=== PATIENT | female | born 1985 | race Caucasian/White ===

== ENCOUNTER 2017-05-16 21:33 | Emergency (ER) | payer MEDICAID ==
[2017-05-16 22:12] VITALS: BP 148/96
[2017-05-16] MEDS ORDERED: Ondansetron 4 MG/2 ML SDV IVPUSH ONE (23:02)
[2017-05-16] MEDS ORDERED: HYDROmorphone 1 MG/ML Syringe IVPUSH ONE (23:03)
--- NOTE | 2017-05-16 23:12 | EDM.PDOC ---
<Elena Frey - Last Filed: 05/16/17 23:23> ED HPI GENERAL MEDICAL PROBLEM - General Chief Complaint: Abdominal Pain Stated Complaint: HERNIA Time Seen by Provider: 05/16/17 22:40 Source of Information: Reports: Patient History Limitations: Reports: No Limitations - History of Present Illness INITIAL COMMENTS - FREE TEXT/NARRATIVE: Keisha presents today with worsening of abdominal pain and states abdominal hernia has become larger and more painful (sharp) with radiation of pain to flank areas. Patient reports she is visiting from [place], being evaluated at [facility] and is scheduled for hernia repair on 05/29/2017. She reports she was told hernia was fatty tissue only, not intestinal. Onset Date: 05/15/17 Duration: Day(s): Location: Reports: Abdomen Improves with: Reports: Rest Worsens with: Reports: Movement Associated Symptoms: Reports: Fever/Chills, Nausea/Vomiting. 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 ) abdomen Pain Score (Numeric/FACES): 8 - Related Data Allergies Allergy/AdvReac Type Severity Reaction Status Date / Time amoxicillin Allergy Anaphylactic Verified 05/16/17 22:16 Shock atomoxetine HCl Allergy Anxiety Verified 05/16/17 22:16 [From Strattera] cephalexin monohydrate Allergy Dizziness Verified 05/16/17 22:16 [From Keflex] ketorolac tromethamine Allergy Rash Verified 05/16/17 22:16 [From Toradol] latex Allergy Rash Verified 05/16/17 22:16 Latex, Natural Rubber Allergy Rash Verified 05/16/17 22:16 promethazine HCl Allergy Anaphylactic Verified 05/16/17 22:16 [From Phenergan] Shock quetiapine fumarate Allergy Irritabilit Verified 05/16/17 22:16 [From Seroquel] y risperidone [From Risperdal] Allergy Anaphylactic Verified 05/16/17 22:16 Shock tramadol HCl [From Ultram] Allergy Hives Verified 05/16/17 22:16 trazodone Allergy Dizziness Verified 05/16/17 22:16 varenicline tartrate Allergy Anxiety Verified 05/16/17 22:16 [From Chantix] zolpidem tartrate Allergy Anxiety Verified 05/16/17 22:16 [From Edsonien] Home Meds: Home Meds Albuterol Sulfate [Albuterol Sulfate] 3 ml PO TID 03/01/16 [History] Albuterol [Ventolin HFA] 2 puff PO QID PRN 03/01/16 [History] Ibuprofen 600 mg PO TID PRN 03/01/16 [History] Ipratropium [place] [Ipratropium [place]] 2.5 ml PO Q6HR PRN 03/01/16 [History] Lisdexamfetamine [Vyvanse] 30 mg PO DAILY 03/01/16 [History] Prazosin HCl [Prazosin] 3 mg PO BEDTIME 03/01/16 [History] Prazosin HCl [Prazosin] 2 mg PO DAILY 05/16/17 [History] Past Medical History HEENT History: Reports: Impaired Vision, Otitis Media Other HEENT History: Bilateral tympanic membrane rupture. tonsillectomy Cardiovascular History: Reports: Other (See Below) Other Cardiovascular History: Heat palpatations Respiratory History: Reports: Asthma, Bronchitis, Recurrent, Pneumonia, Recurrent, Sleep Apnea, SOB Gastrointestinal History: Reports: Gastritis, GERD Genitourinary History: Reports: Renal Calculus, UTI, Recurrent UROGYNAECOLOGIST History: Reports: Other OB/BYN History: Hysterectomy with right oophrectomy Musculoskeletal History: Reports: Fibromyalgia, RA Other Musculoskeletal History: fibromyalgia. rheumatoid arthritis Neurological History: Reports: Migraines Psychiatric History: Reports: ADHD, Anxiety, Depression, PTSD, Other (See Below) Other Psychiatric History: Schizo effective disorder Endocrine/Metabolic History: Reports: Hyperthyroidism Hematologic History: Reports: None Immunologic History: Reports: None Oncologic (Cancer) History: Reports: Cervix Dermatologic History: Reports: Eczema - Infectious Disease History Infectious Disease History: Reports: Chicken Pox - Past Surgical History HEENT Surgical History: Reports: Myringotomy w Tube(s), Oral Surgery, Tonsillectomy Cardiovascular Surgical History: Reports: None Respiratory Surgical History: Reports: None GI Surgical History: Reports: Appendectomy, Cholecystectomy Female Surgical History: Reports: Hysterectomy Endocrine Surgical History: Reports: None Neurological Surgical History: Reports: None Musculoskeletal Surgical History: Reports: Other (See Below) Other Musculoskeletal Surgeries/Procedures:: Left ankle ORIF with hardware Social & Family History - Family History Cardiac: Reports: Heart Murmur Respiratory: Reports: COPD Psychiatric: Reports: Depression, Schizophrenia - Tobacco Use Smoking Status *Q: Current Every Day Smoker Years of Tobacco use: 21 Packs/Tins Daily: 0.5 - Caffeine Use Caffeine Use: Reports: Coffee, Tea - Recreational Drug Use Recreational Drug Use: No ED ROS GENERAL - Review of Systems Review Of Systems: See Below Constitutional: Reports: Fever. Denies: Chills, Malaise, Diaphoresis HEENT: Reports: No Symptoms Respiratory: Denies: Shortness of Breath, Wheezing, Cough, Sputum Cardiovascular: Reports: Edema. Denies: Chest Pain, Dyspnea on Exertion, Palpitations, PND, Syncope Endocrine: Reports: No Symptoms GI/Abdominal: Reports: Abdominal Pain, Distension, Nausea, Other (Complains of abdominal hernia becoming larger. She reports she helped her her father set the table by going down and up stairs carrying dishes and now has worsening of pain. Last BM today, soft, formed without difficulty. ). Denies: Black Stool, Bloody Stool, Constipation, Diarrhea, Vomiting : Reports: Flank Pain. Denies: Discharge, Dysuria, Frequency, Urgency, Urinary Retention Musculoskeletal: Reports: No Symptoms Skin: Denies: Pruritis, Rash, Erythema, Wound, Lesions Neurological: Reports: No Symptoms Psychiatric: Reports: No Symptoms Hematologic/Lymphatic: Reports: No Symptoms Immunologic: Reports: No Symptoms ED EXAM, GI/ABD - Physical Exam Exam: See Below Text/Narrative:: Patient is 32 year old female with acute on chronic abdominal pain at site of known hernia and scheduled repair on 05/29/17. Exam Limited By: No Limitations General Appearance: Alert, WD/WN, Moderate Distress Eyes: Bilateral: Normal Appearance Ears: Normal External Exam, Normal Canal, Hearing Grossly Normal, Normal TMs Nose: Normal Inspection, Normal Mucosa, No Blood Throat/Mouth: Normal Inspection, Normal Lips, Normal Teeth, Normal Gums, Normal Oropharynx, Normal Voice, No Airway Compromise Head: Atraumatic, Normocephalic Neck: Normal Inspection, Supple, Non-Tender, Full Range of Motion. No: Lymphadenopathy (R), Lymphadenopathy (L) Respiratory/Chest: No Respiratory Distress, Lungs Clear, Normal Breath Sounds, No Accessory Muscle Use, Chest Non-Tender Cardiovascular: Normal Peripheral Pulses, Regular Rate, Rhythm, No Gallop, No Murmur, No Rub, Other (trace to 1+ edema bilateral feet/ankles. ) GI/Abdominal: Normal Bowel Sounds, Soft, Tenderness, Distention, Hernia, Other ( distortion/distention to mid-abdomen/ventral area with standing size of softball. No pulsations noted. ). No: McBurney's Sign, Denton's Sign Back Exam: Full Range of Motion, CVA Tenderness (R), CVA Tenderness (L) Extremities: Normal Inspection, Normal Range of Motion, Non-Tender, Normal Capillary Refill, Other (trace/1+ edema bilateral ankles/feet. ) Neurological: Alert, Oriented, CN II-XII Intact, Normal Cognition, Normal Gait, No Motor/Sensory Deficits Psychiatric: Normal Affect, Normal Mood Skin Exam: Warm, Dry, Intact, Normal Color, No Rash Lymphatic: No Adenopathy Course - Vital Signs Last Recorded V/S: Last Vital Signs Temp 35.7 C 05/16/17 22:11 Pulse 90 05/16/17 22:11 Resp 18 05/16/17 22:11 BP 148/96 H 05/16/17 22:11 Pulse Ox 94 L 05/16/17 22:11 - Orders/Labs/Meds Orders: Active Orders 24 hr Category Date Time Status Abdomen Pelvis w Cont [CT] Stat Exams 05/16/17 23:03 Taken Iopamidol [Isovue-300 (61%)] Med 05/16/17 23:30 Active 150 ml IV . DIRECTED Sodium Chloride 0.9% [Normal Saline] 1,000 ml Med 05/16/17 23:15 Active IV ASDIRECTED Sodium Chloride 0.9% [Normal Saline] 80 ml Med 05/16/17 23:30 Active IV ASDIRECTED Sodium Chloride 0.9% [Saline Flush] Med 05/16/17 23:02 Active 10 ml FLUSH ASDIRECTED PRN Saline Lock Insert [OM.PC] Routine Oth 05/16/17 23:02 Ordered Medication Orders Sodium Chloride (Normal Saline) 1,000 mls @ 250 mls/hr IV ASDIRECTED APOLINAR Last Admin: 05/17/17 00:22 Dose: 250 mls/hr Sodium Chloride (Normal Saline) 80 mls @ 3 mls/sec IV ASDIRECTED APOLINAR Last Admin: 05/17/17 00:01 Dose: 3.5 mls/sec Iopamidol (Isovue-300 (61%)) 150 ml IV . DIRECTED APOLINAR Last Admin: 05/17/17 00:01 Dose: 150 ml Sodium Chloride (Saline Flush) 10 ml FLUSH ASDIRECTED PRN PRN Reason: Keep Vein Open Last Admin: 05/17/17 00:42 Dose: 10 ml Admin: 05/17/17 00:00 Dose: 10 ml Admin: 05/16/17 23:40 Dose: 10 ml Labs: Laboratory Tests 05/16/17 05/16/17 05/16/17 Range/Units 23:01 23:01 23:01 WBC 10.7 (4.5-11.0) K/uL RBC 5.27 (3.30-5.50) M/uL Hgb 13.7 (12.0-15.0) g/dL Hct 40.8 (36.0-48.0) % MCV 77 L (80-98) fL MCH 26 L (27-31) pg MCHC 34 (32-36) % Plt Count 196 (150-400) K/uL Neut % (Auto) 68 H (36-66) % Lymph % (Auto) 22 L (24-44) % [place] % (Auto) 8 H (2-6) % Eos % (Auto) 2 (2-4) % Baso % (Auto) 0 (0-1) % Sodium 139 L (140-148) mmol/L Potassium 4.0 (3.6-5.2) mmol/L Chloride 103 (100-108) mmol/L Carbon Dioxide 26 (21-32) mmol/L Anion Gap 14.0 (5.0-14.0) mmol/L BUN 11 (7-18) mg/dL Creatinine 0.7 (0.6-1.0) mg/dL Est Cr Clr Drug Dosing 97.79 mL/min Estimated GFR (MDRD) > 60 (>60) Glucose 112 H (74-106) mg/dL Calcium 8.9 (8.5-10.1) mg/dL Total Bilirubin 0.3 (0.2-1.0) mg/dL AST 11 L (15-37) U/L ALT 25 (12-78) U/L Alkaline Phosphatase 72 (46-116) U/L Total Protein 7.1 (6.4-8.2) g/dL Albumin 3.4 (3.4-5.0) g/dL Globulin 3.7 H (2.3-3.5) g/dL Albumin/Globulin Ratio 0.9 L (1.2-2.2) Urine Color Yellow Urine Appearance Clear Urine pH 5.0 (4.5-8.0) Ur Specific [place] 1.020 (1.008-1.030) Urine Protein Negative (NEGATIVE) mg/dL Urine Glucose (UA) Normal (NEGATIVE) mg/dL Urine Ketones Negative (NEGATIVE) mg/dL Urine Occult Blood Negative (NEGATIVE) Urine Nitrite Negative (NEGATIVE) Urine Bilirubin Negative (NEGATIVE) Urine Urobilinogen 1 (NORMAL) mg/dL Ur Leukocyte Esterase Negative (NEGATIVE) Urine RBC 0-5 (0-5) Urine WBC 0-5 (0-5) Ur Epithelial Cells Few Amorphous Sediment Not seen Urine Bacteria Moderate Urine Mucus Not seen Meds: Medications Generic Name Dose Route Start Last Admin Trade Name Freq PRN Reason Stop Dose Admin Sodium Chloride 1,000 mls @ 250 mls/hr 05/16/17 23:15 05/17/17 00:22 Normal Saline IV 250 mls/hr ASDIRECTED APOLINAR Administration Sodium Chloride 80 mls @ 3 mls/sec 05/16/17 23:30 05/17/17 00:01 Normal Saline IV 3.5 mls/sec ASDIRECTED APOLINAR Administration Iopamidol 150 ml 05/16/17 23:30 05/17/17 00:01 Isovue-300 (61%) IV 150 ml . DIRECTED APOLINAR Administration Sodium Chloride 10 ml 05/16/17 23:02 05/17/17 00:42 Saline Flush FLUSH 10 ml ASDIRECTED PRN Administration Keep Vein Open Discontinued Medications Generic Name Dose Route Start Last Admin Trade Name Freq PRN Reason Stop Dose Admin Hydromorphone HCl 1 mg 05/16/17 23:03 05/16/17 23:36 Dilaudid IVPUSH 05/16/17 23:04 1 mg ONETIME ONE Administration Hydromorphone HCl 0.5 mg 05/17/17 00:27 05/17/17 00:42 Dilaudid IVPUSH 05/17/17 00:28 0.5 mg ONETIME ONE Administration Ondansetron HCl 4 mg 05/16/17 23:02 05/16/17 23:36 Zofran IVPUSH 06/30/17 23:03 4 mg ONETIME ONE Administration - Re-Assessments/Exams Free Text/Narrative Re-Assessment/Exam: 05/16/17 23:[address] Lanier on patient assessment and status. She assumes care. Departure - Departure Disposition: Home, Self-Care 01 Clinical Impression: Ventral hernia - Discharge Information Referrals: PCP,None [Primary Care Provider] - Forms: ED Department Discharge Care Plan Goals: pt has a ventral hernia with fat in the hernia with inflamation, --percocet 5/ 325 q6h prn for pain. If pt is still quite uncomfortable tomorrow she needs to go to [place] where she wants to have her surgery to be evaluated as to whether they may want to do her surgery earlier/ At that time the 2 cat scans can be compared. Rtc in the nite if her pain should get alot worse. Use prunes and stool softner to prevent constipation <Nancy Lanier - Last Filed: 05/17/17 01:08> Course - Re-Assessments/Exams Free Text/Narrative Re-Assessment/Exam: 05/17/17 00:54 cat scan showed fat caught up in the hernia with some induration. She plans to have surgery in [place] with Dr Anthony. on the 29 of May. because of the increased pain and the fact that the fat looks inflamed I feel she should be accessed by the surgeon in [place] tomorrow. a copy of her lab work and a copy of the cat scan will be put on disc to go with the pt. 05/17/17 00:58 Departure - Departure Time of Disposition: 01:03 Condition: Fair
[2017-05-16] MEDS ORDERED: Sodium Chloride 0.9% 1,000 ML IV SCH (23:15)
[2017-05-16] MEDS ORDERED: Iopamidol 612 MG/ML 150 ML Bottle IV SCH (23:30)
[2017-05-16] MEDS ORDERED: Sodium Chloride 0.9% 80 ML IV SCH (23:30)
[2017-05-16] MEDS: Sodium Chloride 0.9% 10 ML Syringe FLUSH PRN (23:40)
[2017-05-17] MEDS ORDERED: HYDROmorphone 0.5 MG/0.5 ML Syringe IVPUSH ONE (00:27)
[2017-05-17] MEDS: Sodium Chloride 0.9% 10 ML Syringe FLUSH PRN ×2 (00:42)
[2017-05-17] MEDS ORDERED: Acetaminophen/oxyCODONE 325-5 MG Tab PO ONE (01:11)
== END 2017-05-17 01:35 | disposition home or self-care (01) ==
LOC: JP.ED 21:33
DX: K43.9 Ventral hernia without obstruction or gangrene (principal); J45.909 Unspecified asthma, uncomplicated; K21.9 Gastro-esophageal reflux disease without esophagitis; F41.9 Anxiety disorder, unspecified; F32.9 Major depressive disorder, single episode, unspecified; F25.9 Schizoaffective disorder, unspecified; F17.210 Nicotine dependence, cigarettes, uncomplicated; Z88.1 Allergy status to other antibiotic agents; Z88.5 Allergy status to narcotic agent; Z88.8 Allergy status to other drugs, medicaments and biological substances; Z91.040 Latex allergy status; Z79.899 Other long term (current) drug therapy; Z87.440 Personal history of urinary (tract) infections; Z87.442 Personal history of urinary calculi; Z90.710 Acquired absence of both cervix and uterus; Z90.721 Acquired absence of ovaries, unilateral; Z85.41 Personal history of malignant neoplasm of cervix uteri; Z96.22 Myringotomy tube(s) status; Z90.49 Acquired absence of other specified parts of digestive tract; Z98.890 Other specified postprocedural states
CPT/HCPCS: 36415; 74177; 80053; 81001; 85025; 96361; 96374; 96375; 96376; 99284; A9270; J1170; J2405; J7030; J7040; J7050

== ENCOUNTER 2019-01-01 12:57 | Observation (INO) | payer MEDICAID ==
[2019-01-01] MEDS ORDERED: HYDROmorphone 0.5 MG/0.5 ML Syringe IVPUSH ONE (13:44)
[2019-01-01] MEDS ORDERED: Ondansetron 4 MG/2 ML SDV IVPUSH ONE ×2 (13:44→14:01)
[2019-01-01] MEDS ORDERED: Sodium Chloride 0.9% 1,000 ML IV SCH ×2 (13:45→16:15)
--- NOTE | 2019-01-01 13:48 | EDM.PDOC ---
ED HPI GENERAL MEDICAL PROBLEM - General Chief Complaint: Abdominal Pain Stated Complaint: stomach and back pain Time Seen by Provider: 01/01/19 13:46 Source of Information: Reports: Patient, Other ( records from the clinic. ) - History of Present Illness Duration: Hour(s): Location: Reports: Abdomen, Other ( Pt is having upper abdomanal pain in mid upper abdoman. ) Associated Symptoms: Reports: Loss of Appetite, Nausea/Vomiting Abdominal Pain Score (Numeric/FACES): 9 - Related Data Allergies Allergy/AdvReac Type Severity Reaction Status Date / Time amoxicillin Allergy Anaphylactic Verified 01/01/19 13:43 Shock ketorolac tromethamine Allergy Rash Verified 01/01/19 13:43 [From Toradol] latex Allergy Rash Verified 01/01/19 13:43 Latex, Natural Rubber Allergy Rash Verified 01/01/19 13:43 promethazine HCl Allergy Anaphylactic Verified 01/01/19 13:43 [From Phenergan] Shock risperidone [From Risperdal] Allergy Anaphylactic Verified 01/01/19 13:43 Shock tramadol HCl [From Ultram] Allergy Hives Verified 01/01/19 13:43 trazodone Allergy Dizziness Verified 01/01/19 13:43 atomoxetine HCl AdvReac Anxiety Verified 01/01/19 13:43 [From Strattera] cephalexin monohydrate AdvReac Dizziness Verified 01/01/19 13:43 [From Keflex] quetiapine fumarate AdvReac Irritabilit Verified 01/01/19 13:43 [From Seroquel] y zolpidem tartrate AdvReac Anxiety Verified 01/01/19 13:43 [From Ambien] Home Meds: Home Meds Albuterol Sulfate 3 ml PO TID 03/01/16 [History] Albuterol [Ventolin HFA] 2 puff PO QID PRN 03/01/16 [History] Ipratropium [place] 2.5 ml PO Q6HR PRN 03/01/16 [History] Lisdexamfetamine [Vyvanse] 60 mg PO DAILY 03/01/16 [History] Prazosin HCl [Prazosin] 2 mg PO DAILY 05/16/17 [History] Cetirizine HCl [Zyrtec] 10 mg PO DAILY 09/19/18 [History] Cholecalciferol (Vitamin D3) [Vitamin D3] 2,000 units PO DAILY 09/19/18 [History ] DULoxetine [Cymbalta] 120 mg PO DAILY 09/19/18 [History] Ferrous Sulfate [Feosol] 325 mg PO DAILY 09/19/18 [History] Fluticasone Propionate [Flovent HFA 110 MCG] 1 puff INH BID 09/19/18 [History] Melatonin/Pyridoxine HCl (B6) [Melatonin 3 mg Tablet] 9 mg PO BEDTIME 09/19/18 [ History] Methimazole [Tapazole] 10 mg PO DAILY 09/19/18 [History] Metoprolol Tartrate [Lopressor] 25 mg PO BID 09/19/18 [History] Omeprazole 40 mg PO DAILY 09/19/18 [History] Ondansetron [Zofran ODT] 4 mg PO Q8H PRN 09/19/18 [History] Polyethylene Glycol 3350 [MiraLAX] 17 gm PO DAILY PRN 09/19/18 [History] Prazosin [Minpress] 10 mg PO BEDTIME 09/19/18 [History] Vit #76/Iron,Carb/Fa [Prenatabs Rx] 1 tab PO DAILY 09/19/18 [History] Sennosides [Senna] 8.6 mg PO DAILY 09/19/18 [History] Sodium Chloride [Saline Nasal Mist] 2 sprays TOM QID 09/19/18 [History] Varenicline [Chantix] 1 mg PO BID 09/19/18 [History] clonazePAM [Clonazepam] 0.5 tab PO BID PRN 09/19/18 [History] lamoTRIgine [Lamictal] 1.5 tab PO DAILY 09/19/18 [History] metroNIDAZOLE [metroNIDAZOLE 0.75% Gel] 1 applic TOP BID 09/19/18 [History] rOPINIRole [Requip] 1 mg PO DAILY 09/19/18 [History] tiZANidine HCl [Tizanidine HCl] 4 mg PO Q6H PRN 09/19/18 [History] Past Medical History HEENT History: Reports: Impaired Vision, Otitis Media Other HEENT History: Bilateral tympanic membrane rupture. tonsillectomy. 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 rheumatoid arthritis Neurological History: Reports: Migraines Psychiatric History: Reports: ADHD, Anxiety, Depression, PTSD, Other (See Below) Other Psychiatric History: Schizo effective disorder Endocrine/Metabolic History: Reports: Hyperthyroidism Hematologic History: Reports: None Immunologic History: Reports: None Oncologic (Cancer) History: Reports: Cervix Dermatologic History: Reports: Eczema - Infectious Disease History Infectious Disease History: Reports: Chicken Pox - Past Surgical History HEENT Surgical History: Reports: Myringotomy w Tube(s), Oral Surgery, Tonsillectomy Cardiovascular Surgical History: Reports: None Respiratory Surgical History: Reports: None GI Surgical History: Reports: Appendectomy, Cholecystectomy, Hernia Repair/Other Female Surgical History: Reports: Hysterectomy Endocrine Surgical History: Reports: None Neurological Surgical History: Reports: None Musculoskeletal Surgical History: Reports: Other (See Below) Other Musculoskeletal Surgeries/Procedures:: Left ankle ORIF with hardware Social & Family History - Family History Cardiac: Reports: Heart Murmur Respiratory: Reports: COPD Psychiatric: Reports: Depression, Schizophrenia - Tobacco Use Smoking Status *Q: Former Smoker Used Tobacco, but Quit: Yes Month/Year Tobacco Last Used: 06/2018 - Caffeine Use Caffeine Use: Reports: Coffee - Recreational Drug Use Recreational Drug Use: No ED ROS GENERAL - Review of Systems Review Of Systems: See Below Constitutional: Reports: Weakness, Decreased Appetite HEENT: Reports: No Symptoms Respiratory: Reports: No Symptoms Cardiovascular: Reports: No Symptoms Endocrine: Reports: No Symptoms GI/Abdominal: Reports: Abdominal Pain, Other (pt has upper abdomanal pain radiaring to her back. ) : Reports: No Symptoms Musculoskeletal: Reports: No Symptoms Skin: Reports: No Symptoms ED EXAM, GI/ABD - Physical Exam Exam: See Below Text/Narrative:: pt arrived with mid abdomanal pain. She is nauseated but has not been vomiting. She did not have a bm today. Exam Limited By: No Limitations General Appearance: Alert, Anxious, Mild Distress Eyes: Bilateral: Normal Appearance, EOMI Ears: Normal TMs Nose: Normal Inspection Throat/Mouth: Normal Inspection Head: Atraumatic Neck: Normal Inspection Respiratory/Chest: No Respiratory Distress Cardiovascular: Regular Rate, Rhythm GI/Abdominal Exam: Other ( tender above the umbilius, slightly guarded. ) (Female) Exam: Deferred Rectal (Female) Exam: Deferred Back Exam: Normal Inspection Extremities: Normal Inspection Neurological: Alert, Oriented Psychiatric: Anxious Course - Vital Signs Last Recorded V/S: Last Vital Signs Temp 36.3 C 01/01/19 14:45 Pulse 80 01/01/19 14:45 Resp 13 01/01/19 14:45 BP 137/74 01/01/19 14:45 Pulse Ox 95 01/01/19 14:45 - Orders/Labs/Meds Orders: Active Orders 24 hr Category Date Time Status Iopamidol [Isovue-300 (61%)] Med 01/01/19 15:00 Ordered 150 ml IV . DIRECTED Sodium Chloride 0.9% [Normal Saline] 1,000 ml Med 01/01/19 13:45 Active IV ASDIRECTED Sodium Chloride 0.9% [Normal Saline] 1,000 ml Med 01/01/19 16:15 Ordered IV ASDIRECTED Medication Orders Sodium Chloride (Normal Saline) 1,000 mls @ 999 mls/hr IV ASDIRECTED APOLINAR Last Admin: 01/01/19 14:34 Dose: 999 mls/hr Sodium Chloride (Normal Saline) 1,000 mls @ 999 mls/hr IV ASDIRECTED APOLINAR Iopamidol (Isovue-300 (61%)) 150 ml IV . DIRECTED APOLINAR Last Admin: 01/01/19 15:06 Dose: 150 ml Labs: Laboratory Tests 01/01/19 01/01/19 01/01/19 Range/Units 13:42 13:42 15:07 WBC 11.3 H (4.5-11.0) K/uL RBC 4.94 (3.30-5.50) M/uL Hgb 12.6 (12.0-15.0) g/dL Hct 40.6 (36.0-48.0) % MCV 82 (80-98) fL MCH 26 L (27-31) pg MCHC 31 L (32-36) % Plt Count 233 (150-400) K/uL Neut % (Auto) 71 H (36-66) % Lymph % (Auto) 21 L (24-44) % [place] % (Auto) 6 (2-6) % Eos % (Auto) 2 (2-4) % Baso % (Auto) 0 (0-1) % C-Reactive Protein 4.47 H (0.0-0.3) mg/dL Amylase 27 (25-115) U/L Urine Color Yellow Urine Appearance Clear Urine pH 5.0 (4.5-8.0) Ur Specific [place] 1.020 (1.008-1.030) Urine Protein Negative (NEGATIVE) mg/dL Urine Glucose (UA) Normal (NEGATIVE) mg/dL Urine Ketones Negative (NEGATIVE) mg/dL Urine Occult Blood Negative (NEGATIVE) Urine Nitrite Negative (NEGATIVE) Urine Bilirubin Negative (NEGATIVE) Urine Urobilinogen Normal (NORMAL) mg/dL Ur Leukocyte Esterase Negative (NEGATIVE) Urine RBC Not seen (0-5) Urine WBC 0-5 (0-5) Ur Epithelial Cells Many Amorphous Sediment Not seen Urine Bacteria Not seen Urine Mucus Moderate Meds: Medications Generic Name Dose Route Start Last Admin Trade Name Freq PRN Reason Stop Dose Admin Sodium Chloride 1,000 mls @ 999 mls/hr 01/01/19 13:45 01/01/19 14:34 Normal Saline IV 999 mls/hr ASDIRECTED APOLINAR Administration Sodium Chloride 1,000 mls @ 999 mls/hr 01/01/19 16:15 Normal Saline IV ASDIRECTED APOLINAR Iopamidol 150 ml 01/01/19 15:00 01/01/19 15:06 Isovue-300 (61%) IV 150 ml . DIRECTED APOLINAR Administration Discontinued Medications Generic Name Dose Route Start Last Admin Trade Name Freq PRN Reason Stop Dose Admin Hydromorphone HCl 0.5 mg 01/01/19 13:44 01/01/19 14:31 Dilaudid IVPUSH 01/01/19 13:45 0.5 mg ONETIME ONE Administration Hydromorphone HCl 1 mg 01/01/19 15:17 01/01/19 15:22 Dilaudid IVPUSH 01/01/19 15:18 1 mg ONETIME ONE Administration Hydromorphone HCl 1 mg 01/01/19 16:09 Dilaudid IVPUSH 01/01/19 16:10 ONETIME ONE Prochlorperazine Edisylate 10 52 mls @ 150 mls/hr 01/01/19 14:00 01/01/19 15: 10 mg/ Sodium Chloride IV 01/01/19 14:20 Not Given ONETIME ONE Sodium Chloride 80 mls @ 3 mls/sec 01/01/19 14:59 01/01/19 15:05 Normal Saline IV 01/01/19 15:00 3 mls/sec ONETIME ONE Administration Lorazepam 0.5 mg 01/01/19 14:02 01/01/19 14:28 Ativan IVPUSH 01/01/19 14:03 0.5 mg ONETIME ONE Administration Lorazepam 0.5 mg 01/01/19 16:09 Ativan IVPUSH 01/01/19 16:10 ONETIME ONE Ondansetron HCl 4 mg 01/01/19 13:44 01/01/19 14:25 Zofran IVPUSH 01/01/19 13:45 4 mg ONETIME ONE Administration Ondansetron HCl 4 mg 01/01/19 14:01 Zofran IVPUSH 01/01/19 14:02 ONETIME ONE Sodium Chloride 10 ml 01/01/19 14:59 Normal Saline FLUSH 01/01/19 15:00 ONETIME ONE Departure - Departure Time of Disposition: 16:15 Disposition: Admitted As Inpatient 64 Condition: Fair Clinical Impression: Abdominal pain - Discharge Information Referrals: PCP,None [Primary Care Provider] - Forms: ED Department Discharge Care Plan Goals: admit to Dr Damian - My Orders Last 24 Hours: My Active Orders 01/01/19 13:45 Sodium Chloride 0.9% [Normal Saline] 1,000 ml IV ASDIRECTED 01/01/19 15:00 Iopamidol [Isovue-300 (61%)] 150 ml IV . DIRECTED 01/01/19 16:15 Sodium Chloride 0.9% [Normal Saline] 1,000 ml IV ASDIRECTED - Assessment/Plan Last 24 Hours: My Active Orders 01/01/19 13:45 Sodium Chloride 0.9% [Normal Saline] 1,000 ml IV ASDIRECTED 01/01/19 15:00 Iopamidol [Isovue-300 (61%)] 150 ml IV . DIRECTED 01/01/19 16:15 Sodium Chloride 0.9% [Normal Saline] 1,000 ml IV ASDIRECTED
[2019-01-01] MEDS ORDERED: Prochlorperazine 10 MG in Sodium Chloride 0.9% 50 ML IV ONE (14:00)
[2019-01-01] MEDS ORDERED: LORazepam 2 MG/ML SDV IVPUSH ONE ×2 (14:02→16:09)
[2019-01-01] MEDS ORDERED: Sodium Chloride 0.9% 80 ML IV ONE (14:59)
[2019-01-01] MEDS ORDERED: Sodium Chloride 0.9% 10 ML SDV FLUSH ONE (14:59)
[2019-01-01] MEDS ORDERED: Iopamidol 612 MG/ML 150 ML Bottle IV SCH (15:00)
[2019-01-01] MEDS ORDERED: HYDROmorphone 1 MG/ML Syringe IVPUSH ONE ×2 (15:17→16:09)
--- NOTE | 2019-01-01 15:54 | CRLCT ---
INDICATION: Mid abdominal pain. Patient gives history of pancreatitis on previous CT from approximately a week ago at another facility. The study is not available at this time. COMPARISON: 05/17/2017 TECHNIQUE: CT examination of the abdomen and pelvis was performed with the uneventful intravenous administration of 150 cc of Isovue-300 while 3 mm thick axial sections were obtained from the lung bases through the pubic symphysis. Oral contrast was not administered. Please note that all CT scans at this facility use dose modulation, iterative reconstruction, and/or weight-based dosing when appropriate to reduce radiation dose to as low as reasonably achievable. FINDINGS: In the abdomen, the liver remains low in density, representing fatty infiltration. There is no sign of mass. The spleen and right adrenal are normal in appearance. There is no change in a small low-density nodule in the posterior limb of the left adrenal gland measuring 9 millimeters in diameter consistent with an adrenal adenoma. The pancreas remains normal in appearance, with no sign of a pancreatitis, either acute or chronic. The kidneys are normal in appearance. Clips are again seen in the gall bladder fossa from cholecystectomy. The abdominal aorta is normal in caliber with no sign of dilatation. There is no sign of retroperitoneal mass or adenopathy. The stomach, loops of small bowel, and colon in the abdomen are normal in appearance. The previously seen tiny right paramedian supraumbilical hernia is no longer present. There is mild soft tissue density in this region consistent with scarring from surgery. In the pelvis, the appendix is nonvisualized, but there is no sign of an inflammatory process in the area of the appendix. Again seen is a surgical clip in the area of the base of the appendix consistent with appendectomy. There is no change in minimal sigmoid diverticulosis without evidence of diverticulitis. The loops of small bowel and colon in the pelvis are otherwise normal in appearance. The uterus is absent and the adnexal regions are normal in appearance. The urinary bladder is normal in appearance. There is no sign of pelvic or inguinal mass or adenopathy. The lung bases are clear. There is no change in prominent L5-S1 disc degenerative disease with minimal posterior subluxation of L5 on S1. There is no change in moderate L4-5 disc degenerative disease. IMPRESSION: CT of the abdomen shows nothing to explain the patient`s abdominal pain. No findings to suggest acute pancreatitis. Normal appearance of the pancreas. Again seen are changes of cholecystectomy. CT of the pelvis shows resolution of the previously seen small fat containing right superior paraumbilical hernia with appropriate postoperative scarring. No change in minimal sigmoid diverticulosis. Again seen are changes of hysterectomy. Please note that all CT scans at this facility use dose modulation, iterative reconstruction, and/or weight-based dosing when appropriate to reduce radiation dose to as low as reasonably achievable. Dictated by Garland Lowry MD @ Jan 01 2019 3:44PM Signed by Dr. Garland Lowry @ Jan 01 2019 3:53PM
[2019-01-01] MEDS ORDERED: Pantoprazole 40 MG Vial IVPUSH ONE (16:16)
--- NOTE | 2019-01-01 16:55 | PCM.HP ---
H&P History of Present Illness - General Date of Service: 01/01/19 Admit Problem/Dx: Admission Diagnosis/Problem Admission Diagnosis/Problem Abdominal pain Source of Information: Patient, Family, Provider, RN Notes Reviewed History Limitations: Reports: No Limitations - History of Present Illness Initial Comments - Free Text/Narative: Ms. Puga is a 33-year-old woman who is admitted to observation status through the emergency department for further evaluation and management of right upper quadrant abdominal pain. She has a past history of pancreatitis and feels that her current pain is consistent with previous episodes of pancreatitis. Amylase level is within normal range and CT scan of the abdomen shows no evidence of inflammation in the pancreas, she is status post cholecystectomy. Pain is been present for the past 2 weeks and become significantly worse when she eats. She has not had significant temperature elevation, but does experience nausea and vomiting associated with the pain. CT scan was also unremarkable for any other potential cause of pain. Abdominal Pain Score (Numeric/FACES): 9 - Related Data Allergies/Adverse Reactions: Allergies Allergy/AdvReac Type Severity Reaction Status Date / Time amoxicillin Allergy Anaphylactic Verified 01/01/19 13:43 Shock ketorolac tromethamine Allergy Rash Verified 01/01/19 13:43 [From Toradol] latex Allergy Rash Verified 01/01/19 13:43 Latex, Natural Rubber Allergy Rash Verified 01/01/19 13:43 promethazine HCl Allergy Anaphylactic Verified 01/01/19 13:43 [From Phenergan] Shock risperidone [From Risperdal] Allergy Anaphylactic Verified 01/01/19 13:43 Shock tramadol HCl [From Ultram] Allergy Hives Verified 01/01/19 13:43 trazodone Allergy Dizziness Verified 01/01/19 13:43 atomoxetine HCl AdvReac Anxiety Verified 01/01/19 13:43 [From Strattera] cephalexin monohydrate AdvReac Dizziness Verified 01/01/19 13:43 [From Keflex] quetiapine fumarate AdvReac Irritabilit Verified 01/01/19 13:43 [From Seroquel] y zolpidem tartrate AdvReac Anxiety Verified 01/01/19 13:43 [From Ambien] Home Medications: Home Meds Albuterol Sulfate 3 ml PO TID 03/01/16 [History] Albuterol [Ventolin HFA] 2 puff PO QID PRN 03/01/16 [History] Ipratropium [place] 2.5 ml PO Q6HR PRN 03/01/16 [History] Lisdexamfetamine [Vyvanse] 60 mg PO DAILY 03/01/16 [History] Prazosin HCl [Prazosin] 2 mg PO DAILY 05/16/17 [History] Cetirizine HCl [Zyrtec] 10 mg PO DAILY 09/19/18 [History] Cholecalciferol (Vitamin D3) [Vitamin D3] 2,000 units PO DAILY 09/19/18 [History ] DULoxetine [Cymbalta] 120 mg PO DAILY 09/19/18 [History] Ferrous Sulfate [Feosol] 325 mg PO DAILY 09/19/18 [History] Fluticasone Propionate [Flovent HFA 110 MCG] 1 puff INH BID 09/19/18 [History] Melatonin/Pyridoxine HCl (B6) [Melatonin 3 mg Tablet] 9 mg PO BEDTIME 09/19/18 [ History] Methimazole [Tapazole] 10 mg PO DAILY 09/19/18 [History] Metoprolol Tartrate [Lopressor] 25 mg PO BID 09/19/18 [History] Omeprazole 40 mg PO DAILY 09/19/18 [History] Ondansetron [Zofran ODT] 4 mg PO Q8H PRN 09/19/18 [History] Polyethylene Glycol 3350 [MiraLAX] 17 gm PO DAILY PRN 09/19/18 [History] Prazosin [Minpress] 10 mg PO BEDTIME 09/19/18 [History] Vit #76/Iron,Carb/Fa [Prenatabs Rx] 1 tab PO DAILY 09/19/18 [History] Sennosides [Senna] 8.6 mg PO DAILY 09/19/18 [History] Sodium Chloride [Saline Nasal Mist] 2 sprays TOM QID 09/19/18 [History] Varenicline [Chantix] 1 mg PO BID 09/19/18 [History] clonazePAM [Clonazepam] 0.5 tab PO BID PRN 09/19/18 [History] lamoTRIgine [Lamictal] 1.5 tab PO DAILY 09/19/18 [History] metroNIDAZOLE [metroNIDAZOLE 0.75% Gel] 1 applic TOP BID 09/19/18 [History] rOPINIRole [Requip] 1 mg PO DAILY 09/19/18 [History] tiZANidine HCl [Tizanidine HCl] 4 mg PO Q6H PRN 09/19/18 [History] Past Medical History HEENT History: Reports: Impaired Vision, Otitis Media Other HEENT History: Bilateral tympanic membrane rupture. tonsillectomy. recent surgery septum 08/20 Cardiovascular History: Reports: Other (See Below) Other Cardiovascular History: Heat palpatations Respiratory History: Reports: Asthma, Bronchitis, Recurrent, Pneumonia, Recurrent, Sleep Apnea, SOB Gastrointestinal History: Reports: Gastritis, GERD Genitourinary History: Reports: Renal Calculus, UTI, Recurrent [employer] OFFICER History: Reports: Other OB/BYN History: Hysterectomy with right oophrectomy Musculoskeletal History: Reports: Fibromyalgia, RA Other Musculoskeletal History: fibromyalgia. rheumatoid arthritis Neurological History: Reports: Migraines Psychiatric History: Reports: ADHD, Anxiety, Depression, PTSD, Other (See Below) Other Psychiatric History: Schizo effective disorder Endocrine/Metabolic History: Reports: Hyperthyroidism Hematologic History: Reports: None Immunologic History: Reports: None Oncologic (Cancer) History: Reports: Cervix Dermatologic History: Reports: Eczema - Infectious Disease History Infectious Disease History: Reports: Chicken Pox - Past Surgical History HEENT Surgical History: Reports: Myringotomy w Tube(s), Oral Surgery, Tonsillectomy Cardiovascular Surgical History: Reports: None Respiratory Surgical History: Reports: None GI Surgical History: Reports: Appendectomy, Cholecystectomy, Hernia Repair/Other Female Surgical History: Reports: Hysterectomy Endocrine Surgical History: Reports: None Neurological Surgical History: Reports: None Musculoskeletal Surgical History: Reports: Other (See Below) Other Musculoskeletal Surgeries/Procedures:: Left ankle ORIF with hardware Social & Family History - Family History Cardiac: Reports: Heart Murmur Respiratory: Reports: COPD Psychiatric: Reports: Depression, Schizophrenia - Tobacco Use Smoking Status *Q: Former Smoker Used Tobacco, but Quit: Yes Month/Year Tobacco Last Used: 06/2018 - Caffeine Use Caffeine Use: Reports: Coffee - Recreational Drug Use Recreational Drug Use: No H&P Review of Systems - Review of Systems: Review Of Systems: See Below General: Reports: Decreased Appetite. Denies: Fever, Chills, Weakness HEENT: Reports: No Symptoms Pulmonary: Reports: No Symptoms Cardiovascular: Reports: No Symptoms Gastrointestinal: Reports: Abdominal Pain, Constipation, Nausea, Vomiting. Denies: Black Stool, Bloody Stool, Diarrhea, Distension Genitourinary: Reports: No Symptoms Musculoskeletal: Reports: No Symptoms Skin: Reports: No Symptoms Psychiatric: Reports: No Symptoms Neurological: Reports: No Symptoms Hematologic/Lymphatic: Reports: No Symptoms Immunologic: Reports: No Symptoms Exam - Exam Exam: See Below - Vital Signs Vital Signs: Last Vital Signs Temp 97.6 F 01/01/19 16:37 Pulse 86 01/01/19 16:37 Resp 14 01/01/19 16:37 BP 139/67 01/01/19 16:37 Pulse Ox 97 01/01/19 16:37 Weight: 412 lb 0.703 oz - Exam General: Alert, Oriented, Cooperative, Mild Distress HEENT: Conjunctiva Clear, Hearing Intact, Mucosa Moist & [place], Normal Nasal Septum, Posterior Pharynx Clear, Pupils Equal Neck: Supple, Trachea Midline, +2 Carotid Pulse wo Bruit Lungs: Clear to Auscultation, Normal Respiratory Effort Cardiovascular: Regular Rate, Regular Rhythm, Normal S1, Normal S2. No: Systolic Murmur, Diastolic Murmur GI/Abdominal Exam: Soft, No Organomegaly, Tender. No: Distended, Guarding, Rigid, Rebound Back Exam: Normal Inspection, Full Range of Motion Extremities: Non-Tender, No Pedal Edema Skin: Warm, Dry, Intact Neurological: Cranial Nerves Intact, Strength Equal Bilateral, Normal Speech, Normal Tone, Sensation Intact. No: Focal Deficit Neuro Extensive - Mental Status: Alert, Oriented x3, Normal Mood/Affect, Normal Cognition, Memory Intact - Patient Data Lab Results Last 24 hrs: Laboratory Results - last 24 hr 01/01/19 01/01/19 01/01/19 Range/Units 13:42 13:42 15:07 WBC 11.3 H (4.5-11.0) K/uL RBC 4.94 (3.30-5.50) M/uL Hgb 12.6 (12.0-15.0) g/dL Hct 40.6 (36.0-48.0) % MCV 82 (80-98) fL MCH 26 L (27-31) pg MCHC 31 L (32-36) % Plt Count 233 (150-400) K/uL Neut % (Auto) 71 H (36-66) % Lymph % (Auto) 21 L (24-44) % [place] % (Auto) 6 (2-6) % Eos % (Auto) 2 (2-4) % Baso % (Auto) 0 (0-1) % C-Reactive Protein 4.47 H (0.0-0.3) mg/dL Amylase 27 (25-115) U/L Urine Color Yellow Urine Appearance Clear Urine pH 5.0 (4.5-8.0) Ur Specific [place] 1.020 (1.008-1.030) Urine Protein Negative (NEGATIVE) mg/dL Urine Glucose (UA) Normal (NEGATIVE) mg/dL Urine Ketones Negative (NEGATIVE) mg/dL Urine Occult Blood Negative (NEGATIVE) Urine Nitrite Negative (NEGATIVE) Urine Bilirubin Negative (NEGATIVE) Urine Urobilinogen Normal (NORMAL) mg/dL Ur Leukocyte Esterase Negative (NEGATIVE) Urine RBC Not seen (0-5) Urine WBC 0-5 (0-5) Ur Epithelial Cells Many Amorphous Sediment Not seen Urine Bacteria Not seen Urine Mucus Moderate Result Diagrams: 01/01/19 13:42 *Q Meaningful Use (ADM) - VTE Risk Assess *Q Each Risk Factor Represents 1 Point: None Total Score 1 Point Risk Factors: 0 Each Risk Factor Represents 2 Points: None Total Score 2 Point Risk Factors: 0 Each Risk Factor Represents 3 Points: None Total Score 3 Point Risk Factors: 0 Each Risk Factor Represents 5 Points: None Total Score 5 Point Risk Factors: 0 Venous Thromboembolism Risk Factor Score *Q: 0 Problem List Initiated/Reviewed/Updated: Yes Orders Last 24hrs: Active Orders 24 hr Category Date Time Status Patient Status Manage Transfer [TRANSFER] Routine ADT 01/01/19 16:34 Active COMPREHENSIVE METABOLIC PN,CMP [CHEM] Stat Lab 01/01/19 16:47 Ordered LIPASE [CHEM] Stat Lab 01/01/19 16:47 Ordered Iopamidol [Isovue-300 (61%)] Med 01/01/19 15:00 Active 150 ml IV . DIRECTED Sodium Chloride 0.9% [Normal Saline] 1,000 ml Med 01/01/19 13:45 Active IV ASDIRECTED Sodium Chloride 0.9% [Normal Saline] 1,000 ml Med 01/01/19 16:15 Active IV ASDIRECTED Resuscitation Status Routine Resus Stat 01/01/19 16:39 Ordered Medication Orders Sodium Chloride (Normal Saline) 1,000 mls @ 999 mls/hr IV ASDIRECTED [facility] Last Admin: 01/01/19 14:34 Dose: 999 mls/hr Sodium Chloride (Normal Saline) 1,000 mls @ 999 mls/hr IV ASDIRECTED [facility] Last Admin: 01/01/19 16:17 Dose: 999 mls/hr Iopamidol (Isovue-300 (61%)) 150 ml IV . DIRECTED [facility] Last Admin: 01/01/19 15:06 Dose: 150 ml Assessment/Plan Comment:: ASSESSMENT AND PLAN RIGHT UPPER QUADRANT ABDOMINAL PAIN-current symptoms similar to previous episodes of pancreatitis, amylase level is normal and CT scan shows no evidence of pancreatic inflammation. Possible peptic ulcer disease, versus abdominal wall pain. -Clear liquid diet, nothing by mouth after midnight -IV fluids for hydration -Medication for pain and nausea -Protonix 40 mg IV twice daily -Consult Dr. Mccullough for EGD in a.m. MAINTENANCE ISSUES -DVT prophylaxis; not indicated -GI prophylaxis; Protonix as above -Nicole catheter; not indicated -Nutrition; clear liquid diet, nothing by mouth after midnight -Nicotine dependence; not required CODE STATUS-full code ADMISSION STATUS-this patient will be admitted to observation status, expect no more than a one night hospital stay for evaluation and management of problems as outlined above. DISPOSITION-anticipate discharge to home after the hospital stay. PRIMARY CARE PROVIDER-
[2019-01-01] MEDS ORDERED: Polyethylene Glycol 3350 Powder 17 GM Packet PO PRN (17:16)
[2019-01-01] MEDS ORDERED: Ipratropium 0.02% 0.5 MG/2.5 ML Neb Soln INH PRN (17:16)
[2019-01-01] MEDS ORDERED: Ondansetron 4 MG Tab.DIS PO PRN (17:16)
[2019-01-01] MEDS ORDERED: Albuterol 8 GM Inhaler INH PRN (17:16)
[2019-01-01] MEDS ORDERED: ClonazePAM 0.5 MG Tab PO PRN (17:16)
[2019-01-01] MEDS ORDERED: Acetaminophen 325 MG Tab PO PRN (17:16)
[2019-01-01] MEDS ORDERED: Albuterol 0.083% 2.5 MG/3 ML Neb Soln NEB PRN (17:16)
[2019-01-01] MEDS ORDERED: Sodium Chloride 0.9% 10 ML Syringe FLUSH PRN (17:16)
[2019-01-01] MEDS: HYDROmorphone 0.5 MG/0.5 ML Syringe IVPUSH PRN (17:46)
[2019-01-01] MEDS: Sodium Chloride 0.9% 1,000 ML IV SCH (18:03)
[2019-01-01] MEDS: Pantoprazole 40 MG Vial IV SCH (18:04)
[2019-01-01] MEDS: oxyCODONE 5 MG Tab PO PRN ×2 (18:08→21:31)
[2019-01-01] MEDS ORDERED: Sennosides 8.6 MG Tab PO PRN (19:40)
[2019-01-01] MEDS ORDERED: Prazosin 1 MG Cap PO SCH ×3 (21:00)
[2019-01-01] MEDS ORDERED: Melatonin 3 MG Tab PO SCH (21:00)
[2019-01-01] MEDS ORDERED: rOPINIRole 1 MG Tab PO SCH (21:00)
[2019-01-01] MEDS: Metoprolol Tartrate 25 MG Tab PO SCH (21:15)
[2019-01-01] MEDS: Mometasone Furoate HFA 100mcg/Puff 13 GM Inhaler INH SCH (21:32)
[2019-01-02] MEDS: Sodium Chloride 0.9% 1,000 ML IV SCH (00:58)
[2019-01-02] MEDS: Pantoprazole 40 MG Vial IV SCH (05:38)
[2019-01-02] MEDS: HYDROmorphone 0.5 MG/0.5 ML Syringe IVPUSH PRN (07:20)
[2019-01-02] MEDS: Mometasone Furoate HFA 100mcg/Puff 13 GM Inhaler INH SCH (08:00)
[2019-01-02] MEDS ORDERED: Midazolam 1 MG/ML 2 ML SDV ONE (08:02)
[2019-01-02] MEDS ORDERED: fentaNYL 100 MCG/2 ML SDV ONE (08:02)
[2019-01-02] MEDS ORDERED: Propofol 200 MG/20 ML SDV ONE (08:03)
[2019-01-02] MEDS ORDERED: lamoTRIgine 100 MG, lamoTRIgine 50 MG PO SCH ×2 (09:00)
[2019-01-02] MEDS ORDERED: Sennosides 8.6 MG Tab PO SCH (09:00)
[2019-01-02] MEDS ORDERED: Methimazole 5 MG Tab PO SCH (09:00)
[2019-01-02] MEDS ORDERED: rOPINIRole 0.5 MG Tab PO SCH (09:00)
[2019-01-02] MEDS ORDERED: lamoTRIgine 100 MG Tab PO SCH ×2 (09:00)
[2019-01-02] MEDS ORDERED: rOPINIRole 1 MG Tab PO SCH ×2 (09:00→21:00)
[2019-01-02] MEDS ORDERED: DULoxetine 30 MG Cap PO SCH (09:00)
[2019-01-02] MEDS ORDERED: Cetirizine 10 MG Tab PO SCH (09:00)
[2019-01-02] MEDS ORDERED: Prazosin 1 MG Cap PO SCH (09:00)
[2019-01-02] MEDS ORDERED: LISDEXAMFETAMINE 60 MG PO SCH (09:00)
[2019-01-02] MEDS: oxyCODONE 5 MG Tab PO PRN (09:20)
--- NOTE | 2019-01-02 10:40 | PCM.DCSUM1 ---
Discharge Summary - Hospital Course Brief History: Ms. Puga is a 33-year-old woman who was admitted through the emergency department to observation status for further evaluation and management of right upper quadrant abdominal pain. - Discharge Data Discharge Date: 01/02/19 Discharge Disposition: Home, Self-Care 01 Condition: Fair - Discharge Diagnosis/Problem(s) (1) Gastritis SNOMED Code(s): 8788689 ICD Code: K29.70 - GASTRITIS, UNSPECIFIED, WITHOUT BLEEDING Status: Acute Current Visit: Yes - Patient Summary/Data Consults: Consultations 01/01/19 17:16 Consult to Physician [CONS] Routine Consulting Provider: Rodolfo Mccullough Courtesy Call Completed to Consulting Physician: Yes Reason for Consult: RUQ abdominal pain, EGD in a.m. Hospital Course: Ms. Puga is a 33-year-old woman who was admitted to observation status through the emergency department for further evaluation and management of right upper quadrant abdominal pain. She has a past history of pancreatitis and feels that her current pain is consistent with previous episodes of pancreatitis. Amylase level is within normal range and CT scan of the abdomen shows no evidence of inflammation in the pancreas, she is status post cholecystectomy. Pain is been present for the past 2 weeks and become significantly worse when she eats. She has not had significant temperature elevation, but does experience nausea and vomiting associated with the pain. CT scan was also unremarkable for any other potential cause of pain. On admission she was given IV fluids for hydration as well as medication as needed for pain and nausea. IV Protonix was started he milligrams twice daily. On the morning after admission she was seen and evaluated by Dr. Mccullough, EGD was performed which did show evidence of gastritis. Was felt likely that the gastritis was the cause of her underlying pain. She was instructed on the importance of dietary modifications including low acid diet, avoiding acid containing foods and these foods were reviewed with her. She was also instructed to avoid use of nicotinic, alcohol, caffeine, coffee, and nonsteroidal medications. She will be discharged home on Protonix 40 mg twice daily for 2 weeks and then daily thereafter. Activity will be as tolerated and she will continue her diet with the previously noted instructions. Follow-up appointment will be scheduled with her primary care provider within one week. - Patient Instructions Diet: Usual Diet as Tolerated Diet, Other: Avoid high acidic foods, alcohol, caffeine, coffee, and nonsteroidal meds Activity: As Tolerated Other/Special Instructions: Please schedule follow-up appointment with primary care provider within one week. - Discharge Plan *PRESCRIPTION DRUG MONITORING PROGRAM REVIEWED*: Not Applicable *COPY OF PRESCRIPTION DRUG MONITORING REPORT IN PATIENT JAYDEN: Not Applicable Prescriptions/Med Rec: oxyCODONE 5 mg PO Q4H PRN #10 tablet PRN Reason: Pain (Moderate 4-6) Pantoprazole Sodium [Protonix] 40 mg PO BID #30 tablet. Home Medications: Home Meds Albuterol [Ventolin HFA] 2 puff PO QID PRN 03/01/16 [History] Lisdexamfetamine [Vyvanse] 60 mg PO DAILY 03/01/16 [History] Prazosin HCl [Prazosin] 2 mg PO BEDTIME 05/16/17 [History] Cetirizine HCl [Zyrtec] 10 mg PO DAILY 09/19/18 [History] Cholecalciferol (Vitamin D3) [Vitamin D3] 2,000 units PO DAILY 09/19/18 [History ] DULoxetine [Cymbalta] 120 mg PO DAILY 09/19/18 [History] Ferrous Sulfate [Feosol] 325 mg PO DAILY 09/19/18 [History] Fluticasone Propionate [Flovent HFA 110 MCG] 1 puff INH BID 09/19/18 [History] Melatonin/Pyridoxine HCl (B6) [Melatonin 3 mg Tablet] 15 mg PO BEDTIME 09/19/18 [History] Methimazole [Tapazole] 20 mg PO DAILY 09/19/18 [History] Metoprolol Tartrate [Lopressor] 25 mg PO BID 09/19/18 [History] Omeprazole 40 mg PO DAILY 09/19/18 [History] Ondansetron [Zofran ODT] 4 mg PO Q8H PRN 09/19/18 [History] Prazosin [Minpress] 5 mg PO BEDTIME 09/19/18 [History] Vit #76/Iron,Carb/Fa [Prenatabs Rx] 1 tab PO DAILY 09/19/18 [History] Sennosides [Senna] 8.6 mg PO DAILY PRN 09/19/18 [History] Sodium Chloride [Saline Nasal Mist] 2 sprays TOM QID 09/19/18 [History] Varenicline [Chantix] 1 mg PO BID 09/19/18 [History] clonazePAM [Clonazepam] 0.5 tab PO BID PRN 09/19/18 [History] lamoTRIgine [Lamictal] 2 tab PO DAILY 09/19/18 [History] metroNIDAZOLE [metroNIDAZOLE 0.75% Gel] 1 applic TOP BID 09/19/18 [History] rOPINIRole [Requip] 1.5 mg PO BEDTIME 09/19/18 [History] tiZANidine HCl [Tizanidine HCl] 4 mg PO Q6H PRN 09/19/18 [History] rOPINIRole HCl [Requip] 0.5 mg PO DAILY 01/01/19 [History] Acetaminophen [Tylenol] 650 mg PO Q4H PRN tablet 01/02/19 [Rx] Pantoprazole Sodium [Protonix] 40 mg PO BID #30 tablet. 01/02/19 [Rx] oxyCODONE 5 mg PO Q4H PRN #10 tablet 01/02/19 [Rx] - Discharge Summary/Plan Comment DC Time >30 min.: No - Patient Data Vitals - Most Recent: Last Vital Signs Temp 97.5 F 01/02/19 08:35 Pulse 77 01/02/19 09:09 Resp 18 01/02/19 09:09 BP 103/48 L 01/02/19 09:09 Pulse Ox 96 01/02/19 09:09 Weight - Most Recent: 412 lb 6.4 oz I&O - Last 24 hours: Intake & Output 01/01/19 01/02/19 01/02/19 22:59 06:59 14:59 Intake Total 600 1450 Balance 600 1450 Lab Results - Last 24 hrs: Laboratory Results - last 24 hr 01/01/19 01/01/19 01/01/19 Range/Units 13:42 13:42 15:07 WBC 11.3 H (4.5-11.0) K/uL RBC 4.94 (3.30-5.50) M/uL Hgb 12.6 (12.0-15.0) g/dL Hct 40.6 (36.0-48.0) % MCV 82 (80-98) fL MCH 26 L (27-31) pg MCHC 31 L (32-36) % Plt Count 233 (150-400) K/uL Neut % (Auto) 71 H (36-66) % Lymph % (Auto) 21 L (24-44) % Wells % (Auto) 6 (2-6) % Eos % (Auto) 2 (2-4) % Baso % (Auto) 0 (0-1) % Sodium (140-148) mmol/L Potassium (3.6-5.2) mmol/L Chloride (100-108) mmol/L Carbon Dioxide (21-32) mmol/L Anion Gap (5.0-14.0) mmol/L BUN (7-18) mg/dL Creatinine (0.6-1.0) mg/dL Est Cr Clr Drug Dosing mL/min Estimated GFR (MDRD) (>60) Glucose (74-106) mg/dL Calcium (8.5-10.1) mg/dL Total Bilirubin (0.2-1.0) mg/dL AST (15-37) U/L ALT (12-78) U/L Alkaline Phosphatase (46-116) U/L C-Reactive Protein 4.47 H (0.0-0.3) mg/dL Total Protein (6.4-8.2) g/dL Albumin (3.4-5.0) g/dL Globulin (2.3-3.5) g/dL Albumin/Globulin Ratio (1.2-2.2) Amylase 27 (25-115) U/L Lipase (73-393) U/L Urine Color Yellow Urine Appearance Clear Urine pH 5.0 (4.5-8.0) Ur Specific [place] 1.020 (1.008-1.030) Urine Protein Negative (NEGATIVE) mg/dL Urine Glucose (UA) Normal (NEGATIVE) mg/dL Urine Ketones Negative (NEGATIVE) mg/dL Urine Occult Blood Negative (NEGATIVE) Urine Nitrite Negative (NEGATIVE) Urine Bilirubin Negative (NEGATIVE) Urine Urobilinogen Normal (NORMAL) mg/dL Ur Leukocyte Esterase Negative (NEGATIVE) Urine RBC Not seen (0-5) Urine WBC 0-5 (0-5) Ur Epithelial Cells Many Amorphous Sediment Not seen Urine Bacteria Not seen Urine Mucus Moderate 01/01/19 Range/Units 16:47 WBC (4.5-11.0) K/uL RBC (3.30-5.50) M/uL Hgb (12.0-15.0) g/dL Hct (36.0-48.0) % MCV (80-98) fL MCH (27-31) pg MCHC (32-36) % Plt Count (150-400) K/uL Neut % (Auto) (36-66) % Lymph % (Auto) (24-44) % Wells % (Auto) (2-6) % Eos % (Auto) (2-4) % Baso % (Auto) (0-1) % Sodium 140 (140-148) mmol/L Potassium 4.1 (3.6-5.2) mmol/L Chloride 102 (100-108) mmol/L Carbon Dioxide 29 (21-32) mmol/L Anion Gap 9.4 (5.0-14.0) mmol/L BUN 10 (7-18) mg/dL Creatinine 1.0 (0.6-1.0) mg/dL Est Cr Clr Drug Dosing 67.80 mL/min Estimated GFR (MDRD) > 60 (>60) Glucose 106 (74-106) mg/dL Calcium 8.9 (8.5-10.1) mg/dL Total Bilirubin 0.2 (0.2-1.0) mg/dL AST 11 L (15-37) U/L ALT 25 (12-78) U/L Alkaline Phosphatase 66 (46-116) U/L C-Reactive Protein (0.0-0.3) mg/dL Total Protein 7.2 (6.4-8.2) g/dL Albumin 3.4 (3.4-5.0) g/dL Globulin 3.8 H (2.3-3.5) g/dL Albumin/Globulin Ratio 0.9 L (1.2-2.2) Amylase (25-115) U/L Lipase 127 (73-393) U/L Urine Color Urine Appearance Urine pH (4.5-8.0) Ur Specific [place] (1.008-1.030) Urine Protein (NEGATIVE) mg/dL Urine Glucose (UA) (NEGATIVE) mg/dL Urine Ketones (NEGATIVE) mg/dL Urine Occult Blood (NEGATIVE) Urine Nitrite (NEGATIVE) Urine Bilirubin (NEGATIVE) Urine Urobilinogen (NORMAL) mg/dL Ur Leukocyte Esterase (NEGATIVE) Urine RBC (0-5) Urine WBC (0-5) Ur Epithelial Cells Amorphous Sediment Urine Bacteria Urine Mucus Med Orders - Current: Current Medications Acetaminophen (Tylenol) 650 mg PO Q4H PRN PRN Reason: Pain (Mild 1-3)/fever Albuterol (Ventolin Hfa) 0 gm INH QID PRN PRN Reason: Shortness of Breath Albuterol (Proventil Neb Soln) 2.5 mg NEB Q4H PRN PRN Reason: Shortness Of Breath/wheezing Cetirizine HCl (Zyrtec) 10 mg PO DAILY [facility] Clonazepam (Klonopin) 0.5 mg PO BID PRN PRN Reason: Anxiety Duloxetine HCl (Cymbalta) 120 mg PO DAILY [facility] Hydromorphone HCl (Dilaudid) 0.5 mg IVPUSH Q2H PRN PRN Reason: Pain (severe 7-10) Last Admin: 01/02/19 07:20 Dose: 0.5 mg Sodium Chloride (Normal Saline) 1,000 mls @ 125 mls/hr IV ASDIRECTED [facility] Last Admin: 01/02/19 00:58 Dose: 125 mls/hr Ipratropium [place] (Atrovent) 0.5 mg INH Q6H PRN PRN Reason: Shortness of Breath Lamotrigine (Lamotrigine) 200 mg PO DAILY [facility] Melatonin (Melatonin) 9 mg PO BEDTIME [facility] Last Admin: 01/01/19 21:19 Dose: 9 mg Methimazole (Methimazole) 10 mg PO DAILY [facility] Metoprolol Tartrate (Lopressor) 25 mg PO BID [facility] Last Admin: 01/01/19 21:15 Dose: 25 mg Mometasone Furoate (Asmanex Hfa 100mcg) 0 gm INH BIDRT [facility] Last Admin: 01/02/19 08:00 Dose: Not Given Lisdexamfetamine ( Vyvanse) 60 MgPom* * 60 mg PO DAILY [facility] Ondansetron HCl (Zofran Odt) 4 mg PO Q6H PRN PRN Reason: Nausea able to take PO Oxycodone HCl (Oxycodone) 5 mg PO Q4H PRN PRN Reason: Pain (moderate 4-6) Last Admin: 01/02/19 09:20 Dose: 5 mg Pantoprazole Sodium (Protonix Iv) 40 mg IV Q12H [facility] Last Admin: 01/02/19 05:38 Dose: 40 mg Polyethylene Glycol (Miralax) 17 gm PO DAILY PRN PRN Reason: Constipation Prazosin HCl (Minpress) 7 mg PO BEDTIME [facility] Last Admin: 01/01/19 22:25 Dose: 7 mg Ropinirole HCl (Requip) 1.5 mg PO BEDTIME [facility] Ropinirole HCl (Requip) 0.5 mg PO DAILY [facility] Senna (Senna) 8.6 mg PO DAILY PRN PRN Reason: Constipation Sodium Chloride (Saline Flush) 10 ml FLUSH ASDIRECTED PRN PRN Reason: Keep Vein Open Discontinued Medications Fentanyl (Sublimaze) Confirm Administered Dose 100 mcg .ROUTE .STK-MED ONE Stop: 01/02/19 08:03 Hydromorphone HCl (Dilaudid) 0.5 mg IVPUSH ONETIME ONE Stop: 01/01/19 13:45 Last Admin: 01/01/19 14:31 Dose: 0.5 mg Hydromorphone HCl (Dilaudid) 1 mg IVPUSH ONETIME ONE Stop: 01/01/19 15:18 Last Admin: 01/01/19 15:22 Dose: 1 mg Hydromorphone HCl (Dilaudid) 1 mg IVPUSH ONETIME ONE Stop: 01/01/19 16:10 Last Admin: 01/01/19 16:23 Dose: 1 mg Sodium Chloride (Normal Saline) 1,000 mls @ 999 mls/hr IV ASDIRECTED [facility] Last Admin: 01/01/19 14:34 Dose: 999 mls/hr Prochlorperazine Edisylate 10 (mg/ Sodium Chloride) 52 mls @ 150 mls/hr IV ONETIME ONE Stop: 01/01/19 14:20 Last Admin: 01/01/19 15:10 Dose: Not Given Sodium Chloride (Normal Saline) 80 mls @ 3 mls/sec IV ONETIME ONE Stop: 01/01/19 15:00 Last Admin: 01/01/19 15:05 Dose: 3 mls/sec Sodium Chloride (Normal Saline) 1,000 mls @ 999 mls/hr IV ASDIRECTED [facility] Last Admin: 01/01/19 16:17 Dose: 999 mls/hr Influenza Virus Vaccine (Pharmacy To Dose - Influenza Vaccine) 1 each IM ONETIME ONE Stop: 01/01/19 18:02 Influenza Virus Vaccine (Fluzone Quad [id number] Syringe) 60 mcg IM .ONCE ONE Stop: 01/01/19 18:16 Iopamidol (Isovue-300 (61%)) 150 ml IV . DIRECTED [facility] Last Admin: 01/01/19 15:06 Dose: 150 ml Lamotrigine 100 mg/ (Lamotrigine 50 mg) 150 mg PO DAILY [facility] Lorazepam (Ativan) 0.5 mg IVPUSH ONETIME ONE Stop: 01/01/19 14:03 Last Admin: 01/01/19 14:28 Dose: 0.5 mg Lorazepam (Ativan) 0.5 mg IVPUSH ONETIME ONE Stop: 01/01/19 16:10 Last Admin: 01/01/19 16:18 Dose: 0.5 mg Midazolam HCl (Versed 1 Mg/Ml) Confirm Administered Dose 2 mg .ROUTE .STK-MED ONE Stop: 01/02/19 08:03 Ondansetron HCl (Zofran) 4 mg IVPUSH ONETIME ONE Stop: 01/01/19 13:45 Last Admin: 01/01/19 14:25 Dose: 4 mg Ondansetron HCl (Zofran) 4 mg IVPUSH ONETIME ONE Stop: 01/01/19 14:02 Last Admin: 01/01/19 22:21 Dose: Not Given Pantoprazole Sodium (Protonix Iv) 40 mg IVPUSH ONETIME ONE Stop: 01/01/19 16:17 Last Admin: 01/01/19 16:28 Dose: 40 mg Prazosin HCl (Minpress) 2 mg PO DAILY [facility] Prazosin HCl (Minpress) 10 mg PO BEDTIME [facility] Prazosin HCl (Minpress) 7 mg PO BEDTIME [facility] Stop: 01/01/19 21:01 Last Admin: 01/01/19 22:20 Dose: Not Given Propofol (Diprivan 20 Ml) Confirm Administered Dose 200 mg .ROUTE .STK-MED ONE Stop: 01/02/19 08:04 Ropinirole HCl (Requip) 1 mg PO DAILY [facility] Ropinirole HCl (Requip) 1.5 mg PO BEDTIME [facility] Stop: 01/01/19 21:01 Last Admin: 01/01/19 21:18 Dose: 1.5 mg Senna (Senna) 8.6 mg PO DAILY APOLINAR Sodium Chloride (Normal Saline) 10 ml FLUSH ONETIME ONE Stop: 01/01/19 15:00 Last Admin: 01/01/19 16:35 Dose: Not Given - Exam General: Reports: Alert, Oriented, Cooperative, Mild Distress Lungs: Reports: Clear to Auscultation, Normal Respiratory Effort Cardiovascular: Reports: Regular Rate, Regular Rhythm, No Murmurs GI/Abdominal Exam: Soft, No Organomegaly, Tender. No: Distended, Guarding, Rigid, Rebound Extremities: Non-Tender, No Pedal Edema
[2019-01-02] MEDS: Metoprolol Tartrate 25 MG Tab PO SCH (11:13)
[2019-01-02 11:58] VITALS: BP 128/64
--- NOTE | 2019-01-04 07:56 | OR ---
DATE OF PROCEDURE: 01/02/2019 PREOPERATIVE DIAGNOSIS: Abdominal pain. POSTOPERATIVE DIAGNOSES: Gastritis, bile in stomach. PROCEDURE PERFORMED: Esophagogastroduodenoscopy with antral biopsies for CLOtest and tissue sent for pathology to look for Helicobacter pylori. SURGEON: Rodolfo Mccullough MD ANESTHESIA: IV anesthesia with monitored anesthesia care. INDICATION: This 33-year-old female was admitted yesterday with abdominal pain. CAT scan was obtained, which was unremarkable. A request was made for upper endoscopy. She says she has had upper endoscopies in the past in [place], [place]. I counseled her for the procedure, including risks and alternatives, and she gave her informed consent to proceed. DESCRIPTION OF PROCEDURE: The patient was placed in the left lateral decubitus position. IV anesthesia was administered by the Anesthesia Service. Time-out was held. The flexible video Olympus upper endoscope was passed through her mouth, down her esophagus, and into her stomach. We did encounter some bile in her stomach, which we aspirated free. The scope was passed through the pylorus, into the duodenum, reaching its third portion. The scope was then slowly withdrawn, examining the mucosa throughout. The duodenal mucosa appeared unremarkable. The scope was brought back through the pylorus. There was evidence of gastritis, which was [id number]. We obtained antral biopsies for CLOtest and sent tissue for pathology to look for Helicobacter pylori. The scope was retroflexed. The proximal stomach showed remnants of some bile in the stomach. The scope was straightened, it was brought up through the GE junction. This was unremarkable. The scope was then brought up through the unremarkable-appearing esophagus and was removed. She tolerated the procedure well. Rodolfo Mccullough MD /[id number] MTDD
== END 2019-01-02 11:52 | disposition home or self-care (01) ==
LOC: JP.ED 12:57 → JP.MS 16:34
PROVIDERS: ADMIT Hospitalist; ATTEND Hospitalist
DX: K29.50 Unspecified chronic gastritis without bleeding (principal); K31.89 Other diseases of stomach and duodenum; K21.9 Gastro-esophageal reflux disease without esophagitis; E05.90 Thyrotoxicosis, unspecified without thyrotoxic crisis or storm; F41.9 Anxiety disorder, unspecified; F32.9 Major depressive disorder, single episode, unspecified; Z88.0 Allergy status to penicillin; Z88.6 Allergy status to analgesic agent; Z88.5 Allergy status to narcotic agent; Z88.8 Allergy status to other drugs, medicaments and biological substances; Z91.040 Latex allergy status; Z23 Encounter for immunization; Z87.891 Personal history of nicotine dependence; Z79.899 Other long term (current) drug therapy
CPT/HCPCS: 36415; 43239; 74177; 80053; 81001; 82150; 83690; 85025; 86140; 87081; 88305; 90686; 96361; 96374; 96375; 96376; 99217; 99218; 99284; 99285; A9270; C9113; G0008; G0378; J1170; J2060; J2250; J2405; J2704; J3010; J7030; C9399

== ENCOUNTER 2019-01-20 17:09 | Emergency (ER) | payer MEDICAID ==
[2019-01-20 17:42] VITALS: BP 175/71
--- NOTE | 2019-01-20 18:19 | EDM.PDOC ---
ED HPI GENERAL MEDICAL PROBLEM - General Chief Complaint: Abdominal Pain Stated Complaint: ABD PAIN/RADIATING TO BACK Time Seen by Provider: 01/20/19 18:00 Source of Information: Reports: Patient History Limitations: Reports: No Limitations - History of Present Illness INITIAL COMMENTS - FREE TEXT/NARRATIVE: 33-year-old female whose been struggling with intermittent abdominal pain for "months". She feels she is running intermittent fevers, intermittent nausea but no diarrhea. Her chief complaint is pain, it is not isolated to any area of the abdomen. It is worse with movement and painful with bowel movements. Radiates to her back. She has a history of a hernia repair and cholecystectomy. She was seen in the emergency room about 3 weeks ago with the symptoms, a workup was inconclusive so she was hospitalized for one day and had an EGD. That showed mild to moderate gastritis, she was placed on Protonix. CT at that time was negative. Labs were nonspecific but her CRP was elevated at 4.47. ABDIEL test was negative. She thought that the symptoms would improve with the medication but they have not, she has a follow-up tomorrow but was very uncomfortable today so went into the clinic hoping she could be seen early and they sent her to the emergency room. Onset: Unknown/Unsure Duration: Chronic Location: Reports: Abdomen Quality: Reports: Pressure (Diffuse), Other (Cramping) Severity: Moderate Improves with: Reports: Movement, Other (Bowel movements) Associated Symptoms: Reports: Fever/Chills, Weakness (Claims she is very weak, tired.), Other (Nausea but no vomiting). Denies: Chest Pain, Cough Upper Abdominal Pain Score (Numeric/FACES): 9 - Related Data Allergies Allergy/AdvReac Type Severity Reaction Status Date / Time amoxicillin Allergy Severe Anaphylactic Verified 01/20/19 17:43 Shock promethazine HCl Allergy Severe Anaphylactic Verified 01/20/19 17:43 [From Phenergan] Shock risperidone [From Risperdal] Allergy Severe Anaphylactic Verified 01/20/19 17:43 Shock ketorolac tromethamine Allergy Rash Verified 01/20/19 17:43 [From Toradol] latex Allergy Rash Verified 01/20/19 17:43 Latex, Natural Rubber Allergy Rash Verified 01/20/19 17:43 tramadol HCl [From Ultram] Allergy Hives Verified 01/20/19 17:43 atomoxetine HCl AdvReac Anxiety Verified 01/20/19 17:43 [From Strattera] cephalexin monohydrate AdvReac Dizziness Verified 01/20/19 17:43 [From Keflex] quetiapine fumarate AdvReac Irritabilit Verified 01/20/19 17:43 [From Seroquel] y trazodone AdvReac Dizziness Verified 01/20/19 17:43 zolpidem tartrate AdvReac Anxiety Verified 01/20/19 17:43 [From Ambien] Home Meds: Home Meds Albuterol [Ventolin HFA] 2 puff PO QID PRN 03/01/16 [History] Lisdexamfetamine [Vyvanse] 60 mg PO DAILY 03/01/16 [History] Prazosin HCl [Prazosin] 2 mg PO BEDTIME 05/16/17 [History] Cetirizine HCl [Zyrtec] 10 mg PO DAILY 09/19/18 [History] Cholecalciferol (Vitamin D3) [Vitamin D3] 2,000 units PO DAILY 09/19/18 [History ] DULoxetine [Cymbalta] 120 mg PO DAILY 09/19/18 [History] Ferrous Sulfate [Feosol] 325 mg PO DAILY 09/19/18 [History] Fluticasone Propionate [Flovent HFA 110 MCG] 1 puff INH BID 09/19/18 [History] Melatonin/Pyridoxine HCl (B6) [Melatonin 3 mg Tablet] 15 mg PO BEDTIME 09/19/18 [History] Methimazole [Tapazole] 20 mg PO DAILY 09/19/18 [History] Metoprolol Tartrate [Lopressor] 25 mg PO BID 09/19/18 [History] Omeprazole 40 mg PO DAILY 09/19/18 [History] Prazosin [Minpress] 5 mg PO BEDTIME 09/19/18 [History] Vit #76/Iron,Carb/Fa [Prenatabs Rx] 1 tab PO DAILY 09/19/18 [History] Sennosides [Senna] 8.6 mg PO DAILY PRN 09/19/18 [History] Varenicline [Chantix] 1 mg PO BID 09/19/18 [History] clonazePAM [Clonazepam] 0.5 tab PO BID PRN 09/19/18 [History] lamoTRIgine [Lamictal] 2 tab PO DAILY 09/19/18 [History] metroNIDAZOLE [metroNIDAZOLE 0.75% Gel] 1 applic TOP BID 09/19/18 [History] rOPINIRole [Requip] 1.5 mg PO BEDTIME 09/19/18 [History] tiZANidine HCl [Tizanidine HCl] 4 mg PO Q6H PRN 09/19/18 [History] rOPINIRole HCl [Requip] 0.5 mg PO DAILY 01/01/19 [History] Pantoprazole Sodium [Protonix] 40 mg PO BID #30 tablet. 01/02/19 [Rx] Past Medical History HEENT History: Reports: Impaired Vision, Otitis Media Other HEENT History: Bilateral tympanic membrane rupture. tonsillectomy. 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 rheumatoid arthritis Neurological History: Reports: Migraines Psychiatric History: Reports: ADHD, Anxiety, Depression, PTSD, Other (See Below) Other Psychiatric History: Schizo effective disorder Endocrine/Metabolic History: Reports: Hyperthyroidism, Obesity/BMI 30+ Hematologic History: Reports: None Immunologic History: Reports: None Oncologic (Cancer) History: Reports: Cervix Dermatologic History: Reports: Eczema - Infectious Disease History Infectious Disease History: Reports: Chicken Pox - Past Surgical History HEENT Surgical History: Reports: Myringotomy w Tube(s), Oral Surgery, Tonsillectomy Cardiovascular Surgical History: Reports: None Respiratory Surgical History: Reports: None GI Surgical History: Reports: Appendectomy, Cholecystectomy, EGD, Hernia Repair/ Other Female Surgical History: Reports: Hysterectomy Endocrine Surgical History: Reports: None Neurological Surgical History: Reports: None Musculoskeletal Surgical History: Reports: Other (See Below) Other Musculoskeletal Surgeries/Procedures:: Left ankle ORIF with hardware Social & Family History - Family History Cardiac: Reports: Heart Murmur Respiratory: Reports: COPD Psychiatric: Reports: Depression, Schizophrenia - Tobacco Use Smoking Status *Q: Former Smoker Years of Tobacco use: 24 Packs/Tins Daily: 1 Used Tobacco, but Quit: Yes Month/Year Tobacco Last Used: Jun 2018 Second Hand Smoke Exposure: No - Caffeine Use Caffeine Use: Reports: Coffee, Soda - Recreational Drug Use Recreational Drug Use: No ED ROS GENERAL - Review of Systems Review Of Systems: See Below Constitutional: Reports: Fever, Chills, Malaise, Weakness HEENT: Reports: No Symptoms Respiratory: Denies: Shortness of Breath Cardiovascular: Denies: Chest Pain GI/Abdominal: Reports: Abdominal Pain, Constipation, Nausea. Denies: Diarrhea, Hematemesis, Hematochezia, Vomiting : Reports: No Symptoms Musculoskeletal: Reports: Back Pain Skin: Reports: No Symptoms Neurological: Reports: Weakness, Other (Fatigue) ED EXAM, GI/ABD - Physical Exam Exam: See Below Exam Limited By: No Limitations General Appearance: Alert, No Apparent Distress Eyes: Bilateral: Normal Appearance (No jaundice) Head: Atraumatic Respiratory/Chest: No Respiratory Distress, Lungs Clear Cardiovascular: Regular Rate, Rhythm GI/Abdominal Exam: Normal Bowel Sounds, Soft, Other (Palpation in the abdomen is tender with mild guarding in all quadrants and periumbilical area, there does not seem to be anywhere more tender than another.) Back Exam: CVA Tenderness (R) (She responded with some equivocal right CVA tenderness) Extremities: Pedal Edema (Minimal trace of lower extremity edema which is symmetric) Neurological: Alert, Oriented, No Motor/Sensory Deficits, Other (I did witness the patient walking into the hospital to be seen, she did not appear to have any difficulties with ambulation) Psychiatric: Normal Affect, Normal Mood Skin Exam: Warm, Dry Course - Vital Signs Last Recorded V/S: Last Vital Signs Temp 98 F 01/20/19 17:41 Pulse 90 01/20/19 17:41 Resp 20 01/20/19 17:41 BP 175/71 H 01/20/19 17:41 Pulse Ox 98 01/20/19 17:41 - Orders/Labs/Meds Orders: Active Orders 24 hr Category Date Time Status UA W/MICROSCOPIC [URIN] Urgent Lab 01/20/19 18:16 Ordered Labs: Laboratory Tests 01/20/19 01/20/19 01/20/19 Range/Units 18:27 18:27 18:27 WBC 11.6 H (4.5-11.0) K/uL RBC 5.19 (3.30-5.50) M/uL Hgb 13.6 (12.0-15.0) g/dL Hct 42.9 (36.0-48.0) % MCV 83 (80-98) fL MCH 26 L (27-31) pg MCHC 32 (32-36) % Plt Count 271 (150-400) K/uL Neut % (Auto) 69 H (36-66) % Lymph % (Auto) 22 L (24-44) % Burt % (Auto) 7 H (2-6) % Eos % (Auto) 2 (2-4) % Baso % (Auto) 0 (0-1) % ESR 23 (0-25) mm/hr Sodium 139 L (140-148) mmol/L Potassium 4.3 (3.6-5.2) mmol/L Chloride 101 (100-108) mmol/L Carbon Dioxide 30 (21-32) mmol/L Anion Gap 12.3 (5.0-14.0) mmol/L BUN 13 (7-18) mg/dL Creatinine 0.9 (0.6-1.0) mg/dL Est Cr Clr Drug Dosing 75.34 mL/min Estimated GFR (MDRD) > 60 (>60) Glucose 97 (74-106) mg/dL Calcium 9.3 (8.5-10.1) mg/dL Total Bilirubin 0.4 D (0.2-1.0) mg/dL AST 8 L (15-37) U/L ALT 20 (12-78) U/L Alkaline Phosphatase 70 (46-116) U/L C-Reactive Protein (0.0-0.3) mg/dL Total Protein 7.2 (6.4-8.2) g/dL Albumin 3.5 (3.4-5.0) g/dL Globulin 3.7 H (2.3-3.5) g/dL Albumin/Globulin Ratio 1.0 L (1.2-2.2) Lipase 136 (73-393) U/L TSH, Ultra Sensitive (0.358-3.740) uIU/mL 01/20/19 01/20/19 Range/Units 18:27 18:27 WBC (4.5-11.0) K/uL RBC (3.30-5.50) M/uL Hgb (12.0-15.0) g/dL Hct (36.0-48.0) % MCV (80-98) fL MCH (27-31) pg MCHC (32-36) % Plt Count (150-400) K/uL Neut % (Auto) (36-66) % Lymph % (Auto) (24-44) % Burt % (Auto) (2-6) % Eos % (Auto) (2-4) % Baso % (Auto) (0-1) % ESR (0-25) mm/hr Sodium (140-148) mmol/L Potassium (3.6-5.2) mmol/L Chloride (100-108) mmol/L Carbon Dioxide (21-32) mmol/L Anion Gap (5.0-14.0) mmol/L BUN (7-18) mg/dL Creatinine (0.6-1.0) mg/dL Est Cr Clr Drug Dosing mL/min Estimated GFR (MDRD) (>60) Glucose (74-106) mg/dL Calcium (8.5-10.1) mg/dL Total Bilirubin (0.2-1.0) mg/dL AST (15-37) U/L ALT (12-78) U/L Alkaline Phosphatase (46-116) U/L C-Reactive Protein 2.07 H (0.0-0.3) mg/dL Total Protein (6.4-8.2) g/dL Albumin (3.4-5.0) g/dL Globulin (2.3-3.5) g/dL Albumin/Globulin Ratio (1.2-2.2) Lipase (73-393) U/L TSH, Ultra Sensitive 3.012 (0.358-3.740) uIU/mL - Re-Assessments/Exams Free Text/Narrative Re-Assessment/Exam: 01/20/19 18:29 Previous records were reviewed. CBC, CMP, sedimentation rate, CRP, TSH and UA were obtained as well as a lipase. 01/20/19 19:25 All labs were reassuring, CRP is now near 2. Sedimentation rate was 23, TSH was normal, CBC and CMP were also reassuring. Discussed with the patient that she likely needs a colonoscopy, followed by a gastroenterology consult if she has not had one. I don't think another CT scan would be beneficial at this time. She has a posthospital follow-up appointment tomorrow, she can get any future follow-up scheduled at that time. Continue current medications. Departure - Departure Time of Disposition: 19:40 Disposition: Home, Self-Care 01 Condition: Good Clinical Impression: Chronic abdominal pain - Discharge Information Instructions: Abdominal Pain, Adult, [id number] Referrals: Jessica Delaney MD [Primary Care Provider] - Forms: ED Department Discharge Care Plan Goals: Continue current medications, recheck tomorrow as planned. Take laboratory results with you to your recheck. - My Orders Last 24 Hours: My Active Orders 01/20/19 18:16 UA W/MICROSCOPIC [URIN] Urgent - Assessment/Plan Last 24 Hours: My Active Orders 01/20/19 18:16 UA W/MICROSCOPIC [URIN] Urgent
== END 2019-01-20 19:45 | disposition home or self-care (01) ==
LOC: JP.ED 17:09
DX: R10.9 Unspecified abdominal pain (principal); G89.29 Other chronic pain; K21.9 Gastro-esophageal reflux disease without esophagitis; F41.9 Anxiety disorder, unspecified; F32.9 Major depressive disorder, single episode, unspecified; Z79.899 Other long term (current) drug therapy; Z87.891 Personal history of nicotine dependence; Z88.1 Allergy status to other antibiotic agents; Z88.8 Allergy status to other drugs, medicaments and biological substances; Z91.040 Latex allergy status; Z88.6 Allergy status to analgesic agent
CPT/HCPCS: 36415; 80053; 83690; 84443; 85025; 85651; 86140; 99284

== ENCOUNTER 2019-02-27 20:12 | Emergency (ER) | payer MEDICAID ==
[2019-02-27 20:29] VITALS: BP 158/83
[2019-02-27] MEDS ORDERED: Acetaminophen 325 MG Tab, 50 Tab Bulk Bottle PO ONE (21:08)
[2019-02-27] MEDS ORDERED: Acetaminophen 325 MG Tab ONE (21:20)
[2019-02-27] MEDS ORDERED: Acetaminophen 325 MG Tab PO ONE (21:22)
--- NOTE | 2019-02-27 21:36 | EDM.PDOC ---
ED HPI GENERAL MEDICAL PROBLEM - General Chief Complaint: General Stated Complaint: ILLNESS Time Seen by Provider: 02/27/19 21:00 Source of Information: Reports: Patient History Limitations: Reports: No Limitations - History of Present Illness INITIAL COMMENTS - FREE TEXT/NARRATIVE: 33-year-old with history of extensive psychiatric disease, polysubstance abuse, morbid obesity, chronic abdominal pain presents today with her partner concerned of fever multiple nonspecific symptoms. She reports an ongoing workup with her primary doctor for a cough that has been ongoing for several weeks. She is currently completing a course of Levaquin and prednisone. She feels her cough has failed to improve. She's had intermittent fevers at home to 102. This happened again tonight and given her ongoing fatigue, myalgias, feeling flushed in the face, she decided to come to the emergency room. She reports that her cough is slowly developed associated diffuse pleuritic pain. She continues to have a lot of nausea. She denies any other chest pains or exertional symptoms. She is having no diarrhea. She reports that her epigastric abdominal pain seems to improve somewhat with treatment for gastritis. She noticed some flushing of her face this evening and redness, no other rashes. She does have a history of seasonal allergies and feels that these may be acting up as well. No hx of DVT. - Related Data Allergies Allergy/AdvReac Type Severity Reaction Status Date / Time amoxicillin Allergy Severe Anaphylactic Verified 02/27/19 20:34 Shock promethazine HCl Allergy Severe Anaphylactic Verified 02/27/19 20:34 [From Phenergan] Shock risperidone [From Risperdal] Allergy Severe Anaphylactic Verified 02/27/19 20:34 Shock atomoxetine Allergy Anxiety Verified 02/27/19 20:34 banana Allergy Itching Verified 02/27/19 20:34 clindamycin Allergy Rash Verified 02/27/19 20:34 ketorolac tromethamine Allergy Rash Verified 02/27/19 20:34 [From Toradol] latex Allergy Rash Verified 02/27/19 20:34 Latex, Natural Rubber Allergy Rash Verified 02/27/19 20:34 quetiapine Allergy Anxiety Verified 02/27/19 20:34 tramadol HCl [From Ultram] Allergy Hives Verified 02/27/19 20:34 varenicline Allergy Anxiety Verified 02/27/19 20:34 zolpidem [From Ambien] Allergy Anxiety Verified 02/27/19 20:34 atomoxetine HCl AdvReac Anxiety Verified 02/27/19 20:34 [From Strattera] cephalexin monohydrate AdvReac Dizziness Verified 02/27/19 20:34 [From Keflex] quetiapine fumarate AdvReac Irritabilit Verified 02/27/19 20:34 [From Seroquel] y trazodone AdvReac Dizziness Verified 02/27/19 20:34 zolpidem tartrate AdvReac Anxiety Verified 02/27/19 20:34 [From Ambien] Home Meds: Home Meds Albuterol [Ventolin HFA] 2 puff PO QID PRN 03/01/16 [History] Lisdexamfetamine [Vyvanse] 60 mg PO DAILY 03/01/16 [History] Prazosin HCl [Prazosin] 2 mg PO BEDTIME 05/16/17 [History] Cetirizine HCl [Zyrtec] 10 mg PO DAILY 09/19/18 [History] Cholecalciferol (Vitamin D3) [Vitamin D3] 2,000 units PO DAILY 09/19/18 [History ] DULoxetine [Cymbalta] 120 mg PO DAILY 09/19/18 [History] Ferrous Sulfate [Feosol] 325 mg PO DAILY 09/19/18 [History] Fluticasone Propionate [Flovent HFA 110 MCG] 1 puff INH BID 09/19/18 [History] Melatonin/Pyridoxine HCl (B6) [Melatonin 3 mg Tablet] 9 mg PO BEDTIME 09/19/18 [ History] Methimazole [Tapazole] 20 mg PO DAILY 09/19/18 [History] Metoprolol Tartrate [Lopressor] 25 mg PO BID 09/19/18 [History] Omeprazole 40 mg PO DAILY 09/19/18 [History] Prazosin [Minpress] 5 mg PO BEDTIME 09/19/18 [History] Vit #76/Iron,Carb/Fa [Prenatabs Rx] 1 tab PO DAILY 09/19/18 [History] Sennosides [Senna] 8.6 mg PO DAILY PRN 09/19/18 [History] Varenicline [Chantix] 1 mg PO BID 09/19/18 [History] clonazePAM [Clonazepam] 0.5 tab PO BID PRN 09/19/18 [History] lamoTRIgine [Lamictal] 2 tab PO DAILY 09/19/18 [History] metroNIDAZOLE [metroNIDAZOLE 0.75% Gel] 1 applic TOP BID 09/19/18 [History] rOPINIRole [Requip] 1.5 mg PO BEDTIME 09/19/18 [History] tiZANidine HCl [Tizanidine HCl] 4 mg PO Q6H PRN 09/19/18 [History] rOPINIRole HCl [Requip] 0.5 mg PO DAILY 01/01/19 [History] Pantoprazole Sodium [Protonix] 40 mg PO BID #30 tablet. 01/02/19 [Rx] Albuterol [Proventil Neb Soln] 3 ml NEB TID PRN 02/18/19 [History] Albuterol/Ipratropium [DuoNeb 3.0-0.5 MG/3 ML] 3 ml INH Q6H PRN 02/18/19 [ History] Fluticasone/Salmeterol [Advair 250-50] 1 puff INH BID 02/18/19 [History] Naproxen [Naprosyn] 500 mg PO Q12HR 02/18/19 [History] Polyethylene Glycol 3350 [Miralax] 17 gm PO DAILY PRN 02/18/19 [History] Pramoxine HCl [Prax] 1 applic TP QID 02/18/19 [History] Psyllium [Metamucil] 1 gm PO DAILY PRN 02/18/19 [History] Ranitidine HCl [Zantac] 150 mg PO BID 02/18/19 [History] Sodium Chloride [Causey] 2 spray NS QID 02/18/19 [History] Triamcinolone Acetonide [Kenalog 0.1% Crm] 1 applic TOP TID PRN 02/18/19 [ History] diphenhydrAMINE [Benadryl] 100 mg PO BEDTIME PRN 02/18/19 [History] Acetaminophen [Tylenol Extra Strength] 500 mg PO Q4H PRN #1 bottle 02/27/19 [Rx] Hydrocodone/Acetaminophen [Hydrocodon-Acetaminophen 5-325] 02/27/19 [History] Levofloxacin 02/27/19 [History] Montelukast [Singulair] 02/27/19 [History] Ondansetron HCl [Zofran] 4 mg PO Q4HR PRN #10 tablet 02/27/19 [Rx] predniSONE 02/27/19 [History] Past Medical History HEENT History: Reports: Impaired Vision, Otitis Media Other HEENT History: Bilateral tympanic membrane rupture. tonsillectomy. 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 rheumatoid arthritis Neurological History: Reports: Migraines Psychiatric History: Reports: ADHD, Anxiety, Depression, PTSD, Other (See Below) Other Psychiatric History: Schizo effective disorder Endocrine/Metabolic History: Reports: Hyperthyroidism, Obesity/BMI 30+ Hematologic History: Reports: None Immunologic History: Reports: None Oncologic (Cancer) History: Reports: Cervix Dermatologic History: Reports: Eczema - Infectious Disease History Infectious Disease History: Reports: Chicken Pox - Past Surgical History HEENT Surgical History: Reports: Myringotomy w Tube(s), Oral Surgery, Tonsillectomy Cardiovascular Surgical History: Reports: None Respiratory Surgical History: Reports: None GI Surgical History: Reports: Appendectomy, Cholecystectomy, EGD, Hernia Repair/ Other Female Surgical History: Reports: Hysterectomy Endocrine Surgical History: Reports: None Neurological Surgical History: Reports: None Musculoskeletal Surgical History: Reports: Other (See Below) Other Musculoskeletal Surgeries/Procedures:: Left ankle ORIF with hardware Social & Family History - Family History Cardiac: Reports: Heart Murmur Respiratory: Reports: COPD Psychiatric: Reports: Depression, Schizophrenia - Tobacco Use Smoking Status *Q: Never Smoker - Caffeine Use Caffeine Use: Reports: Coffee, Soda ED ROS GENERAL - Review of Systems Review Of Systems: See Below Constitutional: Reports: Fever, Fatigue HEENT: Reports: Rhinitis Respiratory: Reports: Cough Cardiovascular: Reports: Chest Pain Endocrine: Reports: Fatigue GI/Abdominal: Reports: Abdominal Pain : Reports: No Symptoms Musculoskeletal: Reports: Muscle Pain Skin: Reports: Erythema Neurological: Reports: No Symptoms Psychiatric: Reports: No Symptoms Hematologic/Lymphatic: Reports: No Symptoms Immunologic: Reports: No Symptoms ED EXAM, GENERAL - Physical Exam Exam: See Below Exam Limited By: No Limitations General Appearance: Alert, No Apparent Distress Eye Exam: Bilateral Eye: PERRL Nose: Normal Inspection Throat/Mouth: Normal Inspection Head: Atraumatic, Normocephalic Neck: Supple Respiratory/Chest: No Respiratory Distress, Crackles (diffuse) Cardiovascular: Regular Rate, Rhythm GI/Abdominal: Soft, Non-Tender Extremities: Normal Inspection Neurological: Alert, Oriented Psychiatric: Normal Affect, Normal Mood Skin Exam: Warm, Dry, Erythema (non-rasied erythema limited to the face noted) Course - Vital Signs Last Recorded V/S: Last Vital Signs Temp 37.0 C 02/27/19 21:23 Pulse 102 H 02/27/19 20:43 Resp 16 02/27/19 20:43 BP 158/83 H 02/27/19 20:43 Pulse Ox 95 02/27/19 20:43 - Orders/Labs/Meds Meds: Medications Discontinued Medications Generic Name Dose Route Start Last Admin Trade Name Lisbet PRN Reason Stop Dose Admin Acetaminophen 650 mg 02/27/19 21:08 02/27/19 21:23 Tylenol Bulk Bottle PO 02/27/19 21:09 Not Given NOW ONE Acetaminophen 650 mg 02/27/19 21:22 02/27/19 21:23 Tylenol PO 02/27/19 21:23 650 mg NOW ONE Administration Acetaminophen Confirm 02/27/19 21:20 02/27/19 22:01 Tylenol Administered 02/27/19 21:21 Not Given Dose 650 mg .ROUTE .STK-MED ONE - Re-Assessments/Exams Free Text/Narrative Re-Assessment/Exam: 33-year-old with extensive history as outlined in history of present illness presents with concerns of fever and nonspecific symptoms. Of note she does have a history of polysubstance abuse, depressive disorder, borderline personality disorder, as well as carrying several other psychiatric diagnoses. Reviewed her medical record from clinic. She's had 3 visits this month for the same. She is currently in the middle of a treatment plan with her PCP of Levaquin and steroids for a respiratory infection. On exam here she is noted to be mildly tachycardic. Her vitals are otherwise unremarkable and she is satting well on room air. She does have diffuse crackles on her pulmonary exam consistent with a possible respiratory infection. If this is the case she is being adequately treated with steroids for her history of asthma as well as Levaquin. She does describe a pleuritic chest pain. By history this has clearly been building with her ongoing cough and I feel that the likelihood of PE is low and does not warrant further workup. The patient reports she is very sensitive to influenza so we will retest her for this given symptoms consistent with influenza-like illness. She is requesting some scripts for supportive measures such as Zofran and Tylenol, these will be provided. Overall I believe she is appropriate for discharge and further workup through her PCP. A referral has been placed. She is in the midst of a treatment plan with the PCP so I do not feel that it is appropriate to change this at this time given no major change in symptoms. 02/27/19 21:36 Departure - Departure Time of Disposition: 22:39 Disposition: Home, Self-Care 01 Clinical Impression: Cough, Influenza-like symptoms - Discharge Information Prescriptions: Ondansetron HCl [Zofran] 4 mg PO Q4HR PRN #10 tablet PRN Reason: Nausea Acetaminophen [Tylenol Extra Strength] 500 mg PO Q4H PRN #1 bottle PRN Reason: Fever Instructions: Cough, Adult, [id number] Referrals: Jessica Delaney MD [Primary Care Provider] - Forms: ED Department Discharge Additional Instructions: Your symptoms are consistent with a viral illness or allergies. We suggest your continue the medications prescribed by your primary doctor to cover possible bacterial infection and prevent flare of your asthma. Please make a follow up appointment with your primary doctor this week. Take the prescribed medications as needed to help control symptoms You make consider an allergy medication such as benadryl or claritin which can be purchased over the counter
== END 2019-02-27 22:53 | disposition home or self-care (01) ==
LOC: JP.ED 20:12
DX: J11.1 Influenza due to unidentified influenza virus with other respiratory manifestations (principal)
CPT/HCPCS: 87804; 99283; A9270

== ENCOUNTER 2019-04-29 10:25 | Emergency (ER) | payer MEDICAID ==
[2019-04-29 10:44] VITALS: BP 146/81
--- NOTE | 2019-04-29 10:57 | EDM.PDOC ---
ED HPI GENERAL MEDICAL PROBLEM - General Chief Complaint: Genitourinary Problem Stated Complaint: RIGHT SIDE LOWER BACK PAIN Time Seen by Provider: 04/29/19 10:46 Source of Information: Reports: Patient, Provider History Limitations: Reports: No Limitations - History of Present Illness INITIAL COMMENTS - FREE TEXT/NARRATIVE: Patient presents from the local urgent care after going there today because of right sided abdominal pain and concern for possible kidney stone. She has developed symptoms beginning yesterday evening and she does have prior history of kidney stones but based on evaluation in urgent care by Dr. Rojas, it was recommended she come here for further evaluation for possible stones. 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 ADVISOR: Reports: NSAIDS (Naproxen at 0100 today) Right Lower Back Pain Score (Numeric/FACES): 8 - Related Data Allergies Allergy/AdvReac Type Severity Reaction Status Date / Time amoxicillin Allergy Severe Anaphylactic Verified 04/29/19 10:46 Shock promethazine HCl Allergy Severe Anaphylactic Verified 04/29/19 10:46 [From Phenergan] Shock risperidone [From Risperdal] Allergy Severe Anaphylactic Verified 04/29/19 10:46 Shock atomoxetine Allergy Anxiety Verified 04/29/19 10:46 banana Allergy Itching Verified 04/29/19 10:46 clindamycin Allergy Rash Verified 04/29/19 10:46 ketorolac tromethamine Allergy Rash Verified 04/29/19 10:46 [From Toradol] latex Allergy Rash Verified 04/29/19 10:46 Latex, Natural Rubber Allergy Rash Verified 04/29/19 10:46 quetiapine Allergy Anxiety Verified 04/29/19 10:46 tramadol HCl [From Ultram] Allergy Hives Verified 04/29/19 10:46 varenicline Allergy Anxiety Verified 04/29/19 10:46 zolpidem [From Ambien] Allergy Anxiety Verified 04/29/19 10:46 atomoxetine HCl AdvReac Anxiety Verified 04/29/19 10:46 [From Strattera] cephalexin monohydrate AdvReac Dizziness Verified 04/29/19 10:46 [From Keflex] quetiapine fumarate AdvReac Irritabilit Verified 04/29/19 10:46 [From Seroquel] y trazodone AdvReac Dizziness Verified 04/29/19 10:46 zolpidem tartrate AdvReac Anxiety Verified 04/29/19 10:46 [From Ambien] Home Meds: Home Meds Albuterol [Ventolin HFA] 2 puff PO QID PRN 03/01/16 [History] Lisdexamfetamine [Vyvanse] 70 mg PO DAILY 03/01/16 [History] Cetirizine HCl [Zyrtec] 10 mg PO DAILY 09/19/18 [History] Cholecalciferol (Vitamin D3) [Vitamin D3] 2,000 units PO DAILY 09/19/18 [History ] DULoxetine [Cymbalta] 120 mg PO DAILY 09/19/18 [History] Ferrous Sulfate [Feosol] 325 mg PO DAILY 09/19/18 [History] Fluticasone Propionate [Flovent HFA 110 MCG] 1 puff INH BID 09/19/18 [History] Melatonin/Pyridoxine HCl (B6) [Melatonin 3 mg Tablet] 9 mg PO BEDTIME 09/19/18 [ History] Methimazole [Tapazole] 20 mg PO DAILY 09/19/18 [History] Metoprolol Tartrate [Lopressor] 25 mg PO BID 09/19/18 [History] Omeprazole 40 mg PO DAILY 09/19/18 [History] Sennosides [Senna] 8.6 mg PO DAILY PRN 09/19/18 [History] Varenicline [Chantix] 1 mg PO BID 09/19/18 [History] clonazePAM [Clonazepam] 0.5 tab PO BID PRN 09/19/18 [History] lamoTRIgine [Lamictal] 2 tab PO DAILY 09/19/18 [History] metroNIDAZOLE [metroNIDAZOLE 0.75% Gel] 1 applic TOP BID 09/19/18 [History] rOPINIRole [Requip] 1.5 mg PO BEDTIME 09/19/18 [History] rOPINIRole HCl [Requip] 0.5 mg PO DAILY 01/01/19 [History] Pantoprazole Sodium [Protonix] 40 mg PO BID #30 tablet. 01/02/19 [Rx] Albuterol [Proventil Neb Soln] 3 ml NEB TID PRN 02/18/19 [History] Albuterol/Ipratropium [DuoNeb 3.0-0.5 MG/3 ML] 3 ml INH Q6H PRN 02/18/19 [ History] Naproxen [Naprosyn] 500 mg PO Q12HR 02/18/19 [History] Pramoxine HCl [Prax] 1 applic TP QID 02/18/19 [History] Ranitidine HCl [Zantac] 150 mg PO BID 02/18/19 [History] Sodium Chloride [[place]] 2 spray NS QID 02/18/19 [History] Triamcinolone Acetonide [Kenalog 0.1% Crm] 1 applic TOP TID PRN 02/18/19 [ History] Acetaminophen [Tylenol Extra Strength] 500 mg PO Q4H PRN #1 bottle 02/27/19 [Rx] Montelukast [Singulair] 1 tab PO DAILY 02/27/19 [History] Ondansetron HCl [Zofran] 4 mg PO Q4HR PRN #10 tablet 02/27/19 [Rx] Acetaminophen with Codeine [Tylenol with Codeine #3 Tablet] 1 tab PO Q4HR PRN [History] Calcium Carbonate/Vitamin D3 [Calcium 600-Vit D3 800 Caplet] 1 tab PO DAILY [History] Multivitamin W/Iron, Minerals [Flintstones Complete] 1 tab PO BID 04/29/19 [ History] Vitamin B Complex [B Complex] 1 tab PO DAILY 04/29/19 [History] Past Medical History HEENT History: Reports: Impaired Vision, Otitis Media Other HEENT History: Bilateral tympanic membrane rupture. tonsillectomy. recent surgery septum 08/20 Cardiovascular History: Reports: Other (See Below) Other Cardiovascular History: Heat palpatations Respiratory History: Reports: Asthma, Bronchitis, Recurrent, Pneumonia, Recurrent, Sleep Apnea, SOB Gastrointestinal History: Reports: Gastritis, GERD Genitourinary History: Reports: Renal Calculus, UTI, Recurrent DENIAL MANAGEMENT REPRESENTATIVE History: Reports: Other DENIAL MANAGEMENT REPRESENTATIVE History: Hysterectomy with right oophrectomy Musculoskeletal History: Reports: Fibromyalgia, RA Other Musculoskeletal History: fibromyalgia. rheumatoid arthritis Neurological History: Reports: Migraines Psychiatric History: Reports: ADHD, Anxiety, Depression, PTSD, Other (See Below) Other Psychiatric History: Schizo effective disorder Endocrine/Metabolic History: Reports: Hyperthyroidism, Obesity/BMI 30+ Hematologic History: Reports: None Immunologic History: Reports: None Oncologic (Cancer) History: Reports: Cervix Dermatologic History: Reports: Eczema - Infectious Disease History Infectious Disease History: Reports: Chicken Pox - Past Surgical History HEENT Surgical History: Reports: Myringotomy w Tube(s), Oral Surgery, Tonsillectomy Cardiovascular Surgical History: Reports: None Respiratory Surgical History: Reports: None GI Surgical History: Reports: Appendectomy, Cholecystectomy, EGD, Hernia Repair/ Other Female Surgical History: Reports: Hysterectomy Endocrine Surgical History: Reports: None Neurological Surgical History: Reports: None Musculoskeletal Surgical History: Reports: Other (See Below) Other Musculoskeletal Surgeries/Procedures:: Left ankle ORIF with hardware Social & Family History - Family History Cardiac: Reports: Heart Murmur Respiratory: Reports: COPD Psychiatric: Reports: Depression, Schizophrenia - Caffeine Use Caffeine Use: Reports: Coffee, Soda ED ROS GENERAL - Review of Systems Review Of Systems: See Below Constitutional: Reports: No Symptoms Respiratory: Reports: No Symptoms Cardiovascular: Reports: No Symptoms GI/Abdominal: Reports: Abdominal Pain : Reports: Dysuria, Frequency Musculoskeletal: Reports: Back Pain ED EXAM, GI/ABD - Physical Exam Exam: See Below Text/Narrative:: Patient is lying on her right side when I enter the room and looks very uncomfortable. Exam Limited By: No Limitations General Appearance: Alert, Moderate Distress Respiratory/Chest: No Respiratory Distress Cardiovascular: Regular Rate, Rhythm GI/Abdominal Exam: Normal Bowel Sounds, Soft, Tender (Right flank/CVA region) Back Exam: CVA Tenderness (R) Skin Exam: Warm, Normal Color, Diaphoretic Course - Vital Signs Last Recorded V/S: Last Vital Signs Temp 36.7 C 04/29/19 10:45 Pulse 87 04/29/19 10:45 Resp 20 04/29/19 10:45 BP 146/81 H 04/29/19 10:45 Pulse Ox 95 04/29/19 10:45 - Orders/Labs/Meds Orders: Active Orders 24 hr Category Date Time Status Saline Lock Insert [OM.PC] Routine Oth 04/29/19 11:07 Ordered Labs: Laboratory Tests 04/29/19 04/29/19 04/29/19 Range/Units 11:17 11:17 11:17 WBC 11.7 H (4.5-11.0) K/uL RBC 5.07 (3.30-5.50) M/uL Hgb 13.2 (12.0-15.0) g/dL Hct 41.4 (36.0-48.0) % MCV 82 (80-98) fL MCH 26 L (27-31) pg MCHC 32 (32-36) % Plt Count 275 (150-400) K/uL Neut % (Auto) 75 H (36-66) % Lymph % (Auto) 17 L (24-44) % Blount % (Auto) 7 H (2-6) % Eos % (Auto) 1 L (2-4) % Baso % (Auto) 0 (0-1) % Sodium 137 L (140-148) mmol/L Potassium 4.1 (3.6-5.2) mmol/L Chloride 101 (100-108) mmol/L Carbon Dioxide 27 (21-32) mmol/L Anion Gap 13.1 (5.0-14.0) mmol/L BUN 10 (7-18) mg/dL Creatinine 0.8 (0.6-1.0) mg/dL Est Cr Clr Drug Dosing 83.95 mL/min Estimated GFR (MDRD) > 60 (>60) Glucose 112 H (74-106) mg/dL Calcium 9.5 (8.5-10.1) mg/dL HCG, Qual Negative Meds: Medications Discontinued Medications Generic Name Dose Route Start Last Admin Trade Name Cliffq PRN Reason Stop Dose Admin Hydromorphone HCl 1 mg 04/29/19 11:07 04/29/19 11:23 Dilaudid IVPUSH 04/29/19 11:08 1 mg ONETIME ONE Administration Hydromorphone HCl 1 mg 04/29/19 12:48 04/29/19 13:23 Dilaudid IVPUSH 04/29/19 12:49 1 mg ONETIME ONE Administration Ondansetron HCl 4 mg 04/29/19 11:15 04/29/19 11:21 Zofran IVPUSH 04/29/19 11:16 4 mg ONETIME ONE Administration Sodium Chloride 10 ml 04/29/19 11:07 04/29/19 11:23 Saline Flush FLUSH 10 ml ASDIRECTED PRN Administration Keep Vein Open - Re-Assessments/Exams Free Text/Narrative Re-Assessment/Exam: 04/29/19 11:14 Patient will be given hydromorphone 1 mg and ondansetron 4 mg, both IV doses. CT scan of abdomen/pelvis-stone protocol is pending. 04/29/19 11:42 Urinalysis performed at the urgent care clinic prior to presentation is negative for leukocyte esterases and nitrates. There is a clear yellow appearance. 04/29/19 21:37 A second dose of hydromorphone 1 mg was given later prior to receipt of CT imaging results. The noncontrast abdomen and pelvis CT was negative for renal or ureteral stones and really had no abnormalities other than a small ventral hernia defect in the left abdominal wall. I reviewed urine findings and CT findings with the patient. She may have twisted her back in an unusual way that is irritating the nerve or muscle on the right side but I do not see any acute severe pain in producing intra-abdominal problem today. She was discharged in good condition to follow-up with primary care as needed. Departure - Departure Time of Disposition: 14:00 Disposition: Home, Self-Care 01 Condition: Good Clinical Impression: Back pain - Discharge Information *PRESCRIPTION DRUG MONITORING PROGRAM REVIEWED*: Not Applicable *COPY OF PRESCRIPTION DRUG MONITORING REPORT IN PATIENT JAYDEN: Not Applicable Instructions: Acute Pain, Adult Referrals: Jessica Delaney MD [Primary Care Provider] - Forms: ED Department Discharge Additional Instructions: Continue naproxen, Robaxin, Tylenol. Cold packs to painful area 20 minutes off and on. Recheck with primary care if not improved in 5 days or so. - My Orders Last 24 Hours: My Active Orders 04/29/19 11:07 Saline Lock Insert [OM.PC] Routine - Assessment/Plan Last 24 Hours: My Active Orders 04/29/19 11:07 Saline Lock Insert [OM.PC] Routine
[2019-04-29] MEDS ORDERED: Sodium Chloride 0.9% 10 ML Syringe FLUSH PRN (11:07)
[2019-04-29] MEDS ORDERED: HYDROmorphone 1 MG/ML Syringe IVPUSH ONE ×2 (11:07→12:48)
[2019-04-29] MEDS ORDERED: Ondansetron 4 MG/2 ML SDV IVPUSH ONE (11:15)
--- NOTE | 2019-04-29 12:39 | CRLCT ---
INDICATION: Right flank pain. TECHNIQUE: CT abdomen and pelvis without contrast. COMPARISON: January 01, 2019. FINDINGS: Lower chest: Unremarkable. Liver: Normal in size and attenuation. No masses. Gallbladder and bile ducts: Status post cholecystectomy. Pancreas: Unremarkable. No mass or inflammation. Spleen: Normal in size. No masses. Adrenal glands: Normal in size. No nodules. Kidneys: Unremarkable. No kidney or ureteral stone and no hydronephrosis or perinephric edema. Calcifications in the right pelvis are believed to represent phleboliths adjacent to the distal right ureter. GI tract: Unremarkable. Normal in caliber. No sign of mass or inflammation. Appendix has been removed. Vasculature: Unremarkable. Lymph nodes: No lymphadenopathy. Abdominal wall/Omentum/Peritoneum: Very small supraumbilical midline ventral hernia containing fat only appears inflamed as visualized on the axial series 2, image 111 and the sagittal series 4, image 140. No free air or fluid collection. Pelvis: Unremarkable. No pelvic masses. Bones: Unremarkable for age. IMPRESSION: 1. No kidney or ureteral stone and no hydronephrosis. 2. Very small inflamed supraumbilical midline fat containing ventral hernia. 3. No other acute or specific finding to explain right-sided pain. Dictated by Tod Keller MD @ 04/29/2019 12:38:26 PM Please note that all CT scans at this facility use dose modulation, iterative reconstruction, and/or weight-based dosing when appropriate to reduce radiation dose to as low as reasonably achievable. Dictated by: Tod Keller MD @ 04/29/2019 12:38:33 (Electronically Signed)
== END 2019-04-29 14:33 | disposition home or self-care (01) ==
LOC: JP.ED 10:25
DX: M54.5 Low back pain (principal); K21.9 Gastro-esophageal reflux disease without esophagitis; F90.9 Attention-deficit hyperactivity disorder, unspecified type; E05.90 Thyrotoxicosis, unspecified without thyrotoxic crisis or storm; J45.909 Unspecified asthma, uncomplicated; Z88.1 Allergy status to other antibiotic agents; Z88.8 Allergy status to other drugs, medicaments and biological substances; Z91.040 Latex allergy status; Z79.899 Other long term (current) drug therapy
CPT/HCPCS: 36415; 74176; 80048; 84703; 85025; 96374; 96375; 96376; 99284; J1170; J2405

== ENCOUNTER 2019-06-06 12:48 | Emergency (ER) | payer MEDICAID ==
[2019-06-06 13:45] VITALS: BP 137/82; PULSE 81
[2019-06-06] MEDS ORDERED: Sodium Chloride 0.9% 10 ML Syringe FLUSH PRN (14:08)
[2019-06-06] MEDS ORDERED: Albuterol/Ipratropium 3.0-0.5 MG/3 ML Neb Soln NEB ONE (14:08)
[2019-06-06] MEDS ORDERED: HYDROmorphone 0.5 MG/0.5 ML Syringe IVPUSH ONE ×2 (14:09→16:31)
--- NOTE | 2019-06-06 14:14 | EDM.PDOC ---
ED HPI GENERAL MEDICAL PROBLEM - General Chief Complaint: Abdominal Pain Stated Complaint: TROUBLE BREATHING, STOMACH,SPINE AND CHEST PAIN Time Seen by Provider: 06/06/19 13:02 Source of Information: Reports: Patient History Limitations: Reports: No Limitations - History of Present Illness INITIAL COMMENTS - FREE TEXT/NARRATIVE: states she had her teeth pulled a week and a half ago; getting ready for gastric bypass surgery. She started to fill sick shortly thereafter. She went to see her PCP who prescribed her antx; however her insurance wouldn't cover another antx so, she didn't take anything nor notify her pcp; symptoms have progressively gotten worse Cough, sob, headache, body aches, abdominal pain Duration: Day(s): (7) Severity: Moderate Improves with: Reports: None Worsens with: Reports: None Abdomen Pain Score (Numeric/FACES): 8 - Related Data Allergies Allergy/AdvReac Type Severity Reaction Status Date / Time amoxicillin Allergy Severe Anaphylactic Verified 06/06/19 14:09 Shock promethazine HCl Allergy Severe Anaphylactic Verified 06/06/19 14:09 [From Phenergan] Shock risperidone [From Risperdal] Allergy Severe Anaphylactic Verified 06/06/19 14:09 Shock atomoxetine Allergy Anxiety Verified 06/06/19 14:09 banana Allergy Itching Verified 06/06/19 14:09 clindamycin Allergy Rash Verified 06/06/19 14:09 ketorolac tromethamine Allergy Rash Verified 06/06/19 14:09 [From Toradol] latex Allergy Rash Verified 06/06/19 14:09 Latex, Natural Rubber Allergy Rash Verified 06/06/19 14:09 quetiapine Allergy Anxiety Verified 06/06/19 14:09 tramadol HCl [From Ultram] Allergy Hives Verified 06/06/19 14:09 varenicline Allergy Anxiety Verified 06/06/19 14:09 zolpidem [From Ambien] Allergy Anxiety Verified 06/06/19 14:09 atomoxetine HCl AdvReac Anxiety Verified 06/06/19 14:09 [From Strattera] cephalexin monohydrate AdvReac Dizziness Verified 06/06/19 14:09 [From Keflex] quetiapine fumarate AdvReac Irritabilit Verified 06/06/19 14:09 [From Seroquel] y trazodone AdvReac Dizziness Verified 06/06/19 14:09 zolpidem tartrate AdvReac Anxiety Verified 06/06/19 14:09 [From Edsonien] Home Meds: Home Meds Albuterol [Ventolin HFA] 2 puff PO QID PRN 03/01/16 [History] Lisdexamfetamine [Vyvanse] 70 mg PO DAILY 03/01/16 [History] Cetirizine HCl [Zyrtec] 10 mg PO DAILY 09/19/18 [History] Cholecalciferol (Vitamin D3) [Vitamin D3] 2,000 units PO DAILY 09/19/18 [History ] DULoxetine [Cymbalta] 120 mg PO DAILY 09/19/18 [History] Ferrous Sulfate [Feosol] 325 mg PO DAILY 09/19/18 [History] Fluticasone Propionate [Flovent HFA 110 MCG] 1 puff INH BID 09/19/18 [History] Melatonin/Pyridoxine HCl (B6) [Melatonin 3 mg Tablet] 9 mg PO BEDTIME 09/19/18 [ History] Methimazole [Tapazole] 20 mg PO DAILY 09/19/18 [History] Metoprolol Tartrate [Lopressor] 25 mg PO BID 09/19/18 [History] Omeprazole 40 mg PO DAILY 09/19/18 [History] Sennosides [Senna] 8.6 mg PO DAILY PRN 09/19/18 [History] Varenicline [Chantix] 1 mg PO BID 09/19/18 [History] clonazePAM [Clonazepam] 0.5 tab PO BID PRN 09/19/18 [History] lamoTRIgine [Lamictal] 2 tab PO DAILY 09/19/18 [History] metroNIDAZOLE [metroNIDAZOLE 0.75% Gel] 1 applic TOP BID 09/19/18 [History] rOPINIRole [Requip] 1.5 mg PO BEDTIME 09/19/18 [History] rOPINIRole HCl [Requip] 0.5 mg PO DAILY 01/01/19 [History] Pantoprazole Sodium [Protonix] 40 mg PO BID #30 tablet. 01/02/19 [Rx] Albuterol [Proventil Neb Soln] 3 ml NEB TID PRN 02/18/19 [History] Albuterol/Ipratropium [DuoNeb 3.0-0.5 MG/3 ML] 3 ml INH Q6H PRN 02/18/19 [ History] Naproxen [Naprosyn] 500 mg PO Q12HR 02/18/19 [History] Pramoxine HCl [Prax] 1 applic TP QID 02/18/19 [History] Sodium Chloride [[place]] 2 spray NS QID 02/18/19 [History] Triamcinolone Acetonide [Kenalog 0.1% Crm] 1 applic TOP TID PRN 02/18/19 [ History] raNITIdine HCl [Zantac] 150 mg PO BID 02/18/19 [History] Acetaminophen [Tylenol Extra Strength] 500 mg PO Q4H PRN #1 bottle 02/27/19 [Rx] Montelukast [Singulair] 1 tab PO DAILY 02/27/19 [History] Ondansetron HCl [Zofran] 4 mg PO Q4HR PRN #10 tablet 02/27/19 [Rx] Acetaminophen with Codeine [Tylenol with Codeine #3 Tablet] 1 tab PO Q4HR PRN [History] Calcium Carbonate/Vitamin D3 [Calcium 600-Vit D3 800 Caplet] 1 tab PO DAILY [History] Multivitamin W/Iron, Minerals [Flintstones Complete] 1 tab PO BID 04/29/19 [ History] Vitamin B Complex [B Complex] 1 tab PO DAILY 04/29/19 [History] Ondansetron [Zofran ODT] 4 mg PO Q6H PRN #15 tab.dis 06/06/19 [Rx] levoFLOXacin [Levaquin] 500 mg PO DAILY #6 tab 06/06/19 [Rx] predniSONE [Prednisone] 20 mg PO DAILY #4 tablet 06/06/19 [Rx] Past Medical History HEENT History: Reports: Impaired Vision, Otitis Media Other HEENT History: Bilateral tympanic membrane rupture. tonsillectomy. recent surgery septum 08/20 Cardiovascular History: Reports: Other (See Below) Other Cardiovascular History: Heat palpatations Respiratory History: Reports: Asthma, Bronchitis, Recurrent, Pneumonia, Recurrent, Sleep Apnea, SOB Gastrointestinal History: Reports: Gastritis, GERD Genitourinary History: Reports: Renal Calculus, UTI, Recurrent UNEMPLOYMENT CLAIMS ADJUDICATOR History: Reports: Other UNEMPLOYMENT CLAIMS ADJUDICATOR History: Hysterectomy with right oophrectomy Musculoskeletal History: Reports: Fibromyalgia, RA Other Musculoskeletal History: fibromyalgia. rheumatoid arthritis Neurological History: Reports: Migraines Psychiatric History: Reports: ADHD, Anxiety, Depression, PTSD, Other (See Below) Other Psychiatric History: Schizo effective disorder Endocrine/Metabolic History: Reports: Hyperthyroidism, Obesity/BMI 30+ Hematologic History: Reports: None Immunologic History: Reports: None Oncologic (Cancer) History: Reports: Cervix Dermatologic History: Reports: Eczema - Infectious Disease History Infectious Disease History: Reports: Chicken Pox - Past Surgical History HEENT Surgical History: Reports: Myringotomy w Tube(s), Oral Surgery, Tonsillectomy Cardiovascular Surgical History: Reports: None Respiratory Surgical History: Reports: None GI Surgical History: Reports: Appendectomy, Cholecystectomy, EGD, Hernia Repair/ Other Female Surgical History: Reports: Hysterectomy Endocrine Surgical History: Reports: None Neurological Surgical History: Reports: None Musculoskeletal Surgical History: Reports: Other (See Below) Other Musculoskeletal Surgeries/Procedures:: Left ankle ORIF with hardware Social & Family History - Family History Cardiac: Reports: Heart Murmur Respiratory: Reports: COPD Psychiatric: Reports: Depression, Schizophrenia - Caffeine Use Caffeine Use: Reports: Coffee, Soda ED ROS GENERAL - Review of Systems Review Of Systems: See Below Constitutional: Reports: Weakness HEENT: Reports: Throat Pain Respiratory: Reports: Shortness of Breath, Cough GI/Abdominal: Reports: Abdominal Pain, Nausea : Reports: No Symptoms Skin: Reports: No Symptoms Neurological: Reports: No Symptoms ED EXAM, GENERAL - Physical Exam Exam: See Below Exam Limited By: No Limitations General Appearance: Alert, WD/WN, Mild Distress Eye Exam: Bilateral Eye: EOMI, PERRL Throat/Mouth: Normal Inspection, Normal Lips, Normal Teeth, Normal Gums, Normal Oropharynx, Normal Voice, No Airway Compromise Head: Atraumatic, Normocephalic Neck: Normal Inspection, Supple, Non-Tender, Full Range of Motion Respiratory/Chest: Wheezing, Other (chest wall pain) Cardiovascular: Regular Rate, Rhythm GI/Abdominal: Normal Bowel Sounds, Soft, Tender, Other (obese) Back Exam: Full Range of Motion Extremities: Normal Inspection, Normal Range of Motion Neurological: Alert, Oriented, CN II-XII Intact, Normal Cognition, Normal Gait Psychiatric: Normal Affect, Normal Mood Skin Exam: Warm, Dry, Intact Course - Vital Signs Last Recorded V/S: Last Vital Signs Temp 96.8 F 06/06/19 14:13 Pulse 81 06/06/19 14:13 Resp 24 H 06/06/19 14:13 BP 137/82 06/06/19 14:13 Pulse Ox 95 06/06/19 14:13 - Orders/Labs/Meds Orders: Active Orders 24 hr Category Date Time Status Peripheral IV Care [RC] . DIRECTED Care 06/06/19 14:08 Active RT Aerosol Therapy [RC] ASDIRECTED Care 06/06/19 14:08 Active RT Aerosol Therapy [RC] ASDIRECTED Care 06/06/19 15:32 Active Peripheral IV Insertion Adult [OM.PC] Stat Oth 06/06/19 14:07 Ordered Labs: Laboratory Tests 06/06/19 06/06/19 06/06/19 Range/Units 13:03 14:27 14:27 WBC 13.0 H (4.5-11.0) K/uL RBC 5.43 (3.30-5.50) M/uL Hgb 13.9 (12.0-15.0) g/dL Hct 44.2 (36.0-48.0) % MCV 81 (80-98) fL MCH 26 L (27-31) pg MCHC 31 L (32-36) % Plt Count 326 (150-400) K/uL Neut % (Auto) 70 H (36-66) % Lymph % (Auto) 21 L (24-44) % Pierce % (Auto) 7 H (2-6) % Eos % (Auto) 2 (2-4) % Baso % (Auto) 0 (0-1) % Sodium 141 (140-148) mmol/L Potassium 4.5 (3.6-5.2) mmol/L Chloride 101 (100-108) mmol/L Carbon Dioxide 31 (21-32) mmol/L Anion Gap 9.0 (5.0-14.0) mmol/L BUN 9 (7-18) mg/dL Creatinine 1.0 (0.6-1.0) mg/dL Est Cr Clr Drug Dosing 67.16 mL/min Estimated GFR (MDRD) > 60 (>60) Glucose 108 H (74-106) mg/dL Calcium 9.7 (8.5-10.1) mg/dL Total Bilirubin 0.4 (0.2-1.0) mg/dL AST 12 L (15-37) U/L ALT 23 (12-78) U/L Alkaline Phosphatase 78 (46-116) U/L Total Protein 7.7 (6.4-8.2) g/dL Albumin 3.4 (3.4-5.0) g/dL Globulin 4.3 H (2.3-3.5) g/dL Albumin/Globulin Ratio 0.8 L (1.2-2.2) Urine Color Yellow Urine Appearance Slightly cloudy Urine pH 5.0 (4.5-8.0) Ur Specific [place] 1.020 (1.008-1.030) Urine Protein Negative (NEGATIVE) mg/dL Urine Glucose (UA) Normal (NEGATIVE) mg/dL Urine Ketones Negative (NEGATIVE) mg/dL Urine Occult Blood Negative (NEGATIVE) Urine Nitrite Negative (NEGATIVE) Urine Bilirubin Negative (NEGATIVE) Urine Urobilinogen Normal (NORMAL) mg/dL Ur Leukocyte Esterase Negative (NEGATIVE) Urine RBC Not seen (0-5) Urine WBC Not seen (0-5) Ur Epithelial Cells Many Amorphous Sediment Not seen Urine Bacteria Moderate Urine Mucus Not seen Meds: Medications Discontinued Medications Generic Name Dose Route Start Last Admin Trade Name Freq PRN Reason Stop Dose Admin Albuterol 2.5 mg 06/06/19 15:32 06/06/19 15:53 Proventil Neb Soln [facility] 06/06/19 15:33 2.5 mg ONETIME ONE Administration Albuterol/Ipratropium 3 ml 06/06/19 14:08 06/06/19 14:25 Duoneb 3.0-0.5 Mg/[address] [facility] 06/06/19 14:09 3 ml ONETIME ONE Administration Hydromorphone HCl 0.5 mg 06/06/19 14:09 06/06/19 14:25 Dilaudid IVPUSH 06/06/19 14:10 0.5 mg ONETIME ONE Administration Hydromorphone HCl 0.5 mg 06/06/19 16:31 06/06/19 16:39 Dilaudid IVPUSH 06/06/19 16:32 0.5 mg ONETIME ONE Administration Levofloxacin 500 mg 06/06/19 16:30 06/06/19 16:38 Levaquin PO 06/06/19 16:31 500 mg ONETIME ONE Administration Ondansetron HCl 4 mg 06/06/19 15:33 06/06/19 15:53 Zofran IVPUSH 06/06/19 15:34 4 mg ONETIME ONE Administration Prednisone 20 mg 06/06/19 16:29 06/06/19 16:38 Prednisone PO 06/06/19 16:30 20 mg ONETIME ONE Administration Sodium Chloride 10 ml 06/06/19 14:08 06/06/19 14:25 Saline Flush FLUSH 10 ml ASDIRECTED PRN Administration Keep Vein Open - Re-Assessments/Exams Free Text/Narrative Re-Assessment/Exam: 06/06/19 16:40 reviewed her labs/chest xray with her She is restricted to [facility]. She is requesting something for pain (stomach and chest) She will be discharged home. Departure - Departure Time of Disposition: 16:41 Disposition: Home, Self-Care 01 Condition: Fair Clinical Impression: Bronchitis - Discharge Information *PRESCRIPTION DRUG MONITORING PROGRAM REVIEWED*: Not Applicable *COPY OF PRESCRIPTION DRUG MONITORING REPORT IN PATIENT JAYDEN: Not Applicable Prescriptions: levoFLOXacin [Levaquin] 500 mg PO DAILY #6 tab Ondansetron [Zofran ODT] 4 mg PO Q6H PRN #15 tab.dis PRN Reason: Nausea predniSONE [Prednisone] 20 mg PO DAILY #4 tablet Instructions: Upper Respiratory Infection, Adult, [id number] Referrals: Jessica Delaney MD [Primary Care Provider] - Forms: ED Department Discharge Additional Instructions: Take medications as directed Please follow up with your doctor tomorrow or Friday Use your rescue inhaler as needed Call with questions - Problem List & Annotations (1) Bronchitis SNOMED Code(s): 77690454 Code(s): J40 - BRONCHITIS, NOT SPECIFIED ACUTE OR CHRONIC Status: Acute Priority: Low - My Orders Last 24 Hours: My Active Orders 06/06/19 14:07 Peripheral IV Insertion Adult [OM.PC] Stat 06/06/19 14:08 Peripheral IV Care [RC] . DIRECTED RT Aerosol Therapy [RC] ASDIRECTED 06/06/19 15:32 RT Aerosol Therapy [RC] ASDIRECTED - Assessment/Plan Last 24 Hours: My Active Orders 06/06/19 14:07 Peripheral IV Insertion Adult [OM.PC] Stat 06/06/19 14:08 Peripheral IV Care [RC] . DIRECTED RT Aerosol Therapy [RC] ASDIRECTED 06/06/19 15:32 RT Aerosol Therapy [RC] ASDIRECTED
--- NOTE | 2019-06-06 15:11 | CRLCR ---
INDICATION: Cough with shortness of breath. TECHNIQUE: Two view chest. FINDINGS: The lungs are clear. The heart, mediastinum and pulmonary vessels are of normal size. There is no evidence of pleural disease. IMPRESSION: Negative chest. Dictated by Arnel Lopez MD @ Jun 06 2019 3:09PM Signed by Dr. Arnel Lopez @ Jun 06 2019 3:10PM
[2019-06-06] MEDS ORDERED: Albuterol 0.083% 2.5 MG/3 ML Neb Soln NEB ONE (15:32)
[2019-06-06] MEDS ORDERED: Ondansetron 4 MG/2 ML SDV IVPUSH ONE (15:33)
[2019-06-06] MEDS ORDERED: predniSONE 10 MG Tab PO ONE (16:29)
[2019-06-06] MEDS ORDERED: Levofloxacin 500 MG Tab PO ONE (16:30)
== END 2019-06-06 16:47 | disposition home or self-care (01) ==
LOC: JP.ED 12:48
DX: J40 Bronchitis, not specified as acute or chronic (principal); M06.9 Rheumatoid arthritis, unspecified; E66.9 Obesity, unspecified; K21.9 Gastro-esophageal reflux disease without esophagitis; F41.9 Anxiety disorder, unspecified; F32.9 Major depressive disorder, single episode, unspecified; Z79.899 Other long term (current) drug therapy; Z87.01 Personal history of pneumonia (recurrent); Z96.22 Myringotomy tube(s) status; Z90.49 Acquired absence of other specified parts of digestive tract; Z98.890 Other specified postprocedural states; Z90.710 Acquired absence of both cervix and uterus; Z88.1 Allergy status to other antibiotic agents; Z91.018 Allergy to other foods; Z91.040 Latex allergy status; Z88.8 Allergy status to other drugs, medicaments and biological substances; Z88.6 Allergy status to analgesic agent
CPT/HCPCS: 36415; 71046; 80053; 81001; 85025; 94640; 96374; 96375; 96376; 99284; A9270; J1170; J2405; J7620-GY

== ENCOUNTER 2019-07-27 05:14 | Inpatient (IN) | payer MEDICAID ==
[2019-07-27] MEDS ORDERED: Scopolamine 1.5 MG Transdermal Patch TOP ONE (05:45)
[2019-07-27] MEDS ORDERED: Acetaminophen 500 MG Tab PO ONE (05:45)
[2019-07-27] MEDS ORDERED: Gabapentin 300 MG Cap PO ONE (05:45)
[2019-07-27] MEDS ORDERED: Celecoxib 200 MG Cap PO ONE (05:45)
[2019-07-27] MEDS ORDERED: Metoprolol Tartrate 25 MG Tab PO ONE (05:53)
[2019-07-27] MEDS ORDERED: Dextrose 5%-Lactated Ringers 1,000 ML IV SCH (06:00)
[2019-07-27] MEDS ORDERED: cefOXitin 2 GM Vial ONE (06:39)
[2019-07-27] MEDS: Albuterol/Ipratropium 3.0-0.5 MG/3 ML Neb Soln NEB ONE ×2 (06:58→13:44)
[2019-07-27] MEDS ORDERED: fentaNYL 250 MCG/5 ML SDV ONE ×4 (07:05→09:37)
[2019-07-27] MEDS ORDERED: Neostigmine Methylsulfate 1 MG/ML 5 ML Syringe ONE (07:06)
[2019-07-27] MEDS ORDERED: Glycopyrrolate 0.2 MG/ML 5 ML MDV ONE (07:06)
[2019-07-27] MEDS ORDERED: Ondansetron 4 MG/2 ML SDV ONE (07:06)
[2019-07-27] MEDS ORDERED: Rocuronium 50 MG/5 ML Vial ONE ×2 (07:06→09:21)
[2019-07-27] MEDS ORDERED: Dexamethasone 4 MG/ML SDV ONE (07:06)
[2019-07-27] MEDS ORDERED: Succinylcholine 200 MG/10 ML MDV ONE (07:06)
[2019-07-27] MEDS ORDERED: Propofol 200 MG/20 ML SDV ONE (07:06)
[2019-07-27] MEDS ORDERED: Lactated Ringers 1,000 ML ONE (07:09)
[2019-07-27] MEDS ORDERED: Levofloxacin 500 MG/20 ML SDV ONE (07:18)
[2019-07-27] MEDS ORDERED: Ketamine 500 MG/5 ML MDV IV SCH (07:30)
[2019-07-27] MEDS ORDERED: Lidocaine 2% 100 MG/5 ML Syringe IVPUSH SCH (07:30)
[2019-07-27] MEDS ORDERED: Lidocaine 0.4%/D5W 2 GM/500 ML BAG IV SCH (07:30)
[2019-07-27] MEDS ORDERED: Levofloxacin/Dextrose 5%-Water 500 MG in Premix Bag 1 BAG IV ONE (07:30)
[2019-07-27] MEDS ORDERED: Ketamine 50 MG in Sodium Chloride 0.9% 49.5 ML IV SCH (07:30)
[2019-07-27] MEDS ORDERED: Labetalol 20 MG/4 ML Syringe ONE (09:03)
[2019-07-27] MEDS ORDERED: Naloxone 0.4 MG/ML SDV ONE (10:37)
[2019-07-27] MEDS ORDERED: hydrOXYzine HCl 100 MG/2 ML SDV IM ONE (10:47)
[2019-07-27] MEDS ORDERED: fentaNYL 100 MCG/2 ML SDV IVPUSH ONE (10:51)
[2019-07-27] MEDS ORDERED: Doxycycline 100 MG in Sodium Chloride 0.9% 100 ML IV ONE (11:00)
[2019-07-27] MEDS ORDERED: Pantoprazole 40 MG Vial IVPUSH SCH (12:00)
[2019-07-27] MEDS ORDERED: diphenhydrAMINE 50 MG/ML SDV IVPUSH PRN (12:13)
[2019-07-27] MEDS ORDERED: HYDROmorphone 0.5 MG/0.5 ML Syringe IVPUSH PRN (12:13)
[2019-07-27] MEDS ORDERED: Metoclopramide 10 MG/2 ML SDV IVPUSH PRN (12:13)
[2019-07-27] MEDS ORDERED: Labetalol 20 MG/4 ML Syringe IVPUSH PRN (12:13)
[2019-07-27] MEDS ORDERED: Ondansetron 4 MG/2 ML SDV IVPUSH PRN (12:13)
[2019-07-27] MEDS ORDERED: Albuterol/Ipratropium 3.0-0.5 MG/3 ML Neb Soln INH PRN (12:13)
[2019-07-27] MEDS ORDERED: LORazepam 2 MG/ML SDV IVPUSH PRN (12:28)
[2019-07-27] MEDS: Acetaminophen Soln 650 MG/20.3 ML UD Cup PO SCH ×3 (13:30→23:30)
[2019-07-27] MEDS: Gabapentin 250 MG/5 ML Solution ML 470 ML Bottle PO SCH ×2 (13:31→23:32)
[2019-07-27] MEDS: HYDROmorphone 1 MG/ML Syringe IV PRN ×4 (13:48→22:31)
[2019-07-27] MEDS: VERIFY SCOP PATCH TOP SCH (14:04)
[2019-07-27] MEDS: Albuterol/Ipratropium 3.0-0.5 MG/3 ML Neb Soln INH SCH ×2 (14:54→23:30)
[2019-07-27] MEDS: MVI, Adult with Vitamin K 10 ML, Thiamine 200 MG, Chromium/Copper/Mang/Selen/Zn 1 ML in... IV SCH ×4 (15:49)
[2019-07-27] MEDS: Heparin Sodium 5,000 Units/ML Vial SUBCUT SCH (15:50)
[2019-07-27] MEDS ORDERED: Metoprolol Tartrate 25 MG Tab PO SCH (21:00)
[2019-07-27] MEDS ORDERED: Temazepam 15 MG Cap PO SCH (21:00)
[2019-07-27] MEDS ORDERED: Montelukast 10 MG Tab PO SCH (21:00)
[2019-07-27] MEDS: rOPINIRole 1 MG Tab PO SCH (21:45)
[2019-07-27] MEDS: Dextrose 5%-Lactated Ringers 1,000 ML IV SCH (23:30)
[2019-07-27] MEDS: Doxycycline 100 MG in Sodium Chloride 0.9% 100 ML IV SCH (23:31)
[2019-07-28] MEDS: Heparin Sodium 5,000 Units/ML Vial SUBCUT SCH ×4 (00:15→23:59)
[2019-07-28] MEDS ORDERED: Iopamidol 612 MG/ML 50 ML SDV PO STA (02:29)
[2019-07-28] MEDS: HYDROmorphone 1 MG/ML Syringe IV PRN (02:32)
--- NOTE | 2019-07-28 03:48 | CRLCR ---
INDICATION: S/P RNY LEAK CHECK PRELIMINARY IMPRESSIONS: 1. No evidence of contrast extravasation is noted on 2 static submitted images. 2. Surgical drain is present in the left upper quadrant. Indication: Exclude postoperative leak following Florence-en-Y gastric bypass surgery. Technique: Two erect views of the abdomen were performed following barium ingestion. Comparison: None Findings: The images demonstrate normal opacification of the distal esophagus. There is free passage of contrast from the gastric pouch into the Florence limb with no evidence of contrast extravasation or obstruction. There is no evidence of free intraperitoneal air or soft tissue mass effect. There are no pathologic calcifications. Impression: No evidence of postoperative leak. Dictated by Braulio Mcnally MD @ 07/30/2019 9:21:25 AM Prelim Report By Dr. Braulio Mcnally @ 07/30/2019 9:21:25 AM ADDENDUM Dictated by: Braulio Mcnally MD @ 07/30/2019 09:24:01 (Electronically Signed)
[2019-07-28] MEDS ORDERED: Insulin Lispro 100 Units/ML 3 ML Vial SUBCUT PRN (04:00)
[2019-07-28] MEDS: Acetaminophen Soln 650 MG/20.3 ML UD Cup PO SCH ×4 (05:00→23:59)
[2019-07-28] MEDS: Dextrose 5%-Lactated Ringers 1,000 ML IV SCH ×2 (05:22→05:26)
[2019-07-28] MEDS: Albuterol/Ipratropium 3.0-0.5 MG/3 ML Neb Soln INH SCH ×4 (07:00→21:38)
[2019-07-28] MEDS ORDERED: 50% Dextrose in Water 50 ML Syringe IVPUSH PRN (07:19)
[2019-07-28] MEDS ORDERED: Glucagon,Human Recombinant 1 MG Vial IM PRN (07:19)
[2019-07-28] MEDS ORDERED: Ondansetron 4 MG Tab.DIS PO PRN (07:26)
[2019-07-28] MEDS ORDERED: Dextrose 5%-Lactated Ringers 1,000 ML IV SCH (07:30)
[2019-07-28] MEDS: Levofloxacin/Dextrose 5%-Water 500 MG in Premix Bag 1 BAG IV SCH (07:51)
[2019-07-28] MEDS: Celecoxib 200 MG Cap PO SCH (07:55)
[2019-07-28 08:18] LABS: HEMOGLOBIN A1C 5.6 % (4.5-6.2)
[2019-07-28] MEDS ORDERED: DULoxetine 30 MG Cap PO SCH (09:00)
[2019-07-28] MEDS: DULoxetine 30 MG Cap PO SCH ×2 (09:12→21:40)
[2019-07-28] MEDS: Metoprolol Tartrate 25 MG Tab PO SCH ×2 (09:12→21:40)
[2019-07-28] MEDS: SCOPOLAMINE PATCH CHECK TOP SCH (09:13)
[2019-07-28] MEDS: VERIFY SCOP PATCH TOP SCH (09:13)
[2019-07-28] MEDS: LORazepam 0.5 MG Tab PO SCH ×3 (09:18→20:47)
[2019-07-28] MEDS: Gabapentin 250 MG/5 ML Solution ML 470 ML Bottle PO SCH ×3 (09:18→21:39)
[2019-07-28] MEDS: rOPINIRole 0.5 MG Tab PO SCH (09:18)
[2019-07-28] MEDS: lamoTRIgine 100 MG Tab PO SCH (09:18)
[2019-07-28] MEDS: Doxycycline 100 MG in Sodium Chloride 0.9% 100 ML IV SCH ×2 (09:22→23:59)
[2019-07-28] MEDS: Cetirizine 10 MG Tab PO SCH (09:23)
[2019-07-28] MEDS: Methimazole 5 MG Tab PO SCH (09:24)
--- NOTE | 2019-07-28 09:37 | PN ---
DATE OF SERVICE: 07/28/2019 SUBJECTIVE: Keisha is postop day 1. Her pain is controlled. Vital signs stable, been up ambulating. Upper GI was normal and blood sugars have been normal. Oral intake 810 on a step 1 gastric bypass diet and urine output 3000. HUA drain put out 105 mL of a light red drainage. REVIEW OF SYSTEMS: Remainder of review of systems negative for any pertinent positives and negatives. OBJECTIVE: GENERAL: Keisha Puga is a 34-year-old female. She has been sleeping with her CPAP on. VITAL SIGNS: TPR is 96.6, 80, 18. Blood pressure 127/65. HEENT: Negative. NECK: Supple. HEART: Regular rate and rhythm. LUNGS: Clear. Dressing is dry and intact. Abdominal binder is on. EXTREMITIES: Without peripheral edema. ASSESSMENT: Laparoscopic gastric bypass surgery, liver biopsy, small bowel resection, repair of diaphragmatic hernia, and excision of mediastinal lipoma. POSTOPERATIVE DIAGNOSES: 1. Morbid obesity. 2. Hepatomegaly. 3. Foreshortened small bowel mesenteric requiring small bowel resection to allow adequate mobility of the jejunojejunostomy. 4. Diaphragmatic hernia. 5. Mediastinal lipoma. Surgeon Jay Sofia MD. Date of surgery 07/27/2019. PLAN: 1. Continue heparin. 2. Discontinue Accu-Cheks. 3. Decrease IV to 100 mL/hour. 4. May remove dressing. 5. Shower. 6. Start step 2 gastric bypass diet without cereal. Resume home medications; Cymbalta 60 mg p.o. b.i.d., lamotrigine 200 mg p.o. daily, Vyvanse 70 mg p.o. daily, Ativan 0.5 mg p.o. b.i.d., melatonin 10 mg p.o. at bedtime, methimazole 20 mg p.o. daily, metoprolol tartrate 25 mg p.o. b.i.d., Singulair 10 mg p.o. daily, Restoril 30 mg p.o. at bedtime, Zofran ODT 4 mg every 4 hours p.r.n. nausea. 7. Good pulmonary toilet. 8. We will evaluate p.r.n. or in a.m. Sandra Armas PA-C /[id number]
[2019-07-28] MEDS: LISDEXAMFETAMINE 70 MG PO SCH (12:31)
[2019-07-28] MEDS: Pantoprazole 40 MG Delayed-Release Granules 1 Packet PO SCH (12:31)
[2019-07-28] MEDS: hydrOXYzine HCl 100 MG/2 ML SDV IM PRN ×2 (15:15→19:20)
[2019-07-28] MEDS: MVI, Adult with Vitamin K 10 ML, Thiamine 200 MG, Chromium/Copper/Mang/Selen/Zn 1 ML in... IV SCH ×4 (15:50)
[2019-07-28] MEDS ORDERED: HYDROmorphone 1 MG/ML Syringe IVPUSH STA (19:32)
[2019-07-28] MEDS: rOPINIRole 1 MG Tab PO SCH ×2 (19:55→20:47)
[2019-07-28] MEDS: Melatonin 3 MG Tab PO SCH (21:38)
[2019-07-28] MEDS: Montelukast 10 MG Tab PO SCH (21:41)
[2019-07-28] MEDS: HYDROmorphone 2 MG Tab PO PRN (21:44)
[2019-07-28] MEDS: Temazepam 15 MG Cap PO SCH (21:45)
[2019-07-29] MEDS: Acetaminophen Soln 650 MG/20.3 ML UD Cup PO SCH ×4 (05:30→23:36)
[2019-07-29] MEDS: HYDROmorphone 2 MG Tab PO PRN (05:33)
[2019-07-29] MEDS: Albuterol/Ipratropium 3.0-0.5 MG/3 ML Neb Soln INH SCH ×4 (06:59→21:38)
[2019-07-29] MEDS ORDERED: hydrOXYzine HCl 25 MG Tab PO PRN (07:36)
[2019-07-29] MEDS: Celecoxib 200 MG Cap PO SCH (08:27)
[2019-07-29] MEDS: Heparin Sodium 5,000 Units/ML Vial SUBCUT SCH ×3 (08:27→23:33)
[2019-07-29] MEDS: lamoTRIgine 100 MG Tab PO SCH (08:28)
[2019-07-29] MEDS: DULoxetine 30 MG Cap PO SCH ×2 (08:28→21:37)
[2019-07-29] MEDS: LORazepam 0.5 MG Tab PO SCH ×2 (08:28→21:35)
[2019-07-29] MEDS: Metoprolol Tartrate 25 MG Tab PO SCH ×2 (08:29→21:36)
[2019-07-29] MEDS: Gabapentin 250 MG/5 ML Solution ML 470 ML Bottle PO SCH ×3 (08:30→21:39)
[2019-07-29] MEDS: SCOPOLAMINE PATCH CHECK TOP SCH (08:30)
[2019-07-29] MEDS: Methimazole 5 MG Tab PO SCH (08:30)
[2019-07-29] MEDS: rOPINIRole 0.5 MG Tab PO SCH (08:31)
[2019-07-29] MEDS: Pantoprazole 40 MG Delayed-Release Granules 1 Packet PO SCH (08:31)
[2019-07-29] MEDS: Cetirizine 10 MG Tab PO SCH (08:31)
[2019-07-29] MEDS: VERIFY SCOP PATCH TOP SCH (08:31)
[2019-07-29] MEDS: Levofloxacin/Dextrose 5%-Water 500 MG in Premix Bag 1 BAG IV SCH (08:31)
[2019-07-29] MEDS ORDERED: Cyanocobalamin (Vitamin B12) 1,000 MCG/ML SDV IM ONE (09:00)
[2019-07-29] MEDS ORDERED: Magnesium Hydroxide 400 MG/5 ML Susp 30 ML Cup PO ONE (09:00)
[2019-07-29] MEDS: LISDEXAMFETAMINE 70 MG PO SCH (09:02)
--- NOTE | 2019-07-29 12:59 | PN ---
DATE OF SERVICE: 07/29/2019 SUBJECTIVE: Keisha is postoperative day 1. She had an increased pain in her left middle quadrant which is chronic for her and it was accentuated last night. Vital signs have been stable. She has been up ambulating, has not had a bowel movement yet. Oral intake was recorded as 810. Nursing staff stated she has had more in than the 810. There is actual concern of her drinking too much fluid. Urine output was 2000. She consumed 100% of lunch, dinner, and bedtime snack. There is no breakfast recorded. REVIEW OF SYSTEMS: Remainder of review of systems negative for any pertinent positives and negatives. OBJECTIVE: GENERAL: Keisha workman is a 34-year-old female. She is alert and orientated. VITAL SIGNS: TPR 96.4, 71, 16. Blood pressure 130/70. HEENT: Negative. NECK: Supple. HEART: Regular rate and rhythm. LUNGS: Clear. ABDOMEN: Dressing is dry and intact. HUA drain intact. EXTREMITIES: Without peripheral edema. ASSESSMENT: Laparoscopic gastric bypass surgery, liver biopsy, small bowel resection, repair of diaphragmatic hernia, and excision of mediastinal lipoma for morbid obesity, hepatomegaly, foreshortened small bowel mesentery requiring small bowel resection to allow adequate mobility of the jejunojejunostomy, diaphragmatic hernia, mediastinal lipoma. Date of surgery 07/27/2019. Surgeon, Jay Sofia MD. PLAN: 1. Discontinue HUA drain. 2. Milk of Magnesia 30 mL. 3. Saline lock IV. 4. Three med cups per hour. 5. Discontinue Dilaudid. 6. Atarax 50 mg q.4 hours p.r.n. pain. 7. Good pulmonary toilet. 8. We will evaluate p.r.n. or in a.m. Sandra Armas PA-C /[id number]
[2019-07-29] MEDS: rOPINIRole 1 MG Tab PO SCH (20:01)
[2019-07-29] MEDS: Melatonin 3 MG Tab PO SCH (21:35)
[2019-07-29] MEDS: Montelukast 10 MG Tab PO SCH (21:37)
[2019-07-29] MEDS: Temazepam 15 MG Cap PO SCH (21:37)
[2019-07-30] MEDS: Acetaminophen Soln 650 MG/20.3 ML UD Cup PO SCH ×2 (04:47→05:25)
[2019-07-30 07:21] VITALS: BP 122/61
[2019-07-30] MEDS: Albuterol/Ipratropium 3.0-0.5 MG/3 ML Neb Soln INH SCH (07:30)
[2019-07-30 07:43] VITALS: PULSE 73
[2019-07-30] MEDS: Celecoxib 200 MG Cap PO SCH (07:49)
[2019-07-30] MEDS: Heparin Sodium 5,000 Units/ML Vial SUBCUT SCH (07:49)
[2019-07-30] MEDS: DULoxetine 30 MG Cap PO SCH (08:40)
[2019-07-30] MEDS: Methimazole 5 MG Tab PO SCH (08:40)
[2019-07-30] MEDS: Metoprolol Tartrate 25 MG Tab PO SCH (08:41)
[2019-07-30] MEDS: rOPINIRole 0.5 MG Tab PO SCH (08:41)
[2019-07-30] MEDS: lamoTRIgine 100 MG Tab PO SCH (08:41)
[2019-07-30] MEDS: Pantoprazole 40 MG Delayed-Release Granules 1 Packet PO SCH (08:43)
[2019-07-30] MEDS: VERIFY SCOP PATCH TOP SCH (08:43)
[2019-07-30] MEDS: Cetirizine 10 MG Tab PO SCH (08:43)
[2019-07-30] MEDS: Gabapentin 250 MG/5 ML Solution ML 470 ML Bottle PO SCH (08:45)
[2019-07-30] MEDS: LORazepam 0.5 MG Tab PO SCH (08:46)
[2019-07-30] MEDS: LISDEXAMFETAMINE 70 MG PO SCH (08:58)
--- NOTE | 2019-07-31 02:36 | DISCH ---
ADMISSION DIAGNOSES: 1. Morbid obesity, BMI 69.9. 2. Sleep apnea, uses CPAP. 3. Anxiety. 4. PTSD. 5. Uncomplicated asthma. 6. Fibromyalgia. 7. Borderline personality disorder. 8. Attention deficit hyperactivity disorder. 9. Schizoaffective disorder, depression type. 10.Chronic pain syndrome. 11.Polysubstance dependence, non-opioid, in remission. 12.Hyperthyroidism. 13.Prediabetes. 14.Generalized anxiety disorder. 15.Migraine aura without headache. 16.Amphetamine dependence, in remission. 17.Alcohol dependence, in sustained full remission. 18.Cocaine use disorder, moderate, in full remission. 19.Vitamin D deficiency. 20.Panic disorder with agoraphobia. 21.Chronic bilateral back pain. DISCHARGE DIAGNOSES: 1. Laparoscopic gastric bypass surgery. 2. Liver biopsies. 3. Small bowel resection. 4. Repair of diaphragmatic hernia and excision of mediastinal lipoma for morbid obesity. 5. Hepatomegaly. 6. Foreshortened small bowel mesentery requiring small bowel resection to allow adequate mobility of the jejunojejunostomy, diaphragmatic hernia, mediastinal lipoma. DATE OF SURGERY: 07/27/2019. SURGEON: Jay Sofia MD. HISTORY: Keisha Puga is a 34-year-old female with longstanding history of morbid obesity and increasing comorbidities. After preoperative evaluation and discussion of possible risks and possible complications, she wished to proceed with surgical procedure. HOSPITAL COURSE: Keisha had her surgery on 07/27/2019. She had no operative complications. On postoperative day #1, she was started on a step 2 gastric bypass diet, without cereal. Her home medications were resumed. Dressing removed and she was able to shower. On postoperative day #2, she received dietary instruction, vitamin B12 IM injection. Her fluid intake was decreased. She was encouraged to work on getting her fluids in. On postoperative day #3, she was able to be discharged to home without any complications. PHYSICAL EXAMINATION: GENERAL: Keisha Puga is a 34-year-old female, height is 5 feet 4 inches, weight is 407 pounds. VITAL SIGNS: TPR is 97.7, 77, 18, blood pressure 122/61. HEENT: Negative. NECK: Supple. HEART: Regular rate and rhythm. LUNGS: Clear. ABDOMEN: Sutures intact. Incisions look good. 4 x 4 over HUA drain site. EXTREMITIES: Without peripheral edema. DISPOSITION: Discharged to home. CONDITION: Stable and improving. FOLLOWUP: Followup appointment with Sandra Armsa PA-C, 08/04/2019 at 10 a.m. DISCHARGE MEDICATION: Home medications: 1. Tylenol 650 mg oral q.6 hours p.r.n. pain. 2. Celebrex 200 mg p.o. daily, #14. 3. Zofran ODT 4 mg q.4 hours p.r.n. nausea. She is to resume home medications of: 1. Proventil inhaler 3 mL 3 times a day p.r.n. shortness of breath. 2. Zyrtec 10 mg oral daily. 3. Cymbalta 120 mg oral daily. 4. Ativan 0.5 mg oral twice daily. 5. Lidocaine 10 mL topical every 6 hours. 6. Vyvanse 70 mg oral daily. 7. Melatonin 10 mg oral at bedtime. 8. Tapazole 20 mg oral daily. 9. Lopressor 25 mg oral twice daily. 10.Singulair 10 mg oral daily. 11.Protonix 40 mg oral daily. 12.Pramoxine 1 applicator topical 4 times a day. 13.Senna 8.6 mg oral daily p.r.n. constipation. 14.Sodium chloride 2 sprays nasal 4 times a day. 15.Temazepam (Restoril) 30 mg oral at bedtime. 16.Kenalog 0.1% cream 1 applicator 3 times a day p.r.n. itching. 17.Lamictal 200 mg oral daily. 18.Metronidazole 1 applicator topical twice daily. 19.Requip 0.5 mg oral daily. 20.Requip 2 mg oral at bedtime. Stop taking vitamins and supplements until first postoperative appointment. Discontinue Meloxicam. DISCHARGE INSTRUCTIONS: Diet after discharge, step 2 gastric bypass diet with no cereal until Friday08/10/2019. Activity: No lifting greater than 10 pounds for 2 weeks. Walk at least 6 times inside your house. Driving: Do not drive for 1 week. Shower/bathing: May shower. Notify provider if any fever, increased pain, swelling, redness, nausea, or vomiting. Wound incision care: Keep site clean and dry. Wear abdominal binder for 2 weeks and then as tolerated. Special instruction: Use incentive spirometer 10 times every hour while awake. Keep a food and liquid journal and bring to clinic appointment.
--- NOTE | 2019-07-31 15:04 | OR ---
DATE OF PROCEDURE: 07/27/2019 SURGEON: Jay Sofia MD PREOPERATIVE DIAGNOSIS: Morbid obesity. POSTOPERATIVE DIAGNOSES: 1. Morbid obesity. 2. Marked hepatomegaly. 3. Foreshortening of the small bowel mesentery requiring small bowel resection to allow adequate mobility of jejunojejunostomy. 4. Paraesophageal diaphragmatic hernia. 5. Mediastinal lipoma. OPERATIVE PROCEDURES: Diagnostic laparoscopy with: 1. Laparoscopic Florence-en-Y gastric bypass with long limb gastroenterostomy (20815). 2. Felipe-Cut needle liver biopsy (97492). 3. Small bowel resection (57462). 4. Repair of paraesophageal diaphragmatic hernia (51634). 5. Excision of mediastinal lipoma (46840). ANESTHESIA: General. TRAP PULLER: Sandra Armas PA-C INDICATIONS FOR PROCEDURE: This is a 34-year-old female presenting with longstanding morbid obesity and increasingly significant comorbidities. After preoperative evaluation, she wished to proceed with a gastric bypass procedure. Potential risks including bleeding, infection, leaks from various GI tract closures, problems with bowel obstruction over time as well as the possibility of cardiopulmonary, septic, or hemorrhagic complications leading to were discussed, and the patient wishes to proceed. DETAILS OF PROCEDURE: The patient was taken to the operating room. After general endotracheal anesthesia was induced, she was converted to a lithotomy position and the abdomen prepped and draped. At 15 cm inferior and 5 cm left of the xiphoid process, a transverse incision was made. The peritoneal cavity entered under direct vision with an Optiview trocar inflated to 15 mmHg with CO2. Laparoscope was reinserted. No underlying trocar insertion site injuries were seen. Following this, 5 additional trocars were placed across her mid abdomen. Bilateral subcostal transverse abdominis plane blocks were placed. General exploration was undertaken which showed initially a marked hepatomegaly with the liver being grossly fatty infiltrated. Felipe-Cut needle biopsies were obtained from the left lobe of the liver. Minimal bleeding from the biopsy sites was controlled with electrocautery. The omentum was then divided in the midline up to the level of the transverse colon. This allowed identification of small bowel at the ligament of Treitz. The small bowel was then traced out 200 cm distal to that point, where it was divided transversely with the ASTRID stapler. The small bowel at this point was noted to be quite immobile due to extreme thickening and a fat laden small bowel mesentery. To facilitate adequate mobility of the jejunojejunostomy, a roughly 10 cm segment of small bowel was then resected on the biliopancreatic limb side. The underlying mesentery was divided with Harmonic scalpel and the small bowel then divided with a ASTRID stapler and the small bowel specimen delivered from the field. The small bowel was then traced out 200 additional cm from the original point of division where a [id number] enteroenterostomy was accomplished with internal firing of the Endo-ASTRID 60 mm stapler, common opening was then closed transversely with the same stapler, and the angles anastomosed and mesenteric defect approximated with some 0 Ethibond sutures and also then reinforced with fibrin sealant. The Florence limb was then brought through an antecolic position up to the level of the gastroesophageal junction without significant tension. The liver was retracted anteriorly. The patient was noted to have a significant paraesophageal diaphragmatic hernia. This was reduced and the peritoneum overlying was incised and reflected downward. During the course of the dissection, a mediastinal lipoma was encountered and this was then excised as well to facilitate adequate repair of the diaphragmatic hernia. The diaphragmatic hernia was then repaired with 0 Ethibond sutures reinforced with PTFE pledgets. The anvil of a 25-mm EEA stapler was then attached to a [place] sump type tube. The latter was brought down through the mouth, taken out through a small opening in the gastric pouch allowing the anvil likewise to be pulled down to within the gastric pouch. The divided end of the Florence limb was then opened and the main body of the EEA stapler passed several centimeters into the lumen of the small bowel, brought up the anvil, and united with it, thus creating the gastrojejunostomy. Upon removal of the stapler, double donuts of mucosa were noted within it. The small bowel was closed off with a vascular staple line. The gastrojejunostomy was reinforced with some 3-0 Vicryl seromuscular stitch along with fibrin sealant. Leak test was accomplished with injection of 120 mL of air in the gastric pouch while submerged with cefoxitin-containing saline solution. No leaks were identified. Two Miguel-Pal drains were then placed adjacent to the gastrojejunostomy, taken out through subcostal trocar sites. The peritoneal cavity was then deflated with removal of the remaining trocars and the skin closed with some 4-0 Vicryl stitch which was also used to fix the drains, and the patient taken to the recovery room in satisfactory condition. Physician licensed investment sales assistant, Sandra Armas, played an essential role in assisting in this case, helping to position the patient, retract structures as needed, as well as suturing and cutting sutures when indicated. Her presence improved patient safety and decreased the operative time. Jay Sofia MD /[id number]
== END 2019-07-30 10:00 | disposition home or self-care (01) | DRG 620 ==
LOC: JP.SDSSCHI 05:14 → JP.SDS 05:14 → EDSTATUS 10:00 → JP.MS 10:30
PROVIDERS: ADMIT Surgery; ATTEND Surgery
PROC: 0D164ZA Bypass Stomach to Jejunum, Percutaneous Endoscopic Approach (ICD-10-PCS; principal; 2019-07-27)
PROC: 0BQT4ZZ Repair Diaphragm, Percutaneous Endoscopic Approach (ICD-10-PCS; 2019-07-27)
PROC: 0DB84ZZ Excision of Small Intestine, Percutaneous Endoscopic Approach (ICD-10-PCS; 2019-07-27)
PROC: 0FB24ZX Excision of Left Lobe Liver, Percutaneous Endoscopic Approach, Diagnostic (ICD-10-PCS; 2019-07-27)
PROC: 0JB63ZZ Excision of Chest Subcutaneous Tissue and Fascia, Percutaneous Approach (ICD-10-PCS; 2019-07-27)
DX: E66.01 Morbid (severe) obesity due to excess calories (principal); F33.3 Major depressive disorder, recurrent, severe with psychotic symptoms; Z68.44 Body mass index [BMI] 60.0-69.9, adult; G47.33 Obstructive sleep apnea (adult) (pediatric); Z99.81 Dependence on supplemental oxygen; F43.10 Post-traumatic stress disorder, unspecified; M79.7 Fibromyalgia; F60.3 Borderline personality disorder; F90.9 Attention-deficit hyperactivity disorder, unspecified type; G89.4 Chronic pain syndrome; F19.21 Other psychoactive substance dependence, in remission; E05.90 Thyrotoxicosis, unspecified without thyrotoxic crisis or storm; R73.03 Prediabetes; F41.1 Generalized anxiety disorder; G43.109 Migraine with aura, not intractable, without status migrainosus; F15.21 Other stimulant dependence, in remission; F10.21 Alcohol dependence, in remission; F14.21 Cocaine dependence, in remission; E55.9 Vitamin D deficiency, unspecified; F40.01 Agoraphobia with panic disorder; M54.9 Dorsalgia, unspecified; K44.9 Diaphragmatic hernia without obstruction or gangrene; D17.79 Benign lipomatous neoplasm of other sites; R16.0 Hepatomegaly, not elsewhere classified; K21.9 Gastro-esophageal reflux disease without esophagitis; G47.00 Insomnia, unspecified; J45.40 Moderate persistent asthma, uncomplicated; Z87.891 Personal history of nicotine dependence; Z90.710 Acquired absence of both cervix and uterus; Z87.01 Personal history of pneumonia (recurrent); Z79.899 Other long term (current) drug therapy; Z88.1 Allergy status to other antibiotic agents; Z91.018 Allergy to other foods; Z91.040 Latex allergy status; Z88.5 Allergy status to narcotic agent; Z88.8 Allergy status to other drugs, medicaments and biological substances; Z86.79 Personal history of other diseases of the circulatory system
CPT/HCPCS: 36415; 74240; 80053; 82962; 83036; 83735; 83880; 84100; 85025; 86850; 86900; 86901; 88304; 88307; 88313; 94640; 94762; A9270-GY; C9113; J0171; J0330; J0694; J1100; J1170; J1644; J1815-GY; J1956; J2001; J2060; J2310; J2405; J2704; J2710; J2795; J3010; J3410; J3411; J3420; J3490; J7030; J7042; J7050; J7120; J7620-GY; Q9967

== ENCOUNTER 2019-08-01 12:04 | Emergency (ER) | payer MEDICAID ==
[2019-08-01 12:36] VITALS: BP 162/82; PULSE 95
[2019-08-01] MEDS ORDERED: Sodium Chloride 0.9% 1,000 ML IV SCH (13:30)
--- NOTE | 2019-08-01 13:36 | EDM.PDOC ---
ED HPI GENERAL MEDICAL PROBLEM - General Chief Complaint: Respiratory Problem Stated Complaint: COMPLICATIONS FROM SURGERY, CHEST PAIN, SOB Time Seen by Provider: 08/01/19 12:40 Source of Information: Reports: Patient History Limitations: Reports: No Limitations - History of Present Illness INITIAL COMMENTS - FREE TEXT/NARRATIVE: 34 yo recent gastric surgery presents with left sided chest pain and SOB. pain started last evening radiating into left shoulder. was unable to sleep last night. chills and sweating. Left Lower Abdomen Pain Score (Numeric/FACES): 9 - Related Data Allergies Allergy/AdvReac Type Severity Reaction Status Date / Time amoxicillin Allergy Severe Anaphylactic Verified 08/01/19 12:39 Shock promethazine HCl Allergy Severe Anaphylactic Verified 08/01/19 12:39 [From Phenergan] Shock risperidone [From Risperdal] Allergy Severe Anaphylactic Verified 08/01/19 12:39 Shock atomoxetine Allergy Anxiety Verified 08/01/19 12:39 banana Allergy Itching Verified 08/01/19 12:39 clindamycin Allergy Rash Verified 08/01/19 12:39 ketorolac tromethamine Allergy Rash Verified 08/01/19 12:39 [From Toradol] latex Allergy Rash Verified 08/01/19 12:39 Latex, Natural Rubber Allergy Rash Verified 08/01/19 12:39 quetiapine Allergy Anxiety Verified 08/01/19 12:39 tramadol HCl [From Ultram] Allergy Hives Verified 08/01/19 12:39 varenicline Allergy Anxiety Verified 08/01/19 12:39 zolpidem [From Ambien] Allergy Anxiety Verified 08/01/19 12:39 atomoxetine HCl AdvReac Anxiety Verified 08/01/19 12:39 [From Strattera] cephalexin monohydrate AdvReac Dizziness Verified 08/01/19 12:39 [From Keflex] quetiapine fumarate AdvReac Irritabilit Verified 08/01/19 12:39 [From Seroquel] y trazodone AdvReac Dizziness Verified 08/01/19 12:39 zolpidem tartrate AdvReac Anxiety Verified 08/01/19 12:39 [From Ambien] Home Meds: Home Meds Lisdexamfetamine [Vyvanse] 70 mg PO DAILY 03/01/16 [History] Cetirizine HCl [Zyrtec] 10 mg PO DAILY 09/19/18 [History] DULoxetine [Cymbalta] 120 mg PO DAILY 09/19/18 [History] Melatonin/Pyridoxine HCl (B6) [Melatonin 3 mg Tablet] 10 mg PO BEDTIME 09/19/18 [History] Methimazole [Tapazole] 20 mg PO DAILY 09/19/18 [History] Metoprolol Tartrate [Lopressor] 25 mg PO BID 09/19/18 [History] Sennosides [Senna] 8.6 mg PO DAILY PRN 09/19/18 [History] lamoTRIgine [Lamictal] 200 tab PO DAILY 09/19/18 [History] metroNIDAZOLE [metroNIDAZOLE 0.75% Gel] 1 applic TOP BID 09/19/18 [History] rOPINIRole [Requip] 2 mg PO BEDTIME 09/19/18 [History] rOPINIRole HCl [Requip] 0.5 mg PO DAILY 01/01/19 [History] Albuterol [Proventil Neb Soln] 3 ml NEB TID PRN 02/18/19 [History] Pramoxine HCl [Prax] 1 applic TP QID 02/18/19 [History] Sodium Chloride [[place]] 2 spray NS QID 02/18/19 [History] Triamcinolone Acetonide [Kenalog 0.1% Crm] 1 applic TOP TID PRN 02/18/19 [ History] Montelukast [Singulair] 10 mg PO DAILY 02/27/19 [History] Celecoxib [CeleBREX] 200 mg PO DAILY 07/23/19 [History] LORazepam [Ativan] 0.5 mg PO BID 07/23/19 [History] Lidocaine 2% [Xylocaine 2%] 10 ml TOP Q6H PRN 07/23/19 [History] Pantoprazole Sodium [Protonix] 40 mg PO DAILY 07/23/19 [History] Temazepam [Restoril] 30 mg PO BEDTIME 07/23/19 [History] Acetaminophen [Tylenol] 650 mg PO Q6H cup 07/30/19 [Rx] Celecoxib [CeleBREX] 200 mg PO DAILY@0800 cap 07/30/19 [Rx] Ondansetron [Zofran ODT] 4 mg PO Q4H PRN #30 tab.dis 07/30/19 [Rx] Past Medical History HEENT History: Reports: Impaired Vision, Otitis Media Other HEENT History: Bilateral tympanic membrane rupture. tonsillectomy. recent surgery septum 08/20 Cardiovascular History: Reports: Other (See Below) Other Cardiovascular History: Heart palpatations Respiratory History: Reports: Asthma, Bronchitis, Recurrent, Pneumonia, Recurrent, Sleep Apnea, SOB Gastrointestinal History: Reports: Gastritis, GERD Genitourinary History: Reports: Renal Calculus, UTI, Recurrent ENTRY ANALYST History: Reports: Other ENTRY ANALYST History: Hysterectomy with right oophrectomy Musculoskeletal History: Reports: Fibromyalgia, RA Other Musculoskeletal History: fibromyalgia. rheumatoid arthritis Neurological History: Reports: Migraines Psychiatric History: Reports: ADHD, Anxiety, Depression, PTSD, Other (See Below) Other Psychiatric History: Schizo effective disorder Endocrine/Metabolic History: Reports: Hyperthyroidism, Obesity/BMI 30+ Hematologic History: Reports: None Immunologic History: Reports: None Oncologic (Cancer) History: Reports: Cervix Dermatologic History: Reports: Eczema - Infectious Disease History Infectious Disease History: Reports: Chicken Pox - Past Surgical History HEENT Surgical History: Reports: Myringotomy w Tube(s), Oral Surgery, Tonsillectomy Cardiovascular Surgical History: Reports: None Respiratory Surgical History: Reports: None GI Surgical History: Reports: Appendectomy, Bariatric Procedure, Cholecystectomy , EGD, Hernia Repair/Other Female Surgical History: Reports: Hysterectomy Endocrine Surgical History: Reports: None Neurological Surgical History: Reports: None Musculoskeletal Surgical History: Reports: Other (See Below) Other Musculoskeletal Surgeries/Procedures:: Left ankle ORIF with hardware Social & Family History - Family History Cardiac: Reports: Heart Murmur Respiratory: Reports: COPD Psychiatric: Reports: Depression, Schizophrenia - Tobacco Use Smoking Status *Q: Former Smoker Years of Tobacco use: 13 Packs/Tins Daily: 0.5 Used Tobacco, but Quit: Yes Month/Year Tobacco Last Used: 2017 Second Hand Smoke Exposure: No - Caffeine Use Caffeine Use: Reports: None - Recreational Drug Use Recreational Drug Use: No ED ROS GENERAL - Review of Systems Review Of Systems: See Below Constitutional: Reports: Chills, Fatigue Respiratory: Reports: Shortness of Breath. Denies: Wheezing, Cough Cardiovascular: Reports: Chest Pain, Blood Pressure Problem. Denies: Syncope GI/Abdominal: Reports: Abdominal Pain Skin: Denies: Rash ED EXAM, GENERAL - Physical Exam Exam: See Below Exam Limited By: No Limitations General Appearance: Alert, WD/WN, No Apparent Distress Head: Atraumatic, Normocephalic Neck: Normal Inspection, Supple, Non-Tender, Full Range of Motion. No: Lymphadenopathy (R), Lymphadenopathy (L) Respiratory/Chest: No Respiratory Distress, Lungs Clear, Normal Breath Sounds, No Accessory Muscle Use, Chest Non-Tender, Other (pain with deep inhalation) Cardiovascular: Regular Rate, Rhythm, No Murmur GI/Abdominal: Soft, No Distention, Tender (upper quads) Course - Vital Signs Last Recorded V/S: Last Vital Signs Temp 36.2 C 08/01/19 12:45 Pulse 95 08/01/19 12:45 Resp 16 08/01/19 12:45 BP 162/82 H 08/01/19 12:45 Pulse Ox 94 L 08/01/19 12:45 - Orders/Labs/Meds Orders: Active Orders 24 hr Category Date Time Status Cardiac Monitoring [RC] .As Directed Care 08/01/19 13:22 Active EKG Documentation Completion [RC] ASDIRECTED Care 08/01/19 13:24 Active Iopamidol [Isovue-370 (76%)] Med 08/01/19 14:30 Active 100 ml IV . DIRECTED Sodium Chloride 0.9% [Normal Saline] 1,000 ml Med 08/01/19 13:30 Active IV ASDIRECTED EKG 12 Lead [EK] Stat Ther 08/01/19 13:24 Ordered Medication Orders Sodium Chloride (Normal Saline) 1,000 mls @ 125 mls/hr IV ASDIRECTED APOLINAR Last Admin: 08/01/19 14:09 Dose: 125 mls/hr Iopamidol (Isovue-370 (76%)) 100 ml IV . DIRECTED APOLINAR Last Admin: 08/01/19 14:55 Dose: 100 ml Labs: Laboratory Tests 08/01/19 08/01/19 08/01/19 Range/Units 13:35 13:35 13:37 WBC 12.9 H (4.5-11.0) K/uL RBC 4.99 (3.30-5.50) M/uL Hgb 12.7 (12.0-15.0) g/dL Hct 39.5 (36.0-48.0) % MCV 79 L (80-98) fL MCH 26 L (27-31) pg MCHC 32 (32-36) % Plt Count 280 (150-400) K/uL Neut % (Auto) 77 H (36-66) % Lymph % (Auto) 14 L (24-44) % Terry % (Auto) 6 (2-6) % Eos % (Auto) 3 (2-4) % Baso % (Auto) 0 (0-1) % D-Dimer, Quantitative 2160 H (0.0-400.0) ng/mL Sodium 139 L (140-148) mmol/L Potassium 3.6 (3.6-5.2) mmol/L Chloride 100 (100-108) mmol/L Carbon Dioxide 26 (21-32) mmol/L Anion Gap 16.6 H (5.0-14.0) mmol/L BUN 8 (7-18) mg/dL Creatinine 0.8 (0.6-1.0) mg/dL Est Cr Clr Drug Dosing 83.95 mL/min Estimated GFR (MDRD) > 60 (>60) Glucose 93 (74-106) mg/dL Calcium 9.2 (8.5-10.1) mg/dL Total Bilirubin 0.5 D (0.2-1.0) mg/dL AST 10 L (15-37) U/L ALT 21 (12-78) U/L Alkaline Phosphatase 68 (46-116) U/L Troponin I < 0.017 (0.000-0.056) ng/mL Total Protein 7.4 (6.4-8.2) g/dL Albumin 3.3 L (3.4-5.0) g/dL Globulin 4.1 H (2.3-3.5) g/dL Albumin/Globulin Ratio 0.8 L (1.2-2.2) Urine Color (YELLOW) Urine Appearance (CLEAR) Urine pH (5.0-8.0) Ur Specific [place] (1.008-1.030) Urine Protein (NEGATIVE) mg/dL Urine Glucose (UA) (NEGATIVE) mg/dL Urine Ketones (NEGATIVE) mg/dL Urine Occult Blood (NEGATIVE) Urine Nitrite (NEGATIVE) Urine Bilirubin (NEGATIVE) Urine Urobilinogen (0.2-1.0) EU/dL Ur Leukocyte Esterase (NEGATIVE) Urine RBC (0-5) Urine WBC (0-5) Ur Epithelial Cells Amorphous Sediment Urine Bacteria Urine Mucus 08/01/19 Range/Units 14:58 WBC (4.5-11.0) K/uL RBC (3.30-5.50) M/uL Hgb (12.0-15.0) g/dL Hct (36.0-48.0) % MCV (80-98) fL MCH (27-31) pg MCHC (32-36) % Plt Count (150-400) K/uL Neut % (Auto) (36-66) % Lymph % (Auto) (24-44) % Terry % (Auto) (2-6) % Eos % (Auto) (2-4) % Baso % (Auto) (0-1) % D-Dimer, Quantitative (0.0-400.0) ng/mL Sodium (140-148) mmol/L Potassium (3.6-5.2) mmol/L Chloride (100-108) mmol/L Carbon Dioxide (21-32) mmol/L Anion Gap (5.0-14.0) mmol/L BUN (7-18) mg/dL Creatinine (0.6-1.0) mg/dL Est Cr Clr Drug Dosing mL/min Estimated GFR (MDRD) (>60) Glucose (74-106) mg/dL Calcium (8.5-10.1) mg/dL Total Bilirubin (0.2-1.0) mg/dL AST (15-37) U/L ALT (12-78) U/L Alkaline Phosphatase (46-116) U/L Troponin I (0.000-0.056) ng/mL Total Protein (6.4-8.2) g/dL Albumin (3.4-5.0) g/dL Globulin (2.3-3.5) g/dL Albumin/Globulin Ratio (1.2-2.2) Urine Color Yellow (YELLOW) Urine Appearance Clear (CLEAR) Urine pH 7.0 (5.0-8.0) Ur Specific [place] 1.020 (1.008-1.030) Urine Protein Negative (NEGATIVE) mg/dL Urine Glucose (UA) Negative (NEGATIVE) mg/dL Urine Ketones 80 H (NEGATIVE) mg/dL Urine Occult Blood Negative (NEGATIVE) Urine Nitrite Negative (NEGATIVE) Urine Bilirubin Small H (NEGATIVE) Urine Urobilinogen 1.0 (0.2-1.0) EU/dL Ur Leukocyte Esterase Negative (NEGATIVE) Urine RBC Not seen (0-5) Urine WBC 0-5 (0-5) Ur Epithelial Cells Few Amorphous Sediment Not seen Urine Bacteria Few Urine Mucus Few Meds: Medications Generic Name Dose Route Start Last Admin Trade Name Freq PRN Reason Stop Dose Admin Sodium Chloride 1,000 mls @ 125 mls/hr 08/01/19 13:30 08/01/19 14:09 Normal Saline IV 125 mls/hr ASDIRECTED APOLINAR Administration Iopamidol 100 ml 08/01/19 14:30 08/01/19 14:55 Isovue-370 (76%) IV 100 ml . DIRECTED APOLINAR Administration Discontinued Medications Generic Name Dose Route Start Last Admin Trade Name Freq PRN Reason Stop Dose Admin Fentanyl 50 mcg 08/01/19 14:26 08/01/19 14:30 Sublimaze IVPUSH 08/01/19 14:27 50 mcg ONETIME ONE Administration Fentanyl 50 mcg 08/01/19 15:19 08/01/19 15:43 Sublimaze IVPUSH 08/01/19 15:20 50 mcg ONETIME ONE Administration Hydromorphone HCl 0.5 mg 08/01/19 17:23 08/01/19 17:30 Dilaudid IVPUSH 08/01/19 17:24 0.5 mg ONETIME ONE Administration Sodium Chloride 100 mls @ 3.5 mls/sec 08/01/19 14:20 08/01/19 14:55 Normal Saline IV 08/01/19 14:21 4 mls/sec ONETIME ONE Administration Lorazepam 1 mg 08/01/19 15:19 08/01/19 15:42 Ativan IVPUSH 08/01/19 15:20 1 mg ONETIME ONE Administration Sodium Chloride 10 ml 08/01/19 14:20 08/01/19 14:56 Saline Flush FLUSH 08/01/19 14:21 10 ml ONETIME ONE Administration - Re-Assessments/Exams Free Text/Narrative Re-Assessment/Exam: 08/01/19 17:01 ct no PE, trp negative, EKG NSR. CBC unremarkable. mildly hyponatremic. Ketone in urine. pt continues to complain of pain the pain was mildly relieved with IV pain management. pt does express hunger and is able to tolerate jello. 08/01/19 17:38 Dr. Sofia consulted he has no further work-up recommendations. will follow-up with pt in the morning. Departure - Departure Time of Disposition: 17:39 Disposition: Home, Self-Care 01 Condition: Good Clinical Impression: Postoperative abdominal pain Chest pain Qualifiers: Chest pain type: other chest pain Qualified Code(s): R07.89 - Other chest pain ; R07.8 - Other chest pain - Discharge Information *PRESCRIPTION DRUG MONITORING PROGRAM REVIEWED*: Not Applicable *COPY OF PRESCRIPTION DRUG MONITORING REPORT IN PATIENT JAYDEN: Not Applicable Instructions: Pain Medicine Instructions, [id number] Referrals: Jessica Delaney MD [Primary Care Provider] - Forms: ED Department Discharge Additional Instructions: continue to be active your may find better pain relieving results from use of liquid tylenol or thomas Chewables may use simethicone as package directs follow-up with Dr. Sofia's office in the AM - My Orders Last 24 Hours: My Active Orders 08/01/19 13:22 Cardiac Monitoring [RC] .As Directed 08/01/19 13:24 EKG Documentation Completion [RC] ASDIRECTED EKG 12 Lead [EK] Stat 08/01/19 13:30 Sodium Chloride 0.9% [Normal Saline] 1,000 ml IV ASDIRECTED 08/01/19 14:30 Iopamidol [Isovue-370 (76%)] 100 ml IV . DIRECTED - Assessment/Plan Last 24 Hours: My Active Orders 08/01/19 13:22 Cardiac Monitoring [RC] .As Directed 08/01/19 13:24 EKG Documentation Completion [RC] ASDIRECTED EKG 12 Lead [EK] Stat 08/01/19 13:30 Sodium Chloride 0.9% [Normal Saline] 1,000 ml IV ASDIRECTED 08/01/19 14:30 Iopamidol [Isovue-370 (76%)] 100 ml IV . DIRECTED
--- NOTE | 2019-08-01 13:54 | CRLCR ---
Indication: Chest pain. Technique: PA and lateral views the chest were obtained. Comparison: June 06, 2019. Findings: Heart is normal in size. The lungs are clear. No infiltrate, pleural effusion, or pneumothorax is identified. Impression: No acute cardiopulmonary process. Dictated by Roseanna Gupta MD @ Aug 01 2019 1:53PM Signed by Dr. Roseanna Gupta @ Aug 01 2019 1:53PM
[2019-08-01] MEDS ORDERED: Sodium Chloride 0.9% 10 ML Syringe FLUSH ONE (14:20)
[2019-08-01] MEDS ORDERED: Sodium Chloride 0.9% 100 ML IV ONE (14:20)
[2019-08-01] MEDS ORDERED: fentaNYL 100 MCG/2 ML SDV IVPUSH ONE ×2 (14:26→15:19)
[2019-08-01] MEDS ORDERED: Iopamidol 755 Mg/ML 100 ML Bottle IV SCH (14:30)
--- NOTE | 2019-08-01 15:10 | CRLCT ---
Final Report: Indication: Sudden shortness of breath. Elevated D-dimer. Technique: Multiple contiguous axial images were obtained from the thoracic inlet through the upper abdomen onto the intravenous administration of 100 milliliters Isovue- 300. Please note that all CT scans at this facility use dose modulation, iterative reconstruction, and/or weight-based dosing when appropriate to reduce radiation dose to as low as reasonably achievable. Comparison: None Findings: Aorta is normal in caliber. There is no evidence of pulmonary embolism. No pulmonary embolism is identified. Please note, this is not an optimal study. The heart is normal size. No pericardial effusion is identified. The visualized portions of the liver and spleen are grossly normal. No lytic or blastic lesions of the spine are identified. The lungs are clear. No infiltrate, pleural effusion, pneumothorax is identified. No pulmonary nodules are identified. Impression: A pulmonary embolism. Suboptimal study for evaluation of the pulmonary arteries. However no large gross central pulmonary artery embolism is identified. Please note that all CT scans at this facility use dose modulation, iterative reconstruction, and/or weight-based dosing when appropriate to reduce radiation dose to as low as reasonably achievable. Dictated by Roseanna Gupta MD @ Aug 01 2019 3:05PM ----- ADDENDUM ----- Impression: The Impression should read: NO pulmonary embolism Dictated by Roseanna Gupta MD @ Aug 01 2019 3:51PM (Electronic Signature) MTDD
[2019-08-01] MEDS ORDERED: LORazepam 2 MG/ML SDV IVPUSH ONE (15:19)
[2019-08-01] MEDS ORDERED: HYDROmorphone 0.5 MG/0.5 ML Syringe IVPUSH ONE (17:23)
== END 2019-08-01 18:05 | disposition home or self-care (01) ==
LOC: JP.ED 12:04
DX: R07.89 Other chest pain (principal); G89.18 Other acute postprocedural pain; R10.10 Upper abdominal pain, unspecified; J45.909 Unspecified asthma, uncomplicated; K21.9 Gastro-esophageal reflux disease without esophagitis; M06.9 Rheumatoid arthritis, unspecified; F41.9 Anxiety disorder, unspecified; F32.9 Major depressive disorder, single episode, unspecified; E66.9 Obesity, unspecified; Z68.44 Body mass index [BMI] 60.0-69.9, adult; Z87.891 Personal history of nicotine dependence; Z88.1 Allergy status to other antibiotic agents; Z91.040 Latex allergy status; Z91.018 Allergy to other foods; Z88.8 Allergy status to other drugs, medicaments and biological substances; Z79.899 Other long term (current) drug therapy
CPT/HCPCS: 36415; 71046; 71275; 80053; 81001; 84484; 85025; 85379; 93005; 96361; 96374; 96375; 96376; 99285; J1170; J2060; J3010; J7030; Q9967

== ENCOUNTER 2019-08-18 21:22 | Emergency (ER) | payer MEDICAID ==
[2019-08-18] MEDS ORDERED: Sodium Chloride 0.9% 1,000 ML IV SCH ×2 (22:45→23:30)
[2019-08-18] MEDS ORDERED: HYDROmorphone 0.5 MG/0.5 ML Syringe IVPUSH ONE (22:45)
[2019-08-18] MEDS ORDERED: Ondansetron 4 MG/2 ML SDV IVPUSH ONE (22:45)
[2019-08-18] MEDS ORDERED: Magnesium Sulfate/Water 2 GM in Premix Bag 1 BAG IV ONE (23:35)
[2019-08-18] MEDS ORDERED: Lactated Ringers 1,000 ML IV SCH ×2 (23:45)
--- NOTE | 2019-08-19 00:17 | EDM.PDOC ---
ED HPI GENERAL MEDICAL PROBLEM - General Chief Complaint: Neck Problem Stated Complaint: LEFT SIDE NECK PAIN Time Seen by Provider: 08/19/19 00:13 Source of Information: Reports: Patient History Limitations: Reports: No Limitations - History of Present Illness INITIAL COMMENTS - FREE TEXT/NARRATIVE: pt is having severe neck pain She is having like a spasmin the neck. She has the sensation of some tingling on her face. She is not keeping her meds down and she is not holding fluids down. She Had a Rny about 3 weeks ago. Onset: Other ( This has progressively having more muscle pain. She has doubts about her RNY--whether she should have had it. ) Duration: Hour(s): Location: Reports: Face, Neck, Other ( some spasm in her calves. ) Associated Symptoms: Reports: No Other Symptoms Left Neck Pain Score (Numeric/FACES): 9 - Related Data Allergies Allergy/AdvReac Type Severity Reaction Status Date / Time amoxicillin Allergy Severe Anaphylactic Verified 08/18/19 22:12 Shock promethazine HCl Allergy Severe Anaphylactic Verified 08/18/19 22:12 [From Phenergan] Shock risperidone [From Risperdal] Allergy Severe Anaphylactic Verified 08/18/19 22:12 Shock atomoxetine Allergy Anxiety Verified 08/18/19 22:12 banana Allergy Itching Verified 08/18/19 22:12 clindamycin Allergy Rash Verified 08/18/19 22:12 ketorolac tromethamine Allergy Rash Verified 08/18/19 22:12 [From Toradol] latex Allergy Rash Verified 08/18/19 22:12 Latex, Natural Rubber Allergy Rash Verified 08/18/19 22:12 quetiapine Allergy Anxiety Verified 08/18/19 22:12 tramadol HCl [From Ultram] Allergy Hives Verified 08/18/19 22:12 varenicline Allergy Anxiety Verified 08/18/19 22:12 zolpidem [From Ambien] Allergy Anxiety Verified 08/18/19 22:12 atomoxetine HCl AdvReac Anxiety Verified 08/18/19 22:12 [From Strattera] cephalexin monohydrate AdvReac Dizziness Verified 08/18/19 22:12 [From Keflex] quetiapine fumarate AdvReac Irritabilit Verified 08/18/19 22:12 [From Seroquel] y trazodone AdvReac Dizziness Verified 08/18/19 22:12 zolpidem tartrate AdvReac Anxiety Verified 08/18/19 22:12 [From Edsonien] Home Meds: Home Meds Lisdexamfetamine [Vyvanse] 70 mg PO DAILY 03/01/16 [History] Cetirizine HCl [Zyrtec] 10 mg PO DAILY 09/19/18 [History] DULoxetine [Cymbalta] 120 mg PO DAILY 09/19/18 [History] Melatonin/Pyridoxine HCl (B6) [Melatonin 3 mg Tablet] 10 mg PO BEDTIME 09/19/18 [History] Methimazole [Tapazole] 20 mg PO DAILY 09/19/18 [History] Metoprolol Tartrate [Lopressor] 25 mg PO BID 09/19/18 [History] Sennosides [Senna] 8.6 mg PO DAILY PRN 09/19/18 [History] lamoTRIgine [Lamictal] 200 tab PO DAILY 09/19/18 [History] metroNIDAZOLE [metroNIDAZOLE 0.75% Gel] 1 applic TOP BID 09/19/18 [History] rOPINIRole [Requip] 2 mg PO BEDTIME 09/19/18 [History] rOPINIRole HCl [Requip] 0.5 mg PO DAILY 01/01/19 [History] Albuterol [Proventil Neb Soln] 3 ml NEB TID PRN 02/18/19 [History] Pramoxine HCl [Prax] 1 applic TP QID 02/18/19 [History] Sodium Chloride [[place]] 2 spray NS QID 02/18/19 [History] Triamcinolone Acetonide [Kenalog 0.1% Crm] 1 applic TOP TID PRN 02/18/19 [ History] Montelukast [Singulair] 10 mg PO DAILY 02/27/19 [History] LORazepam [Ativan] 0.5 mg PO BID 07/23/19 [History] Lidocaine 2% [Xylocaine 2%] 10 ml TOP Q6H PRN 07/23/19 [History] Pantoprazole Sodium [Protonix] 40 mg PO DAILY 07/23/19 [History] Temazepam [Restoril] 30 mg PO BEDTIME 07/23/19 [History] Acetaminophen [Tylenol] 650 mg PO Q6H cup 07/30/19 [Rx] Celecoxib [CeleBREX] 200 mg PO DAILY@0800 cap 07/30/19 [Rx] Ondansetron [Zofran ODT] 4 mg PO Q4H PRN #30 tab.dis 07/30/19 [Rx] Past Medical History HEENT History: Reports: Impaired Vision, Otitis Media Other HEENT History: Bilateral tympanic membrane rupture. tonsillectomy. 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 rheumatoid arthritis Neurological History: Reports: Migraines Psychiatric History: Reports: ADHD, Anxiety, Depression, PTSD, Other (See Below) Other Psychiatric History: Schizo effective disorder Endocrine/Metabolic History: Reports: Hyperthyroidism, Obesity/BMI 30+ Hematologic History: Reports: None Immunologic History: Reports: None Oncologic (Cancer) History: Reports: Cervix Dermatologic History: Reports: Eczema - Infectious Disease History Infectious Disease History: Reports: Chicken Pox - Past Surgical History HEENT Surgical History: Reports: Myringotomy w Tube(s), Oral Surgery, Tonsillectomy Cardiovascular Surgical History: Reports: None Respiratory Surgical History: Reports: None GI Surgical History: Reports: Appendectomy, Bariatric Procedure, Cholecystectomy , EGD, Hernia Repair/Other Female Surgical History: Reports: Hysterectomy Endocrine Surgical History: Reports: None Neurological Surgical History: Reports: None Musculoskeletal Surgical History: Reports: Other (See Below) Other Musculoskeletal Surgeries/Procedures:: Left ankle ORIF with hardware Social & Family History - Family History Cardiac: Reports: Heart Murmur Respiratory: Reports: COPD Psychiatric: Reports: Depression, Schizophrenia - Tobacco Use Smoking Status *Q: Never Smoker - Caffeine Use Caffeine Use: Reports: None - Recreational Drug Use Recreational Drug Use: Yes Recreational Drug Type: Reports: Marijuana/Hashish Recreational Drug Use Frequency: Rarely ED ROS GENERAL - Review of Systems Review Of Systems: See Below Constitutional: Reports: No Symptoms HEENT: Reports: No Symptoms Respiratory: Reports: No Symptoms Cardiovascular: Reports: No Symptoms Endocrine: Reports: No Symptoms GI/Abdominal: Reports: No Symptoms : Reports: No Symptoms Musculoskeletal: Reports: Neck Pain, Muscle Pain Skin: Reports: No Symptoms Neurological: Reports: No Symptoms Psychiatric: Reports: Anxiety ED EXAM, UPPER BACK/NECK PAIN - Physical Exam Exam: See Below Text/Narrative:: pt arrived with severe pain in the left post cervical area. She has a feeling of numbness in the left facial area. She has not been keeping her meds and fluids down. Exam Limited By: No Limitations General Appearance: Alert, Anxious, Moderate Distress Ears Exam: Normal TMs Nose Exam: Normal Inspection Throat/Mouth Exam: Normal Inspection Head Exam: Atraumatic Neck Exam: Other (pt is very tender in the post cervical and just under the ear. ) Cardiovascular/Respiratory: Regular Rate, Rhythm GI/Abdominal: Soft, Non-Tender (Female) Exam: Deferred Rectal (Female) Exam: Deferred Back Exam: Normal Inspection Extremities: Normal Inspection, Other (pt is having some cramps in her calves. ) Neurologic: Alert, Oriented x 3 Psychiatric: Anxious Course - Vital Signs Last Recorded V/S: Last Vital Signs Temp 37.4 C 08/18/19 22:17 Pulse 86 08/19/19 01:38 Resp 22 H 08/18/19 22:17 BP 126/61 08/19/19 01:38 Pulse Ox 95 08/18/19 22:17 - Orders/Labs/Meds Labs: Laboratory Tests 08/18/19 08/18/19 08/18/19 Range/Units 22:33 22:33 22:48 WBC 13.2 H (4.5-11.0) K/uL RBC 5.22 (3.30-5.50) M/uL Hgb 13.1 (12.0-15.0) g/dL Hct 41.5 (36.0-48.0) % MCV 80 (80-98) fL MCH 25 L (27-31) pg MCHC 32 (32-36) % Plt Count 317 (150-400) K/uL Neut % (Auto) 75 H (36-66) % Lymph % (Auto) 15 L (24-44) % [place] % (Auto) 9 H (2-6) % Eos % (Auto) 2 (2-4) % Baso % (Auto) 0 (0-1) % Sodium 139 L (140-148) mmol/L Potassium 4.0 (3.6-5.2) mmol/L Chloride 101 (100-108) mmol/L Carbon Dioxide 28 (21-32) mmol/L Anion Gap 14.0 (5.0-14.0) mmol/L BUN 7 (7-18) mg/dL Creatinine 0.8 (0.6-1.0) mg/dL Est Cr Clr Drug Dosing 83.95 mL/min Estimated GFR (MDRD) > 60 (>60) Glucose 103 (74-106) mg/dL Calcium 9.2 (8.5-10.1) mg/dL Magnesium (1.8-2.4) mg/dL Total Bilirubin 0.4 (0.2-1.0) mg/dL AST 21 D (15-37) U/L ALT 19 (12-78) U/L Alkaline Phosphatase 60 (46-116) U/L Total Protein 7.4 (6.4-8.2) g/dL Albumin 3.4 (3.4-5.0) g/dL Globulin 4.0 H (2.3-3.5) g/dL Albumin/Globulin Ratio 0.9 L (1.2-2.2) Urine Color [place] A (YELLOW) Urine Appearance Slightly cloudy A (CLEAR) Urine pH 6.0 (5.0-8.0) Ur Specific [place] >= 1.030 (1.008-1.030) Urine Protein Negative (NEGATIVE) mg/dL Urine Glucose (UA) Negative (NEGATIVE) mg/dL Urine Ketones 15 H (NEGATIVE) mg/dL Urine Occult Blood Negative (NEGATIVE) Urine Nitrite Negative (NEGATIVE) Urine Bilirubin Moderate H (NEGATIVE) Urine Urobilinogen 1.0 (0.2-1.0) EU/dL Ur Leukocyte Esterase Negative (NEGATIVE) Urine RBC 0-5 (0-5) Urine WBC 0-5 (0-5) Ur Epithelial Cells Few Amorphous Sediment Many Urine Bacteria Not seen Urine Mucus Not seen 08/18/19 Range/Units 23:21 WBC (4.5-11.0) K/uL RBC (3.30-5.50) M/uL Hgb (12.0-15.0) g/dL Hct (36.0-48.0) % MCV (80-98) fL MCH (27-31) pg MCHC (32-36) % Plt Count (150-400) K/uL Neut % (Auto) (36-66) % Lymph % (Auto) (24-44) % [place] % (Auto) (2-6) % Eos % (Auto) (2-4) % Baso % (Auto) (0-1) % Sodium (140-148) mmol/L Potassium (3.6-5.2) mmol/L Chloride (100-108) mmol/L Carbon Dioxide (21-32) mmol/L Anion Gap (5.0-14.0) mmol/L BUN (7-18) mg/dL Creatinine (0.6-1.0) mg/dL Est Cr Clr Drug Dosing mL/min Estimated GFR (MDRD) (>60) Glucose (74-106) mg/dL Calcium (8.5-10.1) mg/dL Magnesium 1.7 L (1.8-2.4) mg/dL Total Bilirubin (0.2-1.0) mg/dL AST (15-37) U/L ALT (12-78) U/L Alkaline Phosphatase (46-116) U/L Total Protein (6.4-8.2) g/dL Albumin (3.4-5.0) g/dL Globulin (2.3-3.5) g/dL Albumin/Globulin Ratio (1.2-2.2) Urine Color (YELLOW) Urine Appearance (CLEAR) Urine pH (5.0-8.0) Ur Specific [place] (1.008-1.030) Urine Protein (NEGATIVE) mg/dL Urine Glucose (UA) (NEGATIVE) mg/dL Urine Ketones (NEGATIVE) mg/dL Urine Occult Blood (NEGATIVE) Urine Nitrite (NEGATIVE) Urine Bilirubin (NEGATIVE) Urine Urobilinogen (0.2-1.0) EU/dL Ur Leukocyte Esterase (NEGATIVE) Urine RBC (0-5) Urine WBC (0-5) Ur Epithelial Cells Amorphous Sediment Urine Bacteria Urine Mucus Meds: Medications Discontinued Medications Generic Name Dose Route Start Last Admin Trade Name Freq PRN Reason Stop Dose Admin Acetaminophen 160 mg 08/19/19 00:58 08/19/19 01:38 Tylenol Solution PO 08/19/19 00:59 Not Given ONETIME ONE Diazepam 2 mg 08/19/19 00:48 08/19/19 01:08 Valium IVPUSH 08/19/19 00:49 2 mg ONETIME ONE Administration Hydromorphone HCl 0.5 mg 08/18/19 22:45 08/18/19 23:37 Dilaudid IVPUSH 08/18/19 22:46 0.5 mg ONETIME ONE Administration Sodium Chloride 1,000 mls @ 999 mls/hr 08/18/19 22:45 Normal Saline IV ASDIRECTED APOLINAR Sodium Chloride 1,000 mls @ 999 mls/hr 08/18/19 23:30 Normal Saline IV ASDIRECTED APOLINAR Magnesium Sulfate 2 gm/ Premix 50 mls @ 12.5 mls/hr 08/18/19 23:35 08/18/19 23:46 IV 08/19/19 03:34 12.5 mls/hr ONETIME ONE Administration Lactated Ringer's 1,000 mls @ 999 mls/hr 08/18/19 23:45 08/18/19 23:42 Ringers, Lactated IV 999 mls/hr BOLUS APOLINAR Administration Lactated Ringer's 1,000 mls @ 999 mls/hr 08/18/19 23:45 08/19/19 00:48 Ringers, Lactated IV 999 mls/hr BOLUS APOLINAR Administration Ondansetron HCl 4 mg 08/18/19 22:45 08/18/19 23:37 Zofran IVPUSH 08/18/19 22:46 4 mg ONETIME ONE Administration - Re-Assessments/Exams Free Text/Narrative Re-Assessment/Exam: 08/19/19 00:23 pt had a mag of 1.7. She was given 2 gm of mag sulfate. She was given [address] Sofia was contacted and he wanted her to have the 2 liters and he plans to see her at the clinic tomorrow. Departure - Departure Time of Disposition: 01:55 Disposition: Home, Self-Care 01 Condition: Fair Clinical Impression: Cervical paraspinal muscle spasm, Facet arthritis, degenerative, cervical spine , Dehydration, Hypomagnesemia, Gastric bypass status for obesity - Discharge Information Instructions: Muscle Cramps and Spasms, Heat Therapy Referrals: PCP,None [Primary Care Provider] - Forms: ED Department Discharge Care Plan Goals: see Dr Sofia tomorrow, cool pack to neck Use liquid tylenol for discomfort, massage to loosen up the muscle.
[2019-08-19] MEDS ORDERED: Acetaminophen Soln 160 MG/5 ML UD Cup PO ONE (00:58)
--- NOTE | 2019-08-19 01:13 | CRLCT ---
INDICATION: Back pain and left facial numbness TECHNIQUE: CT head without contrast. COMPARISON: None FINDINGS: CSF spaces: Within normal limits for age. Brain parenchyma: The guzman-white differentiation is normal. No sign of mass, hemorrhage, or midline shift. Skull base and calvarium: The visualized paranasal sinuses and mastoid air cells demonstrate no acute or significant findings. The visualized orbits are grossly unremarkable. No skull fractures. IMPRESSION: Unremarkable noncontrast head CT. Please note that all CT scans at this facility use dose modulation, iterative reconstruction, and/or weight-based dosing when appropriate to reduce radiation dose to as low as reasonably achievable. Dictated by Jessica Hill MD @ Aug 19 2019 1:11AM Signed by Dr. Jessica Hill @ Aug 19 2019 1:11AM
--- NOTE | 2019-08-19 01:18 | CRLCT ---
INDICATION: Neck pain and left facial numbness TECHNIQUE: CT cervical spine without contrast. COMPARISON: None FINDINGS: Vertebral alignment: Alignment is normal. Vertebrae: There are no fractures or suspicious bony lesions. Discs and facet joints: There are mild multilevel degenerative disc changes and severe multilevel degenerative facet changes. Extraspinal findings: Paraspinous soft tissues are unremarkable. IMPRESSION: 1. No sign of acute injury. 2. Mild multilevel degenerative disc disease. Severe multilevel degenerative facet disease. Please note that all CT scans at this facility use dose modulation, iterative reconstruction, and/or weight-based dosing when appropriate to reduce radiation dose to as low as reasonably achievable. Dictated by Jessica Hill MD @ Aug 19 2019 1:16AM Signed by Dr. Jessica Hill @ Aug 19 2019 1:16AM
[2019-08-19 01:39] VITALS: BP 126/61; PULSE 86
== END 2019-08-19 01:57 | disposition home or self-care (01) ==
LOC: JP.ED 21:22
DX: M62.838 Other muscle spasm (principal); M47.892 Other spondylosis, cervical region; E86.0 Dehydration; E83.42 Hypomagnesemia; Z98.84 Bariatric surgery status; K21.9 Gastro-esophageal reflux disease without esophagitis; J45.909 Unspecified asthma, uncomplicated; F41.9 Anxiety disorder, unspecified; F32.9 Major depressive disorder, single episode, unspecified; Z88.6 Allergy status to analgesic agent; E66.9 Obesity, unspecified; Z68.44 Body mass index [BMI] 60.0-69.9, adult; Z88.1 Allergy status to other antibiotic agents; Z91.040 Latex allergy status; Z91.018 Allergy to other foods; Z88.8 Allergy status to other drugs, medicaments and biological substances; Z79.899 Other long term (current) drug therapy
CPT/HCPCS: 36415; 70450; 72125; 80053; 81001; 83735; 85025; 96365; 96366; 96375; 99283-25; 99284; J1170; J2405; J3360; J3475; J7120

== ENCOUNTER 2019-09-02 21:47 | Emergency (ER) | payer MEDICAID ==
[2019-09-02 22:12] VITALS: BP 141/95; PULSE 84
[2019-09-02] MEDS ORDERED: Metoclopramide 10 MG/2 ML SDV IM ONE (22:42)
--- NOTE | 2019-09-02 22:48 | EDM.PDOC ---
ED HPI GENERAL MEDICAL PROBLEM - General Chief Complaint: Gastrointestinal Problem Stated Complaint: VOMITING, STOMACH PAIN Time Seen by Provider: 09/02/19 22:25 Source of Information: Reports: Patient History Limitations: Reports: No Limitations - History of Present Illness INITIAL COMMENTS - FREE TEXT/NARRATIVE: 34-year-old female is worried she is "dehydrated". She's had persistent emesis for the last 4 days, has been seen in the clinic for IV fluids and given scopolamine patches. She supposed to recheck tomorrow if not improving. She is also having a lot of abdominal cramping. Loose stools 5 today. No fevers or chills. Onset: Gradual Duration: Day(s): (4 days) Associated Symptoms: Reports: Cough (Has developed a cough and cold symptoms over the past 24 hours). Denies: Chest Pain abd Pain Score (Numeric/FACES): 7 - Related Data Allergies Allergy/AdvReac Type Severity Reaction Status Date / Time amoxicillin Allergy Severe Anaphylactic Verified 09/02/19 22:19 Shock promethazine HCl Allergy Severe Anaphylactic Verified 09/02/19 22:19 [From Phenergan] Shock risperidone [From Risperdal] Allergy Severe Anaphylactic Verified 09/02/19 22:19 Shock atomoxetine Allergy Anxiety Verified 09/02/19 22:19 banana Allergy Itching Verified 09/02/19 22:19 clindamycin Allergy Rash Verified 09/02/19 22:19 ketorolac tromethamine Allergy Rash Verified 09/02/19 22:19 [From Toradol] latex Allergy Rash Verified 09/02/19 22:19 Latex, Natural Rubber Allergy Rash Verified 09/02/19 22:19 quetiapine Allergy Anxiety Verified 09/02/19 22:19 tramadol HCl [From Ultram] Allergy Hives Verified 09/02/19 22:19 varenicline Allergy Anxiety Verified 09/02/19 22:19 zolpidem [From Ambien] Allergy Anxiety Verified 09/02/19 22:19 atomoxetine HCl AdvReac Anxiety Verified 09/02/19 22:19 [From Strattera] cephalexin monohydrate AdvReac Dizziness Verified 09/02/19 22:19 [From Keflex] quetiapine fumarate AdvReac Irritabilit Verified 09/02/19 22:19 [From Seroquel] y trazodone AdvReac Dizziness Verified 09/02/19 22:19 zolpidem tartrate AdvReac Anxiety Verified 09/02/19 22:19 [From Jeremiah] Home Meds: Home Meds Lisdexamfetamine [Vyvanse] 70 mg PO DAILY 03/01/16 [History] Cetirizine HCl [Zyrtec] 10 mg PO DAILY 09/19/18 [History] DULoxetine [Cymbalta] 120 mg PO DAILY 09/19/18 [History] Melatonin/Pyridoxine HCl (B6) [Melatonin 3 mg Tablet] 10 mg PO BEDTIME 09/19/18 [History] Methimazole [Tapazole] 20 mg PO DAILY 09/19/18 [History] Metoprolol Tartrate [Lopressor] 25 mg PO BID 09/19/18 [History] Sennosides [Senna] 8.6 mg PO DAILY PRN 09/19/18 [History] lamoTRIgine [Lamictal] 200 tab PO DAILY 09/19/18 [History] metroNIDAZOLE [metroNIDAZOLE 0.75% Gel] 1 applic TOP BID 09/19/18 [History] rOPINIRole [Requip] 2 mg PO BEDTIME 09/19/18 [History] rOPINIRole HCl [Requip] 0.5 mg PO DAILY 01/01/19 [History] Albuterol [Proventil Neb Soln] 3 ml NEB TID PRN 02/18/19 [History] Pramoxine HCl [Prax] 1 applic TP QID 02/18/19 [History] Sodium Chloride [[place]] 2 spray NS QID 02/18/19 [History] Triamcinolone Acetonide [Kenalog 0.1% Crm] 1 applic TOP TID PRN 02/18/19 [ History] Montelukast [Singulair] 10 mg PO DAILY 02/27/19 [History] LORazepam [Ativan] 0.5 mg PO BID 07/23/19 [History] Lidocaine 2% [Xylocaine 2%] 10 ml TOP Q6H PRN 07/23/19 [History] Pantoprazole Sodium [Protonix] 40 mg PO DAILY 07/23/19 [History] Temazepam [Restoril] 30 mg PO BEDTIME 07/23/19 [History] Acetaminophen [Tylenol] 650 mg PO Q6H cup 07/30/19 [Rx] Celecoxib [CeleBREX] 200 mg PO DAILY@0800 cap 07/30/19 [Rx] Ondansetron [Zofran ODT] 4 mg PO Q4H PRN #30 tab.dis 07/30/19 [Rx] Prochlorperazine [Compazine] 10 mg PO Q8H PRN 09/02/19 [History] Past Medical History HEENT History: Reports: Impaired Vision, Otitis Media Other HEENT History: Bilateral tympanic membrane rupture. tonsillectomy. 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 rheumatoid arthritis Neurological History: Reports: Migraines Psychiatric History: Reports: ADHD, Anxiety, Depression, PTSD, Other (See Below) Other Psychiatric History: Schizo effective disorder Endocrine/Metabolic History: Reports: Hyperthyroidism, Obesity/BMI 30+ Hematologic History: Reports: None Immunologic History: Reports: None Oncologic (Cancer) History: Reports: Cervix Dermatologic History: Reports: Eczema - Infectious Disease History Infectious Disease History: Reports: Chicken Pox - Past Surgical History HEENT Surgical History: Reports: Myringotomy w Tube(s), Oral Surgery, Tonsillectomy Cardiovascular Surgical History: Reports: None Respiratory Surgical History: Reports: None GI Surgical History: Reports: Appendectomy, Bariatric Procedure, Cholecystectomy , EGD, Hernia Repair/Other Female Surgical History: Reports: Hysterectomy Endocrine Surgical History: Reports: None Neurological Surgical History: Reports: None Musculoskeletal Surgical History: Reports: Other (See Below) Other Musculoskeletal Surgeries/Procedures:: Left ankle ORIF with hardware Social & Family History - Family History Cardiac: Reports: Heart Murmur Respiratory: Reports: COPD Psychiatric: Reports: Depression, Schizophrenia - Tobacco Use Smoking Status *Q: Current Every Day Smoker Years of Tobacco use: 20 Packs/Tins Daily: 0.4 - Caffeine Use Caffeine Use: Reports: None - Recreational Drug Use Recreational Drug Use: Yes Drug Use in Last 12 Months: Yes Recreational Drug Type: Reports: Marijuana/Hashish Recreational Drug Use Frequency: Rarely ED ROS GENERAL - Review of Systems Review Of Systems: See Below Constitutional: Reports: Chills, Malaise, Weakness Respiratory: Denies: Shortness of Breath Cardiovascular: Denies: Chest Pain GI/Abdominal: Reports: Abdominal Pain, Diarrhea, Nausea, Vomiting : Reports: No Symptoms Neurological: Denies: Headache ED EXAM, GENERAL - Physical Exam Exam: See Below Exam Limited By: No Limitations General Appearance: Alert, No Apparent Distress Eye Exam: Bilateral Eye: Normal Inspection Respiratory/Chest: No Respiratory Distress, Lungs Clear Cardiovascular: Regular Rate, Rhythm GI/Abdominal: Normal Bowel Sounds, Soft Neurological: Alert, Oriented Skin Exam: Warm, Dry Course - Vital Signs Last Recorded V/S: Last Vital Signs Temp 98.3 F 09/02/19 22:25 Pulse 84 09/02/19 22:25 Resp 16 09/02/19 22:25 BP 141/95 H 09/02/19 22:25 Pulse Ox 97 09/02/19 22:25 - Orders/Labs/Meds Meds: Medications Discontinued Medications Generic Name Dose Route Start Last Admin Trade Name Lisbet PRN Reason Stop Dose Admin Metoclopramide HCl 10 mg 09/02/19 22:42 09/02/19 22:53 Reglan IM 09/02/19 22:43 10 mg ONETIME ONE Administration - Re-Assessments/Exams Free Text/Narrative Re-Assessment/Exam: 09/02/19 22:45 Reassured the patient that she is not significantly dehydrated, her blood pressure is actually slightly elevated and pulses normal. She has normal hydration to the eyes and mouth. She can follow-up tomorrow to discuss placement of IV therapy, and I gave her 10 mg of IM Reglan. 09/02/19 22:52 Reviewed her records from earlier this year, several emergency room visits with various symptom syndromes such as nausea and vomiting, cough, fever, weakness have all been negative. She seems to have some anxiety overlay to her symptoms. With her vitals normal and physical exam normal I don't see a need for further workup tonight. Departure - Departure Time of Disposition: 23:02 Disposition: Home, Self-Care 01 Clinical Impression: Nausea and vomiting Qualifiers: Vomiting type: unspecified Vomiting Intractability: non-intractable Qualified Code(s): R11.2 - Nausea with vomiting, unspecified - Discharge Information Instructions: Nausea and Vomiting, Adult Referrals: Jessica Delaney MD [Primary Care Provider] - Forms: ED Department Discharge Care Plan Goals: Discuss your symptoms with your primary provider tomorrow, as well as the possible need for IV fluid therapy in the future.
== END 2019-09-02 23:02 | disposition home or self-care (01) ==
LOC: JP.ED 21:47
DX: R11.2 Nausea with vomiting, unspecified (principal); E66.9 Obesity, unspecified; F41.9 Anxiety disorder, unspecified; E11.9 Type 2 diabetes mellitus without complications; J45.909 Unspecified asthma, uncomplicated; F32.9 Major depressive disorder, single episode, unspecified; K21.9 Gastro-esophageal reflux disease without esophagitis; F17.210 Nicotine dependence, cigarettes, uncomplicated; Z88.6 Allergy status to analgesic agent; Z88.1 Allergy status to other antibiotic agents; Z91.040 Latex allergy status; Z88.5 Allergy status to narcotic agent; Z88.0 Allergy status to penicillin; Z88.8 Allergy status to other drugs, medicaments and biological substances; Z91.018 Allergy to other foods; Z79.899 Other long term (current) drug therapy
CPT/HCPCS: 96372; 99283; J2765

== ENCOUNTER 2019-09-07 05:47 | Day surgery (SDC) | payer MEDICAID ==
[2019-09-07] MEDS ORDERED: Propofol 200 MG/20 ML SDV ONE (06:58)
[2019-09-07] MEDS ORDERED: fentaNYL 100 MCG/2 ML SDV ONE (06:58)
[2019-09-07] MEDS ORDERED: Midazolam 1 MG/ML 2 ML SDV ONE (06:58)
[2019-09-07] MEDS ORDERED: Lactated Ringers 1,000 ML IV SCH (07:00)
[2019-09-07] MEDS ORDERED: Cyanocobalamin (Vitamin B12) 1,000 MCG/ML SDV IM ONE (07:00)
[2019-09-07] MEDS ORDERED: Glycopyrrolate 0.2 MG/ML 2 ML SDV IVPUSH ONE (07:15)
[2019-09-07] MEDS ORDERED: Lactated Ringers 1,000 ML ONE (07:30)
[2019-09-07] MEDS ORDERED: MVI, Adult with Vitamin K 10 ML, Thiamine 200 MG, Chromium/Copper/Mang/Selen/Zn 1 ML in... IV ONE ×4 (08:30)
[2019-09-07] MEDS ORDERED: MVI, Adult with Vitamin K 10 ML, Thiamine 200 MG, Chromium/Copper/Mang/Selen/Zn 1 ML in... IV SCH ×4 (08:30)
[2019-09-07 09:00] VITALS: BP 133/89; PULSE 98
[2019-09-07] MEDS ORDERED: Acetaminophen Soln 650 MG/20.3 ML UD Cup PO ONE (10:00)
[2019-09-07] MEDS ORDERED: rOPINIRole 1 MG Tab PO ONE (11:00)
--- NOTE | 2019-09-13 12:03 | OR ---
DATE OF PROCEDURE: 09/07/2019 SURGEON: Jay Sofia MD PREOPERATIVE DIAGNOSIS: Possible stricture at gastrojejunostomy. POSTOPERATIVE DIAGNOSIS: Moderate stricture at gastrojejunostomy. OPERATIVE PROCEDURE: Upper GI endoscopy with dilation of gastrojejunostomy ([id number]). ANESTHESIA: IV sedation. 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 The plan is to proceed with upper GI endoscopy with dilation as indicated. Potential risks including bleeding and perforation were discussed, and the patient wishes to proceed. DETAILS OF PROCEDURE: The patient was taken to the operating room and placed in a left lateral decubitus position. IV sedation was administered, after which the upper GI endoscope was passed orally through the length of the esophagus and into the gastric pouch. The patient was noted to have no retained food or fluid. She did have moderate stricture of the gastrojejunostomy with the 1 cm scope not being able to be passed through the anastomosis. A Bard gastrointestinal balloon catheter was centered across the anastomosis and inflated to 36-Japanese size. This was held in position for 1 minute, after which the balloon catheter was deflated and withdrawn. Scope could easily pass through the anastomosis. No complications were evident. The patient was taken to the recovery room in satisfactory condition after removal of the scope. Jay Sofia MD /[id number]
== END 2019-09-07 11:06 | disposition home or self-care (01) ==
LOC: JP.SDS 05:47
PROVIDERS: ATTEND Surgery
DX: K95.89 Other complications of other bariatric procedure (principal); K21.9 Gastro-esophageal reflux disease without esophagitis; E66.01 Morbid (severe) obesity due to excess calories; G47.33 Obstructive sleep apnea (adult) (pediatric); Z68.44 Body mass index [BMI] 60.0-69.9, adult
CPT/HCPCS: 43245; A9270; J2250; J2704; J3010; J3411; J3420; J3490; J7120

== ENCOUNTER 2019-09-18 10:20 | Emergency (ER) | payer MEDICAID ==
[2019-09-18] MEDS ORDERED: Albuterol/Ipratropium 3.0-0.5 MG/3 ML Neb Soln NEB ONE (10:46)
[2019-09-18] MEDS ORDERED: Sodium Chloride 0.9% 10 ML Syringe FLUSH PRN (10:46)
[2019-09-18] MEDS ORDERED: Lactated Ringers 1,000 ML IV ONE (10:46)
[2019-09-18] MEDS ORDERED: methylPREDNISolone Sodium Succinate 40 MG/1 ML SDV IVPUSH ONE (10:46)
--- NOTE | 2019-09-18 10:50 | EDM.PDOC ---
ED HPI GENERAL MEDICAL PROBLEM - General Chief Complaint: Respiratory Problem Stated Complaint: SOB Time Seen by Provider: 09/18/19 10:41 Source of Information: Reports: Patient, Family, RN Notes Reviewed History Limitations: Reports: No Limitations - History of Present Illness INITIAL COMMENTS - FREE TEXT/NARRATIVE: 34-year-old female presents emergency department today complaint of short of breath, she has known history of asthma as well as status post gastric bypass 8 weeks ago. She states she was evaluated in the clinic 2 days prior treatment of Mucinex she's been ill total about 5 days. She feels more short of breath worse with exertion, does have a cough yellow-green sputum production feverish at home - Related Data Allergies Allergy/AdvReac Type Severity Reaction Status Date / Time amoxicillin Allergy Severe Anaphylactic Verified 09/07/19 06:47 Shock promethazine HCl Allergy Severe Anaphylactic Verified 09/07/19 06:47 [From Phenergan] Shock risperidone [From Risperdal] Allergy Severe Anaphylactic Verified 09/07/19 06:47 Shock atomoxetine Allergy Anxiety Verified 09/07/19 06:47 banana Allergy Itching Verified 09/07/19 06:47 clindamycin Allergy Rash Verified 09/07/19 06:47 ketorolac tromethamine Allergy Rash Verified 09/07/19 06:47 [From Toradol] latex Allergy Rash Verified 09/07/19 06:47 Latex, Natural Rubber Allergy Rash Verified 09/07/19 06:47 quetiapine Allergy Anxiety Verified 09/07/19 06:47 tramadol HCl [From Ultram] Allergy Hives Verified 09/07/19 06:47 varenicline Allergy Anxiety Verified 09/07/19 06:47 zolpidem [From Ambien] Allergy Anxiety Verified 09/07/19 06:47 atomoxetine HCl AdvReac Anxiety Verified 09/07/19 06:47 [From Strattera] cephalexin monohydrate AdvReac Dizziness Verified 09/07/19 06:47 [From Keflex] quetiapine fumarate AdvReac Irritabilit Verified 09/07/19 06:47 [From Seroquel] y trazodone AdvReac Dizziness Verified 09/07/19 06:47 zolpidem tartrate AdvReac Anxiety Verified 09/07/19 06:47 [From Ambien] Home Meds: Home Meds Lisdexamfetamine [Vyvanse] 70 mg PO DAILY 03/01/16 [History] Cetirizine HCl [Zyrtec] 10 mg PO DAILY 09/19/18 [History] DULoxetine [Cymbalta] 120 mg PO DAILY 09/19/18 [History] Melatonin/Pyridoxine HCl (B6) [Melatonin 3 mg Tablet] 10 mg PO BEDTIME 09/19/18 [History] Methimazole [Tapazole] 20 mg PO DAILY 09/19/18 [History] Metoprolol Tartrate [Lopressor] 25 mg PO BID 09/19/18 [History] Sennosides [Senna] 8.6 mg PO DAILY PRN 09/19/18 [History] lamoTRIgine [Lamictal] 200 tab PO DAILY 09/19/18 [History] metroNIDAZOLE [metroNIDAZOLE 0.75% Gel] 1 applic TOP BID 09/19/18 [History] rOPINIRole [Requip] 2 mg PO BEDTIME 09/19/18 [History] rOPINIRole HCl [Requip] 0.5 mg PO DAILY 01/01/19 [History] Albuterol [Proventil Neb Soln] 3 ml NEB TID PRN 02/18/19 [History] Pramoxine HCl [Prax] 1 applic TP QID 02/18/19 [History] Sodium Chloride [Declo] 2 spray NS QID 02/18/19 [History] Triamcinolone Acetonide [Kenalog 0.1% Crm] 1 applic TOP TID PRN 02/18/19 [ History] Montelukast [Singulair] 10 mg PO DAILY 02/27/19 [History] LORazepam [Ativan] 0.5 mg PO BID 07/23/19 [History] Lidocaine 2% [Xylocaine 2%] 10 ml TOP Q6H PRN 07/23/19 [History] Pantoprazole Sodium [Protonix] 40 mg PO DAILY 07/23/19 [History] Temazepam [Restoril] 30 mg PO BEDTIME 07/23/19 [History] Acetaminophen [Tylenol] 650 mg PO Q6H cup 07/30/19 [Rx] Celecoxib [CeleBREX] 200 mg PO DAILY@0800 cap 07/30/19 [Rx] Ondansetron [Zofran ODT] 4 mg PO Q4H PRN #30 tab.dis 07/30/19 [Rx] Prochlorperazine [Compazine] 10 mg PO Q8H PRN 09/02/19 [History] Azithromycin 250 mg PO DAILY #6 tablet 09/18/19 [Rx] Codeine/guaiFENesin [guaiFENesin-Codeine Syrup] 10 ml PO TID PRN #120 cup [Rx] predniSONE [Prednisone] 20 mg PO DAILY #5 tablet 09/18/19 [Rx] Past Medical History HEENT History: Reports: Impaired Vision, Otitis Media Other HEENT History: Bilateral tympanic membrane rupture. tonsillectomy. recent surgery septum 08/20 Cardiovascular History: Reports: Other (See Below) Other Cardiovascular History: Heart palpatations Respiratory History: Reports: Asthma, Bronchitis, Recurrent, Pneumonia, Recurrent, Sleep Apnea, SOB Gastrointestinal History: Reports: Gastritis, GERD Genitourinary History: Reports: Renal Calculus, UTI, Recurrent PROP SAWYER History: Reports: Other PROP SAWYER History: Hysterectomy with right oophrectomy Musculoskeletal History: Reports: Fibromyalgia, RA Other Musculoskeletal History: fibromyalgia. rheumatoid arthritis Neurological History: Reports: Migraines Psychiatric History: Reports: ADHD, Anxiety, Depression, PTSD, Other (See Below) Other Psychiatric History: Schizo effective disorder Endocrine/Metabolic History: Reports: Hyperthyroidism, Obesity/BMI 30+ Hematologic History: Reports: None Immunologic History: Reports: None Oncologic (Cancer) History: Reports: Cervix Dermatologic History: Reports: Eczema - Infectious Disease History Infectious Disease History: Reports: Chicken Pox - Past Surgical History Head Surgeries/Procedures: Reports: None HEENT Surgical History: Reports: Myringotomy w Tube(s), Oral Surgery, Tonsillectomy Cardiovascular Surgical History: Reports: None Respiratory Surgical History: Reports: None GI Surgical History: Reports: Appendectomy, Bariatric Procedure, Cholecystectomy , EGD, Hernia Repair/Other Female Surgical History: Reports: Hysterectomy Endocrine Surgical History: Reports: None Neurological Surgical History: Reports: None Musculoskeletal Surgical History: Reports: Other (See Below) Other Musculoskeletal Surgeries/Procedures:: Left ankle ORIF with hardware Dermatological Surgical History: Reports: None Social & Family History - Family History Family Medical History: Noncontributory Cardiac: Reports: Heart Murmur Respiratory: Reports: COPD Psychiatric: Reports: Depression, Schizophrenia - Tobacco Use Smoking Status *Q: Never Smoker Years of Tobacco use: 18 - Caffeine Use Caffeine Use: Reports: None - Recreational Drug Use Recreational Drug Use: No ED ROS GENERAL - Review of Systems Review Of Systems: See Below Constitutional: Reports: Fever, Chills HEENT: Reports: Sinus Problem Respiratory: Reports: Shortness of Breath, Wheezing, Cough, Sputum Cardiovascular: Reports: Dyspnea on Exertion GI/Abdominal: Reports: No Symptoms : Reports: No Symptoms Musculoskeletal: Reports: No Symptoms ED EXAM, GENERAL - Physical Exam Exam: See Below Exam Limited By: No Limitations General Appearance: Alert, WD/WN, No Apparent Distress Ears: Normal External Exam, Normal Canal, Hearing Grossly Normal, Normal TMs Nose: Normal Inspection, Normal Mucosa, No Blood Throat/Mouth: Normal Inspection, Normal Lips, Normal Teeth, Normal Gums, Normal Oropharynx, Normal Voice, No Airway Compromise Head: Atraumatic, Normocephalic Neck: Normal Inspection, Supple, Non-Tender, Full Range of Motion Respiratory/Chest: No Respiratory Distress, Chest Non-Tender, Decreased Breath Sounds, Wheezing Cardiovascular: No Murmur, Tachycardia GI/Abdominal: Soft, Non-Tender Course - Vital Signs Last Recorded V/S: Last Vital Signs Temp 99.3 F 09/18/19 10:37 Pulse 105 H 09/18/19 10:37 Resp 17 09/18/19 10:32 BP 139/86 09/18/19 11:43 Pulse Ox 94 L 09/18/19 10:37 - Orders/Labs/Meds Orders: Active Orders 24 hr Category Date Time Status Peripheral IV Care [RC] . DIRECTED Care 09/18/19 10:46 Active RT Aerosol Therapy [RC] ASDIRECTED Care 09/18/19 10:46 Active Vital Signs [RC] Q1H Care 09/18/19 10:45 Active Sodium Chloride 0.9% [Saline Flush] Med 09/18/19 10:46 Active 10 ml FLUSH ASDIRECTED PRN Peripheral IV Insertion Adult [OM.PC] Urgent Oth 09/18/19 10:46 Ordered Medication Orders Sodium Chloride (Saline Flush) 10 ml FLUSH ASDIRECTED PRN PRN Reason: Keep Vein Open Last Admin: 09/18/19 11:05 Dose: 10 ml Labs: Laboratory Tests 09/18/19 09/18/19 09/18/19 Range/Units 10:50 10:50 10:50 WBC 8.9 (4.5-11.0) K/uL RBC 5.53 H (3.30-5.50) M/uL Hgb 14.1 (12.0-15.0) g/dL Hct 44.2 (36.0-48.0) % MCV 80 (80-98) fL MCH 26 L (27-31) pg MCHC 32 (32-36) % Plt Count 214 (150-400) K/uL Neut % (Auto) 72 H (36-66) % Lymph % (Auto) 18 L (24-44) % [place] % (Auto) 8 H (2-6) % Eos % (Auto) 2 (2-4) % Baso % (Auto) 0 (0-1) % Sodium 140 (140-148) mmol/L Potassium 3.4 L (3.6-5.2) mmol/L Chloride 104 (100-108) mmol/L Carbon Dioxide 26 (21-32) mmol/L Anion Gap 13.4 (5.0-14.0) mmol/L BUN 3 L D (7-18) mg/dL Creatinine 0.7 (0.6-1.0) mg/dL Est Cr Clr Drug Dosing 95.94 mL/min Estimated GFR (MDRD) > 60 (>60) Glucose 111 H (74-106) mg/dL Lactic Acid 1.5 (0.4-2.0) mmol/L Calcium 9.2 (8.5-10.1) mg/dL Total Bilirubin 0.5 (0.2-1.0) mg/dL AST 10 L (15-37) U/L ALT 24 (12-78) U/L Alkaline Phosphatase 77 (46-116) U/L C-Reactive Protein 4.57 H (0.0-0.3) mg/dL Total Protein 7.3 (6.4-8.2) g/dL Albumin 3.6 (3.4-5.0) g/dL Globulin 3.7 H (2.3-3.5) g/dL Albumin/Globulin Ratio 1.0 L (1.2-2.2) Procalcitonin < 0.05 ng/mL Meds: Medications Generic Name Dose Route Start Last Admin Trade Name Freq PRN Reason Stop Dose Admin Sodium Chloride 10 ml 09/18/19 10:46 09/18/19 11:05 Saline Flush FLUSH 10 ml ASDIRECTED PRN Administration Keep Vein Open Discontinued Medications Generic Name Dose Route Start Last Admin Trade Name Lisbet PRN Reason Stop Dose Admin Albuterol/Ipratropium 3 ml 09/18/19 10:46 09/18/19 11:03 Duoneb 3.0-0.5 Mg/3 Ml NEB 09/18/19 10:47 3 ml ONETIME ONE Administration Guaifenesin/Codeine Phosphate 10 ml 09/18/19 12:45 09/18/19 12:48 Robitussin Ac PO 09/18/19 12:46 10 ml ONETIME ONE Administration Lactated Ringer's 1,000 mls @ 999 mls/hr 09/18/19 10:46 09/18/19 11:05 Ringers, Lactated IV 09/18/19 11:46 999 mls/hr BOLUS ONE Administration Methylprednisolone Sodium Succinate 40 mg 09/18/19 10:46 09/18/19 11:03 Solu-Medrol IVPUSH 09/18/19 10:47 40 mg ONETIME ONE Administration Departure - Departure Time of Disposition: 12:52 Disposition: Home, Self-Care 01 Condition: Fair Clinical Impression: Bronchitis - Discharge Information Prescriptions: Azithromycin 250 mg PO DAILY #6 tablet Codeine/guaiFENesin [guaiFENesin-Codeine Syrup] 10 ml PO TID PRN #120 cup PRN Reason: Cough predniSONE [Prednisone] 20 mg PO DAILY #5 tablet Instructions: Asthma, Adult Referrals: Jessica Delaney MD [Primary Care Provider] - Forms: ED Department Discharge Additional Instructions: Take full course of antibiotics start today, take prednisone for the next 5 days start tomorrow, use the Robitussin with codeine as needed help suppress the cough, Please followup with your primary care provider in 3-5 days if not better, please call return to the emergency department with worsening of symptoms. Your medications have been fax[facility] - My Orders Last 24 Hours: My Active Orders 09/18/19 10:45 Vital Signs [RC] Q1H 09/18/19 10:46 Peripheral IV Care [RC] . DIRECTED RT Aerosol Therapy [RC] ASDIRECTED Sodium Chloride 0.9% [Saline Flush] 10 ml FLUSH ASDIRECTED PRN Peripheral IV Insertion Adult [OM.PC] Urgent - Assessment/Plan Last 24 Hours: My Active Orders 09/18/19 10:45 Vital Signs [RC] Q1H 09/18/19 10:46 Peripheral IV Care [RC] . DIRECTED RT Aerosol Therapy [RC] ASDIRECTED Sodium Chloride 0.9% [Saline Flush] 10 ml FLUSH ASDIRECTED PRN Peripheral IV Insertion Adult [OM.PC] Urgent Plan: Assessment Acuity = acute Site and laterality = bronchitis, kidney patient with known history of moderate persistent asthma Etiology = unknown Manifestations = cough, sputum, fever Location of injury = Home Lab values = CBC, CMP, lactic acid, Pro calcitonin within normal limits chest x- ray shows no acute process Plan Did review lab work chest x-ray results with her prescription written for Z-Efra also prednisone 20 mg once day for 5 days also Robitussin with codeine 120 mL follow-up primary care 3-5 days if not better This note was dictated using [employer] voice recognition software please call with any questions on syntax or grammar.
--- NOTE | 2019-09-18 11:13 | CRLCR ---
Indication: Coughed and wheeze. Technique: PA and lateral views suggest retained. Comparison: None Findings: The heart is normal in size. The lungs are clear. No infiltrate, pleural effusion, or pneumothorax is identified. Impression: No acute cardiopulmonary process. Dictated by Roseanna Gupta MD @ Sep 18 2019 11:11AM Signed by Dr. Roseanna Gupta @ Sep 18 2019 11:12AM
[2019-09-18 11:23] VITALS: PULSE 105
[2019-09-18 11:44] VITALS: BP 139/86
[2019-09-18] MEDS ORDERED: Codeine/guaiFENesin 100mg-10 MG/5 ML Syrup 10 ML Cup PO ONE (12:45)
== END 2019-09-18 13:00 | disposition home or self-care (01) ==
LOC: JP.ED 10:20
DX: J45.909 Unspecified asthma, uncomplicated (principal); K21.9 Gastro-esophageal reflux disease without esophagitis; F41.9 Anxiety disorder, unspecified; F32.9 Major depressive disorder, single episode, unspecified; E66.9 Obesity, unspecified; Z68.43 Body mass index [BMI] 50.0-59.9, adult; Z88.0 Allergy status to penicillin; Z88.8 Allergy status to other drugs, medicaments and biological substances; Z88.1 Allergy status to other antibiotic agents; Z88.5 Allergy status to narcotic agent; Z91.018 Allergy to other foods; Z91.040 Latex allergy status; Z79.899 Other long term (current) drug therapy
CPT/HCPCS: 36415; 71046; 80053; 83605; 84145; 85025; 86140; 94640; 96361; 96374; 99284; A9270; J2920; J7120; J7620-GY

== ENCOUNTER 2019-10-25 21:41 | Observation (INO) | payer MEDICAID ==
--- NOTE | 2019-10-25 22:25 | EDM.PDOC ---
ED HPI GENERAL MEDICAL PROBLEM - General Chief Complaint: Abdominal Pain Stated Complaint: ABD PAIN Time Seen by Provider: 10/25/19 22:21 Source of Information: Reports: Patient History Limitations: Reports: No Limitations - History of Present Illness INITIAL COMMENTS - FREE TEXT/NARRATIVE: pt arrived with pain in the upper abdoman with alot of burning. She did get something caught in her pouch and she was able to get that out. She then started throwing up bile. She has a burning sensation present. in the upper abdoman. Onset: Today, Sudden, Other ( started this afternoon) Duration: Hour(s): Location: Reports: Abdomen, Other (pt has had a persistent cough but that is much better. ) Associated Symptoms: Reports: Nausea/Vomiting, Weakness Upper Abdomen Pain Score (Numeric/FACES): 7 - Related Data Allergies Allergy/AdvReac Type Severity Reaction Status Date / Time amoxicillin Allergy Severe Anaphylactic Verified 10/26/19 04:02 Shock promethazine HCl Allergy Severe Anaphylactic Verified 10/26/19 04:02 [From Phenergan] Shock risperidone [From Risperdal] Allergy Severe Anaphylactic Verified 10/26/19 04:02 Shock atomoxetine Allergy Anxiety Verified 10/26/19 04:02 banana Allergy Itching Verified 10/26/19 04:02 clindamycin Allergy Rash Verified 10/26/19 04:02 ketorolac tromethamine Allergy Rash Verified 10/26/19 04:02 [From Toradol] latex Allergy Rash Verified 10/26/19 04:02 Latex, Natural Rubber Allergy Wheezing Verified 10/26/19 04:04 quetiapine Allergy Anxiety Verified 10/26/19 04:02 tramadol HCl [From Ultram] Allergy Hives Verified 10/26/19 04:02 varenicline Allergy Anxiety Verified 10/26/19 04:02 zolpidem [From Ambien] Allergy Anxiety Verified 10/26/19 04:02 atomoxetine HCl AdvReac Anxiety Verified 10/26/19 04:02 [From Strattera] cephalexin monohydrate AdvReac Dizziness Verified 10/26/19 04:02 [From Keflex] quetiapine fumarate AdvReac Irritabilit Verified 10/26/19 04:02 [From Seroquel] y trazodone AdvReac Dizziness Verified 10/26/19 04:02 zolpidem tartrate AdvReac Anxiety Verified 10/26/19 04:02 [From Edsonien] Home Meds: Home Meds Lisdexamfetamine [Vyvanse] 70 mg PO DAILY 03/01/16 [History] Cetirizine HCl [Zyrtec] 10 mg PO DAILY 09/19/18 [History] DULoxetine [Cymbalta] 120 mg PO DAILY 09/19/18 [History] Melatonin/Pyridoxine HCl (B6) [Melatonin 3 mg Tablet] 10 mg PO BEDTIME 09/19/18 [History] Methimazole [Tapazole] 20 mg PO DAILY 09/19/18 [History] Metoprolol Tartrate [Lopressor] 25 mg PO BID 09/19/18 [History] Sennosides [Senna] 8.6 mg PO DAILY PRN 09/19/18 [History] lamoTRIgine [Lamictal] 200 tab PO DAILY 09/19/18 [History] metroNIDAZOLE [metroNIDAZOLE 0.75% Gel] 1 applic TOP BID 09/19/18 [History] rOPINIRole [Requip] 2 mg PO BEDTIME 09/19/18 [History] rOPINIRole HCl [Requip] 0.5 mg PO DAILY 01/01/19 [History] Albuterol [Proventil Neb Soln] 3 ml NEB TID PRN 02/18/19 [History] Pramoxine HCl [Prax] 1 applic TP QID 02/18/19 [History] Sodium Chloride [[place]] 2 spray NS QID 02/18/19 [History] Triamcinolone Acetonide [Kenalog 0.1% Crm] 1 applic TOP TID PRN 02/18/19 [ History] Montelukast [Singulair] 10 mg PO DAILY 02/27/19 [History] LORazepam [Ativan] 0.5 mg PO BID 07/23/19 [History] Lidocaine 2% [Xylocaine 2%] 10 ml TOP Q6H PRN 07/23/19 [History] Pantoprazole Sodium [Protonix] 40 mg PO DAILY 07/23/19 [History] Temazepam [Restoril] 30 mg PO BEDTIME 07/23/19 [History] Acetaminophen [Tylenol] 650 mg PO Q6H cup 07/30/19 [Rx] Celecoxib [CeleBREX] 200 mg PO DAILY@0800 cap 07/30/19 [Rx] Ondansetron [Zofran ODT] 4 mg PO Q4H PRN #30 tab.dis 07/30/19 [Rx] Prochlorperazine [Compazine] 10 mg PO Q8H PRN 09/02/19 [History] Codeine/guaiFENesin [guaiFENesin-Codeine Syrup] 10 ml PO TID PRN #120 cup [Rx] predniSONE [Prednisone] 20 mg PO DAILY #5 tablet 09/18/19 [Rx] Hydrocodone/Acetaminophen [Lorcet 5-325 mg Tablet] 1 each PO Q4H 10/25/19 [ History] Past Medical History HEENT History: Reports: Impaired Vision, Otitis Media Other HEENT History: Bilateral tympanic membrane rupture. tonsillectomy. 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 rheumatoid arthritis Neurological History: Reports: Migraines Psychiatric History: Reports: ADHD, Anxiety, Depression, PTSD, Other (See Below) Other Psychiatric History: Schizo effective disorder Endocrine/Metabolic History: Reports: Hyperthyroidism, Obesity/BMI 30+ Hematologic History: Reports: None Immunologic History: Reports: None Oncologic (Cancer) History: Reports: Cervix Dermatologic History: Reports: Eczema - Infectious Disease History Infectious Disease History: Reports: Chicken Pox - Past Surgical History Head Surgeries/Procedures: Reports: None HEENT Surgical History: Reports: Myringotomy w Tube(s), Oral Surgery, Tonsillectomy Cardiovascular Surgical History: Reports: None Respiratory Surgical History: Reports: None GI Surgical History: Reports: Appendectomy, Bariatric Procedure, Cholecystectomy , EGD, Hernia Repair/Other Female Surgical History: Reports: Hysterectomy Endocrine Surgical History: Reports: None Neurological Surgical History: Reports: None Musculoskeletal Surgical History: Reports: Other (See Below) Other Musculoskeletal Surgeries/Procedures:: Left ankle ORIF with hardware Dermatological Surgical History: Reports: None Social & Family History - Family History Family Medical History: Noncontributory Cardiac: Reports: Heart Murmur Respiratory: Reports: COPD Psychiatric: Reports: Depression, Schizophrenia - Tobacco Use Smoking Status *Q: Current Every Day Smoker Years of Tobacco use: 18 Packs/Tins Daily: 0.5 Used Tobacco, but Quit: No Second Hand Smoke Exposure: Yes - Caffeine Use Caffeine Use: Reports: None - Recreational Drug Use Recreational Drug Use: No ED ROS GENERAL - Review of Systems Review Of Systems: See Below Constitutional: Reports: Diaphoresis, Decreased Appetite HEENT: Reports: No Symptoms Respiratory: Reports: No Symptoms Cardiovascular: Reports: No Symptoms Endocrine: Reports: No Symptoms GI/Abdominal: Reports: Abdominal Pain, Other (several small stools today-- this is normal for her. ) : Reports: No Symptoms Musculoskeletal: Reports: No Symptoms Skin: Reports: No Symptoms Neurological: Reports: No Symptoms ED EXAM, GI/ABD - Physical Exam Exam: See Below Text/Narrative:: pt arrived with upper abdomanal pain. She is having a burning sensation in the upper abdoman. She has a past history of constipation. Exam Limited By: No Limitations General Appearance: Alert, Severe Distress Ears: Normal TMs Nose: Normal Inspection Throat/Mouth: Normal Inspection Head: Atraumatic Neck: Normal Inspection Respiratory/Chest: No Respiratory Distress Cardiovascular: Regular Rate, Rhythm GI/Abdominal Exam: Other (pt is tender in the upper abdoman and this pain has been persistent. ) Rectal (Female) Exam: Deferred Back Exam: Normal Inspection Extremities: Normal Inspection Neurological: Alert, Oriented, Normal Cognition Psychiatric: Anxious Course - Vital Signs Last Recorded V/S: Last Vital Signs Temp 35.5 C 10/26/19 13:50 Pulse 67 10/26/19 15:09 Resp 18 10/26/19 15:09 BP 125/52 L 10/26/19 15:09 Pulse Ox 100 10/26/19 15:09 - Orders/Labs/Meds Labs: Laboratory Tests 10/25/19 10/25/19 10/25/19 Range/Units 22:37 22:45 22:45 WBC 11.9 H (4.5-11.0) K/uL RBC 5.78 H (3.30-5.50) M/uL Hgb 14.7 (12.0-15.0) g/dL Hct 46.1 (36.0-48.0) % MCV 80 (80-98) fL MCH 25 L (27-31) pg MCHC 32 (32-36) % Plt Count 268 (150-400) K/uL Neut % (Auto) 69 H (36-66) % Lymph % (Auto) 22 L (24-44) % Wilkes % (Auto) 6 (2-6) % Eos % (Auto) 2 (2-4) % Baso % (Auto) 0 (0-1) % Sodium 140 (140-148) mmol/L Potassium 3.9 (3.6-5.2) mmol/L Chloride 103 (100-108) mmol/L Carbon Dioxide 25 (21-32) mmol/L Anion Gap 11.7 (5.0-14.0) mmol/L BUN 6 L D (7-18) mg/dL Creatinine 0.8 (0.6-1.0) mg/dL Est Cr Clr Drug Dosing 83.95 mL/min Estimated GFR (MDRD) > 60 (>60) Glucose 102 (74-106) mg/dL Calcium 8.9 (8.5-10.1) mg/dL Total Bilirubin 0.5 (0.2-1.0) mg/dL AST 14 L (15-37) U/L ALT 25 (12-78) U/L Alkaline Phosphatase 80 (46-116) U/L C-Reactive Protein (0.0-0.3) mg/dL Total Protein 7.3 (6.4-8.2) g/dL Albumin 3.7 (3.4-5.0) g/dL Globulin 3.6 H (2.3-3.5) g/dL Albumin/Globulin Ratio 1.0 L (1.2-2.2) Lipase (73-393) U/L Urine Color Yellow (YELLOW) Urine Appearance Slightly cloudy A (CLEAR) Urine pH 5.5 (5.0-8.0) Ur Specific [place] <= 1.030 (1.008-1.030) Urine Protein Negative (NEGATIVE) mg/dL Urine Glucose (UA) Normal (NEGATIVE) mg/dL Urine Ketones Trace H (NEGATIVE) mg/dL Urine Occult Blood Negative (NEGATIVE) Urine Nitrite Negative (NEGATIVE) Urine Bilirubin Small (NEGATIVE) Urine Urobilinogen 1.0 (0.2-1.0) EU/dL Ur Leukocyte Esterase Negative (NEGATIVE) Urine RBC 0-5 (0-5) Urine WBC 0-5 (0-5) Ur Epithelial Cells Moderate Amorphous Sediment Not seen Urine Bacteria Moderate Urine Mucus Few 10/25/19 10/25/19 Range/Units 22:45 22:45 WBC (4.5-11.0) K/uL RBC (3.30-5.50) M/uL Hgb (12.0-15.0) g/dL Hct (36.0-48.0) % MCV (80-98) fL MCH (27-31) pg MCHC (32-36) % Plt Count (150-400) K/uL Neut % (Auto) (36-66) % Lymph % (Auto) (24-44) % Wilkes % (Auto) (2-6) % Eos % (Auto) (2-4) % Baso % (Auto) (0-1) % Sodium (140-148) mmol/L Potassium (3.6-5.2) mmol/L Chloride (100-108) mmol/L Carbon Dioxide (21-32) mmol/L Anion Gap (5.0-14.0) mmol/L BUN (7-18) mg/dL Creatinine (0.6-1.0) mg/dL Est Cr Clr Drug Dosing mL/min Estimated GFR (MDRD) (>60) Glucose (74-106) mg/dL Calcium (8.5-10.1) mg/dL Total Bilirubin (0.2-1.0) mg/dL AST (15-37) U/L ALT (12-78) U/L Alkaline Phosphatase (46-116) U/L C-Reactive Protein 0.75 H (0.0-0.3) mg/dL Total Protein (6.4-8.2) g/dL Albumin (3.4-5.0) g/dL Globulin (2.3-3.5) g/dL Albumin/Globulin Ratio (1.2-2.2) Lipase 85 (73-393) U/L Urine Color (YELLOW) Urine Appearance (CLEAR) Urine pH (5.0-8.0) Ur Specific [place] (1.008-1.030) Urine Protein (NEGATIVE) mg/dL Urine Glucose (UA) (NEGATIVE) mg/dL Urine Ketones (NEGATIVE) mg/dL Urine Occult Blood (NEGATIVE) Urine Nitrite (NEGATIVE) Urine Bilirubin (NEGATIVE) Urine Urobilinogen (0.2-1.0) EU/dL Ur Leukocyte Esterase (NEGATIVE) Urine RBC (0-5) Urine WBC (0-5) Ur Epithelial Cells Amorphous Sediment Urine Bacteria Urine Mucus Meds: Medications Discontinued Medications Generic Name Dose Route Start Last Admin Trade Name Freq PRN Reason Stop Dose Admin Acetaminophen 650 mg 10/26/19 07:45 10/26/19 08:57 Tylenol PO 650 mg Q4H PRN Administration Pain Albuterol 2.5 mg 10/26/19 02:52 Proventil Neb Soln NEB Q4H PRN Shortness Of Breath/wheezing Baclofen 10 mg 10/26/19 01:07 10/26/19 01:14 Lioresal PO 10/26/19 01:08 10 mg ONETIME ONE Administration Al Hydroxide/Mg Hydroxide 15 0 ml 10/26/19 01:06 10/26/19 01:18 ml/ Lidocaine HCl 15 ml PO 10/26/19 01:07 30 ml ONETIME ONE Administration Al Hydroxide/Mg Hydroxide 360 0 ml 10/26/19 14:28 ml/ Lidocaine HCl 60 ml PO ASDIRECTED PRN Pain Fentanyl Confirm 10/26/19 12:17 Sublimaze Administered 10/26/19 12:18 Dose 100 mcg .ROUTE .STK-MED ONE Glycopyrrolate 0.4 mg 10/26/19 10:30 10/26/19 12:30 Glycopyrrolate IVPUSH 10/26/19 10:31 0.4 mg ONETIME ONE Administration Hydromorphone HCl 0.5 mg 10/25/19 22:38 10/25/19 23:05 Dilaudid IVPUSH 10/25/19 22:39 0.5 mg ONETIME ONE Administration Hydromorphone HCl 1 mg 10/26/19 01:42 10/26/19 02:04 Dilaudid IVPUSH 10/26/19 01:43 1 mg ONETIME ONE Administration Hydromorphone HCl 0.05 - 1 mg 10/26/19 02:52 10/26/19 04:42 Dilaudid IVPUSH 1 mg Q2H PRN Administration Abdominal Pain Hydroxyzine HCl 25 mg 10/26/19 07:46 Atarax PO Q4H PRN Pain Sodium Chloride 1,000 mls @ 999 mls/hr 10/25/19 22:45 10/25/19 23:05 Normal Saline IV 999 mls/hr ASDIRECTED APOLINAR Administration Sodium Chloride 85 mls @ 3.5 mls/sec 10/25/19 23:41 10/25/19 23:48 Normal Saline IV 10/25/19 23:42 3.5 mls/sec ASDIRECTED STA Administration Sodium Chloride 1,000 mls @ 999 mls/hr 10/26/19 00:30 10/26/19 01:17 Normal Saline IV 999 mls/hr ASDIRECTED APOLINAR Administration Lactated Ringer's 1,000 mls @ 125 mls/hr 10/26/19 02:52 10/26/19 15:09 Ringers, Lactated IV 125 mls/hr ASDIRECTED APOLINAR Administration Potassium Acetate 20 meq/ 112 mls @ 56 mls/hr 10/26/19 10:00 10/26/19 12:10 Lidocaine HCl 2 ml/ Sodium IV 10/26/19 13:59 56 mls/hr Chloride Q2H APOLINAR Administration Iopamidol 150 ml 10/25/19 23:40 10/25/19 23:48 Isovue-300 (61%) IV 10/25/19 23:41 150 ml . DIRECTED STA Administration Lamotrigine 200 mg 10/26/19 09:00 10/26/19 08:57 Lamotrigine PO 200 mg DAILY APOLINAR Administration Lorazepam 0.5 mg 10/26/19 09:00 10/26/19 08:57 Ativan PO 0.5 mg BID APOLINAR Administration Metoprolol Tartrate 25 mg 10/26/19 09:00 10/26/19 08:56 Lopressor PO 25 mg BID APOLINAR Administration Metronidazole 1 gm 10/26/19 09:00 10/26/19 08:57 Metronidazole 0.75% Gel TOP 1 applic BID APOLINAR Administration Midazolam HCl Confirm 10/26/19 12:17 Versed 1 Mg/Ml Administered 10/26/19 12:18 Dose 2 mg .ROUTE .STK-MED ONE Ondansetron HCl 4 mg 10/25/19 22:38 10/25/19 23:04 Zofran IVPUSH 10/25/19 22:39 4 mg ONETIME ONE Administration Ondansetron HCl 4 mg 10/26/19 00:04 10/26/19 00:13 Zofran IVPUSH 10/26/19 00:05 4 mg ONETIME ONE Administration Ondansetron HCl 4 mg 10/26/19 02:52 10/26/19 08:58 Zofran IV 4 mg Q4H PRN Administration Nausea/Vomiting Pantoprazole Sodium 40 mg 10/26/19 01:43 10/26/19 02:06 Protonix Iv IVPUSH 10/26/19 01:44 40 mg ONETIME ONE Administration Pantoprazole Sodium 40 mg 10/26/19 12:00 10/26/19 12:09 Protonix Iv IV 40 mg Q12H APOLINAR Administration Pneumococcal Polyvalent Vaccine 0.5 ml 10/26/19 10:00 10/26/19 10:16 Pneumovax 23 IM 10/26/19 10:01 0.5 ml .ONCE ONE Administration Propofol Confirm 10/26/19 12:17 Diprivan 20 Ml Administered 10/26/19 12:18 Dose 200 mg .ROUTE .STK-MED ONE Ropinirole HCl 2 mg 10/26/19 21:00 Requip PO BEDTIME APOLINAR Ropinirole HCl 0.5 mg 10/26/19 05:45 10/26/19 08:50 Requip PO Not Given DAILY APOLINAR - Re-Assessments/Exams Free Text/Narrative Re-Assessment/Exam: 10/26/19 01:46 lab work appeared normal. She had a high specfic gravity on the urine. She ewas hydrated with 2 liters of fluid, she was given dilaudid for pain. She had a cat scan of the abdoman which was neg. She was given a GI cocktail which seemed to make it worse. Departure - Departure Time of Disposition: 01:50 Disposition: Admitted As Inpatient 64 Condition: Fair Clinical Impression: Gastrointestinal irritation, History of gastric bypass, Dehydration - Discharge Information Sepsis Event Note - Focused Exam Date Exam was Performed: 10/28/19 Time Exam was Performed: 07:23
[2019-10-25] MEDS ORDERED: HYDROmorphone 0.5 MG/0.5 ML Syringe IVPUSH ONE (22:38)
[2019-10-25] MEDS ORDERED: Ondansetron 4 MG/2 ML SDV IVPUSH ONE (22:38)
[2019-10-25] MEDS ORDERED: Sodium Chloride 0.9% 1,000 ML IV SCH (22:45)
[2019-10-25] MEDS ORDERED: Iopamidol 612 MG/ML 150 ML Bottle IV STA (23:40)
[2019-10-26] MEDS ORDERED: Ondansetron 4 MG/2 ML SDV IVPUSH ONE (00:04)
[2019-10-26] MEDS ORDERED: Sodium Chloride 0.9% 1,000 ML IV SCH (00:30)
--- NOTE | 2019-10-26 00:30 | CRLCT ---
INDICATION: Upper abdominal pain. Previous history of cholecystectomy and Florence-en-Y. COMPARISON: 10/18/2019. TECHNIQUE: CT examination of the abdomen and pelvis was performed with the uneventful intravenous administration of 150 cc of Isovue-300 while 3 mm thick axial sections were obtained from the lung bases through the pubic symphysis. Oral contrast was not administered. Please note that all CT scans at this facility use dose modulation, iterative reconstruction, and/or weight-based dosing when appropriate to reduce radiation dose to as low as reasonably achievable. FINDINGS: In the abdomen, the liver remains low in density, representing fatty infiltration. There is no sign of mass. There is no change in moderate hepatomegaly, with the liver measuring 22.5 centimeters in length, previously 23.1 centimeters. The spleen has slightly decreased in size and is no longer enlarged, now top-normal in size, measuring 11.7 centimeters in length, previously 12.1 centimeters. The pancreas and right adrenal are normal in appearance. Again seen is the small low-density nodule in the left adrenal gland measuring 1.4 centimeters in length, with density of 10 Hounsfield units, associate sales representative of a lipid rich adrenal adenoma. The kidneys are normal in appearance. Clips are again seen in the gall bladder fossa from cholecystectomy. The abdominal aorta is normal in caliber with no sign of dilatation. There is no sign of retroperitoneal mass or adenopathy. Again seen are several lines of surgical yessi at the gastric fundus consistent with gastric bypass surgery. Again seen is a small bowel anastomosis in the left lower quadrant. The distal stomach, the rest of the loops of small bowel, and colon in the abdomen are normal in appearance. In the pelvis, the appendix is nonvisualized, but there is no sign of an inflammatory process in the area of the appendix. The loops of small bowel and colon in the pelvis are normal in appearance. The uterus is again seen to be absent and the adnexal regions are normal in appearance. The urinary bladder is normal in appearance. There is no sign of pelvic or inguinal mass. Again seen is mild right external iliac lymphadenopathy with a lymph node with a short axis diameter of 11 millimeters. There is a mildly prominent left external iliac lymph node, but this has a short axis diameter of 8 millimeters, not large enough to be described as lymphadenopathy. This appearance is stable. The lung bases are clear. There is no change in prominent L5-S1 disc degenerative disease with minimal posterior subluxation of L5 on S1. No additional osseous abnormalities are seen. IMPRESSION: CT of the abdomen shows no change in moderate hepatomegaly with fatty infiltration of the liver. No sign of any masses within the liver. Slight decrease in size of the spleen, now top-normal in size. Again seen are changes of cholecystectomy and gastric bypass surgery with a Florence-en-Y. Stable small left adrenal adenoma. CT of the pelvis shows no change in mild right external iliac lymphadenopathy of uncertain etiology. Again seen are changes of hysterectomy. Please note that all CT scans at this facility use dose modulation, iterative reconstruction, and/or weight-based dosing when appropriate to reduce radiation dose to as low as reasonably achievable. Dictated by Garland Lowry MD @ Oct 26 2019 12:16AM Signed by Dr. Garland Lowry @ Oct 26 2019 12:28AM
[2019-10-26] MEDS ORDERED: Alum Hydrox/Mag Hydrox/Simeth 15 ML, Lidocaine 2% 15 ML PO ONE ×2 (01:06)
[2019-10-26] MEDS ORDERED: Baclofen 10 MG Tab PO ONE (01:07)
[2019-10-26] MEDS ORDERED: HYDROmorphone 1 MG/ML Syringe IVPUSH ONE (01:42)
[2019-10-26] MEDS ORDERED: Pantoprazole 40 MG Vial IVPUSH ONE (01:43)
[2019-10-26] MEDS ORDERED: Albuterol 0.083% 2.5 MG/3 ML Neb Soln NEB PRN (02:52)
[2019-10-26] MEDS ORDERED: HYDROmorphone 1 MG/ML Syringe IVPUSH PRN (02:52)
--- NOTE | 2019-10-26 03:18 | PCM.HP.2 ---
H&P History of Present Illness - General Date of Service: 10/25/19 Admit Problem/Dx: Admission Diagnosis/Problem Admission Diagnosis/Problem Abdominal pain Abdominal pain: current symptoms are similar to previous admission on 2018. At that admission had an EGD by Dr. Blevins which showed severe gastritis. Started on Protonix. She had bariatric surgery in 07-27-2019, she reports 110 pound weight loss. Yesterday 10-25-2019, in the evening noted a sudden onset of vomiting, nausea and uncontrolled abdominal pain. Reports vomit looks like bile green-yellow liquid. ER work-up labs normal, CT scan of abdomen normal. Dr. Sofia consulted will do EGD in morning. Ms. Puga and her Partner are in agreement with plan of care. Source of Information: Patient, Family (Partner Nhi Lott), Provider, RN History Limitations: Reports: No Limitations - History of Present Illness Onset of Symptoms: Reports: Sudden Duration of Symptoms: Reports: Hour(s):, Constant, Getting Worse Location: Reports: Abdomen Quality: Reports: Ache, Burning, Same as Previous Episode, Sharp Severity: Severe Improves with: Reports: None Worsens with: Reports: None Associated Symptoms: Reports: Cough (bronchitis for the pat 3-4 weeks.), Fever/ Chills, Loss of Appetite, Nausea/Vomiting Upper Abdomen Pain Score (Numeric/FACES): 7 - Related Data Allergies/Adverse Reactions: Allergies Allergy/AdvReac Type Severity Reaction Status Date / Time amoxicillin Allergy Severe Anaphylactic Verified 10/25/19 21:53 Shock promethazine HCl Allergy Severe Anaphylactic Verified 10/25/19 21:53 [From Phenergan] Shock risperidone [From Risperdal] Allergy Severe Anaphylactic Verified 10/25/19 21:53 Shock atomoxetine Allergy Anxiety Verified 10/25/19 21:53 banana Allergy Itching Verified 10/25/19 21:53 clindamycin Allergy Rash Verified 10/25/19 21:53 ketorolac tromethamine Allergy Rash Verified 10/25/19 21:53 [From Toradol] latex Allergy Rash Verified 10/25/19 21:53 Latex, Natural Rubber Allergy Rash Verified 10/25/19 21:53 quetiapine Allergy Anxiety Verified 10/25/19 21:53 tramadol HCl [From Ultram] Allergy Hives Verified 10/25/19 21:53 varenicline Allergy Anxiety Verified 10/25/19 21:53 zolpidem [From Ambien] Allergy Anxiety Verified 10/25/19 21:53 atomoxetine HCl AdvReac Anxiety Verified 10/25/19 21:53 [From Strattera] cephalexin monohydrate AdvReac Dizziness Verified 10/25/19 21:53 [From Keflex] quetiapine fumarate AdvReac Irritabilit Verified 10/25/19 21:53 [From Seroquel] y trazodone AdvReac Dizziness Verified 10/25/19 21:53 zolpidem tartrate AdvReac Anxiety Verified 10/25/19 21:53 [From Ambien] Home Medications: Home Meds Lisdexamfetamine [Vyvanse] 70 mg PO DAILY 03/01/16 [History] Cetirizine HCl [Zyrtec] 10 mg PO DAILY 09/19/18 [History] DULoxetine [Cymbalta] 120 mg PO DAILY 09/19/18 [History] Melatonin/Pyridoxine HCl (B6) [Melatonin 3 mg Tablet] 10 mg PO BEDTIME 09/19/18 [History] Methimazole [Tapazole] 20 mg PO DAILY 09/19/18 [History] Metoprolol Tartrate [Lopressor] 25 mg PO BID 09/19/18 [History] Sennosides [Senna] 8.6 mg PO DAILY PRN 09/19/18 [History] lamoTRIgine [Lamictal] 200 tab PO DAILY 09/19/18 [History] metroNIDAZOLE [metroNIDAZOLE 0.75% Gel] 1 applic TOP BID 09/19/18 [History] rOPINIRole [Requip] 2 mg PO BEDTIME 09/19/18 [History] rOPINIRole HCl [Requip] 0.5 mg PO DAILY 01/01/19 [History] Albuterol [Proventil Neb Soln] 3 ml NEB TID PRN 02/18/19 [History] Pramoxine HCl [Prax] 1 applic TP QID 02/18/19 [History] Sodium Chloride [[place]] 2 spray NS QID 02/18/19 [History] Triamcinolone Acetonide [Kenalog 0.1% Crm] 1 applic TOP TID PRN 02/18/19 [ History] Montelukast [Singulair] 10 mg PO DAILY 02/27/19 [History] LORazepam [Ativan] 0.5 mg PO BID 07/23/19 [History] Lidocaine 2% [Xylocaine 2%] 10 ml TOP Q6H PRN 07/23/19 [History] Pantoprazole Sodium [Protonix] 40 mg PO DAILY 07/23/19 [History] Temazepam [Restoril] 30 mg PO BEDTIME 07/23/19 [History] Acetaminophen [Tylenol] 650 mg PO Q6H cup 07/30/19 [Rx] Celecoxib [CeleBREX] 200 mg PO DAILY@0800 cap 07/30/19 [Rx] Ondansetron [Zofran ODT] 4 mg PO Q4H PRN #30 tab.dis 07/30/19 [Rx] Prochlorperazine [Compazine] 10 mg PO Q8H PRN 09/02/19 [History] Codeine/guaiFENesin [guaiFENesin-Codeine Syrup] 10 ml PO TID PRN #120 cup [Rx] predniSONE [Prednisone] 20 mg PO DAILY #5 tablet 09/18/19 [Rx] Hydrocodone/Acetaminophen [Lorcet 5-325 mg Tablet] 1 each PO Q4H 10/25/19 [ History] Past Medical History HEENT History: Reports: Impaired Vision, Otitis Media Other HEENT History: Bilateral tympanic membrane rupture. tonsillectomy. recent surgery septum 08/20 Cardiovascular History: Reports: Other (See Below) Other Cardiovascular History: Heart palpatations Respiratory History: Reports: Asthma, Bronchitis, Recurrent, Pneumonia, Recurrent, Sleep Apnea, SOB Gastrointestinal History: Reports: Gastritis, GERD Genitourinary History: Reports: Renal Calculus, UTI, Recurrent RACK PUSHER History: Reports: Other OB/BYN History: Hysterectomy with right oophrectomy Musculoskeletal History: Reports: Fibromyalgia, RA Other Musculoskeletal History: fibromyalgia. rheumatoid arthritis Neurological History: Reports: Migraines Psychiatric History: Reports: ADHD, Anxiety, Depression, PTSD, Other (See Below) Other Psychiatric History: Schizo effective disorder Endocrine/Metabolic History: Reports: Hyperthyroidism, Obesity/BMI 30+ Hematologic History: Reports: None Immunologic History: Reports: None Oncologic (Cancer) History: Reports: Cervix Dermatologic History: Reports: Eczema - Infectious Disease History Infectious Disease History: Reports: Chicken Pox - Past Surgical History Head Surgeries/Procedures: Reports: None HEENT Surgical History: Reports: Myringotomy w Tube(s), Oral Surgery, Tonsillectomy Cardiovascular Surgical History: Reports: None Respiratory Surgical History: Reports: None GI Surgical History: Reports: Appendectomy, Bariatric Procedure, Cholecystectomy , EGD, Hernia Repair/Other Female Surgical History: Reports: Hysterectomy Endocrine Surgical History: Reports: None Neurological Surgical History: Reports: None Musculoskeletal Surgical History: Reports: Other (See Below) Other Musculoskeletal Surgeries/Procedures:: Left ankle ORIF with hardware Dermatological Surgical History: Reports: None Social & Family History - Family History Family Medical History: Noncontributory Cardiac: Reports: Heart Murmur Respiratory: Reports: COPD Psychiatric: Reports: Depression, Schizophrenia - Tobacco Use Smoking Status *Q: Current Every Day Smoker Years of Tobacco use: 18 Packs/Tins Daily: 0.5 Used Tobacco, but Quit: No Second Hand Smoke Exposure: Yes - Caffeine Use Caffeine Use: Reports: None - Recreational Drug Use Recreational Drug Use: No - Living Situation & Occupation Living situation: Reports: Single Occupation: Disabled (lives with Domestic Partner in [place], [place]. One grown child 18 years old.) H&P Review of Systems - Review of Systems: Review Of Systems: See Below General: Reports: Other (abdominal) HEENT: Reports: Rhinitis (sinus congestion and drainage for 2 weeks or more), Sinus Congestion (for 2 weeks or more) Pulmonary: Reports: Pleuritic Chest Pain (reports has Prednisone script not filled due to [place] issues.), Cough (yellow green to clear ), Sputum (clear to yellow-green) Cardiovascular: Reports: Edema (bilateral lower legs) Gastrointestinal: Reports: Abdominal Pain, Nausea, Vomiting Genitourinary: Reports: No Symptoms Musculoskeletal: Reports: Leg Pain (restless legs at night) Skin: Reports: No Symptoms Psychiatric: Reports: No Symptoms Neurological: Reports: No Symptoms Hematologic/Lymphatic: Reports: No Symptoms Immunologic: Reports: No Symptoms Exam - Exam Exam: See Below - Vital Signs Vital Signs: Last Vital Signs Temp 37.7 C 10/26/19 01:22 Pulse 85 10/26/19 01:22 Resp 18 10/26/19 01:22 BP 127/91 H 10/26/19 01:22 Pulse Ox 95 10/26/19 01:22 Weight: 150.3 kg - Exam General: Alert, Oriented, Cooperative, Mild Distress, Other (pleasant. ) HEENT: PERRLA, Hearing Intact, Mucosa Moist & [place], Nares Patent, Normal Nasal Septum, Posterior Pharynx Clear, Conjunctiva Clear, EOMI, EACs Clear, TMs Clear Neck: Supple, Trachea Midline, 2 Lungs: Clear to Auscultation, Normal Respiratory Effort Cardiovascular: Regular Rate, Regular Rhythm, Normal S1, Normal S2 GI/Abdominal Exam: Soft, Tender (across upper abdomin), Abnormal Bowel Sounds ( hypoactive) (Female) Exam: Deferred Rectal (Female) Exam: Deferred Back Exam: Normal Inspection, Full Range of Motion, NT Extremities: Normal Inspection, Normal Range of Motion, Non-Tender, Normal Capillary Refill, Pedal Edema (1 + pitting edema of lower legs.) Peripheral Pulses: 2+: Radial (L), Radial (R) Skin: Warm, Dry, Intact Neurological: Strength Equal Bilateral, Normal Speech Neuro Extensive - Mental Status: Alert, Oriented x3, Normal Mood/Affect, Normal Cognition Psychiatric: Alert, Normal Affect, Normal Mood - Patient Data Lab Results Last 24 hrs: Laboratory Results - last 24 hr 10/25/19 10/25/19 10/25/19 Range/Units 22:37 22:45 22:45 WBC 11.9 H (4.5-11.0) K/uL RBC 5.78 H (3.30-5.50) M/uL Hgb 14.7 (12.0-15.0) g/dL Hct 46.1 (36.0-48.0) % MCV 80 (80-98) fL MCH 25 L (27-31) pg MCHC 32 (32-36) % Plt Count 268 (150-400) K/uL Neut % (Auto) 69 H (36-66) % Lymph % (Auto) 22 L (24-44) % O'Brien % (Auto) 6 (2-6) % Eos % (Auto) 2 (2-4) % Baso % (Auto) 0 (0-1) % Sodium 140 (140-148) mmol/L Potassium 3.9 (3.6-5.2) mmol/L Chloride 103 (100-108) mmol/L Carbon Dioxide 25 (21-32) mmol/L Anion Gap 11.7 (5.0-14.0) mmol/L BUN 6 L D (7-18) mg/dL Creatinine 0.8 (0.6-1.0) mg/dL Est Cr Clr Drug Dosing 83.95 mL/min Estimated GFR (MDRD) > 60 (>60) Glucose 102 (74-106) mg/dL Calcium 8.9 (8.5-10.1) mg/dL Total Bilirubin 0.5 (0.2-1.0) mg/dL AST 14 L (15-37) U/L ALT 25 (12-78) U/L Alkaline Phosphatase 80 (46-116) U/L C-Reactive Protein (0.0-0.3) mg/dL Total Protein 7.3 (6.4-8.2) g/dL Albumin 3.7 (3.4-5.0) g/dL Globulin 3.6 H (2.3-3.5) g/dL Albumin/Globulin Ratio 1.0 L (1.2-2.2) Lipase (73-393) U/L Urine Color Yellow (YELLOW) Urine Appearance Slightly cloudy A (CLEAR) Urine pH 5.5 (5.0-8.0) Ur Specific [place] <= 1.030 (1.008-1.030) Urine Protein Negative (NEGATIVE) mg/dL Urine Glucose (UA) Normal (NEGATIVE) mg/dL Urine Ketones Trace H (NEGATIVE) mg/dL Urine Occult Blood Negative (NEGATIVE) Urine Nitrite Negative (NEGATIVE) Urine Bilirubin Small (NEGATIVE) Urine Urobilinogen 1.0 (0.2-1.0) EU/dL Ur Leukocyte Esterase Negative (NEGATIVE) Urine RBC 0-5 (0-5) Urine WBC 0-5 (0-5) Ur Epithelial Cells Moderate Amorphous Sediment Not seen Urine Bacteria Moderate Urine Mucus Few 10/25/19 10/25/19 Range/Units 22:45 22:45 WBC (4.5-11.0) K/uL RBC (3.30-5.50) M/uL Hgb (12.0-15.0) g/dL Hct (36.0-48.0) % MCV (80-98) fL MCH (27-31) pg MCHC (32-36) % Plt Count (150-400) K/uL Neut % (Auto) (36-66) % Lymph % (Auto) (24-44) % O'Brien % (Auto) (2-6) % Eos % (Auto) (2-4) % Baso % (Auto) (0-1) % Sodium (140-148) mmol/L Potassium (3.6-5.2) mmol/L Chloride (100-108) mmol/L Carbon Dioxide (21-32) mmol/L Anion Gap (5.0-14.0) mmol/L BUN (7-18) mg/dL Creatinine (0.6-1.0) mg/dL Est Cr Clr Drug Dosing mL/min Estimated GFR (MDRD) (>60) Glucose (74-106) mg/dL Calcium (8.5-10.1) mg/dL Total Bilirubin (0.2-1.0) mg/dL AST (15-37) U/L ALT (12-78) U/L Alkaline Phosphatase (46-116) U/L C-Reactive Protein 0.75 H (0.0-0.3) mg/dL Total Protein (6.4-8.2) g/dL Albumin (3.4-5.0) g/dL Globulin (2.3-3.5) g/dL Albumin/Globulin Ratio (1.2-2.2) Lipase 85 (73-393) U/L Urine Color (YELLOW) Urine Appearance (CLEAR) Urine pH (5.0-8.0) Ur Specific [place] (1.008-1.030) Urine Protein (NEGATIVE) mg/dL Urine Glucose (UA) (NEGATIVE) mg/dL Urine Ketones (NEGATIVE) mg/dL Urine Occult Blood (NEGATIVE) Urine Nitrite (NEGATIVE) Urine Bilirubin (NEGATIVE) Urine Urobilinogen (0.2-1.0) EU/dL Ur Leukocyte Esterase (NEGATIVE) Urine RBC (0-5) Urine WBC (0-5) Ur Epithelial Cells Amorphous Sediment Urine Bacteria Urine Mucus Result Diagrams: 10/25/19 22:45 10/25/19 22:45 - Problem List (1) Abdominal pain SNOMED Code(s): 38283100 ICD Code: R10.9 - UNSPECIFIED ABDOMINAL PAIN Status: Acute Priority: High Current Visit: Yes Qualifiers: Abdominal location: epigastric Qualified Code(s): R10.13 - Epigastric pain Problem List Initiated/Reviewed/Updated: Yes Orders Last 24hrs: Active Orders 24 hr Category Date Time Status Intake and Output [RC] QSHIFT Care 10/26/19 02:52 Active Notify Provider Consults [RC] ASDIRECTED Care 10/26/19 02:52 Active Notify Provider Vital Signs [RC] ASDIRECTED Care 10/26/19 02:52 Active Oxygen Therapy [RC] PRN Care 10/26/19 02:52 Active RT Aerosol Therapy [RC] ASDIRECTED Care 10/26/19 02:52 Active Up ad Cinthia [RC] ASDIRECTED Care 10/26/19 02:52 Active VTE/DVT Education [RC] Per Unit Routine Care 10/26/19 02:52 Active Vital Signs [RC] Q4H Care 10/26/19 02:52 Active Consult to Physician [CONS] Routine Cons 10/26/19 02:52 Ordered Nothing per Oral Now Diet [DIET] Diet 10/26/19 Breakfast Active BASIC METABOLIC PANEL,BMP [CHEM] AM Lab 10/26/19 05:11 Ordered CBC WITH AUTO DIFF [HEME] AM Lab 10/26/19 05:11 Ordered CULTURE URINE [RM] Stat Lab 10/25/19 22:45 Received Albuterol [Proventil Neb Soln] Med 10/26/19 02:52 Active 2.5 mg NEB Q4H PRN HYDROmorphone [Dilaudid] Med 10/26/19 02:52 Active 0.05 - 1 mg IVPUSH Q2H PRN LORazepam [Ativan] Med 10/26/19 09:00 Active 0.5 mg PO BID Lactated Ringers [Ringers, Lactated] 1,000 ml Med 10/26/19 02:52 Active IV ASDIRECTED Metoprolol Tartrate [Lopressor] Med 10/26/19 09:00 Active 25 mg PO BID Ondansetron [Zofran] Med 10/26/19 02:52 Ordered 4 mg IV Q4H PRN Pantoprazole [ProTONIX IV] Med 10/26/19 13:10 Ordered 40 mg IV Q12H Sodium Chloride 0.9% [Normal Saline] 1,000 ml Med 10/25/19 22:45 Active IV ASDIRECTED Sodium Chloride 0.9% [Normal Saline] 1,000 ml Med 10/26/19 00:30 Active IV ASDIRECTED lamoTRIgine Med 10/26/19 09:00 Ordered 20,000 mg PO DAILY metroNIDAZOLE [metroNIDAZOLE 0.75% Gel] Med 10/26/19 09:00 Ordered DOSE gm TOP BID rOPINIRole [Requip] Med 10/26/19 21:00 Ordered 2 mg PO BEDTIME Sequential Compression Device [OM.PC] Per Unit Routine Oth 10/26/19 02:52 Ordered Resuscitation Status Routine Resus Stat 10/26/19 02:10 Ordered Medication Orders Albuterol (Proventil Neb Soln) 2.5 mg NEB Q4H PRN PRN Reason: Shortness Of Breath/wheezing Hydromorphone HCl (Dilaudid) 0.05 - 1 mg IVPUSH Q2H PRN PRN Reason: Abdominal Pain Sodium Chloride (Normal Saline) 1,000 mls @ 999 mls/hr IV ASDIRECTED [facility] Last Admin: 10/25/19 23:05 Dose: 999 mls/hr Sodium Chloride (Normal Saline) 1,000 mls @ 999 mls/hr IV ASDIRECTED [facility] Last Admin: 10/26/19 01:17 Dose: 999 mls/hr Lactated Ringer's (Ringers, Lactated) 1,000 mls @ 125 mls/hr IV ASDIRECTED [facility] Lamotrigine (Lamotrigine) 20,000 mg PO DAILY APOLINAR Lorazepam (Ativan) 0.5 mg PO BID APOLINAR Metoprolol Tartrate (Lopressor) 25 mg PO BID [facility] Metronidazole (Metronidazole 0.75% Gel) gm TOP BID APOLINAR Ondansetron HCl (Zofran) 4 mg IV Q4H PRN PRN Reason: Nausea/Vomiting Pantoprazole Sodium (Protonix Iv) 40 mg IV Q12H APOLINAR Ropinirole HCl (Requip) 2 mg PO BEDTIME [facility] Assessment/Plan Comment:: ASSESSMENT AND PLAN Abdominal pain: current symptoms are similar to previous admission on 2018. At that admission had an EGD by Dr. Blevins which showed severe gastritis. Started on Protonix. She had bariatric surgery in 07-27-2019, she reports 110 pound weight loss. Yesterday 10-25-2019, in the evening noted a sudden onset of vomiting, nausea and uncontrolled abdominal pain. Reports vomit looks like bile green-yellow liquid. ER work-up labs normal, CT scan of abdomen normal. Dr. Sofia consulted will do EGD in morning. Ms. Puga and her Partner are in agreement with plan of care. ABDOMINAL PAIN -NPO pending EGD -IV fluids for hydration -Medication for pain and nausea -Protonix 40 mg IV every 12 hours -Consult Dr. Jay Sofia MAINTENANCE ISSUES -DVT Prophylaxis SCD -GI prophylaxis- Protonix as above -Nicole catheter not indicated -Nutrition NPO -Nicotine dependence decline patch or gum CODE STATUS FULL ADMISSION This patient will be admitted to observation status, expect no more than one night hospital stay for evaluation and management of problems outline above. DISPOSITION anticipate discharge to home after the hospital stay PRIMARY CARE PROVIDER Dr. Jessica Delaney SURGEON Dr. Jay Sofia HOSPITALIST Dr. Damian - Mortality Measure Prognosis:: Good
[2019-10-26] MEDS: Lactated Ringers 1,000 ML IV SCH ×3 (04:32→15:09)
[2019-10-26] MEDS: Ondansetron 4 MG/2 ML SDV IV PRN ×2 (04:38→08:58)
[2019-10-26] MEDS: rOPINIRole 0.5 MG Tab PO SCH ×2 (05:58→08:50)
[2019-10-26] MEDS ORDERED: Glycopyrrolate 0.2 MG/ML 2 ML SDV IVPUSH ONE ×2 (07:44→10:30)
[2019-10-26] MEDS ORDERED: Acetaminophen 325 MG Tab PO PRN (07:45)
[2019-10-26] MEDS ORDERED: hydrOXYzine HCl 25 MG Tab PO PRN (07:46)
[2019-10-26] MEDS ORDERED: LORazepam 0.5 MG Tab PO SCH (09:00)
[2019-10-26] MEDS ORDERED: Metoprolol Tartrate 25 MG Tab PO SCH (09:00)
[2019-10-26] MEDS ORDERED: lamoTRIgine 100 MG Tab PO SCH (09:00)
[2019-10-26] MEDS ORDERED: Pneumococcal Polyvalent-23 Vaccine 0.5 ML SDV IM ONE (10:00)
[2019-10-26] MEDS: Potassium Acetate 20 MEQ, Lidocaine 1% 2 ML in Sodium Chloride 0.9% 100 ML IV SCH ×2 (10:17→12:10)
[2019-10-26] MEDS ORDERED: Pantoprazole 40 MG Vial IV SCH (12:00)
[2019-10-26] MEDS ORDERED: fentaNYL 100 MCG/2 ML SDV ONE (12:17)
[2019-10-26] MEDS ORDERED: Midazolam 1 MG/ML 2 ML SDV ONE (12:17)
[2019-10-26] MEDS ORDERED: Propofol 200 MG/20 ML SDV ONE (12:17)
[2019-10-26] MEDS ORDERED: Alum Hydrox/Mag Hydrox/Simeth 360 ML, Lidocaine 2% 60 ML PO PRN ×2 (14:28)
[2019-10-26 15:10] VITALS: BP 125/52; PULSE 67
--- NOTE | 2019-10-26 16:10 | HP ---
HISTORY OF PRESENT ILLNESS: Keisha was admitted yesterday for a severe mid epigastric abdominal pain that radiates to the right and left upper quadrants and straight to her back. She has been on Lorcet 5/325 mg from her primary care provider for rib pain thought to be secondary to pleurisy. She has had bronchitis twice during the fall, she states, and has been on prednisone. She remains to be on prednisone 20 mg. States her medications are hit and miss. Some days, she will keep them down, the other days she will throw them up. Currently getting her dentures fitted. Has had some emesis. She said 2 of her emesis at home tasted like bile. Keisha did have a Florence-en-Y gastric bypass surgery on 07/27/2019. She reports that she has lost [address] scan in the ER was normal. ALLERGIES: SEE EMR. MEDICATIONS: See EMR. PAST MEDICAL HISTORY: Impaired vision, heart palpitations, asthma, bronchitis, recurrent pneumonia, sleep apnea, short of breath, gastritis, history of renal calculus, fibromyalgia, rheumatoid arthritis, migraine headaches, ADHD, anxiety, depression, PTSD, polysubstance abuse, schizophrenic disorder, hyperthyroidism, obesity, eczema, polypharmacy, low magnesium, dehydration, chronic pain syndrome, prediabetes, cervical paraspinal muscle spasm. PAST SURGICAL HISTORY: Includes tonsillectomy, recent surgery on her septum, Florence-en-Y gastric bypass as noted above, hysterectomy with right oophorectomy, cholecystectomy, hernia repair. SOCIAL HISTORY: Currently not employed. Smokes a half a pack of cigarettes a day. Does not drink alcohol. Lives in [place] with her partner and singled. Has one grown child, 18 years old. REVIEW OF SYSTEMS: CONSTITUTIONAL: Denies any fever, chills, night sweats, or fatigue HEENT: Sinus congestion and drainage for 2 weeks. LUNGS: Has had a chronic cough, been on prednisone, and has pleurisy, left rib. CARDIOVASCULAR: No chest pain, but does have swelling in lower legs. No fast or irregular heart beat. : Negative. SKIN: Negative. PSYCHIATRIC: States she is all over the place because she is not able to keep her psychiatric medications down. SKIN: Without rash. Remainder of review of systems negative for any pertinent positives and negatives. OBJECTIVE: GENERAL: Keisha Workman is a 34-year-old female. VITAL SIGNS: Height is 5 feet 4 inches, weight is 335 pounds. TPR is 95.6, 84, 18. Blood pressure 116/57. HEENT: Negative. NECK: Supple. HEART: Regular rate and rhythm. LUNGS: Clear. ABDOMEN: Tenderness is in the mid epigastric area, radiates to her mid back, between the scapula. EXTREMITIES: Reveal trace peripheral edema. ASSESSMENT: Mid epigastric abdominal pain, status post Florence-en-Y gastric bypass surgery; unspecified surgical malabsorption; B12 deficiency. PLAN: 1. EGD with possible dil. Case to follow today. IV sedation, Jay Sofia MD. 2. Robinul 0.4 mg IV on-call to OR. 3. Dilaudid discontinued. 4. Tylenol 650 mg q.4 hours p.r.n. pain and atarax 25 mg p.o. q.4 hours p.r.n. pain. 5. Check CBC, mag, phos, CBC in a.m. 6. Potassium acetate 40 mEq IV today. 7. We will evaluate p.r.n. or in a.m. Sandra Armas PA-C /[id number]
[2019-10-26] MEDS ORDERED: rOPINIRole 1 MG Tab PO SCH (21:00)
--- NOTE | 2019-10-27 09:53 | DISCH ---
ADMISSION DIAGNOSES: 1. Mid epigastric abdominal pain. 2. Status post Florence-en-Y gastric bypass surgery. 3. Unspecified surgical malabsorption. 4. B12 deficiency. DISCHARGE DIAGNOSIS: Esophagogastroduodenoscopy on 10/26/2019, Jay Sofia MD. HISTORY: Keisha Puga was admitted on 10/25/2019 with midepigastric abdominal pain, nausea, and vomiting. She had been on prednisone for bronchitis and most recently on Vicodin for pleurisy. After preoperative evaluation and discussion of possible risks and possible complications, she wished to proceed with an EGD. HOSPITAL COURSE: After EGD, was started on viscous lidocaine, she requested to be discharged to home and she was having no complications. PHYSICAL EXAMINATION: GENERAL: Keisha Puga is a 34-year-old female. VITAL SIGNS: Height is 5 feet 4 inches, weight is 335 pounds, BMI 57. TPR is 95.9, 67, 18, blood pressure 125/52. HEENT: Negative. NECK: Supple. HEART: Regular rate and rhythm. LUNGS: Clear. ABDOMEN: Soft, nontender. EXTREMITIES: Without peripheral edema. DISPOSITION: Discharged to home. CONDITION: Stable and improving. FOLLOWUP: Followup appointment with Sandra Armas PA-C on 11/03/2019 at 12 p.m. MEDICATIONS: She is to resume her home medications. New medication is viscous lidocaine, Maalox 360 mL with viscous lidocaine 2% 60 mL. She is to take 30 mL as needed for pain with swallowing every 4 hours. DIET: Step 2, cereal for 5 days, then gradually increase. ACTIVITY: As tolerated, may shower. DISCHARGE INSTRUCTIONS: Notify provider if any fever, increased pain, nausea, or vomiting. SPECIAL INSTRUCTIONS: Would be to discontinue smoking.
--- NOTE | 2019-11-03 15:50 | OR ---
DATE OF PROCEDURE: 10/26/2019 SURGEON: Jay Sofia MD PREOPERATIVE DIAGNOSIS: Upper abdominal pain. POSTOPERATIVE DIAGNOSIS: Upper abdominal pain associated with very minimal inflammation of gastric pouch and jejunum adjacent to gastrojejunostomy. OPERATIVE PROCEDURE: Upper gastrointestinal endoscopy. ANESTHESIA: IV sedation. INDICATION FOR PROCEDURE: A 34-year-old female presenting with some epigastric discomfort. This was significant enough that the patient was admitted overnight. Plan is to proceed with upper GI endoscopy for diagnostic purposes. Potential risks including bleeding and perforation were discussed, and the patient wishes to proceed. DETAILS OF PROCEDURE: The patient was taken to the operating room and placed in a left lateral decubitus position. IV sedation was administered after which the upper GI endoscope was passed orally through the length of the esophagus into the gastric pouch, from there through the gastrojejunostomy roughly 20 cm into the Florence limb. Overall, the only findings were that of a very minimal redness and edema in the gastric mucosa and in the jejunal mucosa in the area of the gastrojejunostomy. There were on ulcerations and no stricturing present. The scope was then withdrawn, procedure concluded, the patient was taken to the recovery room in satisfactory condition. Jay Sofia MD /[id number]
== END 2019-10-26 16:01 | disposition home or self-care (01) ==
LOC: JP.ED 21:41 → JP.MS 10-26 02:08
PROVIDERS: ADMIT Hospitalist; ATTEND Surgery
DX: K95.89 Other complications of other bariatric procedure (principal); K91.2 Postsurgical malabsorption, not elsewhere classified; E53.8 Deficiency of other specified B group vitamins; J45.909 Unspecified asthma, uncomplicated; F17.200 Nicotine dependence, unspecified, uncomplicated; G47.30 Sleep apnea, unspecified; Z88.0 Allergy status to penicillin; Z88.1 Allergy status to other antibiotic agents; Z88.5 Allergy status to narcotic agent; Z88.8 Allergy status to other drugs, medicaments and biological substances; Z91.018 Allergy to other foods; Z91.040 Latex allergy status; Z23 Encounter for immunization; Z79.899 Other long term (current) drug therapy
CPT/HCPCS: 36415; 43235; 74177; 80048; 80053; 81001; 83690; 85025; 86140; 87086; 90471; 90732; 96361; 96365; 96366; 96375; 96376; 99285; A9270; C9113; G0378; J1170; J2001; J2250; J2405; J2704; J3010; J3490; J7030; J7050; J7120; Q9967; 96374; 99283; G0009

== ENCOUNTER 2019-11-13 18:46 | Emergency (ER) | payer MEDICAID ==
[2019-11-13] MEDS ORDERED: Sodium Chloride 0.9% 10 ML Syringe FLUSH PRN (20:01)
[2019-11-13] MEDS ORDERED: Ondansetron 4 MG/2 ML SDV IVPUSH ONE (20:02)
--- NOTE | 2019-11-13 20:05 | EDM.PDOC ---
ED HPI GENERAL MEDICAL PROBLEM - General Chief Complaint: General Stated Complaint: VOMITING/DIAGNOSED WITH INFLUENZA Time Seen by Provider: 11/13/19 19:56 Source of Information: Reports: Patient, RN Notes Reviewed History Limitations: Reports: No Limitations - History of Present Illness INITIAL COMMENTS - FREE TEXT/NARRATIVE: 34-year-old female presents to the emergency department today complaint of nausea and vomiting, she is gastric bypass approximately 3 months out was recently diagnosed with influenza 4 days prior has been started on Tamiflu. States she is unable to keep any fluids down because the nausea and vomiting Chest Pain Score (Numeric/FACES): 7 - Related Data Allergies Allergy/AdvReac Type Severity Reaction Status Date / Time amoxicillin Allergy Severe Anaphylactic Verified 10/26/19 04:02 Shock promethazine HCl Allergy Severe Anaphylactic Verified 10/26/19 04:02 [From Phenergan] Shock risperidone [From Risperdal] Allergy Severe Anaphylactic Verified 10/26/19 04:02 Shock atomoxetine Allergy Anxiety Verified 10/26/19 04:02 banana Allergy Itching Verified 10/26/19 04:02 clindamycin Allergy Rash Verified 10/26/19 04:02 ketorolac tromethamine Allergy Rash Verified 10/26/19 04:02 [From Toradol] latex Allergy Rash Verified 10/26/19 04:02 Latex, Natural Rubber Allergy Wheezing Verified 10/26/19 04:04 quetiapine Allergy Anxiety Verified 10/26/19 04:02 tramadol HCl [From Ultram] Allergy Hives Verified 10/26/19 04:02 varenicline Allergy Anxiety Verified 10/26/19 04:02 zolpidem [From Ambien] Allergy Anxiety Verified 10/26/19 04:02 atomoxetine HCl AdvReac Anxiety Verified 10/26/19 04:02 [From Strattera] cephalexin monohydrate AdvReac Dizziness Verified 10/26/19 04:02 [From Keflex] quetiapine fumarate AdvReac Irritabilit Verified 10/26/19 04:02 [From Seroquel] y trazodone AdvReac Dizziness Verified 10/26/19 04:02 zolpidem tartrate AdvReac Anxiety Verified 10/26/19 04:02 [From Ambien] Home Meds: Home Meds Lisdexamfetamine [Vyvanse] 70 mg PO DAILY 03/01/16 [History] Cetirizine HCl [Zyrtec] 10 mg PO DAILY 09/19/18 [History] DULoxetine [Cymbalta] 120 mg PO DAILY 09/19/18 [History] Melatonin/Pyridoxine HCl (B6) [Melatonin 3 mg Tablet] 10 mg PO BEDTIME 09/19/18 [History] Methimazole [Tapazole] 20 mg PO DAILY 09/19/18 [History] Metoprolol Tartrate [Lopressor] 25 mg PO BID 09/19/18 [History] Sennosides [Senna] 8.6 mg PO DAILY PRN 09/19/18 [History] lamoTRIgine [Lamictal] 200 tab PO DAILY 09/19/18 [History] metroNIDAZOLE [metroNIDAZOLE 0.75% Gel] 1 applic TOP BID 09/19/18 [History] rOPINIRole [Requip] 2 mg PO BEDTIME 09/19/18 [History] rOPINIRole HCl [Requip] 0.5 mg PO DAILY 01/01/19 [History] Albuterol [Proventil Neb Soln] 3 ml NEB TID PRN 02/18/19 [History] Pramoxine HCl [Prax] 1 applic TP QID 02/18/19 [History] Sodium Chloride [Potter] 2 spray NS QID 02/18/19 [History] Triamcinolone Acetonide [Kenalog 0.1% Crm] 1 applic TOP TID PRN 02/18/19 [ History] Montelukast [Singulair] 10 mg PO DAILY 02/27/19 [History] LORazepam [Ativan] 0.5 mg PO BID 07/23/19 [History] Lidocaine 2% [Xylocaine 2%] 10 ml TOP Q6H PRN 07/23/19 [History] Pantoprazole Sodium [Protonix] 40 mg PO DAILY 07/23/19 [History] Temazepam [Restoril] 30 mg PO BEDTIME 07/23/19 [History] Acetaminophen [Tylenol] 650 mg PO Q6H cup 07/30/19 [Rx] Celecoxib [CeleBREX] 200 mg PO DAILY@0800 cap 07/30/19 [Rx] Ondansetron [Zofran ODT] 4 mg PO Q4H PRN #30 tab.dis 07/30/19 [Rx] Prochlorperazine [Compazine] 10 mg PO Q8H PRN 09/02/19 [History] Codeine/guaiFENesin [guaiFENesin-Codeine Syrup] 10 ml PO TID PRN #120 cup [Rx] predniSONE [Prednisone] 20 mg PO DAILY #5 tablet 09/18/19 [Rx] Hydrocodone/Acetaminophen [Lorcet 5-325 mg Tablet] 1 each PO Q4H 10/25/19 [ History] Past Medical History HEENT History: Reports: Impaired Vision, Otitis Media Other HEENT History: Bilateral tympanic membrane rupture. tonsillectomy. recent surgery septum 08/20 Cardiovascular History: Reports: Other (See Below) Other Cardiovascular History: Heart palpatations Respiratory History: Reports: Asthma, Bronchitis, Recurrent, Pneumonia, Recurrent, Sleep Apnea, SOB Gastrointestinal History: Reports: Gastritis, GERD Genitourinary History: Reports: Renal Calculus, UTI, Recurrent PRINT WASHER History: Reports: Other PRINT WASHER History: Hysterectomy with right oophrectomy Musculoskeletal History: Reports: Fibromyalgia, RA Other Musculoskeletal History: fibromyalgia. rheumatoid arthritis Neurological History: Reports: Migraines Psychiatric History: Reports: ADHD, Anxiety, Depression, PTSD, Other (See Below) Other Psychiatric History: Schizo effective disorder Endocrine/Metabolic History: Reports: Hyperthyroidism, Obesity/BMI 30+ Hematologic History: Reports: None Immunologic History: Reports: None Oncologic (Cancer) History: Reports: Cervix Dermatologic History: Reports: Eczema - Infectious Disease History Infectious Disease History: Reports: Chicken Pox Other Infectious Disease History: rectal worts - Past Surgical History Head Surgeries/Procedures: Reports: None HEENT Surgical History: Reports: Myringotomy w Tube(s), Oral Surgery, Tonsillectomy Cardiovascular Surgical History: Reports: None Respiratory Surgical History: Reports: None GI Surgical History: Reports: Appendectomy, Bariatric Procedure, Cholecystectomy , EGD, Hernia Repair/Other Female Surgical History: Reports: Hysterectomy Endocrine Surgical History: Reports: None Neurological Surgical History: Reports: None Musculoskeletal Surgical History: Reports: Other (See Below) Other Musculoskeletal Surgeries/Procedures:: Left ankle ORIF with hardware Dermatological Surgical History: Reports: None Social & Family History - Family History Family Medical History: Noncontributory Cardiac: Reports: Heart Murmur Respiratory: Reports: COPD Psychiatric: Reports: Depression, Schizophrenia - Tobacco Use Smoking Status *Q: Current Every Day Smoker Years of Tobacco use: 12 Packs/Tins Daily: 0.5 - Caffeine Use Caffeine Use: Reports: Tea - Recreational Drug Use Recreational Drug Use: No - Living Situation & Occupation Living situation: Reports: Single Occupation: Disabled (lives with Domestic Partner in [place], [place]. One grown child 18 years old.) ED ROS GENERAL - Review of Systems Review Of Systems: See Below Constitutional: Reports: Fever, Chills HEENT: Reports: No Symptoms Respiratory: Reports: No Symptoms Cardiovascular: Reports: No Symptoms GI/Abdominal: Reports: Abdominal Pain, Distension, Nausea, Vomiting : Reports: No Symptoms Musculoskeletal: Reports: No Symptoms ED EXAM, GENERAL - Physical Exam Exam: See Below Exam Limited By: No Limitations General Appearance: Alert, WD/WN, No Apparent Distress Respiratory/Chest: No Respiratory Distress, Lungs Clear, Normal Breath Sounds, No Accessory Muscle Use, Chest Non-Tender Cardiovascular: Regular Rate, Rhythm, No Murmur GI/Abdominal: Soft, Non-Tender Course - Vital Signs Last Recorded V/S: Last Vital Signs Temp 96.9 F 11/13/19 20:35 Pulse 81 11/13/19 20:35 Resp 18 11/13/19 20:35 BP 144/72 H 11/13/19 20:35 Pulse Ox 95 11/13/19 20:35 - Orders/Labs/Meds Orders: Active Orders 24 hr Category Date Time Status Peripheral IV Care [RC] . DIRECTED Care 11/13/19 20:01 Active Lactated Ringers [Ringers, Lactated] 1,000 ml Med 11/13/19 20:15 Active IV ASDIRECTED Sodium Chloride 0.9% [Saline Flush] Med 11/13/19 20:01 Active 10 ml FLUSH ASDIRECTED PRN Peripheral IV Insertion Adult [OM.PC] Urgent Oth 11/13/19 20:01 Ordered Medication Orders Lactated Ringer's (Ringers, Lactated) 1,000 mls @ 999 mls/hr IV ASDIRECTED APOLINAR Last Admin: 11/13/19 20:24 Dose: 999 mls/hr Sodium Chloride (Saline Flush) 10 ml FLUSH ASDIRECTED PRN PRN Reason: Keep Vein Open Last Admin: 11/13/19 20:28 Dose: 10 ml Labs: Laboratory Tests 12/2811/13/19 11/13/19 Range/Units 20:13 20:13 20:13 WBC 10.0 (4.5-11.0) K/uL RBC 5.90 H (3.30-5.50) M/uL Hgb 14.8 (12.0-15.0) g/dL Hct 46.9 (36.0-48.0) % MCV 80 (80-98) fL MCH 25 L (27-31) pg MCHC 32 (32-36) % Plt Count 234 (150-400) K/uL Neut % (Auto) 62 (36-66) % Lymph % (Auto) 28 (24-44) % Hinds % (Auto) 7 H (2-6) % Eos % (Auto) 3 (2-4) % Baso % (Auto) 0 (0-1) % Sodium 139 L (140-148) mmol/L Potassium 3.2 L (3.6-5.2) mmol/L Chloride 103 (100-108) mmol/L Carbon Dioxide 25 (21-32) mmol/L Anion Gap 14.2 H (5.0-14.0) mmol/L BUN 7 (7-18) mg/dL Creatinine 0.7 (0.6-1.0) mg/dL Est Cr Clr Drug Dosing 95.94 mL/min Estimated GFR (MDRD) > 60 (>60) Glucose 99 (74-106) mg/dL Lactic Acid 1.1 (0.4-2.0) mmol/L Calcium 8.7 (8.5-10.1) mg/dL Total Bilirubin 0.3 (0.2-1.0) mg/dL AST 11 L (15-37) U/L ALT 26 (12-78) U/L Alkaline Phosphatase 79 (46-116) U/L Total Protein 7.0 (6.4-8.2) g/dL Albumin 3.5 (3.4-5.0) g/dL Globulin 3.5 (2.3-3.5) g/dL Albumin/Globulin Ratio 1.0 L (1.2-2.2) Lipase 86 (73-393) U/L Urine Color (YELLOW) Urine Appearance (CLEAR) Urine pH (5.0-8.0) Ur Specific [place] (1.008-1.030) Urine Protein (NEGATIVE) mg/dL Urine Glucose (UA) (NEGATIVE) mg/dL Urine Ketones (NEGATIVE) mg/dL Urine Occult Blood (NEGATIVE) Urine Nitrite (NEGATIVE) Urine Bilirubin (NEGATIVE) Urine Urobilinogen (0.2-1.0) EU/dL Ur Leukocyte Esterase (NEGATIVE) Urine RBC (0-5) Urine WBC (0-5) Ur Epithelial Cells Amorphous Sediment Urine Bacteria Urine Mucus 11/13/19 Range/Units 20:29 WBC (4.5-11.0) K/uL RBC (3.30-5.50) M/uL Hgb (12.0-15.0) g/dL Hct (36.0-48.0) % MCV (80-98) fL MCH (27-31) pg MCHC (32-36) % Plt Count (150-400) K/uL Neut % (Auto) (36-66) % Lymph % (Auto) (24-44) % Hinds % (Auto) (2-6) % Eos % (Auto) (2-4) % Baso % (Auto) (0-1) % Sodium (140-148) mmol/L Potassium (3.6-5.2) mmol/L Chloride (100-108) mmol/L Carbon Dioxide (21-32) mmol/L Anion Gap (5.0-14.0) mmol/L BUN (7-18) mg/dL Creatinine (0.6-1.0) mg/dL Est Cr Clr Drug Dosing mL/min Estimated GFR (MDRD) (>60) Glucose (74-106) mg/dL Lactic Acid (0.4-2.0) mmol/L Calcium (8.5-10.1) mg/dL Total Bilirubin (0.2-1.0) mg/dL AST (15-37) U/L ALT (12-78) U/L Alkaline Phosphatase (46-116) U/L Total Protein (6.4-8.2) g/dL Albumin (3.4-5.0) g/dL Globulin (2.3-3.5) g/dL Albumin/Globulin Ratio (1.2-2.2) Lipase (73-393) U/L Urine Color [place] A (YELLOW) Urine Appearance Clear (CLEAR) Urine pH 6.0 (5.0-8.0) Ur Specific Barnard 1.025 (1.008-1.030) Urine Protein Negative (NEGATIVE) mg/dL Urine Glucose (UA) Negative (NEGATIVE) mg/dL Urine Ketones Negative (NEGATIVE) mg/dL Urine Occult Blood Negative (NEGATIVE) Urine Nitrite Negative (NEGATIVE) Urine Bilirubin Small H (NEGATIVE) Urine Urobilinogen 0.2 (0.2-1.0) EU/dL Ur Leukocyte Esterase Negative (NEGATIVE) Urine RBC 0-5 (0-5) Urine WBC 0-5 (0-5) Ur Epithelial Cells Many Amorphous Sediment Few Urine Bacteria Few Urine Mucus Rare Meds: Medications Generic Name Dose Route Start Last Admin Trade Name Freq PRN Reason Stop Dose Admin Lactated Ringer's 1,000 mls @ 999 mls/hr 11/13/19 20:15 11/13/19 20:24 Ringers, Lactated IV 999 mls/hr ASDIRECTED APOLINAR Administration Sodium Chloride 10 ml 11/13/19 20:01 11/13/19 20:28 Saline Flush FLUSH 10 ml ASDIRECTED PRN Administration Keep Vein Open Discontinued Medications Generic Name Dose Route Start Last Admin Trade Name Freq PRN Reason Stop Dose Admin Hydrocodone Bitart/Acetaminophen 1 tab 11/13/19 21:10 11/13/19 21:28 [place] 325-5 Mg PO 11/13/19 21:11 1 tab ONETIME ONE Administration Guaifenesin/Codeine Phosphate 10 ml 11/13/19 21:11 11/13/19 21:28 Robitussin Ac PO 11/13/19 21:12 10 ml ONETIME ONE Administration Lactated Ringer's 1,000 mls @ 999 mls/hr 11/13/19 21:09 11/13/19 21:28 Ringers, Lactated IV 11/13/19 22:09 999 mls/hr BOLUS ONE Administration Lorazepam 1 mg 11/13/19 22:07 11/13/19 22:15 Ativan IVPUSH 11/13/19 22:08 1 mg ONETIME ONE Administration Ondansetron HCl 4 mg 11/13/19 20:02 11/13/19 20:24 Zofran IVPUSH 11/13/19 20:03 4 mg ONETIME ONE Administration Prochlorperazine Edisylate 5 mg 11/13/19 21:56 11/13/19 22:15 Compazine IVPUSH 11/13/19 21:57 Not Given ONETIME ONE Departure - Departure Time of Disposition: 22:27 Disposition: Home, Self-Care 01 Condition: Fair Clinical Impression: Influenza Nausea and vomiting Qualifiers: Vomiting type: unspecified Vomiting Intractability: non-intractable Qualified Code(s): R11.2 - Nausea with vomiting, unspecified - Discharge Information Instructions: Nausea, Adult Referrals: Jessica Delaney MD [Primary Care Provider] - Forms: ED Department Discharge Additional Instructions: Continue to use Zofran as needed for nausea vomiting symptoms may supplement with Ativan for breakthrough nausea and vomiting, complete your course of Tamiflu, please followup with your primary care provider in 3-5 days if not better, please call return to the emergency department with worsening of symptoms. Sepsis Event Note - Evaluation Sepsis Screening Result: Possible Sepsis Risk - Focused Exam Vital Signs: Vital Signs Temp Pulse Resp BP Pulse Ox 11/13/19 20:35 96.9 F 81 18 144/72 H 95 11/13/19 18:57 97.2 F 97 20 164/84 H 98 Date Exam was Performed: 11/13/19 Time Exam was Performed: 22:25 - My Orders Last 24 Hours: My Active Orders 11/13/19 20:01 Peripheral IV Care [RC] . DIRECTED Sodium Chloride 0.9% [Saline Flush] 10 ml FLUSH ASDIRECTED PRN Peripheral IV Insertion Adult [OM.PC] Urgent 11/13/19 20:15 Lactated Ringers [Ringers, Lactated] 1,000 ml IV ASDIRECTED - Assessment/Plan Last 24 Hours: My Active Orders 11/13/19 20:01 Peripheral IV Care [RC] . DIRECTED Sodium Chloride 0.9% [Saline Flush] 10 ml FLUSH ASDIRECTED PRN Peripheral IV Insertion Adult [OM.PC] Urgent 11/13/19 20:15 Lactated Ringers [Ringers, Lactated] 1,000 ml IV ASDIRECTED Plan: Assessment Acuity = acute Site and laterality = influenza currently on Tamiflu Etiology = flu virus Manifestations = nausea vomiting Location of injury = Home Lab values = CBC, CMP unremarkable urinalysis does show specific cavity 1.025 consistent with intravascular volume depletion, potassium is also low at 3.2 consistent with hypokalemia Plan She had good improvement 2 L of fluid was provided combination Zofran and Ativan which did provide some nausea relief for her. Plan is to discharge to home with Ativan 1 mg p.o. 3 times daily PRN total #10 also call discussed case with Dr. Sofia approximately 2100 recommended close follow-up in the clinic on Friday This note was dictated using [employer] voice recognition software please call with any questions on syntax or grammar.
[2019-11-13] MEDS ORDERED: Lactated Ringers 1,000 ML IV SCH (20:15)
[2019-11-13 20:37] VITALS: BP 144/72; PULSE 81
[2019-11-13] MEDS ORDERED: Lactated Ringers 1,000 ML IV ONE (21:09)
[2019-11-13] MEDS ORDERED: Acetaminophen/HYDROcodone 325-5 MG Tab PO ONE (21:10)
[2019-11-13] MEDS ORDERED: Codeine/guaiFENesin 100mg-10 MG/5 ML Syrup 10 ML Cup PO ONE (21:11)
[2019-11-13] MEDS ORDERED: Prochlorperazine 10 MG/2 ML SDV IVPUSH ONE (21:56)
[2019-11-13] MEDS ORDERED: LORazepam 2 MG/ML SDV IVPUSH ONE (22:07)
== END 2019-11-13 22:36 | disposition home or self-care (01) ==
LOC: JP.ED 18:46
DX: R11.2 Nausea with vomiting, unspecified (principal); J11.1 Influenza due to unidentified influenza virus with other respiratory manifestations; F17.210 Nicotine dependence, cigarettes, uncomplicated; J44.9 Chronic obstructive pulmonary disease, unspecified; F32.9 Major depressive disorder, single episode, unspecified; F41.9 Anxiety disorder, unspecified; E66.9 Obesity, unspecified; M06.9 Rheumatoid arthritis, unspecified; Z68.30 Body mass index [BMI] 30.0-30.9, adult; Z88.1 Allergy status to other antibiotic agents; F25.9 Schizoaffective disorder, unspecified; Z91.040 Latex allergy status; Z79.899 Other long term (current) drug therapy
CPT/HCPCS: 36415; 80053; 81001; 83605; 83690; 85025; 96361; 96374; 96375; 99284; A9270; J2060; J2405; J7120

== ENCOUNTER 2019-11-23 18:40 | Emergency (ER) | payer MEDICAID ==
[2019-11-23] MEDS ORDERED: Ondansetron 4 MG Tab.DIS PO ONE (19:17)
[2019-11-23] MEDS ORDERED: Acetaminophen 500 MG Tab PO ONE (19:22)
--- NOTE | 2019-11-23 19:22 | EDM.PDOC ---
ED HPI GENERAL MEDICAL PROBLEM - General Chief Complaint: Abdominal Pain Stated Complaint: ABD PAIN Time Seen by Provider: 11/23/19 19:05 Source of Information: Reports: Patient, Old Records History Limitations: Reports: No Limitations - History of Present Illness INITIAL COMMENTS - FREE TEXT/NARRATIVE: 34 yo female here with progressive LLQ abdominal pain over the past week. Called her primary this afternoon about this for the first time and was not able to get in so came to the ER. Has felt warm. Some nausea and vomiting today. Bowels normal. No urinary sx's. Pain is increased with coughing. Has a recent hx of gastric bypass. Onset: Gradual Onset Date: 11/17/19 Duration: Week(s): (1), Getting Worse Location: Reports: Abdomen (LLQ) Quality: Reports: Stabbing Severity: Moderate Improves with: Reports: None Worsens with: Reports: Movement (time and coughing) Context: Reports: Other (see HPI) Associated Symptoms: Reports: Fever/Chills (possible fever, not measured), Nausea/Vomiting. Denies: Rash Treatments RADIO TELEVISION ANNOUNCER: Reports: Other (see below) (none) Left Lower Abdomen Pain Score (Numeric/FACES): 7 - Related Data Allergies Allergy/AdvReac Type Severity Reaction Status Date / Time amoxicillin Allergy Severe Anaphylactic Verified 10/26/19 04:02 Shock promethazine HCl Allergy Severe Anaphylactic Verified 10/26/19 04:02 [From Phenergan] Shock risperidone [From Risperdal] Allergy Severe Anaphylactic Verified 10/26/19 04:02 Shock atomoxetine Allergy Anxiety Verified 10/26/19 04:02 banana Allergy Itching Verified 10/26/19 04:02 clindamycin Allergy Rash Verified 10/26/19 04:02 ketorolac tromethamine Allergy Rash Verified 10/26/19 04:02 [From Toradol] latex Allergy Rash Verified 10/26/19 04:02 Latex, Natural Rubber Allergy Wheezing Verified 10/26/19 04:04 quetiapine Allergy Anxiety Verified 10/26/19 04:02 tramadol HCl [From Ultram] Allergy Hives Verified 10/26/19 04:02 varenicline Allergy Anxiety Verified 10/26/19 04:02 zolpidem [From Ambien] Allergy Anxiety Verified 10/26/19 04:02 atomoxetine HCl AdvReac Anxiety Verified 10/26/19 04:02 [From Strattera] cephalexin monohydrate AdvReac Dizziness Verified 10/26/19 04:02 [From Keflex] quetiapine fumarate AdvReac Irritabilit Verified 10/26/19 04:02 [From Seroquel] y trazodone AdvReac Dizziness Verified 10/26/19 04:02 zolpidem tartrate AdvReac Anxiety Verified 10/26/19 04:02 [From Ambien] Home Meds: Home Meds Lisdexamfetamine [Vyvanse] 70 mg PO DAILY 03/01/16 [History] Cetirizine HCl [Zyrtec] 10 mg PO DAILY 09/19/18 [History] DULoxetine [Cymbalta] 120 mg PO DAILY 09/19/18 [History] Melatonin/Pyridoxine HCl (B6) [Melatonin 3 mg Tablet] 10 mg PO BEDTIME 09/19/18 [History] Methimazole [Tapazole] 20 mg PO DAILY 09/19/18 [History] Metoprolol Tartrate [Lopressor] 25 mg PO BID 09/19/18 [History] Sennosides [Senna] 8.6 mg PO DAILY PRN 09/19/18 [History] lamoTRIgine [Lamictal] 200 tab PO DAILY 09/19/18 [History] metroNIDAZOLE [metroNIDAZOLE 0.75% Gel] 1 applic TOP BID 09/19/18 [History] rOPINIRole [Requip] 2 mg PO BEDTIME 09/19/18 [History] rOPINIRole HCl [Requip] 0.5 mg PO DAILY 01/01/19 [History] Albuterol [Proventil Neb Soln] 3 ml NEB TID PRN 02/18/19 [History] Pramoxine HCl [Prax] 1 applic TP QID 02/18/19 [History] Sodium Chloride [[place]] 2 spray NS QID 02/18/19 [History] Triamcinolone Acetonide [Kenalog 0.1% Crm] 1 applic TOP TID PRN 02/18/19 [ History] Montelukast [Singulair] 10 mg PO DAILY 02/27/19 [History] LORazepam [Ativan] 0.5 mg PO BID 07/23/19 [History] Lidocaine 2% [Xylocaine 2%] 10 ml TOP Q6H PRN 07/23/19 [History] Pantoprazole Sodium [Protonix] 40 mg PO DAILY 07/23/19 [History] Temazepam [Restoril] 30 mg PO BEDTIME 07/23/19 [History] Acetaminophen [Tylenol] 650 mg PO Q6H cup 07/30/19 [Rx] Celecoxib [CeleBREX] 200 mg PO DAILY@0800 cap 07/30/19 [Rx] Ondansetron [Zofran ODT] 4 mg PO Q4H PRN #30 tab.dis 07/30/19 [Rx] Prochlorperazine [Compazine] 10 mg PO Q8H PRN 09/02/19 [History] Codeine/guaiFENesin [guaiFENesin-Codeine Syrup] 10 ml PO TID PRN #120 cup [Rx] predniSONE [Prednisone] 20 mg PO DAILY #5 tablet 09/18/19 [Rx] Hydrocodone/Acetaminophen [Lorcet 5-325 mg Tablet] 1 each PO Q4H 10/25/19 [ History] Past Medical History HEENT History: Reports: Impaired Vision, Otitis Media Other HEENT History: Bilateral tympanic membrane rupture. tonsillectomy. recent surgery septum 08/20 Cardiovascular History: Reports: Other (See Below) Other Cardiovascular History: Heart palpatations Respiratory History: Reports: Asthma, Bronchitis, Recurrent, Pneumonia, Recurrent, Sleep Apnea, SOB Gastrointestinal History: Reports: Gastritis, GERD Genitourinary History: Reports: Renal Calculus, UTI, Recurrent PROCESS INSPECTOR History: Reports: Other PROCESS INSPECTOR History: Hysterectomy with right oophrectomy Musculoskeletal History: Reports: Fibromyalgia, RA Other Musculoskeletal History: fibromyalgia. rheumatoid arthritis Neurological History: Reports: Migraines Psychiatric History: Reports: ADHD, Anxiety, Depression, PTSD, Other (See Below) Other Psychiatric History: Schizo effective disorder Endocrine/Metabolic History: Reports: Hyperthyroidism, Obesity/BMI 30+ Hematologic History: Reports: None Immunologic History: Reports: None Oncologic (Cancer) History: Reports: Cervix Dermatologic History: Reports: Eczema - Infectious Disease History Infectious Disease History: Reports: Chicken Pox Other Infectious Disease History: rectal worts - Past Surgical History Head Surgeries/Procedures: Reports: None HEENT Surgical History: Reports: Myringotomy w Tube(s), Oral Surgery, Tonsillectomy Cardiovascular Surgical History: Reports: None Respiratory Surgical History: Reports: None GI Surgical History: Reports: Appendectomy, Bariatric Procedure, Cholecystectomy , EGD, Hernia Repair/Other Female Surgical History: Reports: Hysterectomy Endocrine Surgical History: Reports: None Neurological Surgical History: Reports: None Musculoskeletal Surgical History: Reports: Other (See Below) Other Musculoskeletal Surgeries/Procedures:: Left ankle ORIF with hardware Dermatological Surgical History: Reports: None Social & Family History - Family History Family Medical History: Noncontributory Cardiac: Reports: Heart Murmur Respiratory: Reports: COPD Psychiatric: Reports: Depression, Schizophrenia - Tobacco Use Smoking Status *Q: Current Every Day Smoker Years of Tobacco use: 20 Packs/Tins Daily: 1 - Caffeine Use Caffeine Use: Reports: None - Recreational Drug Use Recreational Drug Use: No - Living Situation & Occupation Living situation: Reports: Single Occupation: Disabled (lives with Domestic Partner in [place], [place]. One grown child 18 years old.) ED ROS GENERAL - Review of Systems Review Of Systems: See Below Constitutional: Reports: Fever (?) HEENT: Reports: No Symptoms Respiratory: Reports: No Symptoms Cardiovascular: Reports: No Symptoms GI/Abdominal: Reports: Abdominal Pain (LLQ), Nausea, Vomiting. Denies: Black Stool, Bloody Stool, Constipation, Diarrhea, Distension, Hematemesis, Hematochezia : Reports: No Symptoms Musculoskeletal: Reports: No Symptoms Skin: Reports: No Symptoms Neurological: Reports: No Symptoms Psychiatric: Reports: No Symptoms ED EXAM, GI/ABD - Physical Exam Exam: See Below Exam Limited By: No Limitations General Appearance: Alert, WD/WN, No Apparent Distress, Obese Eyes: Bilateral: Normal Appearance Ears: Normal External Exam, Normal Canal, Hearing Grossly Normal, Normal TMs Nose: Normal Inspection, No Blood Throat/Mouth: Normal Inspection, Normal Lips, Normal Oropharynx, Normal Voice, No Airway Compromise Head: Atraumatic, Normocephalic Neck: Normal Inspection Respiratory/Chest: No Respiratory Distress, Lungs Clear, Normal Breath Sounds, No Accessory Muscle Use Cardiovascular: Regular Rate, Rhythm, No Edema GI/Abdominal Exam: Normal Bowel Sounds, Soft, No Distention, Tender (LLQ). No: Non-Tender, Distended, Guarding, Rigid, Rebound, Hernia Back Exam: Normal Inspection. No: CVA Tenderness (R), CVA Tenderness (L) Extremities: Normal Inspection, Normal Range of Motion, Non-Tender, No Pedal Edema Neurological: Alert, Oriented, CN II-XII Intact, Normal Cognition, No Motor/ Sensory Deficits Psychiatric: Normal Affect, Normal Mood Skin Exam: Warm, Dry, Intact, Normal Color, No Rash Course - Vital Signs Last Recorded V/S: Last Vital Signs Temp Pulse 75 11/23/19 20:42 Resp 18 11/23/19 19:01 BP 110/58 L 11/23/19 20:42 Pulse Ox 98 11/23/19 20:42 - Orders/Labs/Meds Orders: Active Orders 24 hr Category Date Time Status Iopamidol [Isovue-300 (61%)] Med 11/23/19 20:15 Active 150 ml IV ASDIRECTED Sodium Chloride 0.9% [Normal Saline] 80 ml Med 11/23/19 20:15 Active IV ASDIRECTED Sodium Chloride 0.9% [Saline Flush] Med 11/23/19 20:07 Active 10 ml FLUSH ASDIRECTED PRN Medication Orders Sodium Chloride (Normal Saline) 80 mls @ 3 mls/sec IV ASDIRECTED APOLINAR Last Admin: 11/23/19 20:25 Dose: 3 mls/sec Iopamidol (Isovue-300 (61%)) 150 ml IV ASDIRECTED APOLINAR Last Admin: 11/23/19 20:25 Dose: 150 ml Sodium Chloride (Saline Flush) 10 ml FLUSH ASDIRECTED PRN PRN Reason: Keep Vein Open Last Admin: 11/23/19 20:25 Dose: 10 ml Labs: Laboratory Tests 11/23/19 11/23/19 11/23/19 Range/Units 19:22 19:22 19:22 WBC 12.0 H (4.5-11.0) K/uL RBC 5.88 H (3.30-5.50) M/uL Hgb 15.0 (12.0-15.0) g/dL Hct 46.8 (36.0-48.0) % MCV 80 (80-98) fL MCH 26 L (27-31) pg MCHC 32 (32-36) % Plt Count 245 (150-400) K/uL Sodium 136 L (140-148) mmol/L Potassium 3.9 (3.6-5.2) mmol/L Chloride 102 (100-108) mmol/L Carbon Dioxide 25 (21-32) mmol/L Anion Gap 12.9 (5.0-14.0) mmol/L BUN 7 (7-18) mg/dL Creatinine 0.7 (0.6-1.0) mg/dL Est Cr Clr Drug Dosing TNP Estimated GFR (MDRD) > 60 (>60) Glucose 100 (74-106) mg/dL Calcium 8.6 (8.5-10.1) mg/dL C-Reactive Protein 0.49 H (0.0-0.3) mg/dL Urine Color (YELLOW) Urine Appearance (CLEAR) Urine pH (5.0-8.0) Ur Specific [place] (1.008-1.030) Urine Protein (NEGATIVE) mg/dL Urine Glucose (UA) (NEGATIVE) mg/dL Urine Ketones (NEGATIVE) mg/dL Urine Occult Blood (NEGATIVE) Urine Nitrite (NEGATIVE) Urine Bilirubin (NEGATIVE) Urine Urobilinogen (0.2-1.0) EU/dL Ur Leukocyte Esterase (NEGATIVE) Urine RBC (0-5) Urine WBC (0-5) Ur Epithelial Cells Amorphous Sediment Urine Bacteria Urine Mucus 11/23/19 Range/Units 19:27 WBC (4.5-11.0) K/uL RBC (3.30-5.50) M/uL Hgb (12.0-15.0) g/dL Hct (36.0-48.0) % MCV (80-98) fL MCH (27-31) pg MCHC (32-36) % Plt Count (150-400) K/uL Sodium (140-148) mmol/L Potassium (3.6-5.2) mmol/L Chloride (100-108) mmol/L Carbon Dioxide (21-32) mmol/L Anion Gap (5.0-14.0) mmol/L BUN (7-18) mg/dL Creatinine (0.6-1.0) mg/dL Est Cr Clr Drug Dosing Estimated GFR (MDRD) (>60) Glucose (74-106) mg/dL Calcium (8.5-10.1) mg/dL C-Reactive Protein (0.0-0.3) mg/dL Urine Color Yellow (YELLOW) Urine Appearance Cloudy A (CLEAR) Urine pH 5.5 (5.0-8.0) Ur Specific [place] >= 1.030 (1.008-1.030) Urine Protein Negative (NEGATIVE) mg/dL Urine Glucose (UA) Negative (NEGATIVE) mg/dL Urine Ketones Negative (NEGATIVE) mg/dL Urine Occult Blood Trace-intact H (NEGATIVE) Urine Nitrite Negative (NEGATIVE) Urine Bilirubin Negative (NEGATIVE) Urine Urobilinogen 0.2 (0.2-1.0) EU/dL Ur Leukocyte Esterase Trace H (NEGATIVE) Urine RBC 0-5 (0-5) Urine WBC 0-5 (0-5) Ur Epithelial Cells Moderate Amorphous Sediment Not seen Urine Bacteria Moderate Urine Mucus Moderate Meds: Medications Generic Name Dose Route Start Last Admin Trade Name Freq PRN Reason Stop Dose Admin Sodium Chloride 80 mls @ 3 mls/sec 11/23/19 20:15 11/23/19 20:25 Normal Saline IV 3 mls/sec ASDIRECTED APOLINAR Administration Iopamidol 150 ml 11/23/19 20:15 11/23/19 20:25 Isovue-300 (61%) IV 150 ml ASDIRECTED APOLINAR Administration Sodium Chloride 10 ml 11/23/19 20:07 11/23/19 20:25 Saline Flush FLUSH 10 ml ASDIRECTED PRN Administration Keep Vein Open Discontinued Medications Generic Name Dose Route Start Last Admin Trade Name Freq PRN Reason Stop Dose Admin Acetaminophen 1,000 mg 11/23/19 19:22 11/23/19 19:28 Tylenol Extra Strength PO 11/23/19 19:23 1,000 mg ONETIME ONE Administration Lactated Ringer's 1,000 mls @ 1,000 mls/hr 11/23/19 19:45 11/23/19 20:42 Ringers, Lactated IV 11/23/19 20:44 1,000 mls/hr BOLUS ONE Administration Ondansetron HCl 4 mg 11/23/19 19:17 11/23/19 19:28 Zofran Odt PO 11/23/19 19:18 4 mg ONETIME ONE Administration - Radiology Interpretation Free Text/Narrative:: CT abd/pelvis with IV contrast- Impression: 1. No acute findings within the abdomen or pelvis. 2. Stool and gas scattered throughout the colon with a considerable amount of retained colonic gas. 3. Stable small 11 mm right external iliac lymph node. 4. Stable 14 mm left adrenal adenoma. 5. Stable cardiomegaly and fatty infiltration of the liver. 6. Prior gastric bypass, cholecystectomy and hysterectomy. Please note that all CT scans at this facility use dose modulation, iterative reconstruction, and/or weight-based dosing when appropriate to reduce radiation dose to as low as reasonably achievable. Dictated by Uri Evans MD @ Nov 23 2019 8:41PM CT Results Date: 11/23/19 CT Results Time: 21:00 Departure - Departure Time of Disposition: 21:15 Disposition: Home, Self-Care 01 Condition: Good Clinical Impression: Abdominal pain Qualifiers: Abdominal location: left lower quadrant Qualified Code(s): R10.32 - Left lower quadrant pain Fecal retention Qualifiers: Constipation type: unspecified constipation type Qualified Code(s): K59.00 - Constipation, unspecified - Discharge Information *PRESCRIPTION DRUG MONITORING PROGRAM REVIEWED*: No *COPY OF PRESCRIPTION DRUG MONITORING REPORT IN PATIENT JAYDEN: No Instructions: Abdominal Pain, Adult, [id number] Referrals: Jessica Delaney MD [Primary Care Provider] - Forms: ED Department Discharge Additional Instructions: Take Miralax once or twice daily. Take simethicone as needed for pain relief per package instructions. Take acetaminophen up to 1000 mg every 6 hrs for pain relief. Recheck in the clinic if worse. You may use Zofran as needed for nausea control. Sepsis Event Note - Evaluation Sepsis Screening Result: No Definite Risk - Focused Exam Vital Signs: Vital Signs Pulse Resp BP Pulse Ox 11/23/19 20:42 75 110/58 L 98 11/23/19 19:01 84 18 104/61 98 Date Exam was Performed: 11/23/19 Time Exam was Performed: 21:00 - My Orders Last 24 Hours: My Active Orders 11/23/19 20:07 Sodium Chloride 0.9% [Saline Flush] 10 ml FLUSH ASDIRECTED PRN 11/23/19 20:15 Iopamidol [Isovue-300 (61%)] 150 ml IV ASDIRECTED Sodium Chloride 0.9% [Normal Saline] 80 ml IV ASDIRECTED - Assessment/Plan Last 24 Hours: My Active Orders 11/23/19 20:07 Sodium Chloride 0.9% [Saline Flush] 10 ml FLUSH ASDIRECTED PRN 11/23/19 20:15 Iopamidol [Isovue-300 (61%)] 150 ml IV ASDIRECTED Sodium Chloride 0.9% [Normal Saline] 80 ml IV ASDIRECTED
[2019-11-23] MEDS ORDERED: Lactated Ringers 1,000 ML IV ONE (19:45)
[2019-11-23] MEDS ORDERED: Sodium Chloride 0.9% 10 ML Syringe FLUSH PRN (20:07)
[2019-11-23] MEDS ORDERED: Iopamidol 612 MG/ML 200 ML Bottle IV SCH (20:15)
[2019-11-23] MEDS ORDERED: Sodium Chloride 0.9% 80 ML IV SCH (20:15)
[2019-11-23 20:42] VITALS: BP 110/58; PULSE 75
--- NOTE | 2019-11-23 20:53 | CRLCT ---
INDICATION: Left lower quadrant abdominal pain. Prior gastric bypass. TECHNIQUE: Contrast enhanced helical CT of the abdomen and pelvis with the intravenous administration 150 cc of Isovue 300. Sagittal and coronal reformats generated. COMPARISON: 10/25/2019. FINDINGS: No significant findings at the lung bases. The again noted a is stable hepatic megaly and fatty infiltration of the liver. No liver masses are identified. The normal size spleen with no masses. The pancreas, right adrenal gland in the kidneys demonstrate a normal appearance. 14 mm left adrenal adenoma is stable. Prior cholecystectomy. No abdominal aortic aneurysm. Prior gastric bypass changes. The prior hysterectomy. Stool and a considerable amount a gas scattered throughout the colon. No acute inflammatory changes or abnormal fluid collections are seen. Urinary bladder is not well distended with no gross masses evident. The previously described 11 mm right external iliac lymph node is stable. Stable smaller 8 mm left external iliac lymph node. Stable postoperative changes anterior abdominal wall. The no acute osseous findings. Degenerative disc disease changes L5-S1. Impression: 1. No acute findings within the abdomen or pelvis. 2. Stool and gas scattered throughout the colon with a considerable amount of retained colonic gas. 3. Stable small 11 mm right external iliac lymph node. 4. Stable 14 mm left adrenal adenoma. 5. Stable cardiomegaly and fatty infiltration of the liver. 6. Prior gastric bypass, cholecystectomy and hysterectomy. Please note that all CT scans at this facility use dose modulation, iterative reconstruction, and/or weight-based dosing when appropriate to reduce radiation dose to as low as reasonably achievable. Dictated by Uri Evans MD @ Nov 23 2019 8:41PM Signed by Dr. Uri Evans @ Nov 23 2019 8:52PM
[2019-11-23] MEDS ORDERED: Polyethylene Glycol 3350 Powder 17 GM Packet PO ONE (21:01)
== END 2019-11-23 22:06 | disposition home or self-care (01) ==
LOC: JP.ED 18:40
DX: R10.32 Left lower quadrant pain (principal); K59.00 Constipation, unspecified; K21.9 Gastro-esophageal reflux disease without esophagitis; E66.9 Obesity, unspecified; F32.9 Major depressive disorder, single episode, unspecified; F17.210 Nicotine dependence, cigarettes, uncomplicated; Z88.0 Allergy status to penicillin; Z88.8 Allergy status to other drugs, medicaments and biological substances; Z88.1 Allergy status to other antibiotic agents; Z91.040 Latex allergy status; Z88.6 Allergy status to analgesic agent; Z91.018 Allergy to other foods; J45.909 Unspecified asthma, uncomplicated; Z79.899 Other long term (current) drug therapy; Z68.43 Body mass index [BMI] 50.0-59.9, adult
CPT/HCPCS: 36415; 74177; 80048; 81001; 85027; 86140; 96360; 99284; A9270; J7050; J7120; Q9967; 99283

== ENCOUNTER 2020-02-27 20:03 | Emergency (ER) | payer MEDICAID ==
[2020-02-27] MEDS ORDERED: Ondansetron 4 MG Tab.DIS PO ONE (20:19)
[2020-02-27] MEDS ORDERED: Acetaminophen 500 MG Tab PO ONE (21:04)
[2020-02-27] MEDS ORDERED: Dicyclomine 20 MG/2 ML SDV IM ONE (21:07)
--- NOTE | 2020-02-27 21:10 | EDM.PDOC ---
ED HPI GENERAL MEDICAL PROBLEM - General Chief Complaint: Gastrointestinal Problem Stated Complaint: DEHYDRATION,VOMITING,ABD PAIN Time Seen by Provider: 02/27/20 20:50 Source of Information: Reports: Patient, Old Records, RN History Limitations: Reports: No Limitations - History of Present Illness INITIAL COMMENTS - FREE TEXT/NARRATIVE: 34 yo female s/p gastric bypass presents with a 5 d hx of nausea, vomiting and diarrhea. No fever or blood in her stools/emesis. Is not dizzy with standing. No known exposures. Has some abdominal pain to the left of her navel not worse with coughing. Onset: Gradual Onset Date: 02/22/20 Duration: Day(s): (5), Getting Worse Location: Reports: Abdomen Quality: Reports: Ache Severity: Moderate Improves with: Reports: Other (not eating or drinking) Worsens with: Reports: Eating Context: Reports: Other (see HPI) Associated Symptoms: Reports: Loss of Appetite, Nausea/Vomiting. Denies: Fever/ Chills, Rash Treatments PLATEMAN: Reports: Acetaminophen (not today) Abdomen Pain Score (Numeric/FACES): 7 - Related Data Allergies Allergy/AdvReac Type Severity Reaction Status Date / Time amoxicillin Allergy Severe Anaphylactic Verified 02/27/20 20:27 Shock promethazine HCl Allergy Severe Anaphylactic Verified 02/27/20 20:27 [From Phenergan] Shock risperidone [From Risperdal] Allergy Severe Anaphylactic Verified 02/27/20 20:27 Shock atomoxetine Allergy Anxiety Verified 02/27/20 20:27 banana Allergy Itching Verified 02/27/20 20:27 clindamycin Allergy Rash Verified 02/27/20 20:27 ketorolac tromethamine Allergy Rash Verified 02/27/20 20:27 [From Toradol] latex Allergy Rash Verified 02/27/20 20:27 Latex, Natural Rubber Allergy Wheezing Verified 02/27/20 20:27 quetiapine Allergy Anxiety Verified 02/27/20 20:27 tramadol HCl [From Ultram] Allergy Hives Verified 02/27/20 20:27 varenicline Allergy Anxiety Verified 02/27/20 20:27 zolpidem [From Ambien] Allergy Anxiety Verified 02/27/20 20:27 atomoxetine HCl AdvReac Anxiety Verified 02/27/20 20:27 [From Strattera] cephalexin monohydrate AdvReac Dizziness Verified 02/27/20 20:27 [From Keflex] quetiapine fumarate AdvReac Irritabilit Verified 02/27/20 20:27 [From Seroquel] y trazodone AdvReac Dizziness Verified 02/27/20 20:27 zolpidem tartrate AdvReac Anxiety Verified 02/27/20 20:27 [From Ambien] Home Meds: Home Meds Lisdexamfetamine [Vyvanse] 30 mg PO DAILY 03/01/16 [History] Cetirizine HCl [Zyrtec] 10 mg PO DAILY 09/19/18 [History] DULoxetine [Cymbalta] 90 mg PO DAILY 09/19/18 [History] Melatonin/Pyridoxine HCl (B6) [Melatonin 3 mg Tablet] 10 mg PO BEDTIME 09/19/18 [History] Methimazole [Tapazole] 20 mg PO DAILY 09/19/18 [History] Metoprolol Tartrate [Lopressor] 25 mg PO BID 09/19/18 [History] Sennosides [Senna] 8.6 mg PO DAILY PRN 09/19/18 [History] lamoTRIgine [Lamictal] 200 tab PO DAILY 09/19/18 [History] metroNIDAZOLE [metroNIDAZOLE 0.75% Gel] 1 applic TOP BID 09/19/18 [History] rOPINIRole [Requip] 2 mg PO BEDTIME 09/19/18 [History] rOPINIRole HCl [Requip] 2 mg PO DAILY 01/01/19 [History] Albuterol [Proventil Neb Soln] 3 ml NEB TID PRN 02/18/19 [History] Pramoxine HCl [Prax] 1 applic TP QID 02/18/19 [History] Triamcinolone Acetonide [Kenalog 0.1% Crm] 1 applic TOP TID PRN 02/18/19 [ History] Lidocaine 2% [Xylocaine 2%] 10 ml TOP Q6H PRN 07/23/19 [History] Pantoprazole Sodium [Protonix] 40 mg PO DAILY 07/23/19 [History] Temazepam [Restoril] 30 mg PO BEDTIME 07/23/19 [History] Acetaminophen [Tylenol] 650 mg PO Q6H cup 07/30/19 [Rx] Celecoxib [CeleBREX] 200 mg PO DAILY@0800 cap 07/30/19 [Rx] Ondansetron [Zofran ODT] 4 mg PO Q4H PRN #30 tab.dis 07/30/19 [Rx] Prochlorperazine [Compazine] 10 mg PO Q8H PRN 09/02/19 [History] Dicyclomine [Bentyl] 20 mg PO QIDACANDBED #20 tab 02/28/20 [Rx] Ondansetron [Zofran ODT] 4 mg PO Q6H PRN #10 tab.dis 02/28/20 [Rx] Past Medical History HEENT History: Reports: Impaired Vision, Otitis Media Other HEENT History: Bilateral tympanic membrane rupture. tonsillectomy. 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 rheumatoid arthritis Neurological History: Reports: Headaches, Chronic, Migraines Psychiatric History: Reports: ADHD, Anxiety, Depression, Psych Hospitalization(s ), PTSD, Suicide Attempt, Suicidal Ideation, Other (See Below) Other Psychiatric History: Schizo effective disorder Endocrine/Metabolic History: Reports: Hyperthyroidism, Hypothyroidism, Obesity/ BMI 30+ Hematologic History: Reports: Anemia, B12 Deficiency, Folic Acid Immunologic History: Reports: None Oncologic (Cancer) History: Reports: Cervix Dermatologic History: Reports: Eczema, Other (See Below) Other Dermatologic History: rosacia - Infectious Disease History Infectious Disease History: Reports: Chicken Pox, Influenza Other Infectious Disease History: rectal worts - Past Surgical History Head Surgeries/Procedures: Reports: None HEENT Surgical History: Reports: Myringotomy w Tube(s), Oral Surgery, Tonsillectomy Cardiovascular Surgical History: Reports: None Respiratory Surgical History: Reports: None GI Surgical History: Reports: Appendectomy, Bariatric Procedure, Cholecystectomy , Colonoscopy, EGD, Hernia Repair/Other Female Surgical History: Reports: Hysterectomy Endocrine Surgical History: Reports: None Neurological Surgical History: Reports: None Musculoskeletal Surgical History: Reports: Carpal Tunnel, Ganglion Cyst, Other ( See Below) Other Musculoskeletal Surgeries/Procedures:: Left ankle ORIF with hardware Dermatological Surgical History: Reports: None Social & Family History - Family History Family Medical History: Noncontributory Cardiac: Reports: Heart Murmur Respiratory: Reports: COPD Psychiatric: Reports: Depression, Schizophrenia - Tobacco Use Smoking Status *Q: Current Every Day Smoker Years of Tobacco use: 20 Packs/Tins Daily: 0.5 - Caffeine Use Caffeine Use: Reports: None - Recreational Drug Use Recreational Drug Use: No - Living Situation & Occupation Living situation: Reports: Single Occupation: Disabled (lives with Domestic Partner in [place], [place]. One grown child 18 years old.) ED ROS GENERAL - Review of Systems Review Of Systems: See Below Constitutional: Reports: Malaise, Decreased Appetite HEENT: Reports: No Symptoms Respiratory: Reports: No Symptoms Cardiovascular: Reports: No Symptoms. Denies: Lightheadedness Endocrine: Reports: No Symptoms GI/Abdominal: Reports: Abdominal Pain, Diarrhea, Decreased Appetite, Nausea, Vomiting. Denies: Black Stool, Bloody Stool, Constipation, Distension, Flatus, Hematemesis, Hematochezia, Melena : Reports: No Symptoms Musculoskeletal: Reports: No Symptoms Skin: Reports: No Symptoms Neurological: Reports: No Symptoms ED EXAM, GI/ABD - Physical Exam Exam: See Below Exam Limited By: No Limitations General Appearance: Alert, WD/WN, No Apparent Distress, Obese Eyes: Bilateral: Normal Appearance Ears: Normal External Exam, Normal Canal, Hearing Grossly Normal, Normal TMs Nose: Normal Inspection, No Blood Throat/Mouth: Normal Inspection, Normal Lips, Normal Oropharynx, Normal Voice, No Airway Compromise Head: Atraumatic, Normocephalic Neck: Normal Inspection Respiratory/Chest: No Respiratory Distress, Lungs Clear, Normal Breath Sounds, No Accessory Muscle Use Cardiovascular: Regular Rate, Rhythm, No Edema GI/Abdominal Exam: Normal Bowel Sounds, Soft, No Distention, Tender (mild diffuse). No: Non-Tender, Distended, Guarding, Rigid, Rebound, Hernia Extremities: Normal Inspection, Normal Range of Motion, Non-Tender, No Pedal Edema Neurological: Alert, Oriented, CN II-XII Intact, Normal Cognition, No Motor/ Sensory Deficits Psychiatric: Normal Affect, Normal Mood Skin Exam: Warm, Dry, Intact, Normal Color, No Rash Course - Vital Signs Last Recorded V/S: Last Vital Signs Temp 36.4 C 02/27/20 20:42 Pulse 78 02/27/20 23:51 Resp 18 02/27/20 23:51 BP 120/56 L 02/27/20 23:51 Pulse Ox 97 02/27/20 23:51 Orthostatic Blood Pressure [ 138/84 Standing] Orthostatic Blood Pressure [ 136/82 Sitting] Orthostatic Blood Pressure [ 135/80 Supine] - Orders/Labs/Meds Orders: Active Orders 24 hr Category Date Time Status Orthostatic Vital Signs [RC] ASDIRECTED Care 02/27/20 20:19 Active Abdomen Pelvis w Cont [CT] Stat Exams 02/27/20 22:38 Taken Labs: Laboratory Tests 02/27/20 02/27/20 02/27/20 Range/Units 21:20 21:20 21:30 WBC 10.0 (4.5-11.0) K/uL RBC 5.66 H (3.30-5.50) M/uL Hgb 15.4 H (12.0-15.0) g/dL Hct 46.7 (36.0-48.0) % MCV 83 (80-98) fL MCH 27 (27-31) pg MCHC 33 (32-36) % Plt Count 212 (150-400) K/uL Sodium 140 (140-148) mmol/L Potassium 3.6 (3.6-5.2) mmol/L Chloride 104 (100-108) mmol/L Carbon Dioxide 25 (21-32) mmol/L Anion Gap 11.1 (5.0-14.0) mmol/L BUN 8 (7-18) mg/dL Creatinine 0.8 (0.6-1.0) mg/dL Est Cr Clr Drug Dosing 83.95 mL/min Estimated GFR (MDRD) > 60 (>60) Glucose 98 (74-106) mg/dL Calcium 8.6 (8.5-10.1) mg/dL Urine Color Yellow (YELLOW) Urine Appearance Slightly cloudy A (CLEAR) Urine pH 5.5 (5.0-8.0) Ur Specific [place] >= 1.030 (1.008-1.030) Urine Protein Negative (NEGATIVE) mg/dL Urine Glucose (UA) Negative (NEGATIVE) mg/dL Urine Ketones Negative (NEGATIVE) mg/dL Urine Occult Blood Negative (NEGATIVE) Urine Nitrite Negative (NEGATIVE) Urine Bilirubin Negative (NEGATIVE) Urine Urobilinogen 0.2 (0.2-1.0) EU/dL Ur Leukocyte Esterase Negative (NEGATIVE) Urine RBC Not seen (0-5) Urine WBC 0-5 (0-5) Ur Epithelial Cells Many Amorphous Sediment Few Urine Bacteria Many Urine Mucus Few Urine Opiates Screen (NEGATIVE) Ur Oxycodone Screen (NEGATIVE) Urine Methadone Screen (NEGATIVE) Ur Propoxyphene Screen (NEGATIVE) Ur Barbiturates Screen (NEGATIVE) Ur Tricyclics Screen (NEGATIVE) Ur Phencyclidine Scrn (NEGATIVE) Ur Amphetamine Screen (NEGATIVE) U Methamphetamines Scrn (NEGATIVE) Urine MDMA Screen (NEGATIVE) U Benzodiazepines Scrn (NEGATIVE) U Cocaine Metab Screen (NEGATIVE) U Marijuana (THC) Screen (NEGATIVE) 02/27/20 Range/Units 21:30 WBC (4.5-11.0) K/uL RBC (3.30-5.50) M/uL Hgb (12.0-15.0) g/dL Hct (36.0-48.0) % MCV (80-98) fL MCH (27-31) pg MCHC (32-36) % Plt Count (150-400) K/uL Sodium (140-148) mmol/L Potassium (3.6-5.2) mmol/L Chloride (100-108) mmol/L Carbon Dioxide (21-32) mmol/L Anion Gap (5.0-14.0) mmol/L BUN (7-18) mg/dL Creatinine (0.6-1.0) mg/dL Est Cr Clr Drug Dosing mL/min Estimated GFR (MDRD) (>60) Glucose (74-106) mg/dL Calcium (8.5-10.1) mg/dL Urine Color (YELLOW) Urine Appearance (CLEAR) Urine pH (5.0-8.0) Ur Specific [place] (1.008-1.030) Urine Protein (NEGATIVE) mg/dL Urine Glucose (UA) (NEGATIVE) mg/dL Urine Ketones (NEGATIVE) mg/dL Urine Occult Blood (NEGATIVE) Urine Nitrite (NEGATIVE) Urine Bilirubin (NEGATIVE) Urine Urobilinogen (0.2-1.0) EU/dL Ur Leukocyte Esterase (NEGATIVE) Urine RBC (0-5) Urine WBC (0-5) Ur Epithelial Cells Amorphous Sediment Urine Bacteria Urine Mucus Urine Opiates Screen Negative (NEGATIVE) Ur Oxycodone Screen Negative (NEGATIVE) Urine Methadone Screen Negative (NEGATIVE) Ur Propoxyphene Screen Negative (NEGATIVE) Ur Barbiturates Screen Negative (NEGATIVE) Ur Tricyclics Screen Negative (NEGATIVE) Ur Phencyclidine Scrn Negative (NEGATIVE) Ur Amphetamine Screen Presumptive positive H (NEGATIVE) U Methamphetamines Scrn Negative (NEGATIVE) Urine MDMA Screen Negative (NEGATIVE) U Benzodiazepines Scrn Presumptive positive H (NEGATIVE) U Cocaine Metab Screen Negative (NEGATIVE) U Marijuana (THC) Screen Negative (NEGATIVE) Meds: Medications Discontinued Medications Generic Name Dose Route Start Last Admin Trade Name Freq PRN Reason Stop Dose Admin Acetaminophen 1,000 mg 02/27/20 21:04 02/27/20 21:19 Tylenol Extra Strength PO 02/27/20 21:05 1,000 mg ONETIME ONE Administration Dicyclomine HCl 20 mg 02/27/20 21:07 02/27/20 21:21 Bentyl IM 02/27/20 21:08 20 mg ONETIME ONE Administration Hydromorphone HCl 0.5 mg 02/27/20 23:42 02/27/20 23:46 Dilaudid IVPUSH 02/27/20 23:43 0.5 mg ONETIME ONE Administration Lactated Ringer's 1,000 mls @ 1,000 mls/hr 02/27/20 22:40 02/27/20 23:41 Ringers, Lactated IV 02/27/20 23:39 1,000 mls/hr BOLUS ONE Administration Sodium Chloride 150 mls @ 3.5 mls/sec 02/27/20 22:55 02/27/20 23:06 Normal Saline IV 02/27/20 22:56 3.5 mls/sec ASDIRECTED STA Administration Iopamidol 150 ml 02/27/20 22:54 02/27/20 23:06 Isovue-300 (61%) IV 02/27/20 22:55 150 ml . DIRECTED STA Administration Ondansetron HCl 4 mg 02/27/20 20:19 02/27/20 20:59 Zofran Odt PO 02/27/20 20:20 4 mg ONETIME ONE Administration Simethicone 160 mg 02/27/20 22:37 02/27/20 22:49 Simethicone PO 02/27/20 22:38 160 mg ONETIME ONE Administration - Radiology Interpretation Free Text/Narrative:: CT abd/pelvis with IV contrast- IMPRESSION: 1. Status post gastric bypass without dilated loops of bowel or localized inflammation. 2. Borderline external iliac lymph node on the right, no significant change compared to the study [address] Results Date: 02/27/20 - Re-Assessments/Exams Free Text/Narrative Re-Assessment/Exam: 02/27/20 22:32 Sx's improved, but not resolved. Not vomiting. Free Text/Narrative Re-Assessment/Exam: 02/27/20 23:00 Was doing better, was given apple juice and got worse afterwards. Will get CT scan and try some simethicone. Departure - Departure Time of Disposition: 00:45 Disposition: Home, Self-Care 01 Condition: Fair Clinical Impression: Vomiting and diarrhea Abdominal pain Qualifiers: Abdominal location: left lower quadrant Qualified Code(s): R10.32 - Left lower quadrant pain - Discharge Information *PRESCRIPTION DRUG MONITORING PROGRAM REVIEWED*: No *COPY OF PRESCRIPTION DRUG MONITORING REPORT IN PATIENT JAYDEN: No Instructions: Nausea and Vomiting, Adult, [id number], Abdominal Pain, Adult, [id number] Referrals: Jessica Delaney MD [Primary Care Provider] - Forms: ED Department Discharge Additional Instructions: Zofran ODT 4 mg every 6 hrs as needed for nausea control. Acetaminophen 1000 mg every 6 hrs for pain relief. Take dicyclomine as directed for diarrhea/ abdominal pain. Clear liquid diet tonight and tomorrow. Follow up with your provider as soon as you are able. Return if a lot worse. Sepsis Event Note - Evaluation Sepsis Screening Result: No Definite Risk - Focused Exam Vital Signs: Vital Signs Temp Pulse Resp BP Pulse Ox 02/27/20 23:51 78 18 120/56 L 97 02/27/20 22:13 78 16 131/76 93 L 02/27/20 20:42 36.4 C 79 20 137/84 97 02/27/20 20:36 36.4 C 79 20 137/84 97 Date Exam was Performed: 02/28/20 Time Exam was Performed: 00:29 - My Orders Last 24 Hours: My Active Orders 02/27/20 20:19 Orthostatic Vital Signs [RC] ASDIRECTED 02/27/20 22:38 Abdomen Pelvis w Cont [CT] Stat - Assessment/Plan Last 24 Hours: My Active Orders 02/27/20 20:19 Orthostatic Vital Signs [RC] ASDIRECTED 02/27/20 22:38 Abdomen Pelvis w Cont [CT] Stat
[2020-02-27 22:14] VITALS: PULSE 78
[2020-02-27] MEDS ORDERED: Simethicone 80 MG Tab.Chew PO ONE (22:37)
[2020-02-27] MEDS ORDERED: Lactated Ringers 1,000 ML IV ONE (22:40)
[2020-02-27] MEDS ORDERED: Iopamidol 612 MG/ML 150 ML Bottle IV STA (22:54)
[2020-02-27] MEDS ORDERED: HYDROmorphone 0.5 MG/0.5 ML Syringe IVPUSH ONE (23:42)
[2020-02-27 23:51] VITALS: BP 120/56
[2020-02-28] MEDS ORDERED: Ondansetron 4 MG/2 ML SDV IVPUSH ONE (00:34)
--- NOTE | 2020-02-28 07:05 | CRLCT ---
Final Report: INDICATION: Pain, vomiting and diarrhea. TECHNIQUE: Axial images were obtained from the diaphragm to the pubic symphysis. Reformats were obtained in the coronal and sagittal plane. IV Contrast: 150 cc Isovue-300 Oral Contrast: None COMPARISON: Abdomen and pelvis CT 11/23/2019 FINDINGS: Lower chest: Unremarkable. Liver: Unremarkable. Normal in size and attenuation. No masses. Gallbladder and bile ducts: Status post cholecystectomy. Spleen: Unremarkable. Normal in size without mass. Pancreas: Unremarkable. No mass or inflammation. Adrenal glands: Stable left adrenal nodule measuring 11 millimeters. Kidneys: Unremarkable. No masses, stones, or hydronephrosis. Vasculature: Unremarkable. GI tract: Status post gastric bypass. No dilated loops of large or small intestine. Pelvis: Status post hysterectomy. Bladder unremarkable. External inguinal lymph nodes measure up to 11 millimeters in short axis, similar to the prior exam. Bones: Degenerative disc disease lower lumbar spine. IMPRESSION: 1. Status post gastric bypass without dilated loops of bowel or localized inflammation. 2. Borderline external iliac lymph node on the right, no significant change compared to the study 3 months prior. Please note that all CT scans at this facility use dose modulation, iterative reconstruction, and/or weight-based dosing when appropriate to reduce radiation dose to as low as reasonably achievable. Dictated by Yousuf Velasquez MD @ Feb 28 2020 12:21AM (Electronic Signature) [email or web address]
== END 2020-02-28 00:53 | disposition home or self-care (01) ==
LOC: JP.ED 20:03
DX: R10.32 Left lower quadrant pain (principal); R11.2 Nausea with vomiting, unspecified; R19.7 Diarrhea, unspecified; J45.909 Unspecified asthma, uncomplicated; K21.9 Gastro-esophageal reflux disease without esophagitis; F41.9 Anxiety disorder, unspecified; F32.9 Major depressive disorder, single episode, unspecified; F25.9 Schizoaffective disorder, unspecified; E03.9 Hypothyroidism, unspecified; E66.9 Obesity, unspecified; Z68.42 Body mass index [BMI] 45.0-49.9, adult; F17.210 Nicotine dependence, cigarettes, uncomplicated; Z79.899 Other long term (current) drug therapy; Z88.1 Allergy status to other antibiotic agents; Z91.018 Allergy to other foods; Z91.040 Latex allergy status; Z88.5 Allergy status to narcotic agent
CPT/HCPCS: 36415; 74177; 80048; 80305; 81001; 85027; 96361; 96372; 96374; 96375; 99283; 99284; A9270; J0500; J1170; J2405; J7050; J7120; Q9967

== ENCOUNTER 2020-03-29 12:56 | Emergency (ER) | payer MEDICAID ==
[2020-03-29] MEDS ORDERED: methylPREDNISolone Sodium Succinate 125 MG/2 ML SDV IVPUSH ONE (13:11)
[2020-03-29] MEDS ORDERED: Sodium Chloride 0.9% 10 ML Syringe FLUSH PRN (13:11)
[2020-03-29] MEDS ORDERED: diphenhydrAMINE 50 MG/ML SDV IVPUSH ONE (13:12)
[2020-03-29] MEDS ORDERED: Albuterol 0.083% 2.5 MG/3 ML Neb Soln NEB ONE (13:12)
[2020-03-29 13:55] VITALS: BP 141/94; PULSE 69
--- NOTE | 2020-03-29 14:44 | EDM.PDOC ---
ED HPI GENERAL MEDICAL PROBLEM - General Chief Complaint: Respiratory Problem Stated Complaint: WHEEZING, RASH, COUGH Time Seen by Provider: 03/29/20 13:55 Source of Information: Reports: Patient History Limitations: Reports: No Limitations - History of Present Illness INITIAL COMMENTS - FREE TEXT/NARRATIVE: pt has had increased sob. He was feeling like she was breaking out. She has been dealing with some allergy issues and is on predisone. She has been followed by Dr delaney. Onset: Today, Sudden Duration: Hour(s): Location: Reports: Chest, Generalized, Other (pt felt like she waas breaking out. ) Associated Symptoms: Reports: No Other Symptoms - Related Data Allergies Allergy/AdvReac Type Severity Reaction Status Date / Time amoxicillin Allergy Severe Anaphylactic Verified 03/29/20 13:02 Shock promethazine HCl Allergy Severe Anaphylactic Verified 03/29/20 13:02 [From Phenergan] Shock risperidone [From Risperdal] Allergy Severe Anaphylactic Verified 03/29/20 13:02 Shock atomoxetine Allergy Anxiety Verified 03/29/20 13:02 banana Allergy Itching Verified 03/29/20 13:02 clindamycin Allergy Rash Verified 03/29/20 13:02 ketorolac tromethamine Allergy Rash Verified 03/29/20 13:02 [From Toradol] latex Allergy Rash Verified 03/29/20 13:02 Latex, Natural Rubber Allergy Wheezing Verified 03/29/20 13:02 quetiapine Allergy Anxiety Verified 03/29/20 13:02 tramadol HCl [From Ultram] Allergy Hives Verified 03/29/20 13:02 varenicline Allergy Anxiety Verified 03/29/20 13:02 zolpidem [From Ambien] Allergy Anxiety Verified 03/29/20 13:02 atomoxetine HCl AdvReac Anxiety Verified 03/29/20 13:02 [From Strattera] cephalexin monohydrate AdvReac Dizziness Verified 03/29/20 13:02 [From Keflex] quetiapine fumarate AdvReac Irritabilit Verified 03/29/20 13:02 [From Seroquel] y trazodone AdvReac Dizziness Verified 03/29/20 13:02 zolpidem tartrate AdvReac Anxiety Verified 03/29/20 13:02 [From Ambien] Home Meds: Home Meds Lisdexamfetamine [Vyvanse] 30 mg PO DAILY 04/15/16 [History] Cetirizine HCl [Zyrtec] 10 mg PO DAILY 09/19/18 [History] DULoxetine [Cymbalta] 90 mg PO DAILY 09/19/18 [History] Melatonin/Pyridoxine HCl (B6) [Melatonin 3 mg Tablet] 10 mg PO BEDTIME 09/19/18 [History] Methimazole [Tapazole] 20 mg PO DAILY 09/19/18 [History] Metoprolol Tartrate [Lopressor] 25 mg PO BID 09/19/18 [History] Sennosides [Senna] 8.6 mg PO DAILY PRN 09/19/18 [History] lamoTRIgine [Lamictal] 200 tab PO DAILY 09/19/18 [History] metroNIDAZOLE [metroNIDAZOLE 0.75% Gel] 1 applic TOP BID 09/19/18 [History] rOPINIRole [Requip] 2 mg PO BEDTIME 09/19/18 [History] rOPINIRole HCl [Requip] 2 mg PO DAILY 01/01/19 [History] Albuterol [Proventil Neb Soln] 3 ml NEB TID PRN 02/18/19 [History] Pramoxine HCl [Prax] 1 applic TP QID 02/18/19 [History] Triamcinolone Acetonide [Kenalog 0.1% Crm] 1 applic TOP TID PRN 02/18/19 [ History] Lidocaine 2% [Xylocaine 2%] 10 ml TOP Q6H PRN 07/23/19 [History] Pantoprazole Sodium [Protonix] 40 mg PO DAILY 07/23/19 [History] Temazepam [Restoril] 30 mg PO BEDTIME 07/23/19 [History] Acetaminophen [Tylenol] 650 mg PO Q6H cup 07/30/19 [Rx] Celecoxib [CeleBREX] 200 mg PO DAILY@0800 cap 07/30/19 [Rx] Ondansetron [Zofran ODT] 4 mg PO Q4H PRN #30 tab.dis 07/30/19 [Rx] Prochlorperazine [Compazine] 10 mg PO Q8H PRN 09/02/19 [History] Dicyclomine [Bentyl] 20 mg PO QIDACANDBED #20 tab 02/28/20 [Rx] Ondansetron [Zofran ODT] 4 mg PO Q6H PRN #10 tab.dis 02/28/20 [Rx] Pregabalin [Lyrica] 75 mg PO BID 03/10/20 [History] predniSONE 60 mg PO DAILY 03/29/20 [History] Past Medical History HEENT History: Reports: Impaired Vision, Otitis Media Other HEENT History: Bilateral tympanic membrane rupture. tonsillectomy. recent surgery septum 08/20/18 Cardiovascular History: Reports: Other (See Below) Other Cardiovascular History: Heart palpatations Respiratory History: Reports: Asthma, Bronchitis, Recurrent, Pneumonia, Recurrent, Sleep Apnea, SOB Gastrointestinal History: Reports: Gastritis, GERD Genitourinary History: Reports: Renal Calculus, UTI, Recurrent SPOOL TENDER History: Reports: Other SPOOL TENDER History: Hysterectomy with right oophrectomy Musculoskeletal History: Reports: Fracture, Fibromyalgia, RA Other Musculoskeletal History: fibromyalgia. rheumatoid arthritis Neurological History: Reports: Headaches, Chronic, Migraines Psychiatric History: Reports: ADHD, Anxiety, Depression, Psych Hospitalization(s ), PTSD, Suicide Attempt, Suicidal Ideation, Other (See Below) Other Psychiatric History: Schizo effective disorder Endocrine/Metabolic History: Reports: Hyperthyroidism, Hypothyroidism, Obesity/ BMI 30+ Hematologic History: Reports: Anemia, B12 Deficiency, Folic Acid Immunologic History: Reports: None Oncologic (Cancer) History: Reports: Cervix Dermatologic History: Reports: Eczema, Other (See Below) Other Dermatologic History: rosacia - Infectious Disease History Infectious Disease History: Reports: Chicken Pox, Influenza Other Infectious Disease History: rectal worts - Past Surgical History Head Surgeries/Procedures: Reports: None HEENT Surgical History: Reports: Myringotomy w Tube(s), Oral Surgery, Tonsillectomy Cardiovascular Surgical History: Reports: None Respiratory Surgical History: Reports: None GI Surgical History: Reports: Appendectomy, Bariatric Procedure, Cholecystectomy , Colonoscopy, EGD, Hernia Repair/Other Female Surgical History: Reports: Hysterectomy Endocrine Surgical History: Reports: None Neurological Surgical History: Reports: None Musculoskeletal Surgical History: Reports: Carpal Tunnel, Ganglion Cyst, Other ( See Below) Other Musculoskeletal Surgeries/Procedures:: Left ankle ORIF with hardware Dermatological Surgical History: Reports: None Social & Family History - Family History Family Medical History: Noncontributory Cardiac: Reports: Heart Murmur Respiratory: Reports: COPD Psychiatric: Reports: Depression, Schizophrenia - Caffeine Use Caffeine Use: Reports: None - Living Situation & Occupation Living situation: Reports: Single Occupation: Disabled (lives with Domestic Partner in [place], [place]. One grown child 18 years old.) ED ROS GENERAL - Review of Systems Review Of Systems: See Below Constitutional: Reports: No Symptoms HEENT: Reports: No Symptoms Respiratory: Reports: Shortness of Breath, Wheezing Cardiovascular: Reports: No Symptoms Endocrine: Reports: No Symptoms GI/Abdominal: Reports: No Symptoms : Reports: No Symptoms Musculoskeletal: Reports: No Symptoms Skin: Reports: Other ( red burning sensation. ) ED EXAM, GENERAL - Physical Exam Exam: See Below Free Text/Narrative:: pt arrived sob. She has had some allergy issues and is on predisone. This is her second day of predisone Exam Limited By: No Limitations General Appearance: Alert, Anxious, Moderate Distress Ears: Normal TMs Nose: Normal Inspection Throat/Mouth: Normal Inspection Head: Atraumatic Neck: Normal Inspection Respiratory/Chest: Wheezing Cardiovascular: Regular Rate, Rhythm GI/Abdominal: Soft, Non-Tender Extremities: Normal Inspection Neurological: Alert, Oriented, Normal Cognition Skin Exam: Erythema Course - Vital Signs Last Recorded V/S: Last Vital Signs Temp 35.8 C L 03/29/20 13:54 Pulse 69 03/29/20 13:54 Resp 16 03/29/20 13:54 BP 141/94 H 03/29/20 13:54 Pulse Ox 96 03/29/20 13:54 - Orders/Labs/Meds Orders: Active Orders 24 hr Category Date Time Status RT Aerosol Therapy [RC] ASDIRECTED Care 03/29/20 13:13 Active Sodium Chloride 0.9% [Saline Flush] Med 03/29/20 13:11 Active 10 ml FLUSH ASDIRECTED PRN Saline Lock Insert [OM.PC] Routine Oth 03/29/20 13:11 Ordered Medication Orders Sodium Chloride (Saline Flush) 10 ml FLUSH ASDIRECTED PRN PRN Reason: Keep Vein Open Last Admin: 03/29/20 13:29 Dose: 10 ml Meds: Medications Generic Name Dose Route Start Last Admin Trade Name Freq PRN Reason Stop Dose Admin Sodium Chloride 10 ml 03/29/20 13:11 03/29/20 13:29 Saline Flush FLUSH 10 ml ASDIRECTED PRN Administration Keep Vein Open Discontinued Medications Generic Name Dose Route Start Last Admin Trade Name Lisbet PRN Reason Stop Dose Admin Albuterol 2.5 mg 03/29/20 13:12 03/29/20 13:29 Proventil Neb Soln NEB 03/29/20 13:13 2.5 mg ONETIME ONE Administration Diphenhydramine HCl 25 mg 03/29/20 13:12 03/29/20 13:27 Benadryl IVPUSH 03/29/20 13:13 25 mg ONETIME ONE Administration Methylprednisolone Sodium Succinate 125 mg 03/29/20 13:11 03/29/20 13:29 Solu-Medrol IVPUSH 03/29/20 13:12 125 mg ONETIME ONE Administration - Re-Assessments/Exams Free Text/Narrative Re-Assessment/Exam: 03/29/20 14:45 pt was given iv solumedrol and a albuterol neb. She responded and is feeling better. Departure - Departure Time of Disposition: 14:46 Disposition: Home, Self-Care 01 Condition: Fair Clinical Impression: Allergic reaction - Discharge Information Referrals: Jessica Delaney MD [Primary Care Provider] - Care Plan Goals: continue the same predisone dose, add benadryl 25 q4h during the waking hours and 50 mg at bedtime. appt with Dr Delaney on Friday. Sepsis Event Note - Focused Exam Vital Signs: Vital Signs Temp Pulse Resp BP Pulse Ox 03/29/20 13:54 35.8 C L 69 16 141/94 H 96 Date Exam was Performed: 03/29/20 Time Exam was Performed: 14:39 - My Orders Last 24 Hours: My Active Orders 03/29/20 13:11 Sodium Chloride 0.9% [Saline Flush] 10 ml FLUSH ASDIRECTED PRN Saline Lock Insert [OM.PC] Routine 03/29/20 13:13 RT Aerosol Therapy [RC] ASDIRECTED - Assessment/Plan Last 24 Hours: My Active Orders 03/29/20 13:11 Sodium Chloride 0.9% [Saline Flush] 10 ml FLUSH ASDIRECTED PRN Saline Lock Insert [OM.PC] Routine 03/29/20 13:13 RT Aerosol Therapy [RC] ASDIRECTED
== END 2020-03-29 15:01 | disposition home or self-care (01) ==
LOC: JP.ED 12:56
DX: T78.40XA Allergy, unspecified, initial encounter (principal); J45.909 Unspecified asthma, uncomplicated; K21.9 Gastro-esophageal reflux disease without esophagitis; F41.9 Anxiety disorder, unspecified; F32.9 Major depressive disorder, single episode, unspecified; F25.9 Schizoaffective disorder, unspecified; E03.9 Hypothyroidism, unspecified; E66.9 Obesity, unspecified; Z68.42 Body mass index [BMI] 45.0-49.9, adult; M06.9 Rheumatoid arthritis, unspecified; Z91.018 Allergy to other foods; Z88.6 Allergy status to analgesic agent; Z91.040 Latex allergy status; Z88.5 Allergy status to narcotic agent; Z88.8 Allergy status to other drugs, medicaments and biological substances; Z88.1 Allergy status to other antibiotic agents; Z79.899 Other long term (current) drug therapy
CPT/HCPCS: 94640; 96374; 96375; 99284; J1200; J2930

== ENCOUNTER 2020-05-12 13:21 | Emergency (ER) | payer MEDICAID ==
[2020-05-12 13:39] VITALS: BP 138/84; PULSE 67
[2020-05-12] MEDS ORDERED: Sodium Chloride 0.9% 1,000 ML IV ONE (14:07)
[2020-05-12] MEDS ORDERED: Sodium Chloride 0.9% 10 ML Syringe FLUSH PRN (14:07)
[2020-05-12] MEDS ORDERED: diphenhydrAMINE 50 MG/ML SDV IVPUSH ONE (14:08)
[2020-05-12] MEDS ORDERED: Metoclopramide 10 MG/2 ML SDV IVPUSH ONE (14:08)
[2020-05-12] MEDS ORDERED: Ketorolac 30 MG/ML SDV IVPUSH ONE (14:08)
--- NOTE | 2020-05-12 14:48 | EDM.PDOC ---
ED HPI GENERAL MEDICAL PROBLEM - General Chief Complaint: Back Pain or Injury Stated Complaint: SEVERE BACK PAIN AND HEADACHE POST SURGERY Time Seen by Provider: 05/12/20 14:00 Source of Information: Reports: Patient History Limitations: Reports: No Limitations - History of Present Illness INITIAL COMMENTS - FREE TEXT/NARRATIVE: Keisha is a 35 year old female, presents to the ED today with c/o pain to her lower back. Patient was seen at [place] yesterday where she had a Bilateral T11-12, T12-L1 medial branch nerve block under fluoroscopy for persistent thoracic back pain. Patient since that time developed a spasming tight pain down her back to lumbar area. Patient reports that she spoke with DL yesterday after procedure they told her that could be normal and to Ice it which she has been doing without any relief. Patient reports that she slept 5 hours, pain is worse this morning and now she is developing a migraine headache. Patient arrives here dry heaving. She denies any fever. Patient denies any extremity weakness or loss of bowel bladder control. Onset: Gradual Duration: Hour(s): (16) Lower Back Pain Score (Numeric/FACES): 9 - Related Data Allergies Allergy/AdvReac Type Severity Reaction Status Date / Time amoxicillin Allergy Severe Anaphylactic Verified 03/29/20 13:02 Shock promethazine HCl Allergy Severe Anaphylactic Verified 03/29/20 13:02 [From Phenergan] Shock risperidone [From Risperdal] Allergy Severe Anaphylactic Verified 03/29/20 13:02 Shock atomoxetine Allergy Anxiety Verified 03/29/20 13:02 banana Allergy Itching Verified 03/29/20 13:02 clindamycin Allergy Rash Verified 03/29/20 13:02 ketorolac tromethamine Allergy Rash Verified 03/29/20 13:02 [From Toradol] latex Allergy Rash Verified 03/29/20 13:02 Latex, Natural Rubber Allergy Wheezing Verified 03/29/20 13:02 quetiapine Allergy Anxiety Verified 03/29/20 13:02 tramadol HCl [From Ultram] Allergy Hives Verified 03/29/20 13:02 varenicline Allergy Anxiety Verified 03/29/20 13:02 zolpidem [From Ambien] Allergy Anxiety Verified 03/29/20 13:02 atomoxetine HCl AdvReac Anxiety Verified 03/29/20 13:02 [From Strattera] cephalexin monohydrate AdvReac Dizziness Verified 03/29/20 13:02 [From Keflex] quetiapine fumarate AdvReac Irritabilit Verified 03/29/20 13:02 [From Seroquel] y trazodone AdvReac Dizziness Verified 03/29/20 13:02 zolpidem tartrate AdvReac Anxiety Verified 03/29/20 13:02 [From Ambien] Home Meds: Home Meds Lisdexamfetamine [Vyvanse] 30 mg PO DAILY 03/01/16 [History] Cetirizine HCl [Zyrtec] 10 mg PO DAILY 09/19/18 [History] DULoxetine [Cymbalta] 90 mg PO DAILY 09/19/18 [History] Melatonin/Pyridoxine HCl (B6) [Melatonin 3 mg Tablet] 10 mg PO BEDTIME 09/19/18 [History] Methimazole [Tapazole] 20 mg PO DAILY 09/19/18 [History] Metoprolol Tartrate [Lopressor] 25 mg PO BID 09/19/18 [History] Sennosides [Senna] 8.6 mg PO DAILY PRN 09/19/18 [History] lamoTRIgine [Lamictal] 200 tab PO DAILY 09/19/18 [History] metroNIDAZOLE [metroNIDAZOLE 0.75% Gel] 1 applic TOP BID 09/19/18 [History] rOPINIRole [Requip] 2 mg PO BEDTIME 09/19/18 [History] rOPINIRole HCl [Requip] 2 mg PO DAILY 01/01/19 [History] Albuterol [Proventil Neb Soln] 3 ml NEB TID PRN 02/18/19 [History] Pramoxine HCl [Prax] 1 applic TP QID 02/18/19 [History] Triamcinolone Acetonide [Kenalog 0.1% Crm] 1 applic TOP TID PRN 02/18/19 [History] Lidocaine 2% [Xylocaine 2%] 10 ml TOP Q6H PRN 07/23/19 [History] Pantoprazole Sodium [Protonix] 40 mg PO DAILY 07/23/19 [History] Temazepam [Restoril] 30 mg PO BEDTIME 07/23/19 [History] Acetaminophen [Tylenol] 650 mg PO Q6H cup 07/30/19 [Rx] Celecoxib [CeleBREX] 200 mg PO DAILY@0800 cap 07/30/19 [Rx] Prochlorperazine [Compazine] 10 mg PO Q8H PRN 09/02/19 [History] Dicyclomine [Bentyl] 20 mg PO QIDACANDBED #20 tab 02/28/20 [Rx] Ondansetron [Zofran ODT] 4 mg PO Q6H PRN #10 tab.dis 02/28/20 [Rx] Pregabalin [Lyrica] 75 mg PO BID 03/10/20 [History] predniSONE 60 mg PO DAILY 03/29/20 [History] Past Medical History HEENT History: Reports: Impaired Vision, Otitis Media Other HEENT History: Bilateral tympanic membrane rupture. tonsillectomy. recent surgery septum 08/20/18 Cardiovascular History: Reports: Other (See Below) Other Cardiovascular History: Heart palpatations Respiratory History: Reports: Asthma, Bronchitis, Recurrent, Pneumonia, Recurrent, Sleep Apnea, SOB Gastrointestinal History: Reports: Gastritis, GERD Genitourinary History: Reports: Renal Calculus, UTI, Recurrent V BELT COVERER History: Reports: Other V BELT COVERER History: Hysterectomy with right oophrectomy Musculoskeletal History: Reports: Fracture, Fibromyalgia, RA Other Musculoskeletal History: fibromyalgia. rheumatoid arthritis Neurological History: Reports: Headaches, Chronic, Migraines Psychiatric History: Reports: ADHD, Anxiety, Depression, Psych Hospitalization(s), PTSD, Suicide Attempt, Suicidal Ideation, Other (See Below) Other Psychiatric History: Schizo effective disorder Endocrine/Metabolic History: Reports: Hyperthyroidism, Hypothyroidism, Obesity/BMI 30+ Hematologic History: Reports: Anemia, B12 Deficiency, Folic Acid Immunologic History: Reports: None Oncologic (Cancer) History: Reports: Cervix Dermatologic History: Reports: Eczema, Other (See Below) Other Dermatologic History: rosacia - Infectious Disease History Infectious Disease History: Reports: Chicken Pox, Influenza Other Infectious Disease History: rectal worts - Past Surgical History Head Surgeries/Procedures: Reports: None HEENT Surgical History: Reports: Myringotomy w Tube(s), Oral Surgery, Tonsillectomy Cardiovascular Surgical History: Reports: None Respiratory Surgical History: Reports: None GI Surgical History: Reports: Appendectomy, Bariatric Procedure, Cholecystectomy, Colonoscopy, EGD, Hernia Repair/Other Female Surgical History: Reports: Hysterectomy Endocrine Surgical History: Reports: None Neurological Surgical History: Reports: None Musculoskeletal Surgical History: Reports: Carpal Tunnel, Ganglion Cyst, Other (See Below) Other Musculoskeletal Surgeries/Procedures:: Left ankle ORIF with hardware Dermatological Surgical History: Reports: None Social & Family History - Family History Family Medical History: Noncontributory Cardiac: Reports: Heart Murmur Respiratory: Reports: COPD Psychiatric: Reports: Depression, Schizophrenia - Tobacco Use Smoking Status *Q: Heavy Tobacco Smoker Years of Tobacco use: 16 Packs/Tins Daily: 0.5 - Caffeine Use Caffeine Use: Reports: None - Recreational Drug Use Recreational Drug Use: No - Living Situation & Occupation Living situation: Reports: Single Occupation: Disabled (lives with Domestic Partner in [place], [place]. One grown child 18 years old.) ED ROS GENERAL - Review of Systems Review Of Systems: Comprehensive ROS is negative, except as noted in HPI. ED EXAM,LOWER BACK PAIN/INJURY - Physical Exam Exam: See Below Exam Limited By: No Limitations General Appearance: Alert, WD/WN, No Apparent Distress Ears: Normal External Exam Nose: Normal Inspection Throat/Mouth: Normal Inspection Head: Atraumatic Neck: Normal Inspection, Supple, Non-Tender, Full Range of Motion Respiratory/Chest: No Respiratory Distress, Lungs Clear Cardiovascular: Normal Peripheral Pulses GI/Abdominal: Normal Bowel Sounds, Soft, Non-Tender Back Exam: Normal Inspection, Other (4 small injections noted to thoracic spine, no redness, no signficant tenderness) Extremities: Normal Inspection, Normal Range of Motion Neurological: Alert, Normal Mood/Affect, CN II-XII Intact Psychiatric: Normal Affect Lymphatic: No Adenopathy Course - Vital Signs Last Recorded V/S: Last Vital Signs Temp 35.6 C L 05/12/20 13:39 Pulse 67 05/12/20 13:39 Resp 16 05/12/20 13:39 BP 138/84 05/12/20 13:39 Pulse Ox 98 05/12/20 13:39 Keisha is a 35 year old female, presents to the ED with worsening back pain since steroid injection yesterday. Please refer to HPI and focused exam. Patient has no neuro focal deficits. She is hemodynamically stable. Patient w as given IV fluids here, migraine medications including Benadryl and Reglan as well as Dilaudid with improvement in her symptoms. CBC returns with leukocytosis, likely from steroid injection yesterday, however, I did obtain a CT scan with contrast of lumbar and thoracic spine to rule out abscess which were fortunately both negative. BMP and CRP are reassuring. Patient will be discharged home with small supply of Percocet for her back pain, I would like her to touch base with physician who did her injection on Friday. If patient develops any worsening symptoms or new concerns before then she should return here. 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 - Orders/Labs/Meds Orders: Active Orders 24 hr Category Date Time Status Peripheral IV Care [RC] . DIRECTED Care 05/12/20 14:07 Active HYDROmorphone [Dilaudid] Med 05/12/20 16:08 Once 0.5 mg IVPUSH ONETIME ONE Sodium Chloride 0.9% [Saline Flush] Med 05/12/20 14:07 Active 10 ml FLUSH ASDIRECTED PRN Peripheral IV Insertion Adult [OM.PC] Routine Oth 05/12/20 14:07 Ordered Medication Orders Sodium Chloride (Saline Flush) 10 ml FLUSH ASDIRECTED PRN PRN Reason: Keep Vein Open Last Admin: 05/12/20 14:23 Dose: 10 ml Documented by: [id number] Labs: Laboratory Tests 05/12/20 05/12/20 Range/Units 14:18 14:18 WBC 15.8 H (4.5-11.0) K/uL RBC 5.58 H (3.30-5.50) M/uL Hgb 15.8 H (12.0-15.0) g/dL Hct 47.9 (36.0-48.0) % MCV 86 (80-98) fL MCH 28 (27-31) pg MCHC 33 (32-36) % Plt Count 220 (150-400) K/uL Neut % (Auto) 78 H (36-66) % Lymph % (Auto) 15 L (24-44) % [place] % (Auto) 6 (2-6) % Eos % (Auto) 1 L (2-4) % Baso % (Auto) 0 (0-1) % Sodium 142 (140-148) mmol/L Potassium 4.2 (3.6-5.2) mmol/L Chloride 105 (100-108) mmol/L Carbon Dioxide 30 (21-32) mmol/L Anion Gap 7.1 (5.0-14.0) mmol/L BUN 12 (7-18) mg/dL Creatinine 0.8 (0.6-1.0) mg/dL Est Cr Clr Drug Dosing 83.14 mL/min Estimated GFR (MDRD) > 60 (>60) Glucose 102 (74-106) mg/dL Calcium 8.7 (8.5-10.1) mg/dL C-Reactive Protein < 0.05 (0.0-0.3) mg/dL Meds: Medications Generic Name Dose Route Start Last Admin Trade Name Freq PRN Reason Stop Dose Admin Sodium Chloride 10 ml 05/12/20 14:07 05/12/20 14:23 Saline Flush FLUSH 10 ml ASDIRECTED PRN Administration Keep Vein Open Discontinued Medications Generic Name Dose Route Start Last Admin Trade Name Freq PRN Reason Stop Dose Admin Diphenhydramine HCl 25 mg 05/12/20 14:08 05/12/20 14:27 Benadryl IVPUSH 05/12/20 14:09 25 mg ONETIME ONE Administration Sodium Chloride 1,000 mls @ 999 mls/hr 05/12/20 14:07 05/12/20 14:29 Normal Saline IV 05/12/20 15:07 999 mls/hr .BOLUS ONE Administration Sodium Chloride 75 mls @ 3.5 mls/sec 05/12/20 15:15 Normal Saline IV 05/12/20 16:00 ASDIRECTED APOLINAR Iopamidol 100 ml 05/12/20 15:15 Isovue-300 (61%) IV 05/12/20 16:00 . DIRECTED APOLINAR Ketorolac Tromethamine 30 mg 05/12/20 14:08 05/12/20 14:31 Toradol IVPUSH 05/12/20 14:09 Not Given ONETIME ONE Metoclopramide HCl 10 mg 05/12/20 14:08 05/12/20 14:20 Reglan IVPUSH 05/12/20 14:09 10 mg ONETIME ONE Administration Sodium Chloride 10 ml 05/12/20 15:03 Saline Flush FLUSH 05/12/20 15:04 ONETIME ONE Departure - Departure Time of Disposition: 16:30 Disposition: Home, Self-Care 01 Condition: Good Clinical Impression: Lumbar back pain Back pain Qualifiers: Back pain location: thoracic back pain Chronicity: acute Back pain laterality: midline Qualified Code(s): M54.6 - Pain in thoracic spine Migraine Qualifiers: Migraine type: without aura Status migrainosus presence: without status migrainosus Intractability: not intractable Qualified Code(s): G43.009 - Migraine without aura, not intractable, without status migrainosus - Discharge Information Instructions: Migraine Headache, [id number] Referrals: PCP,None [Primary Care Provider] - Forms: ED Department Discharge Additional Instructions: Follow up with Dr. Danielson on Friday. Percocet as needed for pain, do not drive or drink alcohol if you take it. Sepsis Event Note (ED) - Evaluation Sepsis Screening Result: No Definite Risk - Focused Exam Vital Signs: Vital Signs Temp Pulse Resp BP Pulse Ox 05/12/20 13:39 35.6 C L 67 16 138/84 98 05/12/20 13:37 35.6 C L 67 16 138/84 98 - My Orders Last 24 Hours: My Active Orders 05/12/20 14:07 Peripheral IV Care [RC] . DIRECTED Sodium Chloride 0.9% [Saline Flush] 10 ml FLUSH ASDIRECTED PRN Peripheral IV Insertion Adult [OM.PC] Routine 05/12/20 16:08 HYDROmorphone [Dilaudid] 0.5 mg IVPUSH ONETIME ONE - Assessment/Plan Last 24 Hours: My Active Orders 05/12/20 14:07 Peripheral IV Care [RC] . DIRECTED Sodium Chloride 0.9% [Saline Flush] 10 ml FLUSH ASDIRECTED PRN Peripheral IV Insertion Adult [OM.PC] Routine 05/12/20 16:08 HYDROmorphone [Dilaudid] 0.5 mg IVPUSH ONETIME ONE
[2020-05-12] MEDS ORDERED: Sodium Chloride 0.9% 10 ML Syringe FLUSH ONE (15:03)
[2020-05-12] MEDS ORDERED: Iopamidol 612 MG/ML 100 ML Bottle IV SCH (15:15)
[2020-05-12] MEDS ORDERED: Sodium Chloride 0.9% 75 ML IV SCH (15:15)
--- NOTE | 2020-05-12 15:53 | CRLCT ---
INDICATION: Recent spinal injection, now with pain at injection site TECHNIQUE: CT lumbar spine without contrast. COMPARISON: None FINDINGS: Vertebral alignment: Alignment is normal. Vertebrae: There are no fractures or suspicious bony lesions. Discs and facet joints: Severe degenerative disc disease at the L5-S1 level. Mild to moderate multilevel degenerative facet disease. Extraspinal findings: Prevertebral soft tissues and visualized retroperitoneum are unremarkable. No soft tissue abscess identified. IMPRESSION: No etiology seen to explain pain at spinal injection site. No soft tissue abscess. Severe degenerative disc disease at the L5-S1 level. Mild to moderate multilevel degenerative facet disease. Please note that all CT scans at this facility use dose modulation, iterative reconstruction, and/or weight-based dosing when appropriate to reduce radiation dose to as low as reasonably achievable. Dictated by Jessica Hill MD @ May 12 2020 3:48PM Signed by Dr. Jessica Hill @ May 12 2020 3:51PM
--- NOTE | 2020-05-12 15:59 | CRLCT ---
INDICATION: Recent spinal injection, now with pain TECHNIQUE: CT thoracic spine without and with 100 cc Isovue-300 IV contrast. COMPARISON: None FINDINGS: Vertebral alignment: Alignment is normal. Vertebrae: There are no fractures or suspicious bony lesions. Discs and facet joints: Mild multilevel degenerative disc and facet changes. Extraspinal findings: No soft tissue abscess identified. Postoperative changes of gastric bypass procedure and cholecystectomy are noted. IMPRESSION: No etiology seen to explain pain. No soft tissue abscess. Mild multilevel degenerative disc and facet changes. Please note that all CT scans at this facility use dose modulation, iterative reconstruction, and/or weight-based dosing when appropriate to reduce radiation dose to as low as reasonably achievable. Dictated by Jessica Hill MD @ May 12 2020 3:51PM Signed by Dr. Jessica Hill @ May 12 2020 3:58PM
[2020-05-12] MEDS ORDERED: HYDROmorphone 0.5 MG/0.5 ML Syringe IVPUSH ONE (16:08)
== END 2020-05-12 16:40 | disposition home or self-care (01) ==
LOC: JP.ED 13:21
DX: M54.5 Low back pain (principal); M54.6 Pain in thoracic spine; G43.009 Migraine without aura, not intractable, without status migrainosus; K21.9 Gastro-esophageal reflux disease without esophagitis; F41.9 Anxiety disorder, unspecified; F32.9 Major depressive disorder, single episode, unspecified; F17.210 Nicotine dependence, cigarettes, uncomplicated; E66.9 Obesity, unspecified; Z68.42 Body mass index [BMI] 45.0-49.9, adult; Z88.1 Allergy status to other antibiotic agents; Z88.8 Allergy status to other drugs, medicaments and biological substances; Z91.040 Latex allergy status; Z88.5 Allergy status to narcotic agent; Z79.899 Other long term (current) drug therapy
CPT/HCPCS: 36415; 72130; 72133; 80048; 85025; 86140; 96374; 96375; 99283; 99284; J1170; J1200; J2765; J7030

== ENCOUNTER 2020-06-08 11:01 | Emergency (ER) | payer MEDICAID ==
[2020-06-08 11:20] VITALS: BP 149/88; PULSE 72
--- NOTE | 2020-06-08 12:09 | EDM.PDOC ---
ED HPI GENERAL MEDICAL PROBLEM - General Chief Complaint: Bite:Animal, Insect Stated Complaint: BEE BITE ABOUT 10 AM Time Seen by Provider: 06/08/20 12:04 Source of Information: Reports: Patient, Old Records History Limitations: Reports: No Limitations - History of Present Illness INITIAL COMMENTS - FREE TEXT/NARRATIVE: 35 yo female here about 2 hrs after she was stung on the L mid back area by a bee. Has no hx of allergy to bees. [place] numbness in her face and throat initially, this slowly resolved after about 1 hr post sting. No self tx. No hives. No SOB or wheezing. Onset: Today Onset Date: 06/08/20 Onset Time: 10:00 Duration: Hour(s): (1), Resolved Prior to Arrival Location: Reports: Face, Neck Quality: Reports: Other (numbness reported) Severity: Mild Improves with: Reports: Other (time) Worsens with: Reports: None Context: Reports: Other (see HPI) Associated Symptoms: Reports: No Other Symptoms Treatments MINISTER ASSISTANT: Reports: Other (see below) (none) - Related Data Allergies Allergy/AdvReac Type Severity Reaction Status Date / Time amoxicillin Allergy Severe Anaphylactic Verified 03/29/20 13:02 Shock promethazine HCl Allergy Severe Anaphylactic Verified 03/29/20 13:02 [From Phenergan] Shock risperidone [From Risperdal] Allergy Severe Anaphylactic Verified 03/29/20 13:02 Shock atomoxetine Allergy Anxiety Verified 03/29/20 13:02 banana Allergy Itching Verified 03/29/20 13:02 clindamycin Allergy Rash Verified 03/29/20 13:02 ketorolac tromethamine Allergy Rash Verified 03/29/20 13:02 [From Toradol] latex Allergy Rash Verified 03/29/20 13:02 Latex, Natural Rubber Allergy Wheezing Verified 03/29/20 13:02 quetiapine Allergy Anxiety Verified 03/29/20 13:02 tramadol HCl [From Ultram] Allergy Hives Verified 03/29/20 13:02 varenicline Allergy Anxiety Verified 03/29/20 13:02 zolpidem [From Ambien] Allergy Anxiety Verified 03/29/20 13:02 atomoxetine HCl AdvReac Anxiety Verified 03/29/20 13:02 [From Strattera] cephalexin monohydrate AdvReac Dizziness Verified 03/29/20 13:02 [From Keflex] quetiapine fumarate AdvReac Irritabilit Verified 03/29/20 13:02 [From Seroquel] y trazodone AdvReac Dizziness Verified 03/29/20 13:02 zolpidem tartrate AdvReac Anxiety Verified 03/29/20 13:02 [From Ambien] Home Meds: Home Meds Lisdexamfetamine [Vyvanse] 30 mg PO DAILY 03/01/16 [History] Cetirizine HCl [Zyrtec] 10 mg PO DAILY 09/19/18 [History] DULoxetine [Cymbalta] 90 mg PO DAILY 09/19/18 [History] Melatonin/Pyridoxine HCl (B6) [Melatonin 3 mg Tablet] 10 mg PO BEDTIME 09/19/18 [History] Methimazole [Tapazole] 20 mg PO DAILY 09/19/18 [History] Metoprolol Tartrate [Lopressor] 25 mg PO BID 09/19/18 [History] Sennosides [Senna] 8.6 mg PO DAILY PRN 09/19/18 [History] lamoTRIgine [Lamictal] 200 tab PO DAILY 09/19/18 [History] metroNIDAZOLE [metroNIDAZOLE 0.75% Gel] 1 applic TOP BID 09/19/18 [History] rOPINIRole [Requip] 2 mg PO BEDTIME 09/19/18 [History] rOPINIRole HCl [Requip] 2 mg PO DAILY 01/01/19 [History] Albuterol [Proventil Neb Soln] 3 ml NEB TID PRN 02/18/19 [History] Pramoxine HCl [Prax] 1 applic TP QID 02/18/19 [History] Triamcinolone Acetonide [Kenalog 0.1% Crm] 1 applic TOP TID PRN 02/18/19 [History] Lidocaine 2% [Xylocaine 2%] 10 ml TOP Q6H PRN 07/23/19 [History] Pantoprazole Sodium [Protonix] 40 mg PO DAILY 07/23/19 [History] Temazepam [Restoril] 30 mg PO BEDTIME 07/23/19 [History] Acetaminophen [Tylenol] 650 mg PO Q6H cup 07/30/19 [Rx] Celecoxib [CeleBREX] 200 mg PO DAILY@0800 cap 07/30/19 [Rx] Prochlorperazine [Compazine] 10 mg PO Q8H PRN 09/02/19 [History] Dicyclomine [Bentyl] 20 mg PO QIDACANDBED #20 tab 02/28/20 [Rx] Ondansetron [Zofran ODT] 4 mg PO Q6H PRN #10 tab.dis 02/28/20 [Rx] Pregabalin [Lyrica] 75 mg PO BID 03/10/20 [History] predniSONE 40 mg PO DAILY 03/29/20 [History] Past Medical History HEENT History: Reports: Impaired Vision, Otitis Media Other HEENT History: Bilateral tympanic membrane rupture. tonsillectomy. recent surgery septum 08/20/18 Cardiovascular History: Reports: Other (See Below) Other Cardiovascular History: Heart palpatations Respiratory History: Reports: Asthma, Bronchitis, Recurrent, Pneumonia, Recurrent, Sleep Apnea, SOB Gastrointestinal History: Reports: Gastritis, GERD Genitourinary History: Reports: Renal Calculus, UTI, Recurrent SHOWROOM CONSULTANT History: Reports: Other SHOWROOM CONSULTANT History: Hysterectomy with right oophrectomy Musculoskeletal History: Reports: Fracture, Fibromyalgia, RA Other Musculoskeletal History: fibromyalgia. rheumatoid arthritis Neurological History: Reports: Headaches, Chronic, Migraines Psychiatric History: Reports: ADHD, Anxiety, Depression, Psych Hospitalization(s), PTSD, Suicide Attempt, Suicidal Ideation, Other (See Below) Other Psychiatric History: Schizo effective disorder Endocrine/Metabolic History: Reports: Hyperthyroidism, Hypothyroidism, Obesity/BMI 30+ Hematologic History: Reports: Anemia, B12 Deficiency, Folic Acid Immunologic History: Reports: None Oncologic (Cancer) History: Reports: Cervix Dermatologic History: Reports: Eczema, Other (See Below) Other Dermatologic History: rosacia - Infectious Disease History Infectious Disease History: Reports: Chicken Pox, Influenza Other Infectious Disease History: rectal worts - Past Surgical History Head Surgeries/Procedures: Reports: None HEENT Surgical History: Reports: Myringotomy w Tube(s), Oral Surgery, Tonsillectomy Cardiovascular Surgical History: Reports: None Respiratory Surgical History: Reports: None GI Surgical History: Reports: Appendectomy, Bariatric Procedure, Cholecystectomy, Colonoscopy, EGD, Hernia Repair/Other Female Surgical History: Reports: Hysterectomy Endocrine Surgical History: Reports: None Neurological Surgical History: Reports: None Musculoskeletal Surgical History: Reports: Carpal Tunnel, Ganglion Cyst, Other (See Below) Other Musculoskeletal Surgeries/Procedures:: Left ankle ORIF with hardware Dermatological Surgical History: Reports: None Social & Family History - Family History Family Medical History: Noncontributory Cardiac: Reports: Heart Murmur Respiratory: Reports: COPD Psychiatric: Reports: Depression, Schizophrenia - Tobacco Use Smoking Status *Q: Heavy Tobacco Smoker Years of Tobacco use: 155 Packs/Tins Daily: 0.5 - Caffeine Use Caffeine Use: Reports: None - Recreational Drug Use Recreational Drug Use: No - Living Situation & Occupation Living situation: Reports: Single Occupation: Disabled (lives with Domestic Partner in [place], [place]. One grown child 18 years old.) ED ROS GENERAL - Review of Systems Review Of Systems: See Below Constitutional: Reports: No Symptoms HEENT: Reports: No Symptoms Respiratory: Reports: No Symptoms Cardiovascular: Reports: No Symptoms GI/Abdominal: Reports: No Symptoms Skin: Reports: Erythema (at sting site) Neurological: Reports: Numbness (face and throat, transietly) ED EXAM, ANIMAL BITE - Physical Exam Exam: See Below Exam Limited By: No Limitations General Appearance: Alert, WD/WN, No Apparent Distress, Obese Eye Exam: Bilateral Eye: Normal Inspection Ears: Normal External Exam, Normal Canal, Hearing Grossly Normal, Normal TMs Nose: Normal Inspection, No Blood Throat/Mouth: Normal Inspection, Normal Lips, Normal Oropharynx, Normal Voice, No Airway Compromise Head: Atraumatic, Normocephalic Neck: Normal Inspection Respiratory/Chest: No Respiratory Distress, Lungs Clear, Normal Breath Sounds, No Accessory Muscle Use Cardiovascular: Regular Rate, Rhythm, No Edema Extremities: Normal Inspection Neurological: Alert, Oriented, CN II-XII Intact, Normal Cognition, No Motor/Sensory Deficits Psychiatric: Normal Affect, Normal Mood Skin Exam: Normal Color, Warm/Dry, Other (erythema to L mid back, about 4 x 3 cm) Course - Vital Signs Last Recorded V/S: Last Vital Signs Temp 37 C 06/08/20 11:20 Pulse 72 06/08/20 11:20 Resp 18 06/08/20 11:20 BP 149/88 H 06/08/20 11:20 Pulse Ox 99 06/08/20 11:20 Departure - Departure Time of Disposition: 12:08 Disposition: Home, Self-Care 01 Condition: Good Clinical Impression: Bee sting Qualifiers: Encounter type: initial encounter Injury intent: undetermined intent Qualified Code(s): T63.444A - Toxic effect of venom of bees, undetermined, initial encounter - Discharge Information *PRESCRIPTION DRUG MONITORING PROGRAM REVIEWED*: Not Applicable *COPY OF PRESCRIPTION DRUG MONITORING REPORT IN PATIENT JAYDEN: Not Applicable Instructions: Bee, Wasp, or Hornet Sting, Adult Referrals: Jessica Delaney MD [Primary Care Provider] - Additional Instructions: Diphenhydramine 50 mg every 4 hrs as needed for itch/rash. Recheck as needed. Sepsis Event Note (ED) - Evaluation Sepsis Screening Result: No Definite Risk - Focused Exam Vital Signs: Vital Signs Temp Pulse Resp BP Pulse Ox 06/08/20 11:20 37 C 72 18 149/88 H 99 06/08/20 11:19 37 C 72 18 149/88 H 99
== END 2020-06-08 12:28 | disposition home or self-care (01) ==
LOC: JP.ED 11:01
DX: T63.444A Toxic effect of venom of bees, undetermined, initial encounter (principal); F17.210 Nicotine dependence, cigarettes, uncomplicated; J45.909 Unspecified asthma, uncomplicated; K21.9 Gastro-esophageal reflux disease without esophagitis; F41.9 Anxiety disorder, unspecified; F32.9 Major depressive disorder, single episode, unspecified; E03.9 Hypothyroidism, unspecified; E66.9 Obesity, unspecified; Z68.41 Body mass index [BMI] 40.0-44.9, adult; Z79.899 Other long term (current) drug therapy; Z88.8 Allergy status to other drugs, medicaments and biological substances; Z91.018 Allergy to other foods; Z88.1 Allergy status to other antibiotic agents; Z88.6 Allergy status to analgesic agent; Z91.040 Latex allergy status; Z88.5 Allergy status to narcotic agent
CPT/HCPCS: 99282

== ENCOUNTER 2020-06-27 21:28 | Emergency (ER) | payer MEDICAID ==
[2020-06-27 21:55] VITALS: BP 150/84; PULSE 83
[2020-06-27] MEDS ORDERED: diphenhydrAMINE 50 MG/ML SDV IVPUSH ONE (22:21)
[2020-06-27] MEDS ORDERED: Sodium Chloride 0.9% 10 ML Syringe FLUSH PRN (22:21)
[2020-06-27] MEDS ORDERED: Ondansetron 4 MG/2 ML SDV IVPUSH ONE (22:26)
[2020-06-27] MEDS ORDERED: Haloperidol Lactate 5 MG/ML SDV IVPUSH ONE (22:26)
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
[2020-06-27] MEDS ORDERED: Sodium Chloride 0.9% 1,000 ML IV SCH (22:30)
== END 2020-06-27 23:54 | disposition home or self-care (01) ==
LOC: JP.ED 21:28
DX: G43.909 Migraine, unspecified, not intractable, without status migrainosus (principal); J45.909 Unspecified asthma, uncomplicated; K21.9 Gastro-esophageal reflux disease without esophagitis; F41.9 Anxiety disorder, unspecified; F32.9 Major depressive disorder, single episode, unspecified; E03.9 Hypothyroidism, unspecified; M06.9 Rheumatoid arthritis, unspecified; F17.210 Nicotine dependence, cigarettes, uncomplicated; E66.9 Obesity, unspecified; Z88.8 Allergy status to other drugs, medicaments and biological substances; Z88.1 Allergy status to other antibiotic agents; Z88.6 Allergy status to analgesic agent; Z91.018 Allergy to other foods; Z91.040 Latex allergy status; Z79.899 Other long term (current) drug therapy; Z68.41 Body mass index [BMI] 40.0-44.9, adult; Z88.5 Allergy status to narcotic agent
CPT/HCPCS: 96374; 96375; 99283; J1200; J1630; J2405; J7030

== ENCOUNTER 2020-08-15 20:48 | Emergency (ER) | payer MEDICAID ==
[2020-08-15] MEDS ORDERED: Sodium Chloride 0.9% 10 ML Syringe FLUSH PRN (21:27)
[2020-08-15] MEDS ORDERED: fentaNYL 100 MCG/2 ML SDV IVPUSH ONE ×3 (21:29→23:29)
[2020-08-15] MEDS ORDERED: Ondansetron 4 MG/2 ML SDV IVPUSH ONE (21:29)
[2020-08-15] MEDS ORDERED: Lactated Ringers 1,000 ML IV SCH (21:30)
--- NOTE | 2020-08-15 21:31 | EDM.PDOC ---
ED HPI GENERAL MEDICAL PROBLEM - General Chief Complaint: Abdominal Pain Stated Complaint: ABD PAIN Time Seen by Provider: 08/15/20 21:23 Source of Information: Reports: Patient, Family, RN Notes Reviewed History Limitations: Reports: No Limitations - History of Present Illness INITIAL COMMENTS - FREE TEXT/NARRATIVE: 35-year-old female presents emergency department a complaint of abdominal pain, she has known history of gastric bypass she is approximately 1 year out, she states over the last couple weeks she has had intermittent abdominal pain but is able to tolerate it at home. However over the last 3 hours it has gotten progressively worse sharp stabbing pain predominantly left lower quadrant she does have nausea she has not passed any gas no fevers no shortness of breath no chest pain Abdomen Pain Score (Numeric/FACES): 7 - Related Data Allergies Allergy/AdvReac Type Severity Reaction Status Date / Time amoxicillin Allergy Severe Anaphylactic Verified 08/15/20 21:13 Shock promethazine HCl Allergy Severe Anaphylactic Verified 08/15/20 21:13 [From Phenergan] Shock risperidone [From Risperdal] Allergy Severe Anaphylactic Verified 08/15/20 21:13 Shock atomoxetine Allergy Anxiety Verified 08/15/20 21:13 banana Allergy Itching Verified 08/15/20 21:13 clindamycin Allergy Rash Verified 08/15/20 21:13 ketorolac tromethamine Allergy Rash Verified 08/15/20 21:13 [From Toradol] latex Allergy Rash Verified 08/15/20 21:13 Latex, Natural Rubber Allergy Wheezing Verified 08/15/20 21:13 quetiapine Allergy Anxiety Verified 08/15/20 21:13 tramadol HCl [From Ultram] Allergy Hives Verified 08/15/20 21:13 varenicline Allergy Anxiety Verified 08/15/20 21:13 zolpidem [From Ambien] Allergy Anxiety Verified 08/15/20 21:13 atomoxetine HCl AdvReac Anxiety Verified 08/15/20 21:13 [From Strattera] cephalexin monohydrate AdvReac Dizziness Verified 08/15/20 21:13 [From Keflex] quetiapine fumarate AdvReac Irritabilit Verified 08/15/20 21:13 [From Seroquel] y trazodone AdvReac Dizziness Verified 08/15/20 21:13 zolpidem tartrate AdvReac Anxiety Verified 08/15/20 21:13 [From Edsonien] Home Meds: Home Meds Lisdexamfetamine [Vyvanse] 30 mg PO DAILY 03/01/16 [History] Cetirizine HCl [Zyrtec] 10 mg PO DAILY 09/19/18 [History] DULoxetine [Cymbalta] 90 mg PO DAILY 09/19/18 [History] Methimazole [Tapazole] 20 mg PO DAILY 09/19/18 [History] Metoprolol Tartrate [Lopressor] 25 mg PO BID 09/19/18 [History] Sennosides [Senna] 8.6 mg PO DAILY PRN 09/19/18 [History] lamoTRIgine [Lamictal] 200 tab PO DAILY 09/19/18 [History] metroNIDAZOLE [metroNIDAZOLE 0.75% Gel] 1 applic TOP BID 09/19/18 [History] rOPINIRole [Requip] 2 mg PO BEDTIME 09/19/18 [History] rOPINIRole HCl [Requip] 2 mg PO DAILY 01/01/19 [History] Albuterol [Proventil Neb Soln] 3 ml NEB TID PRN 02/18/19 [History] Pramoxine HCl [Prax] 1 applic TP QID 02/18/19 [History] Triamcinolone Acetonide [Kenalog 0.1% Crm] 1 applic TOP TID PRN 02/18/19 [History] Lidocaine 2% [Xylocaine 2%] 10 ml TOP Q6H PRN 07/23/19 [History] Pantoprazole Sodium [Protonix] 40 mg PO DAILY 07/23/19 [History] Temazepam [Restoril] 30 mg PO BEDTIME 07/23/19 [History] Acetaminophen [Tylenol] 650 mg PO Q6H cup 07/30/19 [Rx] Celecoxib [CeleBREX] 200 mg PO DAILY@0800 cap 07/30/19 [Rx] Prochlorperazine [Compazine] 10 mg PO Q8H PRN 09/02/19 [History] Ondansetron [Zofran ODT] 4 mg PO Q6H PRN #10 tab.dis 02/28/20 [Rx] Pregabalin [Lyrica] 75 mg PO BID 03/10/20 [History] Dicyclomine [Bentyl] 20 mg PO QIDACANDBED PRN 06/27/20 [History] tiZANidine [Zanaflex] 1 tab PO Q6H PRN 06/27/20 [History] Cholecalciferol (Vitamin D3) [Vitamin D] 5,000 unit PO DAILY 08/15/20 [History] Multivit with Iron,Minerals [Complete Senior] 1 tab PO DAILY 08/15/20 [History] Multivitamin [Flintstones] 1 tab PO BID 08/15/20 [History] Past Medical History HEENT History: Reports: Impaired Vision, Otitis Media Other HEENT History: Bilateral tympanic membrane rupture. tonsillectomy. recent surgery septum 08/20/18 Cardiovascular History: Reports: Other (See Below) Other Cardiovascular History: Heart palpatations Respiratory History: Reports: Asthma, Bronchitis, Recurrent, Pneumonia, Recurrent, Sleep Apnea, SOB Gastrointestinal History: Reports: Gastritis, GERD Genitourinary History: Reports: Renal Calculus, UTI, Recurrent COURT STENOGRAPHER History: Reports: Other COURT STENOGRAPHER History: Hysterectomy with right oophrectomy Musculoskeletal History: Reports: Fracture, Fibromyalgia, RA Other Musculoskeletal History: fibromyalgia. rheumatoid arthritis Neurological History: Reports: Headaches, Chronic, Migraines Psychiatric History: Reports: ADHD, Anxiety, Depression, Psych Hospitalization(s), PTSD, Suicide Attempt, Suicidal Ideation, Other (See Below) Other Psychiatric History: Schizo effective disorder Endocrine/Metabolic History: Reports: Hyperthyroidism, Hypothyroidism, Obesity/BMI 30+ Hematologic History: Reports: Anemia, B12 Deficiency, Folic Acid Immunologic History: Reports: None Oncologic (Cancer) History: Reports: Cervix Dermatologic History: Reports: Eczema, Other (See Below) Other Dermatologic History: rosacia - Infectious Disease History Infectious Disease History: Reports: Chicken Pox Other Infectious Disease History: rectal worts - Past Surgical History Head Surgeries/Procedures: Reports: None HEENT Surgical History: Reports: Myringotomy w Tube(s), Oral Surgery, Tonsillectomy Cardiovascular Surgical History: Reports: None Respiratory Surgical History: Reports: None GI Surgical History: Reports: Appendectomy, Bariatric Procedure, Cholecystectomy, Colonoscopy, EGD, Hernia Repair/Other Female Surgical History: Reports: Hysterectomy Endocrine Surgical History: Reports: None Neurological Surgical History: Reports: None Musculoskeletal Surgical History: Reports: Carpal Tunnel, Ganglion Cyst, Other (See Below) Other Musculoskeletal Surgeries/Procedures:: Left ankle ORIF with hardware Dermatological Surgical History: Reports: None Social & Family History - Family History Family Medical History: Noncontributory Cardiac: Reports: Heart Murmur Respiratory: Reports: COPD Psychiatric: Reports: Depression, Schizophrenia - Tobacco Use Smoking Status *Q: Current Every Day Smoker Years of Tobacco use: 23 Packs/Tins Daily: 0.5 - Caffeine Use Caffeine Use: Reports: Coffee - Recreational Drug Use Recreational Drug Use: No - Living Situation & Occupation Living situation: Reports: Single Occupation: Disabled (lives with Domestic Partner in [place], [place]. One grown child 18 years old.) ED ROS GENERAL - Review of Systems Review Of Systems: See Below Constitutional: Denies: Fever, Chills HEENT: Reports: No Symptoms Respiratory: Reports: No Symptoms Cardiovascular: Reports: No Symptoms GI/Abdominal: Reports: Abdominal Pain, Nausea. Denies: Flatus, Vomiting : Reports: No Symptoms ED EXAM, GI/ABD - Physical Exam Exam: See Below Exam Limited By: No Limitations General Appearance: Alert, Mild Distress Respiratory/Chest: No Respiratory Distress, Lungs Clear, Normal Breath Sounds, No Accessory Muscle Use, Chest Non-Tender Cardiovascular: Regular Rate, Rhythm, No Murmur GI/Abdominal Exam: Normal Bowel Sounds, Soft, No Distention, Tender (Left lower quadrant) Course - Vital Signs Last Recorded V/S: Last Vital Signs Temp 96.7 F L 08/15/20 21:12 Pulse 60 08/15/20 22:52 Resp 16 08/15/20 21:12 BP 124/75 08/15/20 22:52 Pulse Ox 95 08/15/20 21:12 - Orders/Labs/Meds Orders: Active Orders 24 hr Category Date Time Status Peripheral IV Care [RC] . DIRECTED Care 08/15/20 21:28 Active CULTURE URINE [RM] Urgent Lab 08/15/20 23:22 Ordered Iopamidol [Isovue-300 (61%)] Med 08/15/20 22:00 Active 150 ml IV . DIRECTED Lactated Ringers [Ringers, Lactated] 1,000 ml Med 08/15/20 21:30 Active IV ASDIRECTED Sodium Chloride 0.9% [Normal Saline] 80 ml Med 08/15/20 22:00 Active IV ASDIRECTED Sodium Chloride 0.9% [Saline Flush] Med 08/15/20 21:27 Active 10 ml FLUSH ASDIRECTED PRN fentaNYL [Sublimaze] Med 08/15/20 23:29 Once 50 mcg IVPUSH ONETIME ONE Peripheral IV Insertion Adult [OM.PC] Urgent Oth 08/15/20 21:27 Ordered Medication Orders Lactated Ringer's (Ringers, Lactated) 1,000 mls @ 500 mls/hr IV ASDIRECTED APOLINAR Last Admin: 08/15/20 21:49 Dose: 500 mls/hr Documented by: JONN Sodium Chloride (Normal Saline) 80 mls @ 3 mls/sec IV ASDIRECTED APOLINAR Iopamidol (Isovue-300 (61%)) 150 ml IV . DIRECTED APOLINAR Sodium Chloride (Saline Flush) 10 ml FLUSH ASDIRECTED PRN PRN Reason: Keep Vein Open Labs: Laboratory Tests 08/15/20 08/15/20 08/15/20 Range/Units 21:45 21:45 21:45 WBC 9.8 (4.5-11.0) K/uL RBC 5.40 (3.30-5.50) M/uL Hgb 15.8 H (12.0-15.0) g/dL Hct 47.0 (36.0-48.0) % MCV 87 (80-98) fL MCH 29 (27-31) pg MCHC 34 (32-36) % Plt Count 234 (150-400) K/uL Neut % (Auto) 62 (36-66) % Lymph % (Auto) 28 (24-44) % Fergus % (Auto) 7 H (2-6) % Eos % (Auto) 3 (2-4) % Baso % (Auto) 0 (0-1) % Sodium 140 (140-148) mmol/L Potassium 4.2 (3.6-5.2) mmol/L Chloride 104 (100-108) mmol/L Carbon Dioxide 26 (21-32) mmol/L Anion Gap 9.9 (5.0-14.0) mmol/L BUN 8 (7-18) mg/dL Creatinine 0.8 (0.6-1.0) mg/dL Est Cr Clr Drug Dosing 83.14 mL/min Estimated GFR (MDRD) > 60 (>60) Glucose 94 (74-106) mg/dL Lactic Acid 1.1 (0.4-2.0) mmol/L Calcium 8.7 (8.5-10.1) mg/dL Total Bilirubin 0.3 (0.2-1.0) mg/dL AST 10 L (15-37) U/L ALT 20 (12-78) U/L Alkaline Phosphatase 73 (46-116) U/L Total Protein 6.8 (6.4-8.2) g/dL Albumin 3.5 (3.4-5.0) g/dL Globulin 3.3 (2.3-3.5) g/dL Albumin/Globulin Ratio 1.1 L (1.2-2.2) Lipase 261 (73-393) U/L Urine Color (YELLOW) Urine Appearance (CLEAR) Urine pH (5.0-8.0) Ur Specific Apex (1.008-1.030) Urine Protein (NEGATIVE) mg/dL Urine Glucose (UA) (NEGATIVE) mg/dL Urine Ketones (NEGATIVE) mg/dL Urine Occult Blood (NEGATIVE) Urine Nitrite (NEGATIVE) Urine Bilirubin (NEGATIVE) Urine Urobilinogen (0.2-1.0) EU/dL Ur Leukocyte Esterase (NEGATIVE) Urine RBC (0-5) Urine WBC (0-5) Ur Epithelial Cells Amorphous Sediment Urine Bacteria Urine Mucus 08/15/20 Range/Units 22:31 WBC (4.5-11.0) K/uL RBC (3.30-5.50) M/uL Hgb (12.0-15.0) g/dL Hct (36.0-48.0) % MCV (80-98) fL MCH (27-31) pg MCHC (32-36) % Plt Count (150-400) K/uL Neut % (Auto) (36-66) % Lymph % (Auto) (24-44) % Fergus % (Auto) (2-6) % Eos % (Auto) (2-4) % Baso % (Auto) (0-1) % Sodium (140-148) mmol/L Potassium (3.6-5.2) mmol/L Chloride (100-108) mmol/L Carbon Dioxide (21-32) mmol/L Anion Gap (5.0-14.0) mmol/L BUN (7-18) mg/dL Creatinine (0.6-1.0) mg/dL Est Cr Clr Drug Dosing mL/min Estimated GFR (MDRD) (>60) Glucose (74-106) mg/dL Lactic Acid (0.4-2.0) mmol/L Calcium (8.5-10.1) mg/dL Total Bilirubin (0.2-1.0) mg/dL AST (15-37) U/L ALT (12-78) U/L Alkaline Phosphatase (46-116) U/L Total Protein (6.4-8.2) g/dL Albumin (3.4-5.0) g/dL Globulin (2.3-3.5) g/dL Albumin/Globulin Ratio (1.2-2.2) Lipase (73-393) U/L Urine Color Yellow (YELLOW) Urine Appearance Slightly cloudy A (CLEAR) Urine pH 5.5 (5.0-8.0) Ur Specific Apex 1.025 (1.008-1.030) Urine Protein Negative (NEGATIVE) mg/dL Urine Glucose (UA) Negative (NEGATIVE) mg/dL Urine Ketones Negative (NEGATIVE) mg/dL Urine Occult Blood Negative (NEGATIVE) Urine Nitrite Positive H (NEGATIVE) Urine Bilirubin Negative (NEGATIVE) Urine Urobilinogen 0.2 (0.2-1.0) EU/dL Ur Leukocyte Esterase Negative (NEGATIVE) Urine RBC 0-5 (0-5) Urine WBC 0-5 (0-5) Ur Epithelial Cells Few Amorphous Sediment Not seen Urine Bacteria Moderate Urine Mucus Few Meds: Medications Generic Name Dose Route Start Last Admin Trade Name Freq PRN Reason Stop Dose Admin Lactated Ringer's 1,000 mls @ 500 mls/hr 08/15/20 21:30 08/15/20 21:49 Ringers, Lactated IV 500 mls/hr ASDIRECTED APOLINAR Administration Sodium Chloride 80 mls @ 3 mls/sec 08/15/20 22:00 Normal Saline IV ASDIRECTED APOLINAR Iopamidol 150 ml 08/15/20 22:00 Isovue-300 (61%) IV . DIRECTED APOLINAR Sodium Chloride 10 ml 08/15/20 21:27 Saline Flush FLUSH ASDIRECTED PRN Keep Vein Open Discontinued Medications Generic Name Dose Route Start Last Admin Trade Name Freq PRN Reason Stop Dose Admin Fentanyl 50 mcg 08/15/20 21:29 08/15/20 21:46 Sublimaze IVPUSH 08/15/20 21:30 50 mcg ONETIME ONE Administration Fentanyl 100 mcg 08/15/20 22:26 08/15/20 22:34 Sublimaze IVPUSH 08/15/20 22:27 100 mcg ONETIME ONE Administration Ondansetron HCl 4 mg 08/15/20 21:29 08/15/20 21:46 Zofran IVPUSH 08/15/20 21:30 4 mg ONETIME ONE Administration Departure - Departure Time of Disposition: 23:31 Disposition: Home, Self-Care 01 Condition: Fair Clinical Impression: Abdominal pain Qualifiers: Abdominal location: left lower quadrant Qualified Code(s): R10.32 - Left lower quadrant pain - Discharge Information Instructions: Abdominal Pain, Adult, [id number] Referrals: Jessica Delaney MD [Primary Care Provider] - Forms: ED Department Discharge Additional Instructions: Use hydrocodone as needed for pain control, please call to the [facility] in the morning for an appointment time with Dr. Sofia's team on Sepsis Event Note (ED) - Evaluation Sepsis Screening Result: No Definite Risk - Focused Exam Vital Signs: Vital Signs Temp Pulse Resp BP Pulse Ox 08/15/20 22:52 60 124/75 08/15/20 22:27 66 129/83 08/15/20 21:12 96.7 F L 73 16 144/71 H 95 08/15/20 21:09 96.7 F L 73 16 144/71 H 95 - My Orders Last 24 Hours: My Active Orders 08/15/20 21:27 Sodium Chloride 0.9% [Saline Flush] 10 ml FLUSH ASDIRECTED PRN Peripheral IV Insertion Adult [OM.PC] Urgent 08/15/20 21:28 Peripheral IV Care [RC] . DIRECTED 08/15/20 21:30 Lactated Ringers [Ringers, Lactated] 1,000 ml IV ASDIRECTED 08/15/20 22:00 Iopamidol [Isovue-300 (61%)] 150 ml IV . DIRECTED Sodium Chloride 0.9% [Normal Saline] 80 ml IV ASDIRECTED 08/15/20 23:22 CULTURE URINE [RM] Urgent 08/15/20 23:29 fentaNYL [Sublimaze] 50 mcg IVPUSH ONETIME ONE - Assessment/Plan Last 24 Hours: My Active Orders 08/15/20 21:27 Sodium Chloride 0.9% [Saline Flush] 10 ml FLUSH ASDIRECTED PRN Peripheral IV Insertion Adult [OM.PC] Urgent 08/15/20 21:28 Peripheral IV Care [RC] . DIRECTED 08/15/20 21:30 Lactated Ringers [Ringers, Lactated] 1,000 ml IV ASDIRECTED 08/15/20 22:00 Iopamidol [Isovue-300 (61%)] 150 ml IV . DIRECTED Sodium Chloride 0.9% [Normal Saline] 80 ml IV ASDIRECTED 08/15/20 23:22 CULTURE URINE [RM] Urgent 08/15/20 23:29 fentaNYL [Sublimaze] 50 mcg IVPUSH ONETIME ONE Plan: Assessment Acuity = acute Site and laterality = abdominal pain complicated patient with known history of gastric bypass Etiology = unknown Manifestations = none Location of injury = Home Lab values = CBC, CMP, urinalysis unremarkable except for positive nitrates cultures pending CT scan shows no acute process Plan Call discussed case with Dr. Sofia at 3 recommended pain control follow-up in clinic on , prescription written for hydrocodone 5/325 1 tab p.o. 3 times daily PRN total #10 This note was dictated using [employer] voice recognition software please call with any questions on syntax or grammar.
[2020-08-15] MEDS ORDERED: Sodium Chloride 0.9% 80 ML IV SCH (22:00)
[2020-08-15] MEDS ORDERED: Iopamidol 612 MG/ML 100 ML Bottle IV SCH (22:00)
[2020-08-15 22:53] VITALS: BP 124/75; PULSE 60
--- NOTE | 2020-08-15 23:06 | CRLCT ---
INDICATION: Abdominal pain TECHNIQUE: CT abdomen and pelvis. Only small amount of intravenous contrast administered due to technical issues. COMPARISON: 02/27/2020 FINDINGS: Lower chest: Unremarkable. Liver: Unremarkable. Spleen: Unremarkable. Pancreas: Unremarkable. Gallbladder and bile ducts: Cholecystectomy. Adrenal glands: A 1.3 x 1.0 cm left adrenal nodule again seen. Kidneys: No hydronephrosis. A tiny right renal pelvic density on image 56 which could represent a punctate nonobstructive calcification. GI tract: Post gastric bypass changes again seen. No high-grade mechanical bowel obstruction. Nonspecific fluid filled pelvic small bowel segments. Post appendectomy changes. No significant pericolonic sentences. Vascular structures: Unremarkable. Lymph nodes: No abnormally enlarged lymph nodes. A borderline right external iliac lymph node again seen. Miscellaneous: No significant free fluid or free air. Mild subcutaneous edema. Pelvic Organs: Hysterectomy. A punctate calcifications in, versus adjacent to, a small urachal remnant off of the anterior bladder wall. Bones: Degenerative changes at the lumbosacral junction. IMPRESSION: Post gastric bypass changes again seen. No high-grade mechanical bowel obstruction. No diverticulitis. Nonspecific fluid-filled small bowel segments. Correlate clinically to exclude enteritis. A 1.3 cm left adrenal nodule again seen. If not previously evaluated, follow-up with adrenal CT or MRI. Dictated by Drew Sanchez MD @ 08/15/2020 11:05:14 PM Please note that all CT scans at this facility use dose modulation, iterative reconstruction, and/or weight-based dosing when appropriate to reduce radiation dose to as low as reasonably achievable. Dictated by: Drew Sanchez MD @ 08/15/2020 23:05:19 (Electronically Signed)
== END 2020-08-16 00:05 | disposition home or self-care (01) ==
LOC: JP.ED 20:48
DX: R10.32 Left lower quadrant pain (principal); R11.0 Nausea; J45.909 Unspecified asthma, uncomplicated; K21.9 Gastro-esophageal reflux disease without esophagitis; F41.9 Anxiety disorder, unspecified; F32.9 Major depressive disorder, single episode, unspecified; E66.9 Obesity, unspecified; E05.90 Thyrotoxicosis, unspecified without thyrotoxic crisis or storm; G43.909 Migraine, unspecified, not intractable, without status migrainosus; F17.210 Nicotine dependence, cigarettes, uncomplicated; Z88.1 Allergy status to other antibiotic agents; Z88.0 Allergy status to penicillin; Z88.6 Allergy status to analgesic agent; Z91.018 Allergy to other foods; Z88.8 Allergy status to other drugs, medicaments and biological substances; Z91.040 Latex allergy status; Z79.899 Other long term (current) drug therapy; Z90.710 Acquired absence of both cervix and uterus; Z90.49 Acquired absence of other specified parts of digestive tract; Z68.41 Body mass index [BMI] 40.0-44.9, adult
CPT/HCPCS: 36415; 74176; 80053; 81001; 83605; 83690; 85025; 87086; 96361; 96374; 96375; 96376; 99284; J2405; J3010; J7120; 87088; 87186

== ENCOUNTER 2020-08-18 15:32 | Inpatient (IN) | payer MEDICAID ==
[2020-08-18] MEDS ORDERED: HYDROmorphone 1 MG/ML Syringe ONE (16:49)
[2020-08-18] MEDS ORDERED: HYDROmorphone 1 MG/ML Syringe IVPUSH ONE ×2 (16:52→18:02)
--- NOTE | 2020-08-18 17:27 | EDM.PDOC ---
<Alaina Ding M - Last Filed: 08/18/20 17:21> ED HPI GENERAL MEDICAL PROBLEM - General Chief Complaint: Abdominal Pain Stated Complaint: ILL ABDOM. PAIN Time Seen by Provider: 08/18/20 15:45 Source of Information: Reports: Patient, RN, RN Notes Reviewed History Limitations: Reports: No Limitations - History of Present Illness INITIAL COMMENTS - FREE TEXT/NARRATIVE: Pt presents with continued LLQ pain. Was seen 08-15-20 at ER and again yesterday at gastric clinic. Sandra prescribed Bentyl. Does not seem to help. Pt is now back with increased pain and nausea. no fever, chills, SOB, or change in bowel habits. Ct was completed and no significant changes were noted. Duration: Constant, Getting Worse Location: Reports: Abdomen Quality: Reports: Ache, Stabbing Abdominal Pain Score (Numeric/FACES): 10 - Related Data Allergies Allergy/AdvReac Type Severity Reaction Status Date / Time amoxicillin Allergy Severe Anaphylactic Verified 08/15/20 21:13 Shock promethazine HCl Allergy Severe Anaphylactic Verified 08/15/20 21:13 [From Phenergan] Shock risperidone [From Risperdal] Allergy Severe Anaphylactic Verified 08/15/20 21:13 Shock atomoxetine Allergy Anxiety Verified 08/15/20 21:13 banana Allergy Itching Verified 08/15/20 21:13 clindamycin Allergy Rash Verified 08/15/20 21:13 ketorolac tromethamine Allergy Rash Verified 08/15/20 21:13 [From Toradol] latex Allergy Rash Verified 08/15/20 21:13 Latex, Natural Rubber Allergy Wheezing Verified 08/15/20 21:13 quetiapine Allergy Anxiety Verified 08/15/20 21:13 tramadol HCl [From Ultram] Allergy Hives Verified 08/15/20 21:13 varenicline Allergy Anxiety Verified 08/15/20 21:13 zolpidem [From Ambien] Allergy Anxiety Verified 08/15/20 21:13 atomoxetine HCl AdvReac Anxiety Verified 08/15/20 21:13 [From Strattera] cephalexin monohydrate AdvReac Dizziness Verified 08/15/20 21:13 [From Keflex] quetiapine fumarate AdvReac Irritabilit Verified 08/15/20 21:13 [From Seroquel] y trazodone AdvReac Dizziness Verified 08/15/20 21:13 zolpidem tartrate AdvReac Anxiety Verified 08/15/20 21:13 [From Edsonien] Home Meds: Home Meds Lisdexamfetamine [Vyvanse] 30 mg PO DAILY 03/01/16 [History] Cetirizine HCl [Zyrtec] 10 mg PO DAILY 09/19/18 [History] DULoxetine [Cymbalta] 90 mg PO DAILY 09/19/18 [History] Methimazole [Tapazole] 20 mg PO DAILY 09/19/18 [History] Metoprolol Tartrate [Lopressor] 25 mg PO BID 09/19/18 [History] Sennosides [Senna] 8.6 mg PO DAILY PRN 09/19/18 [History] lamoTRIgine [Lamictal] 200 tab PO DAILY 09/19/18 [History] metroNIDAZOLE [metroNIDAZOLE 0.75% Gel] 1 applic TOP BID 09/19/18 [History] rOPINIRole [Requip] 2 mg PO BEDTIME 09/19/18 [History] rOPINIRole HCl [Requip] 2 mg PO DAILY 01/01/19 [History] Albuterol [Proventil Neb Soln] 3 ml NEB TID PRN 02/18/19 [History] Pramoxine HCl [Prax] 1 applic TP QID 02/18/19 [History] Triamcinolone Acetonide [Kenalog 0.1% Crm] 1 applic TOP TID PRN 02/18/19 [Hi story] Lidocaine 2% [Xylocaine 2%] 10 ml TOP Q6H PRN 07/23/19 [History] Pantoprazole Sodium [Protonix] 40 mg PO DAILY 07/23/19 [History] Temazepam [Restoril] 30 mg PO BEDTIME 07/23/19 [History] Acetaminophen [Tylenol] 650 mg PO Q6H cup 07/30/19 [Rx] Celecoxib [CeleBREX] 200 mg PO DAILY@0800 cap 07/30/19 [Rx] Prochlorperazine [Compazine] 10 mg PO Q8H PRN 09/02/19 [History] Ondansetron [Zofran ODT] 4 mg PO Q6H PRN #10 tab.dis 02/28/20 [Rx] Pregabalin [Lyrica] 75 mg PO BID 03/10/20 [History] Dicyclomine [Bentyl] 20 mg PO QIDACANDBED PRN 06/27/20 [History] tiZANidine [Zanaflex] 1 tab PO Q6H PRN 06/27/20 [History] Cholecalciferol (Vitamin D3) [Vitamin D] 5,000 unit PO DAILY 08/15/20 [History] Multivit with Iron,Minerals [Complete Senior] 1 tab PO DAILY 08/15/20 [History] Multivitamin [Flintstones] 1 tab PO BID 08/15/20 [History] Past Medical History HEENT History: Reports: Impaired Vision, Otitis Media Other HEENT History: Bilateral tympanic membrane rupture. tonsillectomy. 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 rheumatoid arthritis Neurological History: Reports: Headaches, Chronic, Migraines Psychiatric History: Reports: ADHD, Anxiety, Depression, Psych Hospitalization(s), PTSD, Suicide Attempt, Suicidal Ideation, Other (See Below) Other Psychiatric History: Schizo effective disorder Endocrine/Metabolic History: Reports: Hyperthyroidism, Hypothyroidism, Obesity/BMI 30+ Hematologic History: Reports: Anemia, B12 Deficiency, Folic Acid Immunologic History: Reports: None Oncologic (Cancer) History: Reports: Cervix Dermatologic History: Reports: Eczema, Other (See Below) Other Dermatologic History: rosacia - Infectious Disease History Infectious Disease History: Reports: Chicken Pox Other Infectious Disease History: rectal worts - Past Surgical History Head Surgeries/Procedures: Reports: None HEENT Surgical History: Reports: Myringotomy w Tube(s), Oral Surgery, Tonsillectomy Cardiovascular Surgical History: Reports: None Respiratory Surgical History: Reports: None GI Surgical History: Reports: Appendectomy, Bariatric Procedure, Cholecystectomy, Colonoscopy, EGD, Hernia Repair/Other Female Surgical History: Reports: Hysterectomy Endocrine Surgical History: Reports: None Neurological Surgical History: Reports: None Musculoskeletal Surgical History: Reports: Carpal Tunnel, Ganglion Cyst, Other (See Below) Other Musculoskeletal Surgeries/Procedures:: Left ankle ORIF with hardware Dermatological Surgical History: Reports: None Social & Family History - Family History Family Medical History: Noncontributory Cardiac: Reports: Heart Murmur Respiratory: Reports: COPD Psychiatric: Reports: Depression, Schizophrenia - Caffeine Use Caffeine Use: Reports: None - Recreational Drug Use Recreational Drug Use: No - Living Situation & Occupation Living situation: Reports: Single Occupation: Disabled (lives with Domestic Partner in [place], [place]. One grown child 18 years old.) ED ROS GENERAL - Review of Systems Constitutional: Reports: Decreased Appetite HEENT: Reports: No Symptoms Respiratory: Reports: No Symptoms Cardiovascular: Reports: No Symptoms Endocrine: Reports: No Symptoms GI/Abdominal: Reports: Abdominal Pain, Nausea : Reports: No Symptoms Musculoskeletal: Reports: No Symptoms Skin: Reports: No Symptoms Neurological: Reports: No Symptoms Psychiatric: Reports: No Symptoms Hematologic/Lymphatic: Reports: No Symptoms Immunologic: Reports: No Symptoms ED EXAM, GI/ABD - Physical Exam Exam: See Below Exam Limited By: No Limitations General Appearance: Alert, WD/WN, Anxious Head: Normocephalic Respiratory/Chest: No Respiratory Distress Cardiovascular: Regular Rate, Rhythm GI/Abdominal Exam: Guarding, Tender (Female) Exam: Deferred Rectal (Female) Exam: Deferred Neurological: Alert, Oriented, CN II-XII Intact Psychiatric: Normal Affect Skin Exam: Warm, Dry Departure - Departure Disposition: Admitted As Inpatient 64 Clinical Impression: Abdominal pain Qualifiers: Abdominal location: upper abdomen, unspecified Qualified Code(s): R10.10 - Upper abdominal pain, unspecified - Discharge Information Sepsis Event Note (ED) - Evaluation Sepsis Screening Result: No Definite Risk <Hu Champion - Last Filed: 08/18/20 21:39> ED ROS GENERAL - Review of Systems Review Of Systems: See Below Course - Vital Signs Last Recorded V/S: Last Vital Signs Temp 96.4 F L 08/18/20 19:50 Pulse 65 08/18/20 19:50 Resp 18 08/18/20 19:50 BP 113/68 08/18/20 19:50 Pulse Ox 96 08/18/20 19:50 - Orders/Labs/Meds Orders: Active Orders 24 hr Category Date Time Status Iopamidol [Isovue-300 (61%)] Med 08/18/20 18:15 Active 150 ml IV . DIRECTED Sodium Chloride 0.9% [Normal Saline] 80 ml Med 08/18/20 18:15 Active IV ASDIRECTED Sodium Chloride 0.9% [Saline Flush] Med 08/18/20 18:07 Active 10 ml FLUSH ASDIRECTED PRN Medication Orders Acetaminophen (Tylenol) 650 mg PO Q6H APOLINAR Albuterol (Proventil Neb Soln) 2.5 mg NEB TID PRN PRN Reason: Shortness of Breath Celecoxib (Celebrex) 200 mg PO DAILY@0800 APOLINAR Cetirizine HCl (Zyrtec) 10 mg PO DAILY APOLINAR Cholecalciferol (Vitamin D3) 125 mcg PO DAILY APOLINAR Dicyclomine HCl (Bentyl) 20 mg PO QIDACANDBED PRN PRN Reason: Diarrhea Duloxetine HCl (Cymbalta) 90 mg PO DAILY [facility] Hydroxyzine HCl (Vistaril) 100 mg IM Q4H PRN PRN Reason: Pain Last Admin: 08/18/20 19:42 Dose: 100 mg Documented by: POLI Hydroxyzine HCl (Atarax) 25 mg PO Q4H PRN PRN Reason: Pain Sodium Chloride (Normal Saline) 80 mls @ 3 mls/sec IV ASDIRECTED [facility] Last Admin: 08/18/20 18:32 Dose: 3 mls/sec Documented by: TRISTAN Dextrose/Lactated Ringer's (Dextrose 5%-Lactated Ringers) 1,000 mls @ 150 mls/hr IV ASDIRECTED [facility] Last Admin: 08/18/20 20:06 Dose: 150 mls/hr Documented by: POLI Influenza Virus Vaccine (Fluzone Quad [id number] Syringe) 60 mcg IM .ONCE ONE Stop: 08/18/20 22:01 Iopamidol (Isovue-300 (61%)) 150 ml IV . DIRECTED [facility] Last Admin: 08/18/20 18:32 Dose: 150 ml Documented by: TRISTAN Lamotrigine (Lamotrigine) 20,000 mg PO DAILY APOLINAR Methimazole (Methimazole) 20 mg PO DAILY APOLINAR Metoclopramide HCl (Reglan) 10 mg IVPUSH Q6H PRN PRN Reason: Nausea Metoprolol Tartrate (Lopressor) 25 mg PO BID [facility] Non-Formulary Medication (Lisdexamfetamine [Vyvanse]) 30 mg PO DAILY APOLINAR Non-Formulary Medication (Pramoxine Hcl [Prax]) 1 applic TP QID APOLINAR Ondansetron HCl (Zofran) 4 mg IVPUSH Q4H PRN PRN Reason: Nausea/Vomiting Last Admin: 08/18/20 19:45 Dose: 4 mg Documented by: POLI Pantoprazole Sodium (Protonix Iv) 40 mg IVPUSH BID APOLINAR Pregabalin (Lyrica) 75 mg PO BID APOLINAR Prochlorperazine Maleate (Compazine) 10 mg PO Q8H PRN PRN Reason: nausea and vomiting Ropinirole HCl (Requip) 2 mg PO BEDTIME APOLINAR Ropinirole HCl (Requip) 2 mg PO DAILY APOLINAR Senna (Senna) 8.6 mg PO DAILY PRN PRN Reason: Constipation Sodium Chloride (Saline Flush) 10 ml FLUSH ASDIRECTED PRN PRN Reason: Keep Vein Open Last Admin: 08/18/20 18:32 Dose: 10 ml Documented by: Admin: 08/18/20 18:17 Dose: 10 ml Documented by: ZENAIDA Temazepam (Restoril) 30 mg PO BEDTIME APOLINAR Tizanidine HCl (Zanaflex) 4 mg PO Q6H PRN PRN Reason: Headache Labs: Laboratory Tests 08/18/20 08/18/20 08/18/20 Range/Units 17:34 17:37 17:44 WBC 12.5 H (4.5-11.0) K/uL RBC 5.47 (3.30-5.50) M/uL Hgb 15.9 H (12.0-15.0) g/dL Hct 48.2 H (36.0-48.0) % MCV 88 (80-98) fL MCH 29 (27-31) pg MCHC 33 (32-36) % Plt Count 276 (150-400) K/uL Neut % (Auto) 72 H (36-66) % Lymph % (Auto) 19 L (24-44) % Leake % (Auto) 7 H (2-6) % Eos % (Auto) 2 (2-4) % Baso % (Auto) 0 (0-1) % Sodium (140-148) mmol/L Potassium (3.6-5.2) mmol/L Chloride (100-108) mmol/L Carbon Dioxide (21-32) mmol/L Anion Gap (5.0-14.0) mmol/L BUN (7-18) mg/dL Creatinine (0.6-1.0) mg/dL Est Cr Clr Drug Dosing mL/min Estimated GFR (MDRD) (>60) Glucose (74-106) mg/dL Lactic Acid (0.4-2.0) mmol/L Calcium (8.5-10.1) mg/dL Magnesium 2.1 (1.8-2.4) mg/dL Lipase 183 (73-393) U/L 08/18/20 08/18/20 Range/Units 17:44 17:44 WBC (4.5-11.0) K/uL RBC (3.30-5.50) M/uL Hgb (12.0-15.0) g/dL Hct (36.0-48.0) % MCV (80-98) fL MCH (27-31) pg MCHC (32-36) % Plt Count (150-400) K/uL Neut % (Auto) (36-66) % Lymph % (Auto) (24-44) % Leake % (Auto) (2-6) % Eos % (Auto) (2-4) % Baso % (Auto) (0-1) % Sodium 138 L (140-148) mmol/L Potassium 4.6 (3.6-5.2) mmol/L Chloride 104 (100-108) mmol/L Carbon Dioxide 24 (21-32) mmol/L Anion Gap 14.6 H (5.0-14.0) mmol/L BUN 10 (7-18) mg/dL Creatinine 0.8 (0.6-1.0) mg/dL Est Cr Clr Drug Dosing 83.14 mL/min Estimated GFR (MDRD) > 60 (>60) Glucose 101 (74-106) mg/dL Lactic Acid 1.1 (0.4-2.0) mmol/L Calcium 9.1 (8.5-10.1) mg/dL Magnesium (1.8-2.4) mg/dL Lipase (73-393) U/L Meds: Medications Generic Name Dose Route Start Last Admin Trade Name Freq PRN Reason Stop Dose Admin Acetaminophen 650 mg 08/18/20 19:15 Tylenol PO Q6H APOLINAR Albuterol 2.5 mg 08/18/20 19:13 Proventil Neb Soln NEB TID PRN Shortness of Breath Celecoxib 200 mg 08/19/20 08:00 Celebrex PO DAILY@0800 APOLINAR Cetirizine HCl 10 mg 08/19/20 09:00 Zyrtec PO DAILY [facility] Cholecalciferol 125 mcg 08/19/20 09:00 Vitamin D3 PO DAILY [facility] Dicyclomine HCl 20 mg 08/18/20 19:49 Bentyl PO QIDACANDBED PRN Diarrhea Duloxetine HCl 90 mg 08/19/20 09:00 Cymbalta PO DAILY APOLINAR Hydroxyzine HCl 100 mg 08/18/20 19:11 08/18/20 19:42 Vistaril IM 100 mg Q4H PRN Administration Pain Hydroxyzine HCl 25 mg 08/18/20 19:11 Atarax PO Q4H PRN Pain Sodium Chloride 80 mls @ 3 mls/sec 08/18/20 18:15 08/18/20 18:32 Normal Saline IV 3 mls/sec ASDIRECTED APOLINAR Administration Dextrose/Lactated Ringer's 1,000 mls @ 150 mls/hr 08/18/20 19:15 08/18/20 20:06 Dextrose 5%-Lactated Ringers IV 150 mls/hr ASDIRECTED APOLINAR Administration Influenza Virus Vaccine 60 mcg 08/18/20 22:00 Fluzone Quad [id number] Syringe IM 08/18/20 22:01 .ONCE ONE Iopamidol 150 ml 08/18/20 18:15 08/18/20 18:32 Isovue-300 (61%) IV 150 ml . DIRECTED APOLINAR Administration Lamotrigine 20,000 mg 08/19/20 09:00 Lamotrigine PO DAILY APOLINAR Methimazole 20 mg 08/19/20 09:00 Methimazole PO DAILY [facility] Metoclopramide HCl 10 mg 08/18/20 19:09 Reglan IVPUSH Q6H PRN Nausea Metoprolol Tartrate 25 mg 08/18/20 21:00 Lopressor PO BID APOLINAR Non-Formulary Medication 30 mg 08/19/20 09:00 Lisdexamfetamine [Vyvanse] PO DAILY APOLINAR Non-Formulary Medication 1 applic 08/18/20 22:00 Pramoxine Hcl [Prax] TP QID APOLINAR Ondansetron HCl 4 mg 08/18/20 19:09 08/18/20 19:45 Zofran IVPUSH 4 mg Q4H PRN Administration Nausea/Vomiting Pantoprazole Sodium 40 mg 08/18/20 21:00 Protonix Iv IVPUSH BID [facility] Pregabalin 75 mg 08/18/20 21:00 Lyrica PO BID [facility] Prochlorperazine Maleate 10 mg 08/18/20 19:13 Compazine PO Q8H PRN nausea and vomiting Ropinirole HCl 2 mg 08/18/20 21:00 Requip PO BEDTIME APOLINAR Ropinirole HCl 2 mg 08/19/20 09:00 Requip PO DAILY APOLINAR Senna 8.6 mg 08/18/20 19:13 Senna PO DAILY PRN Constipation Sodium Chloride 10 ml 08/18/20 18:07 08/18/20 18:32 Saline Flush FLUSH 10 ml ASDIRECTED PRN Administration Keep Vein Open Temazepam 30 mg 08/18/20 21:00 Restoril PO BEDTIME APOLINAR Tizanidine HCl 4 mg 08/18/20 19:13 Zanaflex PO Q6H PRN Headache Discontinued Medications Generic Name Dose Route Start Last Admin Trade Name Freq PRN Reason Stop Dose Admin Hydromorphone HCl Confirm 08/18/20 16:49 08/18/20 18:16 Dilaudid Administered 08/18/20 16:50 Not Given Dose 1 mg .ROUTE .STK-MED ONE Hydromorphone HCl 1 mg 08/18/20 16:52 08/18/20 16:54 Dilaudid IVPUSH 08/18/20 16:53 1 mg ONETIME ONE Administration Hydromorphone HCl 1 mg 08/18/20 18:02 08/18/20 18:10 Dilaudid IVPUSH 08/18/20 18:03 1 mg ONETIME ONE Administration Influenza Virus Vaccine 1 each 08/18/20 21:04 Pharmacy To Dose - Influenza Vaccine IM 08/18/20 21:05 ONETIME ONE Metoclopramide HCl 5 mg 08/18/20 18:11 08/18/20 18:15 Reglan IVPUSH 08/18/20 18:12 5 mg ONETIME ONE Administration - Re-Assessments/Exams Free Text/Narrative Re-Assessment/Exam: 08/18/20 17:39 Patient continues to have abdominal pain, worsening in localized in the left upper quadrant. It is "different" than her previous pain. She has been evaluated twice in the last 2 days, CT scan is nonspecific. No fevers or chills. She developed increased nausea and vomiting this morning at 4 AM and it is been persistent all day. 1 mg of Dilaudid was not real beneficial. See H&P for details. Discussed with Sandra Armas, she agreed to admit her for further evaluation, CBC, CMP, lactic acid lipase were obtained. 08/18/20 19:14 IMPRESSION: Large amount of feces in the ascending and distal sigmoid portions of the colon. The remainder of the colon is air filled but nondistended. Left adrenal gland adenoma. Status post gastric bypass procedure, cholecystectomy and hysterectomy. 08/18/20 21:36 CT scan results are above, the rest of her labs were generally reassuring. Lactic acid was normal and lipase was normal. Departure - Departure Time of Disposition: 20:07 Sepsis Event Note (ED) - Focused Exam Vital Signs: Vital Signs Temp Pulse Resp BP Pulse Ox 08/18/20 18:04 75 117/78 94 L 08/18/20 15:36 96.3 F L 86 16 102/67 98 08/18/20 15:34 96.3 F L 86 16 102/67 98 - My Orders Last 24 Hours: My Active Orders 08/18/20 18:07 Sodium Chloride 0.9% [Saline Flush] 10 ml FLUSH ASDIRECTED PRN 08/18/20 18:15 Iopamidol [Isovue-300 (61%)] 150 ml IV . DIRECTED Sodium Chloride 0.9% [Normal Saline] 80 ml IV ASDIRECTED - Assessment/Plan Last 24 Hours: My Active Orders 08/18/20 18:07 Sodium Chloride 0.9% [Saline Flush] 10 ml FLUSH ASDIRECTED PRN 08/18/20 18:15 Iopamidol [Isovue-300 (61%)] 150 ml IV . DIRECTED Sodium Chloride 0.9% [Normal Saline] 80 ml IV ASDIRECTED Attestation - Student - Attestation Statement Attestation Statement: I personally performed or re-performed the physical examination and medical decision making. I have verified all student documentation or findings, including history, physical exam and/or medical decision making.
[2020-08-18] MEDS ORDERED: Metoclopramide 10 MG/2 ML SDV IVPUSH ONE (18:11)
[2020-08-18] MEDS ORDERED: Sodium Chloride 0.9% 80 ML IV SCH (18:15)
[2020-08-18] MEDS ORDERED: Iopamidol 612 MG/ML 150 ML Bottle IV SCH (18:15)
[2020-08-18] MEDS: Sodium Chloride 0.9% 10 ML Syringe FLUSH PRN ×2 (18:17→18:32)
[2020-08-18] MEDS ORDERED: Metoclopramide 10 MG/2 ML SDV IVPUSH PRN (19:09)
--- NOTE | 2020-08-18 19:10 | CRLCT ---
INDICATION: Increasing abdominal pain TECHNIQUE: CT abdomen and pelvis acquired with 150 cc Isovue 300 IV contrast. COMPARISON: August 15, 2020 FINDINGS: Lower chest: Unremarkable. Liver: Unremarkable. Spleen: Unremarkable. Pancreas: Unremarkable. Gallbladder and bile ducts: S/p cholecystectomy. Adrenal glands: 1.0 cm left adrenal gland nodule measuring 12 Hounsfield units in density. Kidneys: Unremarkable. GI tract: Status post gastric bypass procedure. Large amount of feces in the ascending and distal sigmoid portions of the colon. The remainder of the colon is air filled but nondistended. Appendix is not seen and may be surgically absent. Vascular structures: Unremarkable. Lymph nodes: Unremarkable. Miscellaneous: Unremarkable. No free air or significant free fluid. Pelvic Organs: Status post hysterectomy. Bones: Unremarkable for age. IMPRESSION: Large amount of feces in the ascending and distal sigmoid portions of the colon. The remainder of the colon is air filled but nondistended. Left adrenal gland adenoma. Status post gastric bypass procedure, cholecystectomy and hysterectomy. Please note that all CT scans at this facility use dose modulation, iterative reconstruction, and/or weight-based dosing when appropriate to reduce radiation dose to as low as reasonably achievable. Dictated by Jessica Hill MD @ Aug 18 2020 6:57PM Signed by Dr. Jessica Hill @ Aug 18 2020 7:07PM
[2020-08-18] MEDS ORDERED: hydrOXYzine HCL 100 MG/2 ML SDV IM PRN (19:11)
[2020-08-18] MEDS ORDERED: Albuterol 0.083% 2.5 MG/3 ML Neb Soln NEB PRN (19:13)
[2020-08-18] MEDS ORDERED: tiZANidine 4 MG Tab PO PRN (19:13)
[2020-08-18] MEDS ORDERED: Prochlorperazine 10 MG Tab PO PRN (19:13)
[2020-08-18] MEDS ORDERED: Sennosides 8.6 MG Tab PO PRN (19:13)
[2020-08-18] MEDS ORDERED: Acetaminophen Soln 650 MG/20.3 ML UD Cup PO PRN (19:15)
[2020-08-18] MEDS: Ondansetron 4 MG/2 ML SDV IVPUSH PRN (19:45)
[2020-08-18] MEDS ORDERED: Dicyclomine 10 MG Cap PO PRN (19:49)
[2020-08-18] MEDS: Dextrose 5%-Lactated Ringers 1,000 ML IV SCH (20:06)
[2020-08-18] MEDS ORDERED: rOPINIRole 1 MG Tab PO SCH (21:00)
[2020-08-18] MEDS: Temazepam 15 MG Cap PO SCH (21:46)
[2020-08-18] MEDS: hydrOXYzine HCl 25 MG Tab PO PRN (21:46)
[2020-08-18] MEDS: Pregabalin 75 MG Cap PO SCH (21:46)
[2020-08-18] MEDS: Metoprolol Tartrate 25 MG Tab PO SCH (21:47)
[2020-08-18] MEDS: Pantoprazole 40 MG Vial IVPUSH SCH (21:49)
[2020-08-18] MEDS ORDERED: FLU VACC QS2020-21(6MOS UP)/PF 60 MCG/0.5 ML SYRINGE IM ONE (22:00)
[2020-08-18] MEDS: rOPINIRole 1 MG Tab PO SCH (22:16)
[2020-08-19] MEDS: hydrOXYzine HCl 25 MG Tab PO PRN ×3 (02:24→12:09)
[2020-08-19] MEDS: Dextrose 5%-Lactated Ringers 1,000 ML IV SCH ×3 (02:24→20:09)
--- NOTE | 2020-08-19 06:09 | CRLCR ---
Indication: Abdominal pain Technique: Abdomen 2 view Comparison: Abdomen and pelvis CT 08/18/2020 Findings/Impression: Surgical clips in the right upper quadrant. Contrast within the bladder consistent with the history of recent CT. No definite evidence of obstruction with large amount of stool noted within the colon. Dictated by Yousuf Velasquez MD @ Aug 19 2020 6:06AM Signed by Dr. Yousuf Velasquez @ Aug 19 2020 6:07AM
[2020-08-19] MEDS ORDERED: rOPINIRole 1 MG Tab PO SCH (09:00)
[2020-08-19] MEDS ORDERED: LISDEXAMFETAMINE 30 MG PO SCH (09:00)
[2020-08-19] MEDS ORDERED: lamoTRIgine 100 MG Tab PO SCH (09:00)
--- NOTE | 2020-08-19 09:10 | PCM.HP.2 ---
H&P History of Present Illness - General Date of Service: 08/19/20 Admit Problem/Dx: Admission Diagnosis/Problem Admission Diagnosis/Problem Dehydration Source of Information: Patient History Limitations: Reports: No Limitations - History of Present Illness Initial Comments - Free Text/Narative: Keisha has been having abdominal pain on and off she states for 3 weeks. This past week she has been in the ED twice and clinic once. Pain is in the left lower quadrant associated with diarrhea, nausea and vomiting. The first CT Scan was negative and the second CT scan yesterday showed stool in the colon. Pain is a 8-9/10. Since coming into the ED yesterday she has had no emesis, continues with abdominal pain and had 2 BMs. Improves with: Reports: Medication Worsens with: Reports: None Associated Symptoms: Reports: Nausea/Vomiting Abdominal Pain Score (Numeric/FACES): 7 - Related Data Allergies/Adverse Reactions: Allergies Allergy/AdvReac Type Severity Reaction Status Date / Time amoxicillin Allergy Severe Anaphylactic Verified 08/15/20 21:13 Shock promethazine HCl Allergy Severe Anaphylactic Verified 08/15/20 21:13 [From Phenergan] Shock risperidone [From Risperdal] Allergy Severe Anaphylactic Verified 08/15/20 21:13 Shock atomoxetine Allergy Anxiety Verified 08/15/20 21:13 banana Allergy Itching Verified 08/15/20 21:13 clindamycin Allergy Rash Verified 08/15/20 21:13 ketorolac tromethamine Allergy Rash Verified 08/15/20 21:13 [From Toradol] latex Allergy Rash Verified 08/15/20 21:13 Latex, Natural Rubber Allergy Wheezing Verified 08/15/20 21:13 quetiapine Allergy Anxiety Verified 08/15/20 21:13 tramadol HCl [From Ultram] Allergy Hives Verified 08/15/20 21:13 varenicline Allergy Anxiety Verified 08/15/20 21:13 zolpidem [From Ambien] Allergy Anxiety Verified 08/15/20 21:13 atomoxetine HCl AdvReac Anxiety Verified 08/15/20 21:13 [From Strattera] cephalexin monohydrate AdvReac Dizziness Verified 08/15/20 21:13 [From Keflex] quetiapine fumarate AdvReac Irritabilit Verified 08/15/20 21:13 [From Seroquel] y trazodone AdvReac Dizziness Verified 08/15/20 21:13 zolpidem tartrate AdvReac Anxiety Verified 08/15/20 21:13 [From Edsonien] Home Medications: Home Meds Lisdexamfetamine [Vyvanse] 30 mg PO DAILY 03/01/16 [History] Cetirizine HCl [Zyrtec] 10 mg PO DAILY 09/19/18 [History] DULoxetine [Cymbalta] 90 mg PO DAILY 09/19/18 [History] Methimazole [Tapazole] 20 mg PO DAILY 09/19/18 [History] Metoprolol Tartrate [Lopressor] 25 mg PO BID 09/19/18 [History] Sennosides [Senna] 8.6 mg PO DAILY PRN 09/19/18 [History] lamoTRIgine [Lamictal] 200 tab PO DAILY 09/19/18 [History] metroNIDAZOLE [metroNIDAZOLE 0.75% Gel] 1 applic TOP BID 09/19/18 [History] rOPINIRole [Requip] 2 mg PO BID 09/19/18 [History] Albuterol [Proventil Neb Soln] 3 ml NEB TID PRN 02/18/19 [History] Pramoxine HCl [Prax] 1 applic TP QID 02/18/19 [History] Triamcinolone Acetonide [Kenalog 0.1% Crm] 1 applic TOP TID PRN 02/18/19 [History] Lidocaine 2% [Xylocaine 2%] 10 ml TOP Q6H PRN 07/23/19 [History] Pantoprazole Sodium [Protonix] 40 mg PO DAILY 07/23/19 [History] Temazepam [Restoril] 30 mg PO BEDTIME 07/23/19 [History] Acetaminophen [Tylenol] 650 mg PO Q6H cup 07/30/19 [Rx] Celecoxib [CeleBREX] 200 mg PO DAILY@0800 cap 07/30/19 [Rx] Prochlorperazine [Compazine] 10 mg PO Q8H PRN 09/02/19 [History] Ondansetron [Zofran ODT] 4 mg PO Q6H PRN #10 tab.dis 02/28/20 [Rx] Pregabalin [Lyrica] 75 mg PO BID 03/10/20 [History] Dicyclomine [Bentyl] 20 mg PO QIDACANDBED PRN 06/27/20 [History] tiZANidine [Zanaflex] 4 mg PO Q6H PRN 06/27/20 [History] Cholecalciferol (Vitamin D3) [Vitamin D] 5,000 unit PO DAILY 08/15/20 [History] Multivit with Iron,Minerals [Complete Senior] 1 tab PO DAILY 08/15/20 [History] Multivitamin [Flintstones] 1 tab PO BID 08/15/20 [History] Past Medical History HEENT History: Reports: Impaired Vision, Otitis Media Other HEENT History: Bilateral tympanic membrane rupture. tonsillectomy. recent surgery septum 08/20/18 Cardiovascular History: Reports: Other (See Below) Other Cardiovascular History: Heart palpatations Respiratory History: Reports: Asthma, Bronchitis, Recurrent, Pneumonia, Recurrent, Sleep Apnea, SOB Gastrointestinal History: Reports: Gastritis, GERD Genitourinary History: Reports: Renal Calculus, UTI, Recurrent [employer] History: Reports: Other OB/BYN History: Hysterectomy with right oophrectomy Musculoskeletal History: Reports: Fracture, Fibromyalgia, RA Other Musculoskeletal History: fibromyalgia. rheumatoid arthritis Neurological History: Reports: Headaches, Chronic, Migraines Psychiatric History: Reports: ADHD, Anxiety, Depression, Psych Hospitalization(s), PTSD, Suicide Attempt, Suicidal Ideation, Other (See Below) Other Psychiatric History: Schizo effective disorder Endocrine/Metabolic History: Reports: Hyperthyroidism, Hypothyroidism, Obesity/BMI 30+ Hematologic History: Reports: Anemia, B12 Deficiency, Folic Acid Immunologic History: Reports: None Oncologic (Cancer) History: Reports: Cervix Dermatologic History: Reports: Eczema, Other (See Below) Other Dermatologic History: rosacia - Infectious Disease History Infectious Disease History: Reports: Chicken Pox Other Infectious Disease History: rectal worts - Past Surgical History Head Surgeries/Procedures: Reports: None HEENT Surgical History: Reports: Myringotomy w Tube(s), Oral Surgery, Tonsillectomy Cardiovascular Surgical History: Reports: None Respiratory Surgical History: Reports: None GI Surgical History: Reports: Appendectomy, Bariatric Procedure, Cholecystectomy, Colonoscopy, EGD, Hernia Repair/Other Female Surgical History: Reports: Hysterectomy Endocrine Surgical History: Reports: None Neurological Surgical History: Reports: None Musculoskeletal Surgical History: Reports: Carpal Tunnel, Ganglion Cyst, Other (See Below) Other Musculoskeletal Surgeries/Procedures:: Left ankle ORIF with hardware Dermatological Surgical History: Reports: None Social & Family History - Family History Family Medical History: Noncontributory Cardiac: Reports: Heart Murmur Respiratory: Reports: COPD Psychiatric: Reports: Depression, Schizophrenia - Tobacco Use Smoking Status *Q: Current Every Day Smoker Years of Tobacco use: 23 Packs/Tins Daily: 0.5 Used Tobacco, but Quit: No Second Hand Smoke Exposure: No - Caffeine Use Caffeine Use: Reports: Coffee - Recreational Drug Use Recreational Drug Use: No - Living Situation & Occupation Living situation: Reports: Single Occupation: Disabled (lives with Domestic Partner in [place], [place]. One grown child 18 years old.) H&P Review of Systems - Review of Systems: Review Of Systems: Comprehensive ROS is negative, except as noted in HPI. Exam - Exam Exam: See Below - Vital Signs Vital Signs: Last Vital Signs Temp 97.1 F 08/19/20 07:58 Pulse 55 L 08/19/20 07:58 Resp 16 08/19/20 02:27 BP 118/65 08/19/20 07:58 Pulse Ox 95 08/19/20 07:58 Weight: 255 lb - Exam Quality Assessment: DVT Prophylaxis General: Alert, Oriented, Cooperative HEENT: PERRLA Neck: Supple, Trachea Midline Lungs: Clear to Auscultation, Normal Respiratory Effort Cardiovascular: Regular Rate, Regular Rhythm GI/Abdominal Exam: Normal Bowel Sounds, Soft, Non-Tender, No Distention (Female) Exam: Deferred Rectal (Female) Exam: Deferred Back Exam: Normal Inspection Extremities: Normal Inspection, Normal Range of Motion Skin: Warm, Dry, Intact Neurological: Cranial Nerves Intact, Reflexes Equal Bilateral Neuro Extensive - Mental Status: Alert, Oriented x3, Normal Mood/Affect Neuro Extensive - Motor, Sensory, Reflexes: CN II-XII Intact, Normal Gait, Normal Reflexes Psychiatric: Alert, Normal Affect, Normal Mood - Patient Data Lab Results Last 24 hrs: Laboratory Results - last 24 hr 08/18/20 08/18/20 08/18/20 Range/Units 17:34 17:37 17:44 WBC 12.5 H (4.5-11.0) K/uL RBC 5.47 (3.30-5.50) M/uL Hgb 15.9 H (12.0-15.0) g/dL Hct 48.2 H (36.0-48.0) % MCV 88 (80-98) fL MCH 29 (27-31) pg MCHC 33 (32-36) % Plt Count 276 (150-400) K/uL Neut % (Auto) 72 H (36-66) % Lymph % (Auto) 19 L (24-44) % Bourbon % (Auto) 7 H (2-6) % Eos % (Auto) 2 (2-4) % Baso % (Auto) 0 (0-1) % Sodium (140-148) mmol/L Potassium (3.6-5.2) mmol/L Chloride (100-108) mmol/L Carbon Dioxide (21-32) mmol/L Anion Gap (5.0-14.0) mmol/L BUN (7-18) mg/dL Creatinine (0.6-1.0) mg/dL Est Cr Clr Drug Dosing mL/min Estimated GFR (MDRD) (>60) Glucose (74-106) mg/dL Lactic Acid (0.4-2.0) mmol/L Calcium (8.5-10.1) mg/dL Magnesium 2.1 (1.8-2.4) mg/dL Lipase 183 (73-393) U/L 08/18/20 08/18/20 Range/Units 17:44 17:44 WBC (4.5-11.0) K/uL RBC (3.30-5.50) M/uL Hgb (12.0-15.0) g/dL Hct (36.0-48.0) % MCV (80-98) fL MCH (27-31) pg MCHC (32-36) % Plt Count (150-400) K/uL Neut % (Auto) (36-66) % Lymph % (Auto) (24-44) % Bourbon % (Auto) (2-6) % Eos % (Auto) (2-4) % Baso % (Auto) (0-1) % Sodium 138 L (140-148) mmol/L Potassium 4.6 (3.6-5.2) mmol/L Chloride 104 (100-108) mmol/L Carbon Dioxide 24 (21-32) mmol/L Anion Gap 14.6 H (5.0-14.0) mmol/L BUN 10 (7-18) mg/dL Creatinine 0.8 (0.6-1.0) mg/dL Est Cr Clr Drug Dosing 83.14 mL/min Estimated GFR (MDRD) > 60 (>60) Glucose 101 (74-106) mg/dL Lactic Acid 1.1 (0.4-2.0) mmol/L Calcium 9.1 (8.5-10.1) mg/dL Magnesium (1.8-2.4) mg/dL Lipase (73-393) U/L Result Diagrams: 08/18/20 17:44 08/18/20 17:44 Sepsis Event Note - Evaluation Sepsis Screening Result: No Definite Risk - Focused Exam Vital Signs: Vital Signs Temp Pulse Pulse Resp BP BP Pulse Ox 08/19/20 07:58 97.1 F 55 L 118/65 95 08/19/20 02:27 96.5 F L 62 16 105/64 95 08/18/20 23:25 96.5 F L 59 L 14 93/56 L 95 08/18/20 21:47 65 113/68 - Problem List (1) Abdominal pain SNOMED Code(s): 66372306 ICD Code: R10.9 - UNSPECIFIED ABDOMINAL PAIN Status: Acute Current Visit: Yes Qualifiers: Abdominal location: upper abdomen, unspecified Qualified Code(s): R10.10 - Upper abdominal pain, unspecified (2) Fecal retention SNOMED Code(s): 87850244 ICD Code: K59.00 - CONSTIPATION, UNSPECIFIED Status: Acute Current Visit: No Qualifiers: Constipation type: unspecified constipation type Qualified Code(s): K59.00 - Constipation, unspecified Problem List Initiated/Reviewed/Updated: Yes Orders Last 24hrs: Active Orders 24 hr Category Date Time Status Admission Diagnosis [ADT] Stat ADT 08/18/20 18:57 Ordered Admission Status [Patient Status] [ADT] Routine ADT 08/18/20 19:07 Active Enema [RC] ASDIRECTED Care 08/19/20 07:55 Active Influenza Vaccine Charge [RC] .DISCHARGE Care 08/18/20 21:04 Active Intake and Output [RC] ASDIRECTED Care 08/18/20 19:08 Active RT Aerosol Therapy [RC] ASDIRECTED Care 08/18/20 19:15 Active Vital Signs [RC] Q4H Care 08/18/20 19:08 Active Clear Liquid Diet [DIET] Diet 08/19/20 Breakfast Active Abdomen 2V AP Flat Upright [CR] DAILY Exams 08/20/20 04:00 Ordered Abdomen 2V AP Flat Upright [CR] DAILY Exams 08/21/20 04:00 Ordered Abdomen 2V AP Flat Upright [CR] DAILY Exams 08/22/20 04:00 Ordered CBC W/O DIFF,HEMOGRAM [HEME] Timed Lab 08/20/20 04:00 Ordered COMPREHENSIVE METABOLIC PN,CMP [CHEM] Timed Lab 08/20/20 04:00 Ordered MAGNESIUM [CHEM] Timed Lab 08/20/20 04:00 Ordered PHOSPHORUS [CHEM] Timed Lab 08/20/20 04:00 Ordered Acetaminophen [Tylenol] Med 08/18/20 19:15 Active 650 mg PO Q6H PRN Albuterol [Proventil Neb Soln] Med 08/18/20 19:13 Active 2.5 mg NEB TID PRN Celecoxib [CeleBREX] Med 08/19/20 08:00 Active 200 mg PO DAILY@0800 Cetirizine [ZyrTEC] Med 08/19/20 09:00 Active 10 mg PO DAILY Cholecalciferol (Vitamin D3) [Vitamin D3] Med 08/19/20 09:00 Active 125 mcg PO DAILY DULoxetine [Cymbalta] Med 08/19/20 09:00 Active 90 mg PO DAILY Dextrose 5%-Lactated Ringers 1,000 ml Med 08/19/20 07:59 Active IV ASDIRECTED Dicyclomine [Bentyl] Med 08/18/20 19:49 Active 20 mg PO QIDACANDBED PRN Lisdexamfetamine [Vyvanse] Med 08/19/20 09:00 Pending 30 mg PO DAILY Metoclopramide [Reglan] Med 08/18/20 19:09 Active 10 mg IVPUSH Q6H PRN Metoprolol Tartrate [Lopressor] Med 08/18/20 21:00 Active 25 mg PO BID Ondansetron [Zofran] Med 08/18/20 19:09 Active 4 mg IVPUSH Q4H PRN Pantoprazole [ProTONIX IV] Med 08/18/20 21:00 Active 40 mg IVPUSH BID Pramoxine HCl [Prax] Med 08/18/20 22:00 Pending 1 applic TP QID Pregabalin [Lyrica] Med 08/18/20 21:00 Active 75 mg PO BID Prochlorperazine [Compazine] Med 08/18/20 19:13 Active 10 mg PO Q8H PRN Sennosides [Senna] Med 08/18/20 19:13 Active 8.6 mg PO DAILY PRN Sodium Chloride 0.9% [Normal Saline] 80 ml Med 08/18/20 18:15 Active IV ASDIRECTED Sodium Chloride 0.9% [Saline Flush] Med 08/18/20 18:07 Active 10 ml FLUSH ASDIRECTED PRN Temazepam [Restoril] Med 08/18/20 21:00 Active 30 mg PO BEDTIME bisacodyL [Dulcolax] Med 08/19/20 09:00 Active 10 mg PO BID hydrOXYzine HCL [Atarax] Med 08/18/20 19:11 Active 25 mg PO Q4H PRN hydrOXYzine HCL [Vistaril] Med 08/18/20 19:11 Active 100 mg IM Q4H PRN lamoTRIgine Med 08/19/20 09:00 Active 20,000 mg PO DAILY methIMAzole Med 08/19/20 09:00 Active 20 mg PO DAILY polyethylene glycoL 3350 [MiraLAX] Med 08/19/20 09:30 Once 119 gm PO ONETIME ONE rOPINIRole [Requip] Med 08/18/20 22:00 Active 2 mg PO BID tiZANidine [Zanaflex] Med 08/18/20 19:13 Active 4 mg PO Q6H PRN Sequential Compression Device [OM.PC] Routine Oth 08/18/20 19:08 Ordered Medication Orders Acetaminophen (Tylenol) 650 mg PO Q6H PRN PRN Reason: PAIN Albuterol (Proventil Neb Soln) 2.5 mg NEB TID PRN PRN Reason: Shortness of Breath Bisacodyl (Dulcolax) 10 mg PO BID APOLINAR Celecoxib (Celebrex) 200 mg PO DAILY@0800 APOLINAR Cetirizine HCl (Zyrtec) 10 mg PO DAILY APOLINAR Cholecalciferol (Vitamin D3) 125 mcg PO DAILY APOLINAR Dicyclomine HCl (Bentyl) 20 mg PO QIDACANDBED PRN PRN Reason: Diarrhea Duloxetine HCl (Cymbalta) 90 mg PO DAILY [facility] Hydroxyzine HCl (Vistaril) 100 mg IM Q4H PRN PRN Reason: Pain Last Admin: 08/18/20 19:42 Dose: 100 mg Documented by: POLI Hydroxyzine HCl (Atarax) 25 mg PO Q4H PRN PRN Reason: Pain Last Admin: 08/19/20 07:47 Dose: 25 mg Documented by: Admin: 08/19/20 02:24 Dose: 25 mg Documented by: Admin: 08/18/20 21:46 Dose: 25 mg Documented by: POLI Sodium Chloride (Normal Saline) 80 mls @ 3 mls/sec IV ASDIRECTED [facility] Last Admin: 08/18/20 18:32 Dose: 3 mls/sec Documented by: TRISTAN Dextrose/Lactated Ringer's (Dextrose 5%-Lactated Ringers) 1,000 mls @ 100 mls/hr IV ASDIRECTED [facility] Lamotrigine (Lamotrigine) 20,000 mg PO DAILY [facility] Methimazole (Methimazole) 20 mg PO DAILY [facility] Metoclopramide HCl (Reglan) 10 mg IVPUSH Q6H PRN PRN Reason: Nausea Metoprolol Tartrate (Lopressor) 25 mg PO BID [facility] Last Admin: 08/18/20 21:47 Dose: 25 mg Documented by: POLI Non-Formulary Medication (Lisdexamfetamine [Vyvanse]) 30 mg PO DAILY [facility] Non-Formulary Medication (Pramoxine Hcl [Prax]) 1 applic TP QID [facility] Ondansetron HCl (Zofran) 4 mg IVPUSH Q4H PRN PRN Reason: Nausea/Vomiting Last Admin: 08/18/20 19:45 Dose: 4 mg Documented by: POLI Pantoprazole Sodium (Protonix Iv) 40 mg IVPUSH BID [facility] Last Admin: 08/18/20 21:49 Dose: 40 mg Documented by: POLI Polyethylene Glycol (Miralax) 119 gm PO ONETIME ONE Stop: 08/19/20 09:31 Pregabalin (Lyrica) 75 mg PO BID [facility] Last Admin: 08/18/20 21:46 Dose: 75 mg Documented by: POLI Prochlorperazine Maleate (Compazine) 10 mg PO Q8H PRN PRN Reason: nausea and vomiting Ropinirole HCl (Requip) 2 mg PO BID [facility] Last Admin: 08/18/20 22:16 Dose: 2 mg Documented by: POLI Senna (Senna) 8.6 mg PO DAILY PRN PRN Reason: Constipation Sodium Chloride (Saline Flush) 10 ml FLUSH ASDIRECTED PRN PRN Reason: Keep Vein Open Last Admin: 08/18/20 18:32 Dose: 10 ml Documented by: Admin: 08/18/20 18:17 Dose: 10 ml Documented by: ZENAIDA Temazepam (Restoril) 30 mg PO BEDTIME [facility] Last Admin: 08/18/20 21:46 Dose: 30 mg Documented by: POLI Tizanidine HCl (Zanaflex) 4 mg PO Q6H PRN PRN Reason: Headache Assessment: Abdominal Pain Fecal Retention/Constipation UTI - Ecoli Plan: See orders in [facility] Plan to stay for 2 nights and 2 days Schedule UGI with Small Bowel Follow Through in [place]
[2020-08-19] MEDS ORDERED: Polyethylene Glycol 3350 Powder 119 GM Bottle PO ONE (09:30)
[2020-08-19] MEDS: Celecoxib 200 MG Cap PO SCH (09:34)
[2020-08-19] MEDS: DULoxetine 30 MG Cap PO SCH (09:35)
[2020-08-19] MEDS: Bisacodyl 5 MG Tab PO SCH ×2 (09:36→21:59)
[2020-08-19] MEDS: Metoprolol Tartrate 25 MG Tab PO SCH ×2 (09:37→21:59)
[2020-08-19] MEDS: Pregabalin 75 MG Cap PO SCH ×2 (09:38→22:08)
[2020-08-19] MEDS: Cholecalciferol (Vitamin D3) 25 MCG Tab PO SCH (09:38)
[2020-08-19] MEDS: Methimazole 5 MG Tab PO SCH (09:39)
[2020-08-19] MEDS: rOPINIRole 1 MG Tab PO SCH ×2 (09:39→21:59)
[2020-08-19] MEDS: Pantoprazole 40 MG Vial IVPUSH SCH ×2 (09:40→22:08)
[2020-08-19] MEDS: Cetirizine 10 MG Tab PO SCH (09:40)
[2020-08-19] MEDS: Ondansetron 4 MG/2 ML SDV IVPUSH PRN ×2 (11:53→17:59)
[2020-08-19] MEDS: lamoTRIgine 25 MG Tab PO SCH (12:08)
[2020-08-19] MEDS: Sulfamethoxazole/Trimethoprim 800-160 MG Tab PO SCH ×2 (12:08→21:59)
[2020-08-19] MEDS: VYVANSE 50 MG PO SCH (17:09)
[2020-08-19] MEDS: PRAMOXINE HCL EARBOTH SCH ×3 (17:44→23:08)
[2020-08-19] MEDS: Temazepam 15 MG Cap PO SCH (22:07)
[2020-08-20] MEDS ORDERED: Iopamidol 612 MG/ML 50 ML SDV PO ONE (03:46)
--- NOTE | 2020-08-20 05:40 | CRLCR ---
Indication: Abdominal pain, constipation. Technique: Abdomen 2 view, 4 films Comparison: None Findings/Impression: Surgical clips in the upper abdomen. Somewhat nonspecific bowel gas pattern without convincing evidence of obstruction. Suture line within the left abdomen. Dictated by Yousuf Velasquez MD @ Aug 20 2020 5:37AM Signed by Dr. Yousuf Velasquez @ Aug 20 2020 5:39AM
--- NOTE | 2020-08-20 05:44 | CRLCR ---
Indication: Abdominal pain Technique: Abdomen 2 view Comparison: Abdominal series 08/20/2020 Findings/Impression: Initial film shows esophagojejunostomy with contrast extending into the proximal small bowel. Follow-up film 15 minutes later shows contrast extending further into the small bowel with a mid small bowel loop borderline in caliber. Suggest follow-up imaging in 2 hours to reassess transit. Dictated by Yousuf Velasquez MD @ Aug 20 2020 5:40AM Signed by Dr. Yousuf Velasquez @ Aug 20 2020 5:42AM
[2020-08-20] MEDS: PRAMOXINE HCL EARBOTH SCH (06:16)
--- NOTE | 2020-08-20 07:01 | CRLCR ---
INDICATION: ABDOMINAL PAIN, RECOMMENDED FU FROM UGI DONE AT 0400 TODAY HISTORY: Abdominal pain. Followup upper GI. COMPARISON: 08/20/2020. TECHNIQUE: Abdomen, 2 views. FINDINGS: Positive enteric contrast media is present throughout the colon. There is no plain film evidence for pneumoperitoneum. Surgical clips in the right upper quadrant, consistent with cholecystectomy. Lung bases are clear. IMPRESSION: Contrast is present throughout the colon. No evidence for a small bowel obstruction. Dictated by Colin Fenton MD @ 08/20/2020 7:01:10 AM Dictated by: Colin Fenton MD @ 08/20/2020 07:01:22 (Electronically Signed)
[2020-08-20 07:12] VITALS: BP 135/78
[2020-08-20] MEDS: Celecoxib 200 MG Cap PO SCH (07:15)
[2020-08-20] MEDS: DULoxetine 30 MG Cap PO SCH (09:24)
[2020-08-20] MEDS: Bisacodyl 5 MG Tab PO SCH (09:24)
[2020-08-20] MEDS: lamoTRIgine 25 MG Tab PO SCH (09:25)
[2020-08-20] MEDS: Metoprolol Tartrate 25 MG Tab PO SCH (09:25)
[2020-08-20] MEDS: rOPINIRole 1 MG Tab PO SCH (09:27)
[2020-08-20] MEDS: Sulfamethoxazole/Trimethoprim 800-160 MG Tab PO SCH (09:27)
[2020-08-20] MEDS: Methimazole 5 MG Tab PO SCH (09:27)
[2020-08-20] MEDS: Cholecalciferol (Vitamin D3) 25 MCG Tab PO SCH (09:28)
[2020-08-20] MEDS: Cetirizine 10 MG Tab PO SCH (09:28)
[2020-08-20] MEDS: VYVANSE 50 MG PO SCH (09:34)
[2020-08-20] MEDS: Pantoprazole 40 MG Vial IVPUSH SCH (09:34)
[2020-08-20 09:36] VITALS: PULSE 64
[2020-08-20] MEDS: Pregabalin 75 MG Cap PO SCH (09:37)
--- NOTE | 2020-08-21 09:20 | DISCH ---
ADMISSION DIAGNOSES: 1. Dehydration. 2. Constipation. 3. Constipation associated with nausea and vomiting, confirmed by CT scan. 4. Urinary tract infection. DISCHARGE DIAGNOSES: 1. Constipation, resolved. 2. Urinary tract infection. HISTORY: Keisha has had abdominal pain on and off for 3 weeks. On the day of admission, she started having nausea and vomiting associated with diarrhea. A CT scan repeated from the first time she was in the ER showed large amount of feces in the ascending and descending sigmoid portion of the colon. This was a new finding. She was admitted to the hospital. She also had urine and urine culture done prior at her 1st ED visit and the culture grew out E coli. Keisha was able to be discharged on 08/20/2020 without any complications. HOSPITAL COURSE: Admission on 08/18/2020. Followup x-ray, abdominal x-ray continued to show stool in the colon. She was given MiraLAX 119 g, started on Bactrim DS orally b.i.d. for bladder infection. Clear liquid diet. She started having bowel movement shortly after the MiraLAX was given and followup x-ray showed that the stool had cleared on upper GI with small bowel follow-through, that contrast extended into the small bowel 15 minutes after the contrast was drunk. The followup film 2 hours later revealed that there was contrast throughout the colon and no evidence for bowel obstruction. REVIEW OF SYSTEMS: HEENT: Negative. NECK: Negative. CHEST: No chest pain, shortness of breath. LUNGS: No cough. ABDOMEN: Denies any further pain. No nausea, vomiting since in the hospital. Pain has subsided completely. GENITOURINARY: Negative for UTI signs and symptoms. EXTREMITIES: Negative for any new joint pain. NEUROLOGIC: Negative for headache, dizziness, loss of coordination. PSYCHIATRIC: Stable on medications. SKIN: No rash. Remainder of review of systems negative for any pertinent positives and negatives. OBJECTIVE: GENERAL: Keisha Workman is a 35-year-old female. VITAL SIGNS: Height is 5 feet 4 inches, weight is 255 pounds. TPR is 97, 61, 16. Blood pressure 135/78. HEENT: Negative. NECK: Supple. HEART: Regular rate and rhythm. LUNGS: Clear. ABDOMEN: Soft, nontender. EXTREMITIES: Without peripheral edema. NEUROLOGIC: Intact. PSYCHIATRIC: Mood and affect appropriate. DISPOSITION: Discharged to home. CONDITION: Stable and improving. FOLLOWUP: Appointment with Sandra Armas PA-C, at [facility] on 08/31 at 11:00 a.m. to have urine rechecked at that time. She is to start new medications of; 1. MiraLAX 34 g p.o. daily, #60 with 11 refills. 2. Senna 2 tablets p.o. at bedtime, #100 and 4 refills. 3. Septra DS 1 tablet p.o. b.i.d., #20. Resume all home medications. DIET: Step 2 gastric bypass diet with cereal for 2 weeks. ACTIVITY: As tolerated. Notify provider if any fever, increased pain, nausea, or vomiting.
[2020-08-26] MEDS ORDERED: lamoTRIgine 25 MG Tab PO SCH (09:00)
== END 2020-08-20 09:58 | disposition home or self-care (01) | DRG 690 ==
LOC: JP.ED 15:32 → JP.2SS 18:57
PROVIDERS: ADMIT Physician Assistant Medical; ATTEND Physician Assistant Medical
DX: N39.0 Urinary tract infection, site not specified (principal); Z68.42 Body mass index [BMI] 45.0-49.9, adult; E86.0 Dehydration; K59.00 Constipation, unspecified; H54.7 Unspecified visual loss; K21.9 Gastro-esophageal reflux disease without esophagitis; J45.909 Unspecified asthma, uncomplicated; M79.7 Fibromyalgia; M06.9 Rheumatoid arthritis, unspecified; G43.909 Migraine, unspecified, not intractable, without status migrainosus; F90.9 Attention-deficit hyperactivity disorder, unspecified type; F41.9 Anxiety disorder, unspecified; F32.9 Major depressive disorder, single episode, unspecified; F43.10 Post-traumatic stress disorder, unspecified; F25.9 Schizoaffective disorder, unspecified; E03.9 Hypothyroidism, unspecified; E05.90 Thyrotoxicosis, unspecified without thyrotoxic crisis or storm; E66.9 Obesity, unspecified; D64.9 Anemia, unspecified; F17.210 Nicotine dependence, cigarettes, uncomplicated; E53.8 Deficiency of other specified B group vitamins; Z90.49 Acquired absence of other specified parts of digestive tract; Z98.84 Bariatric surgery status; Z88.1 Allergy status to other antibiotic agents; Z91.040 Latex allergy status; Z88.6 Allergy status to analgesic agent; Z88.8 Allergy status to other drugs, medicaments and biological substances; Z88.5 Allergy status to narcotic agent; Z79.899 Other long term (current) drug therapy; Z90.89 Acquired absence of other organs; Z87.01 Personal history of pneumonia (recurrent); Z87.442 Personal history of urinary calculi; Z87.440 Personal history of urinary (tract) infections; Z90.710 Acquired absence of both cervix and uterus
CPT/HCPCS: 36415; 74018; 74019; 74177; 74240; 80048; 80053; 83605; 83690; 83735; 84100; 85025; 85027; 90686; 96374; 96375; 96376; 99284; 99285-25; A9270-GY; C9113; G0008; J1170; J2405; J2765; J3410; J7050; J7121; Q9967

== ENCOUNTER 2020-09-12 19:15 | Emergency (ER) | payer MEDICAID ==
[2020-09-12 21:15] VITALS: BP 127/80; PULSE 71
[2020-09-12] MEDS ORDERED: fentaNYL 100 MCG/2 ML SDV IM ONE (21:34)
[2020-09-12] MEDS ORDERED: Ondansetron 4 MG Tab.DIS PO ONE (21:34)
--- NOTE | 2020-09-12 21:36 | EDM.PDOC ---
ED HPI GENERAL MEDICAL PROBLEM - General Chief Complaint: Flank Pain Stated Complaint: MEDICAL Time Seen by Provider: 09/12/20 21:27 Source of Information: Reports: Patient, Old Records, RN Notes Reviewed History Limitations: Reports: No Limitations - History of Present Illness INITIAL COMMENTS - FREE TEXT/NARRATIVE: 35-year-old female presents emergency department a complaint of abdominal pain, she states it starts in her back on the left side does radiate around to the front into her groin does have a history of nephrolithiasis in the past but is concerned about a urinary tract infection she has no dysuria however she does have urgency, history of gastric bypass Left Flank Pain Score (Numeric/FACES): 7 - Related Data Allergies Allergy/AdvReac Type Severity Reaction Status Date / Time amoxicillin Allergy Severe Anaphylactic Verified 08/15/20 21:13 Shock promethazine HCl Allergy Severe Anaphylactic Verified 08/15/20 21:13 [From Phenergan] Shock risperidone [From Risperdal] Allergy Severe Anaphylactic Verified 08/15/20 21:13 Shock atomoxetine Allergy Anxiety Verified 08/15/20 21:13 banana Allergy Itching Verified 08/15/20 21:13 clindamycin Allergy Rash Verified 08/15/20 21:13 ketorolac tromethamine Allergy Rash Verified 08/15/20 21:13 [From Toradol] latex Allergy Rash Verified 08/15/20 21:13 Latex, Natural Rubber Allergy Wheezing Verified 08/15/20 21:13 quetiapine Allergy Anxiety Verified 08/15/20 21:13 tramadol HCl [From Ultram] Allergy Hives Verified 08/15/20 21:13 varenicline Allergy Anxiety Verified 08/15/20 21:13 zolpidem [From Ambien] Allergy Anxiety Verified 08/15/20 21:13 atomoxetine HCl AdvReac Anxiety Verified 08/15/20 21:13 [From Strattera] cephalexin monohydrate AdvReac Dizziness Verified 08/15/20 21:13 [From Keflex] quetiapine fumarate AdvReac Irritabilit Verified 08/15/20 21:13 [From Seroquel] y trazodone AdvReac Dizziness Verified 08/15/20 21:13 zolpidem tartrate AdvReac Anxiety Verified 08/15/20 21:13 [From Ambien] Home Meds: Home Meds Cetirizine HCl [Zyrtec] 10 mg PO DAILY 09/19/18 [History] DULoxetine [Cymbalta] 90 mg PO DAILY 09/19/18 [History] Methimazole [Tapazole] 20 mg PO DAILY 09/19/18 [History] metroNIDAZOLE [metroNIDAZOLE 0.75% Gel] 1 applic TOP BID 09/19/18 [History] rOPINIRole [Requip] 2 mg PO BID 09/19/18 [History] Albuterol [Proventil Neb Soln] 3 ml NEB TID PRN 02/18/19 [History] Pramoxine HCl [Prax] 1 applic TP QID 02/18/19 [History] Triamcinolone Acetonide [Kenalog 0.1% Crm] 1 applic TOP TID PRN 02/18/19 [History] Lidocaine 2% [Xylocaine 2%] 10 ml TOP Q6H PRN 07/23/19 [History] Pantoprazole Sodium [Protonix] 40 mg PO DAILY 07/23/19 [History] Temazepam [Restoril] 30 mg PO BEDTIME 07/23/19 [History] Acetaminophen [Tylenol] 650 mg PO Q6H cup 07/30/19 [Rx] Celecoxib [CeleBREX] 200 mg PO DAILY@0800 cap 07/30/19 [Rx] Prochlorperazine [Compazine] 10 mg PO Q8H PRN 09/02/19 [History] Ondansetron [Zofran ODT] 4 mg PO Q6H PRN #10 tab.dis 02/28/20 [Rx] Pregabalin [Lyrica] 75 mg PO BID 03/10/20 [History] Dicyclomine [Bentyl] 20 mg PO QIDACANDBED PRN 06/27/20 [History] tiZANidine [Zanaflex] 4 mg PO Q6H PRN 06/27/20 [History] Cholecalciferol (Vitamin D3) [Vitamin D] 5,000 unit PO DAILY 08/15/20 [History] Multivit with Iron,Minerals [Complete Senior] 1 tab PO DAILY 08/15/20 [History] Multivitamin [Flintstones] 1 tab PO BID 08/15/20 [History] Lisdexamfetamine [Vyvanse] 50 mg PO DAILY 08/19/20 [History] Metoprolol Tartrate 50 mg PO BID 08/19/20 [History] lamoTRIgine [Lamotrigine] 25 mg PO DAILY 08/19/20 [History] Sennosides [Senna] 8.6 mg PO DAILY #100 tablet 08/20/20 [Rx] polyethylene glycoL 3350 [MiraLAX] 34 gm PO DAILY #60 packet 08/20/20 [Rx] Albuterol Sulfate [Proair Respiclick] 90 mcg IH QID PRN 09/12/20 [History] Folic Acid 1 mg PO DAILY 09/12/20 [History] Past Medical History HEENT History: Reports: Impaired Vision, Otitis Media Other HEENT History: Bilateral tympanic membrane rupture. tonsillectomy. recent surgery septum 08/20/18 Cardiovascular History: Reports: Other (See Below) Other Cardiovascular History: Heart palpatations Respiratory History: Reports: Asthma, Bronchitis, Recurrent, Pneumonia, Recurrent, Sleep Apnea, SOB, Other (See Below) Other Respiratory History: has CPAP Gastrointestinal History: Reports: Gastritis, GERD Genitourinary History: Reports: Renal Calculus, UTI, Recurrent 4 H [employer] History: Reports: Other 4 H [employer]IST History: Hysterectomy with right oophrectomy Musculoskeletal History: Reports: Fracture, Fibromyalgia, RA Other Musculoskeletal History: fibromyalgia. rheumatoid arthritis Neurological History: Reports: Headaches, Chronic, Migraines Psychiatric History: Reports: ADHD, Anxiety, Depression, Psych Hospitalization(s), PTSD, Suicide Attempt, Suicidal Ideation, Other (See Below) Other Psychiatric History: Schizo effective disorder Endocrine/Metabolic History: Reports: Hyperthyroidism, Hypothyroidism, Obesity/BMI 30+ Hematologic History: Reports: Anemia, B12 Deficiency, Folic Acid Immunologic History: Reports: None Oncologic (Cancer) History: Reports: Cervix Dermatologic History: Reports: Eczema, Other (See Below) Other Dermatologic History: rosacia - Infectious Disease History Infectious Disease History: Reports: Chicken Pox Other Infectious Disease History: rectal worts - Past Surgical History Head Surgeries/Procedures: Reports: None HEENT Surgical History: Reports: Myringotomy w Tube(s), Oral Surgery, Tonsillectomy Cardiovascular Surgical History: Reports: None Respiratory Surgical History: Reports: None GI Surgical History: Reports: Appendectomy, Bariatric Procedure, Cholecystectomy, Colonoscopy, EGD, Hernia Repair/Other Female Surgical History: Reports: Hysterectomy Endocrine Surgical History: Reports: None Neurological Surgical History: Reports: None Musculoskeletal Surgical History: Reports: Carpal Tunnel, Ganglion Cyst, Other (See Below) Other Musculoskeletal Surgeries/Procedures:: Left ankle ORIF with hardware Dermatological Surgical History: Reports: None Social & Family History - Family History Family Medical History: Noncontributory Cardiac: Reports: Heart Murmur Respiratory: Reports: COPD Psychiatric: Reports: Depression, Schizophrenia - Tobacco Use Tobacco Use Status *Q: Current Every Day Tobacco User Years of Tobacco use: 23 Packs/Tins Daily: 0.5 Used Tobacco, but Quit: No - Caffeine Use Caffeine Use: Reports: None - Recreational Drug Use Recreational Drug Use: No - Living Situation & Occupation Living situation: Reports: Single Occupation: Disabled (lives with Domestic Partner in [place], [place]. One grown child 18 years old.) ED ROS GENERAL - Review of Systems Review Of Systems: See Below Constitutional: Reports: No Symptoms HEENT: Reports: No Symptoms Respiratory: Reports: No Symptoms Cardiovascular: Reports: No Symptoms GI/Abdominal: Reports: Abdominal Pain, Nausea. Denies: Vomiting : Reports: Flank Pain, Urgency ED EXAM, GI/ABD - Physical Exam Exam: See Below Exam Limited By: No Limitations General Appearance: Alert, WD/WN, No Apparent Distress Respiratory/Chest: No Respiratory Distress GI/Abdominal Exam: Soft, Non-Tender Course - Vital Signs Last Recorded V/S: Last Vital Signs Temp 97.7 F 09/12/20 21:14 Pulse 71 09/12/20 21:14 Resp 18 09/12/20 21:14 BP 127/80 09/12/20 21:14 Pulse Ox 100 09/12/20 21:14 - Orders/Labs/Meds Labs: Laboratory Tests 09/12/20 09/12/20 09/12/20 Range/Units 21:47 21:47 21:47 WBC 9.4 (4.5-11.0) K/uL RBC 5.17 (3.30-5.50) M/uL Hgb 15.0 (12.0-15.0) g/dL Hct 44.7 (36.0-48.0) % MCV 87 (80-98) fL MCH 29 (27-31) pg MCHC 34 (32-36) % Plt Count 245 (150-400) K/uL Neut % (Auto) 60 (36-66) % Lymph % (Auto) 31 (24-44) % [place] % (Auto) 6 (2-6) % Eos % (Auto) 3 (2-4) % Baso % (Auto) 0 (0-1) % Sodium 137 L (140-148) mmol/L Potassium 3.8 (3.6-5.2) mmol/L Chloride 103 (100-108) mmol/L Carbon Dioxide 24 (21-32) mmol/L Anion Gap 13.8 (5.0-14.0) mmol/L BUN 14 D (7-18) mg/dL Creatinine 0.7 (0.6-1.0) mg/dL Est Cr Clr Drug Dosing 95.02 mL/min Estimated GFR (MDRD) > 60 (>60) Glucose 95 (74-106) mg/dL Lactic Acid 0.6 (0.4-2.0) mmol/L Calcium 8.9 (8.5-10.1) mg/dL Urine Color (YELLOW) Urine Appearance (CLEAR) Urine pH (5.0-8.0) Ur Specific [place] (1.008-1.030) Urine Protein (NEGATIVE) mg/dL Urine Glucose (UA) (NEGATIVE) mg/dL Urine Ketones (NEGATIVE) mg/dL Urine Occult Blood (NEGATIVE) Urine Nitrite (NEGATIVE) Urine Bilirubin (NEGATIVE) Urine Urobilinogen (0.2-1.0) EU/dL Ur Leukocyte Esterase (NEGATIVE) Urine RBC (0-5) Urine WBC (0-5) Ur Epithelial Cells Amorphous Sediment Urine Bacteria Urine Mucus 09/12/20 Range/Units 21:54 WBC (4.5-11.0) K/uL RBC (3.30-5.50) M/uL Hgb (12.0-15.0) g/dL Hct (36.0-48.0) % MCV (80-98) fL MCH (27-31) pg MCHC (32-36) % Plt Count (150-400) K/uL Neut % (Auto) (36-66) % Lymph % (Auto) (24-44) % [place] % (Auto) (2-6) % Eos % (Auto) (2-4) % Baso % (Auto) (0-1) % Sodium (140-148) mmol/L Potassium (3.6-5.2) mmol/L Chloride (100-108) mmol/L Carbon Dioxide (21-32) mmol/L Anion Gap (5.0-14.0) mmol/L BUN (7-18) mg/dL Creatinine (0.6-1.0) mg/dL Est Cr Clr Drug Dosing mL/min Estimated GFR (MDRD) (>60) Glucose (74-106) mg/dL Lactic Acid (0.4-2.0) mmol/L Calcium (8.5-10.1) mg/dL Urine Color Yellow (YELLOW) Urine Appearance Slightly cloudy A (CLEAR) Urine pH 5.5 (5.0-8.0) Ur Specific [place] >= 1.030 (1.008-1.030) Urine Protein Negative (NEGATIVE) mg/dL Urine Glucose (UA) Negative (NEGATIVE) mg/dL Urine Ketones Negative (NEGATIVE) mg/dL Urine Occult Blood Negative (NEGATIVE) Urine Nitrite Negative (NEGATIVE) Urine Bilirubin Negative (NEGATIVE) Urine Urobilinogen 0.2 (0.2-1.0) EU/dL Ur Leukocyte Esterase Negative (NEGATIVE) Urine RBC 0-5 (0-5) Urine WBC 0-5 (0-5) Ur Epithelial Cells Rare Amorphous Sediment Not seen Urine Bacteria Many Urine Mucus Not seen Meds: Medications Discontinued Medications Generic Name Dose Route Start Last Admin Trade Name Lisbet PRN Reason Stop Dose Admin Fentanyl 50 mcg 09/12/20 21:34 09/12/20 21:53 Sublimaze IM 09/12/20 21:35 50 mcg ONETIME ONE Administration Ondansetron HCl 4 mg 09/12/20 21:34 09/12/20 21:54 Zofran Odt PO 09/12/20 21:35 4 mg ONETIME ONE Administration Departure - Departure Time of Disposition: 22:18 Disposition: Home, Self-Care 01 Condition: Fair Clinical Impression: Left flank pain - Discharge Information Instructions: Flank Pain, Adult, [id number] Referrals: PCP,None [Primary Care Provider] - Forms: ED Department Discharge Additional Instructions: Use the hydrocodone as needed for pain control, please call to the [facility] in the morning for appointment time with Dr. Delaney Sepsis Event Note (ED) - Evaluation Sepsis Screening Result: No Definite Risk - Focused Exam Vital Signs: Vital Signs Temp Pulse Resp BP Pulse Ox 09/12/20 21:14 97.7 F 71 18 127/80 100 - Assessment/Plan Plan: Assessment Acuity = acute Site and laterality = left flank pain Etiology = unknown Manifestations = none Location of injury = Home Lab values = CBC, CMP, urinalysis all within normal limits Plan Plan is pain medication at home hydrocodone 5/325 1 tab p.o. 3 times daily as needed total #10 consultation with her primary care was set up for this week This note was dictated using [employer] voice recognition software please call with any questions on syntax or grammar.
== END 2020-09-12 22:25 | disposition home or self-care (01) ==
LOC: JP.ED 19:15
DX: R10.9 Unspecified abdominal pain (principal); K21.9 Gastro-esophageal reflux disease without esophagitis; E66.9 Obesity, unspecified; J45.909 Unspecified asthma, uncomplicated; F41.9 Anxiety disorder, unspecified; F32.9 Major depressive disorder, single episode, unspecified; F17.210 Nicotine dependence, cigarettes, uncomplicated; Z90.49 Acquired absence of other specified parts of digestive tract; Z90.710 Acquired absence of both cervix and uterus; Z88.1 Allergy status to other antibiotic agents; Z91.040 Latex allergy status; Z88.6 Allergy status to analgesic agent; Z88.8 Allergy status to other drugs, medicaments and biological substances; Z79.899 Other long term (current) drug therapy; Z68.41 Body mass index [BMI] 40.0-44.9, adult
CPT/HCPCS: 36415; 80048; 81001; 83605; 85025; 96372; 99284; A9270; J3010

== ENCOUNTER 2020-09-13 12:03 | Emergency (ER) | payer MEDICAID ==
[2020-09-13] MEDS ORDERED: Sodium Chloride 0.9% 10 ML Syringe FLUSH PRN (12:14)
[2020-09-13] MEDS ORDERED: HYDROmorphone 0.5 MG/0.5 ML Syringe IVPUSH ONE ×2 (12:14→14:01)
[2020-09-13] MEDS ORDERED: Ondansetron 4 MG/2 ML SDV IVPUSH ONE ×2 (12:14→14:01)
--- NOTE | 2020-09-13 12:27 | EDM.PDOC ---
ED HPI GENERAL MEDICAL PROBLEM - General Chief Complaint: Abdominal Pain Stated Complaint: ABDOMINAL PAIN Time Seen by Provider: 09/13/20 12:13 Source of Information: Reports: Patient, EMS History Limitations: Reports: No Limitations - History of Present Illness Onset: Sudden Onset Date: 09/13/20 Onset Time: 11:00 Duration: Hour(s): (1) Location: Reports: Abdomen (Severe epigastric pain) Quality: Reports: Ache, Burning, Stabbing Severity: Severe Improves with: Reports: None Worsens with: Reports: Medication (Pain started after she took all her morning medications) Upper Abdomen Pain Score (Numeric/FACES): 10 - Related Data Allergies Allergy/AdvReac Type Severity Reaction Status Date / Time amoxicillin Allergy Severe Anaphylactic Verified 09/13/20 12:12 Shock promethazine HCl Allergy Severe Anaphylactic Verified 09/13/20 12:12 [From Phenergan] Shock risperidone [From Risperdal] Allergy Severe Anaphylactic Verified 09/13/20 12:12 Shock atomoxetine Allergy Anxiety Verified 09/13/20 12:12 banana Allergy Itching Verified 09/13/20 12:12 clindamycin Allergy Rash Verified 09/13/20 12:12 ketorolac tromethamine Allergy Rash Verified 09/13/20 12:12 [From Toradol] latex Allergy Rash Verified 09/13/20 12:12 Latex, Natural Rubber Allergy Wheezing Verified 09/13/20 12:12 quetiapine Allergy Anxiety Verified 09/13/20 12:12 tramadol HCl [From Ultram] Allergy Hives Verified 09/13/20 12:12 varenicline Allergy Anxiety Verified 09/13/20 12:12 zolpidem [From Ambien] Allergy Anxiety Verified 09/13/20 12:12 atomoxetine HCl AdvReac Anxiety Verified 09/13/20 12:12 [From Strattera] cephalexin monohydrate AdvReac Dizziness Verified 09/13/20 12:12 [From Keflex] quetiapine fumarate AdvReac Irritabilit Verified 09/13/20 12:12 [From Seroquel] y trazodone AdvReac Dizziness Verified 09/13/20 12:12 zolpidem tartrate AdvReac Anxiety Verified 09/13/20 12:12 [From Ambien] Home Meds: Home Meds Cetirizine HCl [Zyrtec] 10 mg PO DAILY 09/19/18 [History] DULoxetine [Cymbalta] 90 mg PO DAILY 09/19/18 [History] Methimazole [Tapazole] 20 mg PO DAILY 09/19/18 [History] metroNIDAZOLE [metroNIDAZOLE 0.75% Gel] 1 applic TOP BID 09/19/18 [History] rOPINIRole [Requip] 2 mg PO BID 09/19/18 [History] Albuterol [Proventil Neb Soln] 3 ml NEB TID PRN 02/18/19 [History] Pramoxine HCl [Prax] 1 applic TP QID 02/18/19 [History] Triamcinolone Acetonide [Kenalog 0.1% Crm] 1 applic TOP TID PRN 02/18/19 [History] Lidocaine 2% [Xylocaine 2%] 10 ml TOP Q6H PRN 07/23/19 [History] Pantoprazole Sodium [Protonix] 40 mg PO DAILY 07/23/19 [History] Temazepam [Restoril] 30 mg PO BEDTIME 07/23/19 [History] Acetaminophen [Tylenol] 650 mg PO Q6H cup 07/30/19 [Rx] Celecoxib [CeleBREX] 200 mg PO DAILY@0800 cap 07/30/19 [Rx] Prochlorperazine [Compazine] 10 mg PO Q8H PRN 09/02/19 [History] Ondansetron [Zofran ODT] 4 mg PO Q6H PRN #10 tab.dis 02/28/20 [Rx] Pregabalin [Lyrica] 75 mg PO BID 03/10/20 [History] Dicyclomine [Bentyl] 20 mg PO QIDACANDBED PRN 06/27/20 [History] tiZANidine [Zanaflex] 4 mg PO Q6H PRN 06/27/20 [History] Cholecalciferol (Vitamin D3) [Vitamin D] 5,000 unit PO DAILY 08/15/20 [History] Multivit with Iron,Minerals [Complete Senior] 1 tab PO DAILY 08/15/20 [History] Multivitamin [Flintstones] 1 tab PO BID 08/15/20 [History] Lisdexamfetamine [Vyvanse] 50 mg PO DAILY 08/19/20 [History] Metoprolol Tartrate 50 mg PO BID 08/19/20 [History] lamoTRIgine [Lamotrigine] 25 mg PO DAILY 08/19/20 [History] Sennosides [Senna] 8.6 mg PO DAILY #100 tablet 08/20/20 [Rx] polyethylene glycoL 3350 [MiraLAX] 34 gm PO DAILY #60 packet 08/20/20 [Rx] Albuterol Sulfate [Proair Respiclick] 90 mcg IH QID PRN 09/12/20 [History] Folic Acid 1 mg PO DAILY 09/12/20 [History] Hydrocodone/Acetaminophen [Hydrocodon-Acetaminophen 5-325] 1 each PO Q4HR PRN 5 Days #10 tablet 09/13/20 [Rx] Ondansetron [Zofran ODT] 4 mg PO Q6H PRN 5 Days #15 tab.dis 09/13/20 [Rx] Past Medical History HEENT History: Reports: Impaired Vision, Otitis Media Other HEENT History: Bilateral tympanic membrane rupture. tonsillectomy. recent surgery septum 08/20/18 Cardiovascular History: Reports: Other (See Below) Other Cardiovascular History: Heart palpatations Respiratory History: Reports: Asthma, Bronchitis, Recurrent, Pneumonia, Recurrent, Sleep Apnea, SOB, Other (See Below) Other Respiratory History: has CPAP Gastrointestinal History: Reports: Gastritis, GERD Genitourinary History: Reports: Renal Calculus, UTI, Recurrent HIDE BUYER History: Reports: Other HIDE BUYER History: Hysterectomy with right oophrectomy Musculoskeletal History: Reports: Fracture, Fibromyalgia, RA Other Musculoskeletal History: fibromyalgia. rheumatoid arthritis Neurological History: Reports: Headaches, Chronic, Migraines Psychiatric History: Reports: ADHD, Anxiety, Depression, Psych Hospitalization(s), PTSD, Suicide Attempt, Suicidal Ideation, Other (See Below) Other Psychiatric History: Schizo effective disorder Endocrine/Metabolic History: Reports: Hyperthyroidism, Hypothyroidism, Obesity/BMI 30+ Hematologic History: Reports: Anemia, B12 Deficiency, Folic Acid Immunologic History: Reports: None Oncologic (Cancer) History: Reports: Cervix Dermatologic History: Reports: Eczema, Other (See Below) Other Dermatologic History: rosacia - Infectious Disease History Infectious Disease History: Reports: Chicken Pox Other Infectious Disease History: rectal worts - Past Surgical History Head Surgeries/Procedures: Reports: None HEENT Surgical History: Reports: Myringotomy w Tube(s), Oral Surgery, Tonsillectomy Cardiovascular Surgical History: Reports: None Respiratory Surgical History: Reports: None GI Surgical History: Reports: Appendectomy, Bariatric Procedure, Cholecystectomy, Colonoscopy, EGD, Hernia Repair/Other Female Surgical History: Reports: Hysterectomy Endocrine Surgical History: Reports: None Neurological Surgical History: Reports: None Musculoskeletal Surgical History: Reports: Carpal Tunnel, Ganglion Cyst, Other (See Below) Other Musculoskeletal Surgeries/Procedures:: Left ankle ORIF with hardware Dermatological Surgical History: Reports: None Social & Family History - Family History Family Medical History: Noncontributory Cardiac: Reports: Heart Murmur Respiratory: Reports: COPD Psychiatric: Reports: Depression, Schizophrenia - Caffeine Use Caffeine Use: Reports: None - Living Situation & Occupation Living situation: Reports: Single Occupation: Disabled (lives with Domestic Partner in [place], [place]. One grown child 18 years old.) ED ROS GENERAL - Review of Systems Review Of Systems: See Below Constitutional: Reports: No Symptoms HEENT: Reports: No Symptoms Respiratory: Reports: No Symptoms Cardiovascular: Reports: No Symptoms Endocrine: Reports: No Symptoms GI/Abdominal: Reports: Abdominal Pain (Epigastric pain radiating to the back starting shortly after taking all her morning medicines today.), Nausea, Vomiting (Dry heaving) : Reports: No Symptoms Musculoskeletal: Reports: Back Pain Skin: Reports: No Symptoms Neurological: Reports: No Symptoms Psychiatric: Reports: No Symptoms Hematologic/Lymphatic: Reports: No Symptoms Immunologic: Reports: No Symptoms ED EXAM, GI/ABD - Physical Exam Exam: See Below Exam Limited By: No Limitations General Appearance: Alert, Moderate Distress, Severe Distress Eyes: Bilateral: EOMI Throat/Mouth: Normal Inspection, Normal Lips, Normal Oropharynx, Normal Voice Head: Atraumatic, Normocephalic Neck: Normal Inspection, Supple, Non-Tender, Full Range of Motion Respiratory/Chest: No Respiratory Distress, Lungs Clear, Normal Breath Sounds, No Accessory Muscle Use, Chest Non-Tender Cardiovascular: Normal Peripheral Pulses, Regular Rate, Rhythm, No Edema GI/Abdominal Exam: Normal Bowel Sounds, Guarding (Epigastric), Tender (Epigastric). No: Distended, Rebound Extremities: Normal Inspection, Normal Range of Motion Neurological: Alert, Oriented, CN II-XII Intact, Normal Cognition, No Motor/Sensory Deficits Psychiatric: Normal Affect, Normal Mood Skin Exam: Warm, Dry, Intact, Normal Color, No Rash Lymphatic: No Adenopathy Course - Vital Signs Last Recorded V/S: Last Vital Signs Temp 35.3 C L 09/13/20 12:06 Pulse 69 09/13/20 14:21 Resp 18 09/13/20 14:21 BP 124/78 09/13/20 14:21 Pulse Ox 97 09/13/20 14:21 - Orders/Labs/Meds Orders: Active Orders 24 hr Category Date Time Status Sodium Chloride 0.9% [Normal Saline] 85 ml Med 09/13/20 12:45 Active IV ASDIRECTED Sodium Chloride 0.9% [Saline Flush] Med 09/13/20 12:14 Active 10 ml FLUSH ASDIRECTED PRN Saline Lock Insert [OM.PC] Routine Oth 09/13/20 12:14 Ordered Medication Orders Sodium Chloride (Normal Saline) 85 mls @ 3.5 mls/sec IV ASDIRECTED APOLINAR Last Admin: 09/13/20 12:40 Dose: 3.5 mls/sec Documented by: DECRMIC Sodium Chloride (Saline Flush) 10 ml FLUSH ASDIRECTED PRN PRN Reason: Keep Vein Open Last Admin: 09/13/20 12:40 Dose: 10 ml Documented by: PREILOR Labs: Laboratory Tests 09/13/20 09/13/20 Range/Units 12:27 12:27 WBC 10.5 (4.5-11.0) K/uL RBC 5.36 (3.30-5.50) M/uL Hgb 15.4 H (12.0-15.0) g/dL Hct 46.5 (36.0-48.0) % MCV 87 (80-98) fL MCH 29 (27-31) pg MCHC 33 (32-36) % Plt Count 273 (150-400) K/uL Neut % (Auto) 69 H (36-66) % Lymph % (Auto) 21 L (24-44) % [place] % (Auto) 8 H (2-6) % Eos % (Auto) 2 (2-4) % Baso % (Auto) 0 (0-1) % Sodium 136 L (140-148) mmol/L Potassium 4.6 (3.6-5.2) mmol/L Chloride 103 (100-108) mmol/L Carbon Dioxide 24 (21-32) mmol/L Anion Gap 13.6 (5.0-14.0) mmol/L BUN 12 (7-18) mg/dL Creatinine 0.7 (0.6-1.0) mg/dL Est Cr Clr Drug Dosing 95.02 mL/min Estimated GFR (MDRD) > 60 (>60) Glucose 108 H (74-106) mg/dL Calcium 8.9 (8.5-10.1) mg/dL Total Bilirubin 0.3 (0.2-1.0) mg/dL AST 31 D (15-37) U/L ALT 41 (12-78) U/L Alkaline Phosphatase 83 (46-116) U/L Total Protein 6.8 (6.4-8.2) g/dL Albumin 3.7 (3.4-5.0) g/dL Globulin 3.1 (2.3-3.5) g/dL Albumin/Globulin Ratio 1.2 (1.2-2.2) Lipase 596 H (73-393) U/L Meds: Medications Generic Name Dose Route Start Last Admin Trade Name Freq PRN Reason Stop Dose Admin Sodium Chloride 85 mls @ 3.5 mls/sec 09/13/20 12:45 09/13/20 12:40 Normal Saline IV 3.5 mls/sec ASDIRECTED APOLINAR Administration Sodium Chloride 10 ml 09/13/20 12:14 09/13/20 12:40 Saline Flush FLUSH 10 ml ASDIRECTED PRN Administration Keep Vein Open Discontinued Medications Generic Name Dose Route Start Last Admin Trade Name Freq PRN Reason Stop Dose Admin Hydromorphone HCl 0.5 mg 09/13/20 12:14 09/13/20 12:39 Dilaudid IVPUSH 09/13/20 12:15 0.5 mg ONETIME ONE Administration Hydromorphone HCl 0.5 mg 09/13/20 14:01 09/13/20 14:15 Dilaudid IVPUSH 09/13/20 14:02 0.5 mg ONETIME ONE Administration Iopamidol 150 ml 09/13/20 12:32 09/13/20 12:40 Isovue-300 (61%) IV 09/13/20 12:33 150 ml ONETIME ONE Administration Ondansetron HCl 4 mg 09/13/20 12:14 09/13/20 12:38 Zofran IVPUSH 09/13/20 12:15 4 mg ONETIME ONE Administration Ondansetron HCl 4 mg 09/13/20 14:01 09/13/20 14:15 Zofran IVPUSH 09/13/20 14:02 4 mg ONETIME ONE Administration Departure - Departure Time of Disposition: 15:58 Disposition: Home, Self-Care 01 Condition: Fair Clinical Impression: Pancreatitis Qualifiers: Chronicity: acute Pancreatitis type: idiopathic Acute pancreatitis complication: no infection or necrosis Qualified Code(s): K85.00 - Idiopathic acute pancreatitis without necrosis or infection - Discharge Information *PRESCRIPTION DRUG MONITORING PROGRAM REVIEWED*: Yes *COPY OF PRESCRIPTION DRUG MONITORING REPORT IN PATIENT JAYDEN: No Instructions: Pain Medicine Instructions, [id number], Acute Pancreatitis Referrals: PCP,None [Primary Care Provider] - Forms: ED Department Discharge Care Plan Goals: Your labs show that you have acute pancreatitis which is consistent with your presenting symptoms and your exam. Your CAT scan did not show any significant abnormalities in the abdomen around your pancreas that would be worrisome and require hospitalization. I strongly recommend a clear liquid diet for the next 7 to 10 days. I am sending you home with a small amount of pain medicine and a moderate amount of nausea medicine to keep your symptoms and shock. Please use the pain medicine sparingly as it can be addictive and in the long-term make your pain worse. Please return to the ED if you have worsening of symptoms, or unable to keep any fluid down, become lightheaded or feverish. Sepsis Event Note (ED) - Evaluation Sepsis Screening Result: No Definite Risk - Focused Exam Vital Signs: Vital Signs Temp Pulse Resp BP Pulse Ox 09/13/20 14:21 69 18 124/78 97 09/13/20 12:06 35.3 C L 68 24 H 112/66 97 - Problem List & Annotations (1) History of gastric bypass SNOMED Code(s): 414549645 Code(s): Z98.84 - BARIATRIC SURGERY STATUS Status: Chronic Priority: Medium Current Visit: No (2) Pancreatitis SNOMED Code(s): 30075488 Code(s): K85.90 - ACUTE PANCREATITIS WITHOUT NECROSIS OR INFECTION, UNSP Status: Acute Priority: High Current Visit: Yes Qualifiers: Chronicity: acute Pancreatitis type: idiopathic Acute pancreatitis complication: no infection or necrosis Qualified Code(s): K85.00 - Idiopathic acute pancreatitis without necrosis or infection - Problem List Review Problem List Initiated/Reviewed/Updated: Yes - My Orders Last 24 Hours: My Active Orders 09/13/20 12:14 Sodium Chloride 0.9% [Saline Flush] 10 ml FLUSH ASDIRECTED PRN Saline Lock Insert [OM.PC] Routine 09/13/20 12:45 Sodium Chloride 0.9% [Normal Saline] 85 ml IV ASDIRECTED - Assessment/Plan Last 24 Hours: My Active Orders 09/13/20 12:14 Sodium Chloride 0.9% [Saline Flush] 10 ml FLUSH ASDIRECTED PRN Saline Lock Insert [OM.PC] Routine 09/13/20 12:45 Sodium Chloride 0.9% [Normal Saline] 85 ml IV ASDIRECTED Plan: Plan is to put the patient on a clear liquid diet for the next 7 days. I am prescribing hydrocodone acetaminophen 5/325 mg 1 tab every 4 hours as needed for moderate to severe pain 10 tablets dispensed in prescription form. In addition I am sending her home with Zofran 4 mg ODT 1 tab every 6 hours as needed for nausea and vomiting dispensing 15 tablets. Indications to return to the ED were discussed. All questions were answered prior to discharge.
[2020-09-13] MEDS ORDERED: Iopamidol 612 MG/ML 500 ML Multipack Bottle IV ONE (12:32)
--- NOTE | 2020-09-13 13:40 | CT ---
Abdomen Pelvis w Cont CLINICAL HISTORY: Epigastric pain, previous bariatric surgery COMPARISON: 08/18/2020. TECHNIQUE: Transverse scans were obtained from the base of the lungs to the pubic symphysis following oral contrast and IV infusion of contrast.Auto dosage reduction and iterative reconstructiontechniques employed. FINDINGS: The lung bases are clear. The liver shows some mild intrahepatic biliary prominence.. Patient has had previous bariatric surgery. The gallbladder has been removed. Common duct is relatively normal caliber The spleen has a normal size and shape. The pancreas shows no mass or inflammatory change. There is a 1.5 cm well demarcated low-attenuation nodule in the left adrenal gland. This likely represents a benign adenoma but density measurements are nonspecific on postcontrast imaging. The kidneys show no mass, stones or hydronephrosis. The ureters have a normal course and caliber. The bladder has a normal contour. The uterus is not identified.. The aorta has a normal contour.There is no suspicious retroperitoneal adenopathy. There are scattered fluid-filled mildly dilated loops of small bowel in a nonacute pattern. There is moderate liquid stool in the right transverse colon. IMPRESSION: Previous bariatric surgery Small left adrenal nodule likely a benign adenoma Mild small bowel distention in a nonacute pattern No mass or inflammatory change
[2020-09-13 16:06] VITALS: BP 103/54; PULSE 66
== END 2020-09-13 16:39 | disposition home or self-care (01) ==
LOC: JP.ED 12:03
DX: K85.00 Idiopathic acute pancreatitis without necrosis or infection (principal); J45.909 Unspecified asthma, uncomplicated; K21.9 Gastro-esophageal reflux disease without esophagitis; F90.9 Attention-deficit hyperactivity disorder, unspecified type; F41.9 Anxiety disorder, unspecified; F32.9 Major depressive disorder, single episode, unspecified; E03.9 Hypothyroidism, unspecified; M06.9 Rheumatoid arthritis, unspecified; F25.9 Schizoaffective disorder, unspecified; E66.9 Obesity, unspecified; Z68.41 Body mass index [BMI] 40.0-44.9, adult; Z88.1 Allergy status to other antibiotic agents; Z88.8 Allergy status to other drugs, medicaments and biological substances; Z91.018 Allergy to other foods; Z88.6 Allergy status to analgesic agent; Z91.040 Latex allergy status; Z88.5 Allergy status to narcotic agent; Z79.899 Other long term (current) drug therapy
CPT/HCPCS: 36415; 74177; 80053; 83690; 85025; 96374; 96375; 96376; 99284; J1170; J2405; Q9967

== ENCOUNTER 2020-09-15 15:47 | Emergency (ER) | payer MEDICAID ==
--- NOTE | 2020-09-15 16:30 | EDM.PDOC ---
ED HPI GENERAL MEDICAL PROBLEM - General Chief Complaint: Abdominal Pain Stated Complaint: ABDOMINAL PAIN Time Seen by Provider: 09/15/20 16:30 Source of Information: Reports: Patient History Limitations: Reports: No Limitations - History of Present Illness INITIAL COMMENTS - FREE TEXT/NARRATIVE: 35-year-old female was seen in the emergency room 2 days ago and had a mildly elevated lipase, a normal CT scan and was diagnosed with mild pancreatitis and given pain control. She went into the clinic today with increased pain, appeared anxious and diaphoretic so they sent her to the emergency room. She has "dry heaving" but no fever, no diarrhea. Pain is in her upper abdomen, somewhat to the left. She is taking fluids well. It seems to help some if she puts pressure on her abdomen with her hands. Onset: Gradual Duration: Day(s): (4 days) Location: Reports: Abdomen (Upper abdomen) Associated Symptoms: Reports: Diaphoresis, Malaise, Nausea/Vomiting. Denies: Cough, Shortness of Breath Middle Abdomen Pain Score (Numeric/FACES): 9 - Related Data Allergies Allergy/AdvReac Type Severity Reaction Status Date / Time amoxicillin Allergy Severe Anaphylactic Verified 09/15/20 16:22 Shock promethazine HCl Allergy Severe Anaphylactic Verified 09/15/20 16:22 [From Phenergan] Shock risperidone [From Risperdal] Allergy Severe Anaphylactic Verified 09/15/20 16:22 Shock atomoxetine Allergy Anxiety Verified 09/15/20 16:22 banana Allergy Itching Verified 09/15/20 16:22 clindamycin Allergy Rash Verified 09/15/20 16:22 ketorolac tromethamine Allergy Rash Verified 09/15/20 16:22 [From Toradol] latex Allergy Rash Verified 09/15/20 16:22 Latex, Natural Rubber Allergy Wheezing Verified 09/15/20 16:22 quetiapine Allergy Anxiety Verified 09/15/20 16:22 tramadol HCl [From Ultram] Allergy Hives Verified 09/15/20 16:22 varenicline Allergy Anxiety Verified 09/15/20 16:22 zolpidem [From Ambien] Allergy Anxiety Verified 09/15/20 16:22 atomoxetine HCl AdvReac Anxiety Verified 09/15/20 16:22 [From Strattera] cephalexin monohydrate AdvReac Dizziness Verified 10/30/20 16:22 [From Keflex] quetiapine fumarate AdvReac Irritabilit Verified 09/15/20 16:22 [From Seroquel] y trazodone AdvReac Dizziness Verified 09/15/20 16:22 zolpidem tartrate AdvReac Anxiety Verified 09/15/20 16:22 [From Ambien] Home Meds: Home Meds Cetirizine HCl [Zyrtec] 10 mg PO DAILY 09/19/18 [History] DULoxetine [Cymbalta] 90 mg PO DAILY 09/19/18 [History] Methimazole [Tapazole] 20 mg PO DAILY 09/19/18 [History] metroNIDAZOLE [metroNIDAZOLE 0.75% Gel] 1 applic TOP BID 09/19/18 [History] rOPINIRole [Requip] 2 mg PO BID 09/19/18 [History] Albuterol [Proventil Neb Soln] 3 ml NEB TID PRN 02/18/19 [History] Pramoxine HCl [Prax] 1 applic TP QID 02/18/19 [History] Triamcinolone Acetonide [Kenalog 0.1% Crm] 1 applic TOP TID PRN 02/18/19 [History] Lidocaine 2% [Xylocaine 2%] 10 ml TOP Q6H PRN 07/23/19 [History] Pantoprazole Sodium [Protonix] 40 mg PO DAILY 07/23/19 [History] Temazepam [Restoril] 30 mg PO BEDTIME 07/23/19 [History] Acetaminophen [Tylenol] 650 mg PO Q6H cup 07/30/19 [Rx] Celecoxib [CeleBREX] 200 mg PO DAILY@0800 cap 07/30/19 [Rx] Prochlorperazine [Compazine] 10 mg PO Q8H PRN 09/02/19 [History] Ondansetron [Zofran ODT] 4 mg PO Q6H PRN #10 tab.dis 02/28/20 [Rx] Pregabalin [Lyrica] 75 mg PO BID 03/10/20 [History] Dicyclomine [Bentyl] 20 mg PO QIDACANDBED PRN 06/27/20 [History] tiZANidine [Zanaflex] 4 mg PO Q6H PRN 06/27/20 [History] Cholecalciferol (Vitamin D3) [Vitamin D] 5,000 unit PO DAILY 08/15/20 [History] Multivit with Iron,Minerals [Complete Senior] 1 tab PO DAILY 08/15/20 [History] Multivitamin [Flintstones] 1 tab PO BID 08/15/20 [History] Lisdexamfetamine [Vyvanse] 50 mg PO DAILY 08/19/20 [History] Metoprolol Tartrate 50 mg PO BID 08/19/20 [History] lamoTRIgine [Lamotrigine] 25 mg PO DAILY 08/19/20 [History] Sennosides [Senna] 8.6 mg PO DAILY #100 tablet 08/20/20 [Rx] polyethylene glycoL 3350 [MiraLAX] 34 gm PO DAILY #60 packet 08/20/20 [Rx] Albuterol Sulfate [Proair Respiclick] 90 mcg IH QID PRN 09/12/20 [History] Folic Acid 1 mg PO DAILY 09/12/20 [History] Hydrocodone/Acetaminophen [Hydrocodon-Acetaminophen 5-325] 1 each PO Q4HR PRN 5 Days #10 tablet 09/13/20 [Rx] Ondansetron [Zofran ODT] 4 mg PO Q6H PRN 5 Days #15 tab.dis 09/13/20 [Rx] Ondansetron [Ondansetron ODT] 1 tab PO ASDIRECTED 09/15/20 [History] Past Medical History HEENT History: Reports: Impaired Vision, Otitis Media Other HEENT History: Bilateral tympanic membrane rupture. tonsillectomy. recent surgery septum 08/20/18 Cardiovascular History: Reports: Other (See Below) Other Cardiovascular History: Heart palpatations Respiratory History: Reports: Asthma, Bronchitis, Recurrent, Pneumonia, Recurrent, Sleep Apnea, SOB, Other (See Below) Other Respiratory History: has CPAP Gastrointestinal History: Reports: Gastritis, GERD Genitourinary History: Reports: Renal Calculus, UTI, Recurrent FIRE EATER History: Reports: Other FIRE EATER History: Hysterectomy with right oophrectomy Musculoskeletal History: Reports: Fracture, Fibromyalgia, RA Other Musculoskeletal History: fibromyalgia. rheumatoid arthritis Neurological History: Reports: Headaches, Chronic, Migraines Psychiatric History: Reports: ADHD, Anxiety, Depression, Psych Hospitalization(s), PTSD, Suicide Attempt, Suicidal Ideation, Other (See Below) Other Psychiatric History: Schizo effective disorder Endocrine/Metabolic History: Reports: Hyperthyroidism, Hypothyroidism, Obesity/BMI 30+ Hematologic History: Reports: Anemia, B12 Deficiency, Folic Acid Immunologic History: Reports: None Oncologic (Cancer) History: Reports: Cervix Dermatologic History: Reports: Eczema, Other (See Below) Other Dermatologic History: rosacia - Infectious Disease History Infectious Disease History: Reports: Chicken Pox, Influenza Other Infectious Disease History: rectal worts - Past Surgical History HEENT Surgical History: Reports: Myringotomy w Tube(s), Oral Surgery, Tonsillectomy GI Surgical History: Reports: Appendectomy, Bariatric Procedure, Cholecystectomy, Colonoscopy, EGD, Hernia Repair/Other Female Surgical History: Reports: Hysterectomy Musculoskeletal Surgical History: Reports: Carpal Tunnel, Ganglion Cyst, Other (See Below) Other Musculoskeletal Surgeries/Procedures:: Left ankle ORIF with hardware Social & Family History - Family History Family Medical History: Noncontributory Cardiac: Reports: Heart Murmur Respiratory: Reports: COPD Psychiatric: Reports: Depression, Schizophrenia - Tobacco Use Tobacco Use Status *Q: Light Tobacco User Years of Tobacco use: 20 Packs/Tins Daily: 0.5 - Caffeine Use Caffeine Use: Reports: None - Recreational Drug Use Recreational Drug Use: No - Living Situation & Occupation Living situation: Reports: Single Occupation: Disabled (lives with Domestic Partner in [place], [place]. One grown child 18 years old.) ED ROS GENERAL - Review of Systems Review Of Systems: See Below Constitutional: Reports: Malaise. Denies: Fever, Chills HEENT: Denies: Throat Pain Respiratory: Denies: Shortness of Breath Cardiovascular: Denies: Chest Pain GI/Abdominal: Reports: Abdominal Pain, Nausea, Vomiting. Denies: Constipation, Diarrhea Skin: Reports: Diaphoresis Neurological: Reports: No Symptoms. Denies: Headache ED EXAM, GI/ABD - Physical Exam Exam: See Below Exam Limited By: No Limitations General Appearance: Alert, Moderate Distress Eyes: Bilateral: Normal Appearance (No jaundice, good hydration) Head: Atraumatic Respiratory/Chest: Lungs Clear GI/Abdominal Exam: Normal Bowel Sounds, Soft, Tender (Very tender with some mild guarding in the left upper quadrant and epigastric area, no real rebound tenderness) Neurological: Alert, Oriented Psychiatric: Anxious Skin Exam: Warm, Dry Course - Vital Signs Last Recorded V/S: Last Vital Signs Temp 97.0 F 10/30/20 16:19 Pulse 73 09/15/20 17:34 Resp 20 09/15/20 16:19 BP 112/95 H 09/15/20 17:34 Pulse Ox 91 L 09/15/20 17:34 - Orders/Labs/Meds Labs: Laboratory Tests 09/15/20 09/15/20 Range/Units 16:49 16:49 WBC 9.5 (4.5-11.0) K/uL RBC 5.43 (3.30-5.50) M/uL Hgb 15.5 H (12.0-15.0) g/dL Hct 47.5 (36.0-48.0) % MCV 88 (80-98) fL MCH 29 (27-31) pg MCHC 33 (32-36) % Plt Count 254 (150-400) K/uL Neut % (Auto) 64 (36-66) % Lymph % (Auto) 24 (24-44) % [place] % (Auto) 8 H (2-6) % Eos % (Auto) 5 H (2-4) % Baso % (Auto) 0 (0-1) % Sodium 139 L (140-148) mmol/L Potassium 4.4 (3.6-5.2) mmol/L Chloride 102 (100-108) mmol/L Carbon Dioxide 29 (21-32) mmol/L Anion Gap 12.4 (5.0-14.0) mmol/L BUN 10 (7-18) mg/dL Creatinine 0.8 (0.6-1.0) mg/dL Est Cr Clr Drug Dosing 83.14 mL/min Estimated GFR (MDRD) > 60 (>60) Glucose 97 (74-106) mg/dL Calcium 8.7 (8.5-10.1) mg/dL Lipase 150 (73-393) U/L Meds: Medications Discontinued Medications Generic Name Dose Route Start Last Admin Trade Name Freq PRN Reason Stop Dose Admin Al Hydroxide/Mg Hydroxide 15 0 ml 09/15/20 17:12 09/15/20 17:23 ml/ Lidocaine HCl 15 ml PO 09/15/20 17:13 30 ml ONETIME ONE Administration Hydromorphone HCl 1 mg 09/15/20 16:34 09/15/20 16:56 Dilaudid IVPUSH 09/15/20 16:35 1 mg ONETIME ONE Administration Lactated Ringer's 1,000 mls @ 500 mls/hr 09/15/20 16:45 09/15/20 16:59 Ringers, Lactated IV 500 mls/hr ASDIRECTED APOLINAR Administration Pantoprazole Sodium 40 mg 09/15/20 17:34 09/15/20 17:46 Protonix Iv IVPUSH 09/15/20 17:35 40 mg ONETIME ONE Administration - Re-Assessments/Exams Free Text/Narrative Re-Assessment/Exam: 09/15/20 16:37 An IV was started, patient was given 1 mg of IV Dilaudid and LR at 500 cc an hour was started. CBC, BMP and lipase were obtained. If lipase is rising, she may need hospitalization. 09/15/20 17:35 All her labs are normal, the IV Dilaudid helps. Lipase is normal, white count is normal. Explained to the patient that I cannot transfer her to another hospital without something to treat, especially in light of the work-up she has had in the past that were negative. I gave her a GI cocktail which numbed up her throat but according to the patient it did not help her stomach. I then gave her 40 mg of IV Protonix and encouraged her to stick with clear liquids through the . She can recheck Friday with Sandra Armas or Dr. Sofia to consider an EGD. Departure - Departure Time of Disposition: 17:55 Disposition: Home, Self-Care 01 Clinical Impression: Abdominal pain Qualifiers: Abdominal location: upper abdomen, unspecified Qualified Code(s): R10.10 - Upper abdominal pain, unspecified - Discharge Information Instructions: Abdominal Pain, Adult, [id number] Referrals: Jessica Delaney MD [Primary Care Provider] - Forms: ED Department Discharge Care Plan Goals: Try to stick which is bland diet and liquids through the weekend and continue your regular medications. Call the surgical department on Friday if not improving satisfactorily, or return to the emergency room if worsening such as fever or concerns of dehydration. Sepsis Event Note (ED) - Evaluation Sepsis Screening Result: No Definite Risk
[2020-09-15] MEDS ORDERED: HYDROmorphone 1 MG/ML Syringe IVPUSH ONE (16:34)
[2020-09-15] MEDS ORDERED: Lactated Ringers 1,000 ML IV SCH (16:45)
[2020-09-15] MEDS ORDERED: Alum Hydrox/Mag Hydrox/Simeth 15 ML, Lidocaine 2% 15 ML PO ONE ×2 (17:12)
[2020-09-15 17:34] VITALS: BP 112/95; PULSE 73
[2020-09-15] MEDS ORDERED: Pantoprazole 40 MG Vial IVPUSH ONE (17:34)
== END 2020-09-15 17:56 | disposition home or self-care (01) ==
LOC: JP.ED 15:47
DX: R10.10 Upper abdominal pain, unspecified (principal); J45.909 Unspecified asthma, uncomplicated; K21.9 Gastro-esophageal reflux disease without esophagitis; M06.9 Rheumatoid arthritis, unspecified; F90.9 Attention-deficit hyperactivity disorder, unspecified type; F41.9 Anxiety disorder, unspecified; F32.9 Major depressive disorder, single episode, unspecified; F25.9 Schizoaffective disorder, unspecified; E03.9 Hypothyroidism, unspecified; F17.210 Nicotine dependence, cigarettes, uncomplicated; E66.9 Obesity, unspecified; Z68.41 Body mass index [BMI] 40.0-44.9, adult; Z88.1 Allergy status to other antibiotic agents; Z88.8 Allergy status to other drugs, medicaments and biological substances; Z91.018 Allergy to other foods; Z88.6 Allergy status to analgesic agent; Z91.040 Latex allergy status; Z88.5 Allergy status to narcotic agent; Z79.899 Other long term (current) drug therapy
CPT/HCPCS: 36415; 80048; 83690; 85025; 96374; 96375; 99284; A9270; C9113; J1170; J7120

== ENCOUNTER 2020-10-18 15:29 | Emergency (ER) | payer MEDICAID ==
[2020-10-18 16:06] VITALS: BP 119/77; PULSE 86
--- NOTE | 2020-10-18 16:28 | EDM.PDOC ---
ED HPI GENERAL MEDICAL PROBLEM - General Chief Complaint: Upper Extremity Injury/Pain Stated Complaint: PAIN RT SHOULDER Time Seen by Provider: 10/18/20 16:10 Source of Information: Reports: Patient, Old Records, RN History Limitations: Reports: No Limitations - History of Present Illness INITIAL COMMENTS - FREE TEXT/NARRATIVE: 35 yo female presents with R shoulder pain that is somewhat chronic from a subacute rotator cuff partial tear. She is scheduled to see ortho this Friday. Has a sling and is using Flexeril and topical Voltaren without adequate relief. Called the clinic today and was told that Ortho had to prescribe her pain meds, ortho won't because they have not seen her yet. Was not actually able to talk to her own provider, Dr. Wall. Onset: Sudden Duration: Day(s):, Constant Location: Reports: Upper Extremity, Right Quality: Reports: Ache, Sharp Severity: Moderate Improves with: Reports: None Worsens with: Reports: Movement Context: Reports: Trauma (lifting injury) Associated Symptoms: Reports: No Other Symptoms Treatments FIRE MANAGEMENT TECHNICIAN: Reports: NSAIDS (topical), Other (see below) (Flexeril) - Related Data Allergies Allergy/AdvReac Type Severity Reaction Status Date / Time amoxicillin Allergy Severe Anaphylactic Verified 10/18/20 15:38 Shock promethazine HCl Allergy Severe Anaphylactic Verified 10/18/20 15:38 [From Phenergan] Shock risperidone [From Risperdal] Allergy Severe Anaphylactic Verified 10/18/20 15:38 Shock atomoxetine Allergy Anxiety Verified 10/18/20 15:38 banana Allergy Itching Verified 10/18/20 15:38 clindamycin Allergy Rash Verified 10/18/20 15:38 ketorolac tromethamine Allergy Rash Verified 10/18/20 15:38 [From Toradol] latex Allergy Rash Verified 10/18/20 15:38 Latex, Natural Rubber Allergy Wheezing Verified 10/18/20 15:38 quetiapine Allergy Anxiety Verified 10/18/20 15:38 tramadol HCl [From Ultram] Allergy Hives Verified 10/18/20 15:38 varenicline Allergy Anxiety Verified 10/18/20 15:38 zolpidem [From Ambien] Allergy Anxiety Verified 10/18/20 15:38 atomoxetine HCl AdvReac Anxiety Verified 10/18/20 15:38 [From Strattera] cephalexin monohydrate AdvReac Dizziness Verified 10/18/20 15:38 [From Keflex] quetiapine fumarate AdvReac Irritabilit Verified 10/18/20 15:38 [From Seroquel] y trazodone AdvReac Dizziness Verified 10/18/20 15:38 zolpidem tartrate AdvReac Anxiety Verified 10/18/20 15:38 [From Ambien] Home Meds: Home Meds Cetirizine HCl [Zyrtec] 10 mg PO DAILY 09/19/18 [History] Methimazole [Tapazole] 20 mg PO DAILY 09/19/18 [History] rOPINIRole [Requip] 2 mg PO BID 09/19/18 [History] Albuterol [Proventil Neb Soln] 3 ml NEB TID PRN 02/18/19 [History] Lidocaine 2% [Xylocaine 2%] 10 ml TOP Q6H PRN 07/23/19 [History] Pantoprazole Sodium [Protonix] 40 mg PO DAILY 07/23/19 [History] Acetaminophen [Tylenol] 650 mg PO Q6H cup 07/30/19 [Rx] Celecoxib [CeleBREX] 200 mg PO DAILY@0800 cap 07/30/19 [Rx] Dicyclomine [Bentyl] 20 mg PO QIDACANDBED PRN 06/27/20 [History] Cholecalciferol (Vitamin D3) [Vitamin D] 5,000 unit PO DAILY 08/15/20 [History] Multivit with Iron,Minerals [Complete Senior] 1 tab PO BID 08/15/20 [History] Multivitamin [Flintstones] 1 tab PO BID 08/15/20 [History] Lisdexamfetamine [Vyvanse] 50 mg PO DAILY 08/19/20 [History] Metoprolol Tartrate 50 mg PO BID 08/19/20 [History] Sennosides [Senna] 8.6 mg PO DAILY #100 tablet 08/20/20 [Rx] Albuterol Sulfate [Proair Respiclick] 90 mcg IH QID PRN 09/12/20 [History] Folic Acid 1 mg PO DAILY 09/12/20 [History] Ondansetron [Zofran ODT] 4 mg PO Q6H PRN 5 Days #15 tab.dis 10/28/20 [Rx] Calcium Carbonate 600 mg PO BIDMEALS 10/18/20 [History] Celecoxib [CeleBREX] 200 mg PO BID 10/18/20 [History] Clotrimazole [Clotrimazole 1%] 1 applic TOP BID 10/18/20 [History] Cyanocobalamin (Vitamin B-12) [Vitamin B-12] 1,000 mcg SL DAILY 10/18/20 [History] Cyclobenzaprine [Flexeril] 10 mg PO TID PRN 10/18/20 [History] Diclofenac Sodium [Voltaren 1% Gel] 4 g TOP ASDIRECTED PRN 10/18/20 [History] EPINEPHrine [Epinephrine] 0.3 mg IM ASDIRECTED 10/18/20 [History] Ferrous Sulfate 325 mg PO DAILY 10/18/20 [History] Loperamide HCl [Imodium A-D] 2 mg PO Q4H PRN 10/18/20 [History] Melatonin 10 mg PO BEDTIME PRN 10/18/20 [History] Metoclopramide HCl [Reglan] 10 mg PO DAILY 10/18/20 [History] Mirtazapine 7.5 mg PO BEDTIME 10/18/20 [History] Sodium Chloride 0.65% [[place] Saline] 2 spray IH QID 10/18/20 [History] Sucralfate [Carafate] 1 gm PO QID 10/18/20 [History] Varenicline [Chantix] 1 mg PO BIDPC 10/18/20 [History] Vitamin B Complex [B Complex] 1 tab PO DAILY 10/18/20 [History] Past Medical History HEENT History: Reports: Impaired Vision, Otitis Media Other HEENT History: Bilateral tympanic membrane rupture. tonsillectomy. recent surgery septum 08/20/18 Cardiovascular History: Reports: Other (See Below) Other Cardiovascular History: Heart palpatations Respiratory History: Reports: Asthma, Bronchitis, Recurrent, Pneumonia, Recurrent, Sleep Apnea, SOB, Other (See Below) Other Respiratory History: has CPAP Gastrointestinal History: Reports: Gastritis, GERD Genitourinary History: Reports: Renal Calculus, UTI, Recurrent PROTECTION AGENT History: Reports: Other PROTECTION AGENT History: Hysterectomy with right oophrectomy Musculoskeletal History: Reports: Fracture, Fibromyalgia, RA Other Musculoskeletal History: fibromyalgia. rheumatoid arthritis Neurological History: Reports: Headaches, Chronic, Migraines Psychiatric History: Reports: ADHD, Anxiety, Depression, Psych H ospitalization(s), PTSD, Suicide Attempt, Suicidal Ideation, Other (See Below) Other Psychiatric History: Schizo effective disorder Endocrine/Metabolic History: Reports: Hyperthyroidism, Hypothyroidism, Obesity/BMI 30+ Hematologic History: Reports: Anemia, B12 Deficiency, Folic Acid Immunologic History: Reports: None Oncologic (Cancer) History: Reports: Cervix Dermatologic History: Reports: Eczema, Other (See Below) Other Dermatologic History: rosacia - Infectious Disease History Infectious Disease History: Reports: Chicken Pox, Influenza Other Infectious Disease History: rectal worts - Past Surgical History Head Surgeries/Procedures: Reports: None HEENT Surgical History: Reports: Myringotomy w Tube(s), Oral Surgery, Tonsillectomy Other HEENT Surgeries/Procedures: septum surgery Cardiovascular Surgical History: Reports: None Other Cardiovascular Surgeries/Procedures: Echo Respiratory Surgical History: Reports: None GI Surgical History: Reports: Appendectomy, Bariatric Procedure, Cholecystectomy, Colonoscopy, EGD, Hernia Repair/Other Female Surgical History: Reports: Hysterectomy Endocrine Surgical History: Reports: None Other Endocrine Surgeries/Procedures: degenerative joint disease Neurological Surgical History: Reports: None Musculoskeletal Surgical History: Reports: Carpal Tunnel, Ganglion Cyst, Other (See Below) Other Musculoskeletal Surgeries/Procedures:: Left ankle ORIF with hardware Oncologic Surgical History: Reports: None Dermatological Surgical History: Reports: None Social & Family History - Family History Family Medical History: No Pertinent Family History Cardiac: Reports: Heart Murmur Respiratory: Reports: COPD Psychiatric: Reports: Depression, Schizophrenia - Tobacco Use Tobacco Use Status *Q: Current Every Day Tobacco User Years of Tobacco use: 20 Packs/Tins Daily: 0.5 Used Tobacco, but Quit: No Second Hand Smoke Exposure: Yes - Caffeine Use Caffeine Use: Reports: None - Recreational Drug Use Recreational Drug Use: No - Living Situation & Occupation Living situation: Reports: Single Occupation: Disabled (lives with Domestic Partner in [place], [place]. One grown child 18 years old.) Review of Systems - Review of Systems Review Of Systems: See Below Constitutional: Reports: No Symptoms Musculoskeletal: Reports: Shoulder Pain (Right) Skin: Reports: No Symptoms Neurological: Reports: No Symptoms ED EXAM, GENERAL - Physical Exam Exam: See Below Exam Limited By: No Limitations General Appearance: Alert, WD/WN, No Apparent Distress, Obese Extremities: Normal Inspection, Arm Pain (R deltoid and trapezius areas), Limited Range of Motion (due to pain, is wearing a sling). No: Normal Range of Motion, Increased Warmth Neurological: Alert, Oriented, CN II-XII Intact, Normal Cognition, No Motor/Sensory Deficits Psychiatric: Normal Affect, Normal Mood Skin Exam: Warm, Dry, Intact, Normal Color, No Rash Course - Vital Signs Last Recorded V/S: Last Vital Signs Temp 37.1 C 10/18/20 16:07 Pulse 86 10/18/20 16:07 Resp 16 10/18/20 16:07 BP 119/77 10/18/20 16:07 Pulse Ox 98 10/18/20 16:07 Departure - Departure Time of Disposition: 16:35 Disposition: Home, Self-Care 01 Condition: Fair Clinical Impression: Right shoulder pain Qualifiers: Chronicity: unspecified Qualified Code(s): M25.511 - Pain in right shoulder - Discharge Information *PRESCRIPTION DRUG MONITORING PROGRAM REVIEWED*: Not Applicable *COPY OF PRESCRIPTION DRUG MONITORING REPORT IN PATIENT JAYDEN: Not Applicable Instructions: Shoulder Pain Referrals: Jessica Delaney MD [Primary Care Provider] - Additional Instructions: Continue your present cares. Use either acetaminophen 1000 mg every 6 hrs or [place] for pain relief. Consider trying Lidocaine patches per package instructions. Discuss your situation tomorrow with your family doctor. Sepsis Event Note (ED) - Evaluation Sepsis Screening Result: No Definite Risk - Focused Exam Vital Signs: Vital Signs Temp Pulse Resp BP Pulse Ox 10/18/20 16:07 37.1 C 86 16 119/77 98 10/18/20 16:05 37.1 C 86 16 119/77 98
== END 2020-10-18 16:35 | disposition home or self-care (01) ==
LOC: JP.ED 15:29
DX: M25.511 Pain in right shoulder (principal); J45.909 Unspecified asthma, uncomplicated; K21.9 Gastro-esophageal reflux disease without esophagitis; F90.9 Attention-deficit hyperactivity disorder, unspecified type; D64.9 Anemia, unspecified; E66.9 Obesity, unspecified; Z68.42 Body mass index [BMI] 45.0-49.9, adult; F17.210 Nicotine dependence, cigarettes, uncomplicated; Z88.0 Allergy status to penicillin; Z88.8 Allergy status to other drugs, medicaments and biological substances; Z88.1 Allergy status to other antibiotic agents; Z91.018 Allergy to other foods; Z88.5 Allergy status to narcotic agent; Z91.040 Latex allergy status; Z79.899 Other long term (current) drug therapy
CPT/HCPCS: 99283

== ENCOUNTER 2020-11-07 10:16 | Emergency (ER) | payer MEDICAID ==
[2020-11-07 10:34] VITALS: BP 145/84; PULSE 72
[2020-11-07] MEDS ORDERED: Cyclobenzaprine 10 MG Tab PO ONE (11:14)
[2020-11-07] MEDS ORDERED: Ketorolac 60 MG/2 ML SDV IM ONE (11:14)
--- NOTE | 2020-11-07 11:18 | EDM.PDOC ---
ED HPI GENERAL MEDICAL PROBLEM - General Chief Complaint: Back Pain or Injury Stated Complaint: FELL-LOWER BACK PAIN Time Seen by Provider: 11/07/20 11:09 Source of Information: Reports: Patient, Family, RN Notes Reviewed History Limitations: Reports: No Limitations - History of Present Illness INITIAL COMMENTS - FREE TEXT/NARRATIVE: 35-year-old female presents emergency department a complaint of low back pain, she injured herself while getting into the truck she slipped on the side step fell backwards landing on her low back, no loss of bowel or bladder but she is experiencing intense pain Back Pain Score (Numeric/FACES): 7 - Related Data Allergies Allergy/AdvReac Type Severity Reaction Status Date / Time amoxicillin Allergy Severe Anaphylactic Verified 11/07/20 10:44 Shock promethazine HCl Allergy Severe Anaphylactic Verified 11/07/20 10:44 [From Phenergan] Shock risperidone [From Risperdal] Allergy Severe Anaphylactic Verified 11/07/20 10:44 Shock atomoxetine Allergy Anxiety Verified 11/07/20 10:44 banana Allergy Itching Verified 11/07/20 10:44 clindamycin Allergy Rash Verified 11/07/20 10:44 ketorolac tromethamine Allergy Rash Verified 11/07/20 10:44 [From Toradol] latex Allergy Rash Verified 11/07/20 10:44 Latex, Natural Rubber Allergy Wheezing Verified 11/07/20 10:44 quetiapine Allergy Anxiety Verified 11/07/20 10:44 tramadol HCl [From Ultram] Allergy Hives Verified 11/07/20 10:44 varenicline Allergy Anxiety Verified 11/07/20 10:44 zolpidem [From Ambien] Allergy Anxiety Verified 11/07/20 10:44 atomoxetine HCl AdvReac Anxiety Verified 11/07/20 10:44 [From Strattera] cephalexin monohydrate AdvReac Dizziness Verified 11/07/20 10:44 [From Keflex] quetiapine fumarate AdvReac Irritabilit Verified 11/07/20 10:44 [From Seroquel] y trazodone AdvReac Dizziness Verified 11/07/20 10:44 zolpidem tartrate AdvReac Anxiety Verified 11/07/20 10:44 [From Ambien] Home Meds: Home Meds Cetirizine HCl [Zyrtec] 10 mg PO DAILY 09/19/18 [History] Methimazole [Tapazole] 20 mg PO DAILY 09/19/18 [History] rOPINIRole [Requip] 2 mg PO BID 09/19/18 [History] Albuterol [Proventil Neb Soln] 3 ml NEB TID PRN 02/18/19 [History] Lidocaine 2% [Xylocaine 2%] 10 ml TOP Q6H PRN 07/23/19 [History] Pantoprazole Sodium [Protonix] 40 mg PO DAILY 07/23/19 [History] Acetaminophen [Tylenol] 650 mg PO Q6H cup 07/30/19 [Rx] Dicyclomine [Bentyl] 20 mg PO QIDACANDBED PRN 06/27/20 [History] Cholecalciferol (Vitamin D3) [Vitamin D] 5,000 unit PO DAILY 08/15/20 [History] Multivit with Iron,Minerals [Complete Senior] 1 tab PO BID 08/15/20 [History] Multivitamin [Flintstones] 1 tab PO BID 08/15/20 [History] Lisdexamfetamine [Vyvanse] 50 mg PO DAILY 08/19/20 [History] Metoprolol Tartrate 50 mg PO BID 08/19/20 [History] Albuterol Sulfate [Proair Respiclick] 90 mcg IH QID PRN 09/12/20 [History] Folic Acid 1 mg PO DAILY 09/12/20 [History] Ondansetron [Zofran ODT] 4 mg PO Q6H PRN 5 Days #15 tab.dis 09/13/20 [Rx] Calcium Carbonate 600 mg PO BIDMEALS 10/18/20 [History] Clotrimazole [Clotrimazole 1%] 1 applic TOP BID PRN 10/18/20 [History] Cyanocobalamin (Vitamin B-12) [Vitamin B-12] 1,000 mcg SL DAILY 10/18/20 [History] Cyclobenzaprine [Flexeril] 10 mg PO TID PRN 10/18/20 [History] Diclofenac Sodium [Voltaren 1% Gel] 4 g TOP ASDIRECTED PRN 10/18/20 [History] EPINEPHrine [Epinephrine] 0.3 mg IM ASDIRECTED PRN 10/18/20 [History] Ferrous Sulfate 325 mg PO DAILY 10/18/20 [History] Loperamide HCl [Imodium A-D] 2 mg PO Q4H PRN 10/18/20 [History] Melatonin 10 mg PO BEDTIME PRN 10/18/20 [History] Mirtazapine 7.5 mg PO BEDTIME 10/18/20 [History] Sodium Chloride 0.65% [[place] Saline] 2 spray IH QID 10/18/20 [History] Varenicline [Chantix] 1 mg PO BIDPC 10/18/20 [History] Vitamin B Complex [B Complex] 1 tab PO DAILY 10/18/20 [History] Sennosides [Senna] 8.6 mg PO DAILY PRN 11/07/20 [History] Past Medical History HEENT History: Reports: Impaired Vision, Otitis Media Other HEENT History: Bilateral tympanic membrane rupture. tonsillectomy. recent surgery septum 08/20/18 Cardiovascular History: Reports: Other (See Below) Other Cardiovascular History: Heart palpatations Respiratory History: Reports: Asthma, Bronchitis, Recurrent, Pneumonia, Recurrent, Sleep Apnea, SOB, Other (See Below) Other Respiratory History: has CPAP Gastrointestinal History: Reports: Gastritis, GERD Genitourinary History: Reports: Renal Calculus, UTI, Recurrent HISTORY PROFESSOR History: Reports: Other HISTORY PROFESSOR History: Hysterectomy with right oophrectomy Musculoskeletal History: Reports: Fracture, Fibromyalgia, RA Other Musculoskeletal History: fibromyalgia. rheumatoid arthritis Neurological History: Reports: Headaches, Chronic, Migraines Psychiatric History: Reports: ADHD, Anxiety, Depression, Psych Hospitalization(s), PTSD, Suicide Attempt, Suicidal Ideation, Other (See Below) Other Psychiatric History: Schizo effective disorder Endocrine/Metabolic History: Reports: Hyperthyroidism, Hypothyroidism, Obesity/BMI 30+ Hematologic History: Reports: Anemia, B12 Deficiency, Folic Acid Immunologic History: Reports: None Oncologic (Cancer) History: Reports: Cervix Dermatologic History: Reports: Eczema, Other (See Below) Other Dermatologic History: rosacia - Infectious Disease History Infectious Disease History: Reports: Chicken Pox, Influenza Other Infectious Disease History: rectal worts - Past Surgical History Head Surgeries/Procedures: Reports: None HEENT Surgical History: Reports: Myringotomy w Tube(s), Oral Surgery, Tonsillectomy Other HEENT Surgeries/Procedures: septum surgery Cardiovascular Surgical History: Reports: None Other Cardiovascular Surgeries/Procedures: Echo Respiratory Surgical History: Reports: None GI Surgical History: Reports: Appendectomy, Bariatric Procedure, Cholecystectomy, Colonoscopy, EGD, Hernia Repair/Other Female Surgical History: Reports: Hysterectomy Endocrine Surgical History: Reports: None Other Endocrine Surgeries/Procedures: degenerative joint disease Neurological Surgical History: Reports: None Musculoskeletal Surgical History: Reports: Carpal Tunnel, Ganglion Cyst, Other (See Below) Other Musculoskeletal Surgeries/Procedures:: Left ankle ORIF with hardware Oncologic Surgical History: Reports: None Dermatological Surgical History: Reports: None Social & Family History - Family History Family Medical History: No Pertinent Family History Cardiac: Reports: Heart Murmur Respiratory: Reports: COPD Psychiatric: Reports: Depression, Schizophrenia - Tobacco Use Years of Tobacco use: 20 Packs/Tins Daily: 0.5 - Caffeine Use Caffeine Use: Reports: None - Recreational Drug Use Recreational Drug Use: No - Living Situation & Occupation Living situation: Reports: Single Occupation: Disabled (lives with Domestic Partner in [place], [place]. One grown child 18 years old.) ED ROS GENERAL - Review of Systems Review Of Systems: See Below Constitutional: Reports: No Symptoms Respiratory: Reports: No Symptoms Cardiovascular: Reports: No Symptoms GI/Abdominal: Reports: No Symptoms Musculoskeletal: Reports: Back Pain ED EXAM,LOWER BACK PAIN/INJURY - Physical Exam Exam: See Below Exam Limited By: No Limitations General Appearance: Alert, WD/WN, No Apparent Distress Respiratory/Chest: No Respiratory Distress Back Exam: Normal Inspection, Decreased Range of Motion, Muscle Spasm, Paraspinal Tenderness. No: CVA Tenderness (R), CVA Tenderness (L), Vertebral Tenderness Course - Vital Signs Last Recorded V/S: Last Vital Signs Temp 97 F 11/07/20 10:32 Pulse 72 11/07/20 10:32 Resp 16 11/07/20 10:32 BP 145/84 H 11/07/20 10:32 Pulse Ox - Orders/Labs/Meds Meds: Medications Discontinued Medications Generic Name Dose Route Start Last Admin Trade Name Cliffq PRN Reason Stop Dose Admin Cyclobenzaprine HCl 10 mg 11/07/20 11:14 11/07/20 11:25 Flexeril PO 11/07/20 11:15 10 mg ONETIME ONE Administration Hydromorphone HCl 1 mg 11/07/20 11:27 11/07/20 11:37 Dilaudid IM 11/07/20 11:28 1 mg ONETIME ONE Administration Ketorolac Tromethamine 60 mg 11/07/20 11:14 11/07/20 11:32 Toradol IM 11/07/20 11:15 Not Given ONETIME ONE Departure - Departure Time of Disposition: 12:44 Disposition: Home, Self-Care 01 Condition: Fair Clinical Impression: Lumbar back pain - Discharge Information Instructions: Back Injury Prevention Referrals: Jessica Delaney MD [Primary Care Provider] - Forms: ED Department Discharge Additional Instructions: Continue with your regular medications, please followup with your primary care provider in 3-5 days if not better, please call return to the emergency depart ment with worsening of symptoms. Sepsis Event Note (ED) - Evaluation Sepsis Screening Result: No Definite Risk - Focused Exam Vital Signs: Vital Signs Temp Pulse Resp BP 11/07/20 10:32 97 F 72 16 145/84 H - Assessment/Plan Plan: Assessment Acuity = acute Site and laterality = low back pain Etiology = secondary to fall Manifestations = none Location of injury = Home Lab values = plain film of the back showed no acute process Plan She had good improvement 1 mg Dilaudid and Flexeril placed discharge home she is going to continue to use nonsteroidal anti-inflammatories and Flexeril as needed follow-up primary care 3 to 5 days if not better This note was dictated using [employer] voice recognition software please call with any questions on syntax or grammar.
[2020-11-07] MEDS ORDERED: HYDROmorphone 1 MG/ML Syringe IM ONE (11:27)
--- NOTE | 2020-11-07 12:12 | CR ---
Lumbar Spine 2 or 3V CLINICAL HISTORY: Trauma, fall FINDINGS: There are 6 lumbar type vertebrae. There is narrowing at the L6 S1 disc space. This is also seen in on a CT from April 2020. The vertebral body heights are maintained. Alignment is maintained. There is some straightening of lumbar lordosis. This may indicate spasm IMPRESSION: 6 lumbar type vertebrae Degenerative disc disease at the lumbosacral junction No fracture or subluxation Straightening of the lumbar lordosis may indicate spasm
== END 2020-11-07 12:50 | disposition home or self-care (01) ==
LOC: JP.ED 10:16
DX: M54.5 Low back pain (principal); J45.909 Unspecified asthma, uncomplicated; K21.9 Gastro-esophageal reflux disease without esophagitis; F90.9 Attention-deficit hyperactivity disorder, unspecified type; F41.9 Anxiety disorder, unspecified; F32.9 Major depressive disorder, single episode, unspecified; F25.9 Schizoaffective disorder, unspecified; E03.9 Hypothyroidism, unspecified; E66.9 Obesity, unspecified; F17.210 Nicotine dependence, cigarettes, uncomplicated; Z68.41 Body mass index [BMI] 40.0-44.9, adult; Z88.1 Allergy status to other antibiotic agents; Z88.8 Allergy status to other drugs, medicaments and biological substances; Z91.018 Allergy to other foods; Z88.6 Allergy status to analgesic agent; Z91.040 Latex allergy status; Z88.5 Allergy status to narcotic agent; Z79.899 Other long term (current) drug therapy
CPT/HCPCS: 72100; 96372; 99283; A9270; J1170

== ENCOUNTER 2020-11-10 20:03 | Emergency (ER) | payer MEDICAID ==
[2020-11-10 20:48] VITALS: BP 118/65; PULSE 98
--- NOTE | 2020-11-10 20:53 | EDM.PDOC ---
ED HPI GENERAL MEDICAL PROBLEM - General Chief Complaint: Lower Extremity Injury/Pain Stated Complaint: RT ANKLE PAIN Time Seen by Provider: 11/10/20 20:52 Source of Information: Reports: Patient, RN History Limitations: Reports: No Limitations - History of Present Illness INITIAL COMMENTS - FREE TEXT/NARRATIVE: 35 yo female was here this past Friday for low back pain from injury. Apparently also injured her ankle at that time but was focused during that visit on her back. The ankle continues to hurt so comes now to the ER. Has not been to the clinic for this. Comes often to the ER mainly for issues with needing pain medications. Is on disability. Says doesn't really remember injuring the ankle when she fell this past Friday. Ankle didn't hurt until the next day. Seems to be getting worse since then. Can bear weight. Hurts over lateral ankle. Can't take NSAID's due to allergy. No hx of gout or diabetes. Says toes are numb on that foot. Onset: Gradual Onset Date: 11/07/20 Duration: Day(s):, Getting Worse Location: Reports: Lower Extremity, Right Quality: Reports: Ache, Burning Severity: Severe Improves with: Reports: Rest Worsens with: Reports: Movement Context: Reports: Other (unsure) Associated Symptoms: Reports: No Other Symptoms Treatments HOME SERVICE ADVISOR: Reports: Other (see below) (none) right ankle Pain Score (Numeric/FACES): 7 - Related Data Allergies Allergy/AdvReac Type Severity Reaction Status Date / Time amoxicillin Allergy Severe Anaphylactic Verified 11/10/20 20:35 Shock promethazine HCl Allergy Severe Anaphylactic Verified 11/10/20 20:35 [From Phenergan] Shock risperidone [From Risperdal] Allergy Severe Anaphylactic Verified 11/10/20 20:35 Shock atomoxetine Allergy Anxiety Verified 11/10/20 20:35 banana Allergy Itching Verified 11/10/20 20:35 clindamycin Allergy Rash Verified 11/10/20 20:35 ketorolac tromethamine Allergy Rash Verified 11/10/20 20:35 [From Toradol] latex Allergy Rash Verified 11/10/20 20:35 Latex, Natural Rubber Allergy Wheezing Verified 11/10/20 20:35 quetiapine Allergy Anxiety Verified 11/10/20 20:35 tramadol HCl [From Ultram] Allergy Hives Verified 11/10/20 20:35 varenicline Allergy Anxiety Verified 11/10/20 20:35 zolpidem [From Ambien] Allergy Anxiety Verified 11/10/20 20:35 atomoxetine HCl AdvReac Anxiety Verified 11/10/20 20:35 [From Strattera] cephalexin monohydrate AdvReac Dizziness Verified 11/10/20 20:35 [From Keflex] quetiapine fumarate AdvReac Irritabilit Verified 11/10/20 20:35 [From Seroquel] y trazodone AdvReac Dizziness Verified 11/10/20 20:35 zolpidem tartrate AdvReac Anxiety Verified 11/10/20 20:35 [From Ambien] Home Meds: Home Meds Cetirizine HCl [Zyrtec] 10 mg PO DAILY 09/19/18 [History] Methimazole [Tapazole] 20 mg PO DAILY 09/19/18 [History] rOPINIRole [Requip] 2 mg PO BID 09/19/18 [History] Albuterol [Proventil Neb Soln] 3 ml NEB TID PRN 02/18/19 [History] Lidocaine 2% [Xylocaine 2%] 10 ml TOP Q6H PRN 07/23/19 [History] Pantoprazole Sodium [Protonix] 40 mg PO DAILY 07/23/19 [History] Acetaminophen [Tylenol] 650 mg PO Q6H cup 07/30/19 [Rx] Dicyclomine [Bentyl] 20 mg PO QIDACANDBED PRN 06/27/20 [History] Cholecalciferol (Vitamin D3) [Vitamin D] 5,000 unit PO DAILY 08/15/20 [History] Multivit with Iron,Minerals [Complete Senior] 1 tab PO BID 08/15/20 [History] Multivitamin [Flintstones] 1 tab PO BID 08/15/20 [History] Lisdexamfetamine [Vyvanse] 50 mg PO DAILY 08/19/20 [History] Metoprolol Tartrate 50 mg PO BID 08/19/20 [History] Albuterol Sulfate [Proair Respiclick] 90 mcg IH QID PRN 09/12/20 [History] Folic Acid 1 mg PO DAILY 09/12/20 [History] Ondansetron [Zofran ODT] 4 mg PO Q6H PRN 5 Days #15 tab.dis 09/13/20 [Rx] Calcium Carbonate 600 mg PO BIDMEALS 10/18/20 [History] Clotrimazole [Clotrimazole 1%] 1 applic TOP BID PRN 10/18/20 [History] Cyanocobalamin (Vitamin B-12) [Vitamin B-12] 1,000 mcg SL DAILY 10/18/20 [History] Cyclobenzaprine [Flexeril] 10 mg PO TID PRN 10/18/20 [History] Diclofenac Sodium [Voltaren 1% Gel] 4 g TOP ASDIRECTED PRN 10/18/20 [History] EPINEPHrine [Epinephrine] 0.3 mg IM ASDIRECTED PRN 10/18/20 [History] Ferrous Sulfate 325 mg PO DAILY 10/18/20 [History] Loperamide HCl [Imodium A-D] 2 mg PO Q4H PRN 10/18/20 [History] Melatonin 10 mg PO BEDTIME PRN 10/18/20 [History] Mirtazapine 7.5 mg PO BEDTIME 10/18/20 [History] Sodium Chloride 0.65% [[place] Saline] 2 spray IH QID 10/18/20 [History] Varenicline [Chantix] 1 mg PO BIDPC 10/18/20 [History] Vitamin B Complex [B Complex] 1 tab PO DAILY 10/18/20 [History] Sennosides [Senna] 8.6 mg PO DAILY PRN 11/07/20 [History] Gabapentin [Neurontin] 300 mg PO TID #16 cap 11/10/20 [Rx] Past Medical History HEENT History: Reports: Impaired Vision, Otitis Media Other HEENT History: Bilateral tympanic membrane rupture. tonsillectomy. 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 rheumatoid arthritis Neurological History: Reports: Headaches, Chronic, Migraines Psychiatric History: Reports: ADHD, Anxiety, Depression, Psych Hospitalization(s), PTSD, Suicide Attempt, Suicidal Ideation, Other (See Below) Other Psychiatric History: Schizo effective disorder Endocrine/Metabolic History: Reports: Hyperthyroidism, Hypothyroidism, Obesity/BMI 30+ Hematologic History: Reports: Anemia, B12 Deficiency, Folic Acid Immunologic History: Reports: None Oncologic (Cancer) History: Reports: Cervix Dermatologic History: Reports: Eczema, Other (See Below) Other Dermatologic History: rosacia - Infectious Disease History Infectious Disease History: Reports: Chicken Pox, Influenza, Other (See Below) Other Infectious Disease History: rectal worts - Past Surgical History Head Surgeries/Procedures: Reports: None HEENT Surgical History: Reports: Myringotomy w Tube(s), Oral Surgery, Tonsillectomy Other HEENT Surgeries/Procedures: septum surgery Cardiovascular Surgical History: Reports: None Other Cardiovascular Surgeries/Procedures: Echo Respiratory Surgical History: Reports: None GI Surgical History: Reports: Appendectomy, Bariatric Procedure, Cholecystectomy, Colonoscopy, EGD, Hernia Repair/Other Female Surgical History: Reports: Hysterectomy Endocrine Surgical History: Reports: None Other Endocrine Surgeries/Procedures: degenerative joint disease Neurological Surgical History: Reports: None Musculoskeletal Surgical History: Reports: Carpal Tunnel, Ganglion Cyst, Other (See Below) Other Musculoskeletal Surgeries/Procedures:: Left ankle ORIF with hardware Oncologic Surgical History: Reports: None Dermatological Surgical History: Reports: None Social & Family History - Family History Family Medical History: No Pertinent Family History Cardiac: Reports: Heart Murmur Respiratory: Reports: COPD Psychiatric: Reports: Depression, Schizophrenia - Tobacco Use Tobacco Use Status *Q: Current Every Day Tobacco User Years of Tobacco use: 20 Packs/Tins Daily: 0.5 - Caffeine Use Caffeine Use: Reports: Coffee - Recreational Drug Use Recreational Drug Use: No - Living Situation & Occupation Living situation: Reports: Single Occupation: Disabled (lives with Domestic Partner in [place], [place]. One grown child 18 years old.) Review of Systems - Review of Systems Review Of Systems: See Below Constitutional: Reports: No Symptoms Musculoskeletal: Reports: Joint Pain (R lateral ankle), Joint Swelling (minimal lateral) Skin: Reports: No Symptoms Neurological: Reports: Numbness (Toes of R foot) ED EXAM, GENERAL - Physical Exam Exam: See Below Exam Limited By: No Limitations General Appearance: Alert, WD/WN, No Apparent Distress, Obese Peripheral Pulses: 3+: Posterior Tibial (R), Dorsalis Pedis (R) Extremities: Pedal Edema (trace to lateral ankle). No: No Pedal Edema Neurological: Alert, Oriented, CN II-XII Intact, Normal Cognition, No Motor /Sensory Deficits Psychiatric: Normal Affect, Normal Mood Skin Exam: Warm, Dry, Intact, Normal Color, No Rash Course - Vital Signs Last Recorded V/S: Last Vital Signs Temp 36.4 C 11/10/20 20:48 Pulse 98 11/10/20 20:48 Resp 20 11/10/20 20:48 BP 118/65 11/10/20 20:48 Pulse Ox 94 L 11/10/20 20:48 - Orders/Labs/Meds Orders: Active Orders 24 hr Category Date Time Status Ankle Min 3V Rt [CR] Stat Exams 11/10/20 20:11 Taken Meds: Medications Discontinued Medications Generic Name Dose Route Start Last Admin Trade Name Freq PRN Reason Stop Dose Admin Gabapentin 400 mg 11/10/20 21:16 Neurontin PO 11/10/20 21:17 STAT STA - Radiology Interpretation Free Text/Narrative:: R ankle X-ray-neg Departure - Departure Time of Disposition: 21:30 Disposition: Home, Self-Care 01 Condition: Fair Clinical Impression: Pain in lateral portion of right ankle - Discharge Information *PRESCRIPTION DRUG MONITORING PROGRAM REVIEWED*: No *COPY OF PRESCRIPTION DRUG MONITORING REPORT IN PATIENT JAYDEN: No Instructions: Pain Without a Known Cause Referrals: Jessica Delaney MD [Primary Care Provider] - Forms: ED Department Discharge Additional Instructions: Use gabapentin(Rx to [facility]) and/or [place] for pain relief. Use the NIYAH and crutch walking to reduce your pain. F/U in the clinic on Friday, if not better may need referral to podiatry. Sepsis Event Note (ED) - Evaluation Sepsis Screening Result: No Definite Risk - Focused Exam Vital Signs: Vital Signs Temp Pulse Resp BP Pulse Ox 11/10/20 20:48 36.4 C 98 20 118/65 94 L 11/10/20 20:44 36.4 C 98 20 118/65 94 L - My Orders Last 24 Hours: My Active Orders 11/10/20 20:11 Ankle Min 3V Rt [CR] Stat - Assessment/Plan Last 24 Hours: My Active Orders 11/10/20 20:11 Ankle Min 3V Rt [CR] Stat
[2020-11-10] MEDS ORDERED: Gabapentin 400 MG Cap PO STA (21:16)
--- NOTE | 2020-11-13 11:07 | CR ---
Ankle Min 3V Rt CLINICAL HISTORY: Injury FINDINGS: The soft tissues are swollen over the lateral malleolus.. No acute fracture or dislocation is noted. Ankle mortise is intact. Articular surfaces are smooth. IMPRESSION: SOFT tissue swelling No fracture or dislocation
== END 2020-11-10 21:55 | disposition home or self-care (01) ==
LOC: JP.ED 20:03
DX: M25.571 Pain in right ankle and joints of right foot (principal); J45.909 Unspecified asthma, uncomplicated; K21.9 Gastro-esophageal reflux disease without esophagitis; M06.9 Rheumatoid arthritis, unspecified; F41.9 Anxiety disorder, unspecified; F32.9 Major depressive disorder, single episode, unspecified; F90.9 Attention-deficit hyperactivity disorder, unspecified type; F25.9 Schizoaffective disorder, unspecified; E03.9 Hypothyroidism, unspecified; E66.9 Obesity, unspecified; F17.210 Nicotine dependence, cigarettes, uncomplicated; Z68.41 Body mass index [BMI] 40.0-44.9, adult; Z88.1 Allergy status to other antibiotic agents; Z88.8 Allergy status to other drugs, medicaments and biological substances; Z91.018 Allergy to other foods; Z88.6 Allergy status to analgesic agent; Z91.040 Latex allergy status; Z88.5 Allergy status to narcotic agent; Z79.899 Other long term (current) drug therapy
CPT/HCPCS: 73610; 99283; A9270

== ENCOUNTER 2021-04-22 09:22 | Emergency (ER) | payer MEDICAID ==
[2021-04-22 09:48] VITALS: BP 140/80; PULSE 87
--- NOTE | 2021-04-22 10:00 | EDM.PDOC ---
ED HPI GENERAL MEDICAL PROBLEM - General Chief Complaint: Cardiovascular Problem Stated Complaint: LOW HEART RATE, PALPITATIONS Time Seen by Provider: 04/22/21 09:35 Source of Information: Reports: Patient History Limitations: Reports: No Limitations - History of Present Illness INITIAL COMMENTS - FREE TEXT/NARRATIVE: 36-year-old female who has lost almost 200 pounds since gastric bypass, over the past several weeks has been getting some lightheaded feeling, diaphoresis, and palpitations after eating. This morning she had her heart monitor on her finger, her O2 saturations were good but she became fairly bradycardic down into the upper 20s(if the monitor is accurate) and did not feel well. She did not have pain, shortness of breath and did not lose consciousness. She did videotape the monitor on her phone, symptoms have now resolved and now that she is here in the emergency room everything is normal. Onset: Unknown/Unsure Duration: Week(s): (Waxing and waning symptoms for the past several weeks) Associated Symptoms: Reports: Malaise, Weakness. Denies: Chest Pain, Cough, Fever/Chills, Headaches, Loss of Appetite, Shortness of Breath - Related Data Allergies Allergy/AdvReac Type Severity Reaction Status Date / Time amoxicillin Allergy Severe Anaphylactic Verified 04/22/21 09:36 Shock promethazine HCl Allergy Severe Anaphylactic Verified 04/22/21 09:36 [From Phenergan] Shock risperidone [From Risperdal] Allergy Severe Anaphylactic Verified 04/22/21 09:36 Shock atomoxetine Allergy Anxiety Verified 04/22/21 09:36 banana Allergy Itching Verified 04/22/21 09:36 clindamycin Allergy Rash Verified 04/22/21 09:36 ketorolac tromethamine Allergy Rash Verified 04/22/21 09:36 [From Toradol] latex Allergy Rash Verified 04/22/21 09:36 Latex, Natural Rubber Allergy Wheezing Verified 04/22/21 09:36 quetiapine Allergy Anxiety Verified 04/22/21 09:36 tramadol HCl [From Ultram] Allergy Hives Verified 04/22/21 09:36 varenicline Allergy Anxiety Verified 04/22/21 09:36 zolpidem [From Ambien] Allergy Anxiety Verified 04/22/21 09:36 atomoxetine HCl AdvReac Anxiety Verified 04/22/21 09:36 [From Strattera] cephalexin monohydrate AdvReac Dizziness Verified 04/22/21 09:36 [From Keflex] quetiapine fumarate AdvReac Irritabilit Verified 04/22/21 09:36 [From Seroquel] y trazodone AdvReac Dizziness Verified 04/22/21 09:36 zolpidem tartrate AdvReac Anxiety Verified 04/22/21 09:36 [From Ambien] Home Meds: Home Meds Cetirizine HCl [Zyrtec] 10 mg PO DAILY 09/19/18 [History] Methimazole [Tapazole] 20 mg PO DAILY 09/19/18 [History] rOPINIRole [Requip] 2 mg PO BID 09/19/18 [History] Albuterol [Proventil Neb Soln] 3 ml NEB TID PRN 02/18/19 [History] Lidocaine 2% [Xylocaine 2%] 10 ml TOP Q6H PRN 07/23/19 [History] Pantoprazole Sodium [Protonix] 40 mg PO DAILY 07/23/19 [History] Acetaminophen [Tylenol] 650 mg PO Q6H cup 07/30/19 [Rx] Dicyclomine [Bentyl] 20 mg PO QIDACANDBED PRN 06/27/20 [History] Cholecalciferol (Vitamin D3) [Vitamin D] 5,000 unit PO DAILY 08/15/20 [History] Multivit with Iron,Minerals [Complete Senior] 1 tab PO BID 08/15/20 [History] Multivitamin [Flintstones] 1 tab PO BID 08/15/20 [History] Lisdexamfetamine [Vyvanse] 50 mg PO DAILY 08/19/20 [History] Metoprolol Tartrate 50 mg PO BID 08/19/20 [History] Albuterol Sulfate [Proair Respiclick] 90 mcg IH QID PRN 09/12/20 [History] Folic Acid 1 mg PO DAILY 09/12/20 [History] Ondansetron [Zofran ODT] 4 mg PO Q6H PRN 5 Days #15 tab.dis 09/13/20 [Rx] Calcium Carbonate 600 mg PO BIDMEALS 10/18/20 [History] Clotrimazole [Clotrimazole 1%] 1 applic TOP BID PRN 10/18/20 [History] Cyanocobalamin (Vitamin B-12) [Vitamin B-12] 1,000 mcg SL DAILY 10/18/20 [History] Cyclobenzaprine [Flexeril] 10 mg PO TID PRN 10/18/20 [History] Diclofenac Sodium [Voltaren 1% Gel] 4 g TOP ASDIRECTED PRN 10/18/20 [History] EPINEPHrine [Epinephrine] 0.3 mg IM ASDIRECTED PRN 10/18/20 [History] Ferrous Sulfate 325 mg PO DAILY 10/18/20 [History] Loperamide HCl [Imodium A-D] 2 mg PO Q4H PRN 10/18/20 [History] Melatonin 10 mg PO BEDTIME PRN 10/18/20 [History] Mirtazapine 7.5 mg PO BEDTIME 10/18/20 [History] Sodium Chloride 0.65% [[place] Saline] 2 spray IH QID 10/18/20 [History] Varenicline [Chantix] 1 mg PO BIDPC 10/18/20 [History] Vitamin B Complex [B Complex] 1 tab PO DAILY 10/18/20 [History] Sennosides [Senna] 8.6 mg PO DAILY PRN 11/07/20 [History] Gabapentin [Neurontin] 300 mg PO TID #16 cap 11/10/20 [Rx] Past Medical History HEENT History: Reports: Impaired Vision, Otitis Media Other HEENT History: Bilateral tympanic membrane rupture. tonsillectomy. 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 rheumatoid arthritis Neurological History: Reports: Headaches, Chronic, Migraines Psychiatric History: Reports: ADHD, Anxiety, Depression, Psych Hospitalization(s), PTSD, Suicide Attempt, Suicidal Ideation, Other (See Below) Other Psychiatric History: Schizo effective disorder Endocrine/Metabolic History: Reports: Hyperthyroidism, Hypothyroidism, Obesity/BMI 30+ Hematologic History: Reports: Anemia, B12 Deficiency, Folic Acid Immunologic History: Reports: None Oncologic (Cancer) History: Reports: Cervix Dermatologic History: Reports: Eczema, Other (See Below) Other Dermatologic History: rosacia - Infectious Disease History Infectious Disease History: Reports: Chicken Pox, Influenza, Other (See Below) Other Infectious Disease History: rectal worts - Past Surgical History Head Surgeries/Procedures: Reports: None HEENT Surgical History: Reports: Myringotomy w Tube(s), Oral Surgery, Tonsillectomy Other HEENT Surgeries/Procedures: septum surgery Cardiovascular Surgical History: Reports: None Other Cardiovascular Surgeries/Procedures: Echo Respiratory Surgical History: Reports: None GI Surgical History: Reports: Appendectomy, Bariatric Procedure, Cholecystectomy, Colonoscopy, EGD, Hernia Repair/Other Female Surgical History: Reports: Hysterectomy Endocrine Surgical History: Reports: None Other Endocrine Surgeries/Procedures: degenerative joint disease Neurological Surgical History: Reports: None Musculoskeletal Surgical History: Reports: Carpal Tunnel, Ganglion Cyst, Other (See Below) Other Musculoskeletal Surgeries/Procedures:: Left ankle ORIF with hardware Oncologic Surgical History: Reports: None Dermatological Surgical History: Reports: None Social & Family History - Family History Family Medical History: No Pertinent Family History Cardiac: Reports: Heart Murmur Respiratory: Reports: COPD Psychiatric: Reports: Depression, Schizophrenia - Tobacco Use Tobacco Use Status *Q: Current Every Day Tobacco User Years of Tobacco use: 12 Packs/Tins Daily: 0.5 - Caffeine Use Caffeine Use: Reports: Coffee - Living Situation & Occupation Living situation: Reports: Single Occupation: Disabled (lives with Domestic Partner in [place], [place]. One grown child 18 years old.) ED ROS GENERAL - Review of Systems Review Of Systems: See Below Constitutional: Reports: Malaise. Denies: Fever, Chills HEENT: Denies: Vision Change Respiratory: Denies: Shortness of Breath Cardiovascular: Reports: Palpitations. Denies: Chest Pain GI/Abdominal: Reports: Abdominal Pain (Mild chronic intermittent abdominal pain due to "pancreatitis") Musculoskeletal: Reports: Other (Generalized body aches from fibromyalgia) Skin: Reports: No Symptoms Neurological: Reports: Dizziness, Weakness. Denies: Headache Psychiatric: Reports: Anxiety ED EXAM, GENERAL - Physical Exam Exam: See Below Exam Limited By: No Limitations General Appearance: Alert, No Apparent Distress Eye Exam: Bilateral Eye: Normal Inspection Head: Atraumatic Respiratory/Chest: No Respiratory Distress, Lungs Clear Cardiovascular: Regular Rate, Rhythm. No: Extra Beats GI/Abdominal: Soft, Non-Tender Extremities: No: Pedal Edema Neurological: Alert, Oriented Psychiatric: Normal Affect, Normal Mood Skin Exam: Warm, Dry Course - Vital Signs Last Recorded V/S: Last Vital Signs Temp 96.8 F L 04/22/21 09:47 Pulse 87 04/22/21 09:47 Resp 14 04/22/21 09:47 BP 140/80 04/22/21 09:47 Pulse Ox 99 04/22/21 09:47 - Re-Assessments/Exams Free Text/Narrative Re-Assessment/Exam: 04/22/21 10:03 Patient was kept on cardiac monitoring for almost 1/2 an hour, vitals were perfect, she had no ectopy. O2 sats were 98 to 100%, blood pressure normal. I did review her medications, she is on 50 mg of metoprolol twice daily so reducing that now that she has had some weight loss may be helpful. She has not seen her primary in quite a while, so I encouraged her to make an appointment this week, it would also be beneficial to check her thyroid function but none of this needs to be done today considering that she is completely normal at this time. Departure - Departure Time of Disposition: 10:12 Disposition: Home, Self-Care 01 Clinical Impression: Bradycardia Instructions: Bradycardia, Adult Referrals: Jessica Delaney MD [Primary Care Provider] - Forms: ED Department Discharge Care Plan Goals: Continue current medications, stay hydrated, but recheck with Jessica Wall in the near future to discuss your recent symptoms and possible medication adjustments since you have been losing weight and they may need some tuning and changes. Return to the emergency room if worsening such as fever, persistent pain or shortness of breath. Sepsis Event Note (ED) - Evaluation Sepsis Screening Result: No Definite Risk - Focused Exam Vital Signs: Vital Signs Temp Pulse Resp BP Pulse Ox 04/22/21 09:47 96.8 F L 87 14 140/80 99
== END 2021-04-22 10:13 | disposition home or self-care (01) ==
LOC: JP.ED 09:22
DX: R00.1 Bradycardia, unspecified (principal); J45.909 Unspecified asthma, uncomplicated; K21.9 Gastro-esophageal reflux disease without esophagitis; E66.9 Obesity, unspecified; Z68.41 Body mass index [BMI] 40.0-44.9, adult; Z88.0 Allergy status to penicillin; Z88.8 Allergy status to other drugs, medicaments and biological substances; Z91.018 Allergy to other foods; Z88.1 Allergy status to other antibiotic agents; Z88.6 Allergy status to analgesic agent; Z91.040 Latex allergy status; Z88.5 Allergy status to narcotic agent; Z79.899 Other long term (current) drug therapy; Z72.0 Tobacco use
CPT/HCPCS: 99284

== ENCOUNTER 2021-07-07 22:29 | Emergency (ER) | payer MEDICAID ==
--- NOTE | 2021-07-07 23:53 | EDM.PDOC ---
ED HPI GENERAL MEDICAL PROBLEM - General Chief Complaint: General Stated Complaint: TOOK 8-10 OF HEART PILLS Time Seen by Provider: 07/07/21 23:25 Source of Information: Reports: Patient, Family History Limitations: Reports: No Limitations - History of Present Illness INITIAL COMMENTS - FREE TEXT/NARRATIVE: 36-year-old female with chronic depression and chronic pain issues has been dealing with a lot of stress and tonight got into a confrontation with her and intentionally overdosed on metoprolol. She had a mouthful of pills, her managed to get many of them out but she did swallow probably 8 to 10 pills at about 10 PM. He then convinced her to come in and get monitored. She feels depressed and stressed, she is usually "a cutter" but not suicidal. She does feel like she could use help. She is feeling overwhelmed. Onset: Sudden (Beta-leonidas overdose was 2 hours ago) Associated Symptoms: Reports: No Other Symptoms Lower Back Pain Score (Numeric/FACES): 8 - Related Data Allergies Allergy/AdvReac Type Severity Reaction Status Date / Time amoxicillin Allergy Severe Anaphylactic Verified 07/07/21 23:29 Shock promethazine HCl Allergy Severe Anaphylactic Verified 07/07/21 23:29 [From Phenergan] Shock risperidone [From Risperdal] Allergy Severe Anaphylactic Verified 07/07/21 23:29 Shock atomoxetine Allergy Anxiety Verified 07/07/21 23:29 banana Allergy Itching Verified 07/07/21 23:29 clindamycin Allergy Rash Verified 07/07/21 23:29 ketorolac tromethamine Allergy Rash Verified 07/07/21 23:29 [From Toradol] latex Allergy Rash Verified 07/07/21 23:29 Latex, Natural Rubber Allergy Wheezing Verified 07/07/21 23:29 quetiapine Allergy Anxiety Verified 07/07/21 23:29 tramadol HCl [From Ultram] Allergy Hives Verified 07/07/21 23:29 varenicline Allergy Anxiety Verified 07/07/21 23:29 zolpidem [From Ambien] Allergy Anxiety Verified 07/07/21 23:29 atomoxetine HCl AdvReac Anxiety Verified 07/07/21 23:29 [From Strattera] cephalexin monohydrate AdvReac Dizziness Verified 07/07/21 23:29 [From Keflex] quetiapine fumarate AdvReac Irritabilit Verified 07/07/21 23:29 [From Seroquel] y trazodone AdvReac Dizziness Verified 07/07/21 23:29 zolpidem tartrate AdvReac Anxiety Verified 07/07/21 23:29 [From Ambien] Home Meds: Home Meds Cetirizine HCl [Zyrtec] 10 mg PO DAILY 09/19/18 [History] Methimazole [Tapazole] 20 mg PO DAILY 09/19/18 [History] rOPINIRole [Requip] 2 mg PO BID 09/19/18 [History] Albuterol [Proventil Neb Soln] 3 ml NEB TID PRN 02/18/19 [History] Lidocaine 2% [Xylocaine 2%] 10 ml TOP Q6H PRN 07/23/19 [History] Pantoprazole Sodium [Protonix] 40 mg PO DAILY 07/23/19 [History] Acetaminophen [Tylenol] 650 mg PO Q6H cup 07/30/19 [Rx] Dicyclomine [Bentyl] 20 mg PO QIDACANDBED PRN 06/27/20 [History] Cholecalciferol (Vitamin D3) [Vitamin D] 5,000 unit PO DAILY 08/15/20 [History] Multivit with Iron,Minerals [Complete Senior] 1 tab PO BID 08/15/20 [History] Multivitamin [Flintstones] 1 tab PO BID 08/15/20 [History] Lisdexamfetamine [Vyvanse] 50 mg PO DAILY 08/19/20 [History] Metoprolol Tartrate 50 mg PO BID 08/19/20 [History] Albuterol Sulfate [Proair Respiclick] 90 mcg IH QID PRN 09/12/20 [History] Folic Acid 1 mg PO DAILY 09/12/20 [History] Ondansetron [Zofran ODT] 4 mg PO Q6H PRN 5 Days #15 tab.dis 09/13/20 [Rx] Calcium Carbonate 600 mg PO BIDMEALS 10/18/20 [History] Clotrimazole [Clotrimazole 1%] 1 applic TOP BID PRN 10/18/20 [History] Cyanocobalamin (Vitamin B-12) [Vitamin B-12] 1,000 mcg SL DAILY 10/18/20 [History] Diclofenac Sodium [Voltaren 1% Gel] 4 g TOP ASDIRECTED PRN 10/18/20 [History] EPINEPHrine [Epinephrine] 0.3 mg IM ASDIRECTED PRN 10/18/20 [History] Ferrous Sulfate 325 mg PO DAILY 10/18/20 [History] Loperamide HCl [Imodium A-D] 2 mg PO Q4H PRN 10/18/20 [History] Melatonin 10 mg PO BEDTIME PRN 10/18/20 [History] Mirtazapine 7.5 mg PO BEDTIME 10/18/20 [History] Vitamin B Complex [B Complex] 1 tab PO DAILY 10/18/20 [History] Sennosides [Senna] 8.6 mg PO DAILY PRN 11/07/20 [History] Past Medical History HEENT History: Reports: Impaired Vision, Otitis Media Other HEENT History: Bilateral tympanic membrane rupture. tonsillectomy. 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 rheumatoid arthritis Neurological History: Reports: Headaches, Chronic, Migraines Psychiatric History: Reports: ADHD, Anxiety, Depression, Psych Hospitalization(s), PTSD, Suicide Attempt, Suicidal Ideation, Other (See Below) Other Psychiatric History: Schizo effective disorder Endocrine/Metabolic History: Reports: Hyperthyroidism, Hypothyroidism, Obesity/BMI 30+ Hematologic History: Reports: Anemia, B12 Deficiency, Folic Acid Immunologic History: Reports: None Oncologic (Cancer) History: Reports: Cervix Dermatologic History: Reports: Eczema, Other (See Below) Other Dermatologic History: rosacia - Infectious Disease History Infectious Disease History: Reports: Chicken Pox, Influenza, Other (See Below) Other Infectious Disease History: rectal worts - Past Surgical History HEENT Surgical History: Reports: Myringotomy w Tube(s), Oral Surgery, Tonsillectomy Other HEENT Surgeries/Procedures: septum surgery Other Cardiovascular Surgeries/Procedures: Echo Respiratory Surgical History: Reports: None GI Surgical History: Reports: Appendectomy, Bariatric Procedure, Cholecystectomy, Colonoscopy, EGD, Hernia Repair/Other Female Surgical History: Reports: Hysterectomy Endocrine Surgical History: Reports: None Other Endocrine Surgeries/Procedures: degenerative joint disease Neurological Surgical History: Reports: None Musculoskeletal Surgical History: Reports: Carpal Tunnel, Ganglion Cyst, Other (See Below) Other Musculoskeletal Surgeries/Procedures:: Left ankle ORIF with hardware Dermatological Surgical History: Reports: None Social & Family History - Family History Family Medical History: No Pertinent Family History Cardiac: Reports: Heart Murmur Respiratory: Reports: COPD Psychiatric: Reports: Depression, Schizophrenia - Tobacco Use Tobacco Use Status *Q: Current Every Day Tobacco User Years of Tobacco use: 24 Packs/Tins Daily: 1 Used Tobacco, but Quit: No Second Hand Smoke Exposure: Yes - Caffeine Use Caffeine Use: Reports: Coffee - Recreational Drug Use Drug Use in Last 12 Months: No - Living Situation & Occupation Living situation: Reports: Single Occupation: Disabled (lives with Domestic Partner in [place], [place]. One grown child 18 years old.) ED ROS GENERAL - Review of Systems Review Of Systems: See Below Constitutional: Reports: Malaise. Denies: Fever, Chills HEENT: Denies: Throat Pain Respiratory: Denies: Shortness of Breath, Cough Cardiovascular: Denies: Chest Pain Endocrine: Reports: Fatigue GI/Abdominal: Denies: Nausea, Vomiting Musculoskeletal: Reports: Back Pain (Chronic back pain) Skin: Reports: No Symptoms Neurological: Denies: Headache Psychiatric: Reports: Depression, Suicidal Ideation ED EXAM, GENERAL - Physical Exam Exam: See Below Exam Limited By: No Limitations General Appearance: Alert, No Apparent Distress Eye Exam: Bilateral Eye: Normal Inspection Head: Atraumatic Neck: Supple, Non-Tender Respiratory/Chest: Lungs Clear Cardiovascular: Regular Rate, Rhythm. No: Bradycardia GI/Abdominal: Non-Tender Extremities: Normal Inspection. No: Pedal Edema Neurological: Alert, Oriented. No: Disoriented, Slow to Respond Psychiatric: Depressed Mood. No: Flat Affect, Tearful Skin Exam: Warm, Dry Course - Vital Signs Last Recorded V/S: Last Vital Signs Temp 97 F 07/07/21 23:42 Pulse 66 07/08/21 02:11 Resp 20 07/08/21 02:11 BP 139/76 07/08/21 02:11 Pulse Ox 95 07/08/21 02:11 - Orders/Labs/Meds Orders: Active Orders 24 hr Category Date Time Status CULTURE URINE [RM] Stat Lab 07/07/21 23:30 Stop Req Labs: Laboratory Tests 07/07/21 07/07/21 07/08/21 Range/Units 23:45 23:45 00:09 WBC 11.4 H (4.5-11.0) K/uL RBC 5.12 (3.30-5.50) M/uL Hgb 14.7 (12.0-15.0) g/dL Hct 43.1 (36.0-48.0) % MCV 84 (80-98) fL MCH 29 (27-31) pg MCHC 34 (32-36) % Plt Count 251 (150-400) K/uL Neut % (Auto) 62.5 (36-66) % Lymph % (Auto) 27.6 (24-44) % [place] % (Auto) 7.1 H (2-6) % Eos % (Auto) 2.6 (2-4) % Baso % (Auto) 0.2 (0-1) % Sodium 141 (140-148) mmol/L Potassium 3.9 (3.6-5.2) mmol/L Chloride 105 (100-108) mmol/L Carbon Dioxide 27 (21-32) mmol/L Anion Gap 8.7 (5.0-14.0) mmol/L BUN 12 (7-18) mg/dL Creatinine 0.7 (0.6-1.0) mg/dL Est Cr Clr Drug Dosing 94.10 mL/min Estimated GFR (MDRD) > 60 (>60) Glucose 91 (74-106) mg/dL Calcium 8.4 L (8.5-10.1) mg/dL Total Bilirubin 0.2 (0.2-1.0) mg/dL AST 7 L D (15-37) U/L ALT 19 (12-78) U/L Alkaline Phosphatase 83 (46-116) U/L Total Protein 6.3 L (6.4-8.2) g/dL Albumin 3.3 L (3.4-5.0) g/dL Globulin 3.0 (2.3-3.5) g/dL Albumin/Globulin Ratio 1.1 L (1.2-2.2) Salicylates (2.0-20.0) mg/dL Urine Opiates Screen (NEGATIVE) Ur Oxycodone Screen (NEGATIVE) Urine Methadone Screen (NEGATIVE) Ur Propoxyphene Screen (NEGATIVE) Acetaminophen 0.0 L (10.0-30.0) ug/mL Ur Barbiturates Screen (NEGATIVE) Ur Tricyclics Screen (NEGATIVE) Ur Phencyclidine Scrn (NEGATIVE) Ur Amphetamine Screen (NEGATIVE) U Methamphetamines Scrn (NEGATIVE) Urine MDMA Screen (NEGATIVE) U Benzodiazepines Scrn (NEGATIVE) U Cocaine Metab Screen (NEGATIVE) U Marijuana (THC) Screen (NEGATIVE) 07/08/21 07/08/21 Range/Units 00:09 00:56 WBC (4.5-11.0) K/uL RBC (3.30-5.50) M/uL Hgb (12.0-15.0) g/dL Hct (36.0-48.0) % MCV (80-98) fL MCH (27-31) pg MCHC (32-36) % Plt Count (150-400) K/uL Neut % (Auto) (36-66) % Lymph % (Auto) (24-44) % [place] % (Auto) (2-6) % Eos % (Auto) (2-4) % Baso % (Auto) (0-1) % Sodium (140-148) mmol/L Potassium (3.6-5.2) mmol/L Chloride (100-108) mmol/L Carbon Dioxide (21-32) mmol/L Anion Gap (5.0-14.0) mmol/L BUN (7-18) mg/dL Creatinine (0.6-1.0) mg/dL Est Cr Clr Drug Dosing mL/min Estimated GFR (MDRD) (>60) Glucose (74-106) mg/dL Calcium (8.5-10.1) mg/dL Total Bilirubin (0.2-1.0) mg/dL AST (15-37) U/L ALT (12-78) U/L Alkaline Phosphatase (46-116) U/L Total Protein (6.4-8.2) g/dL Albumin (3.4-5.0) g/dL Globulin (2.3-3.5) g/dL Albumin/Globulin Ratio (1.2-2.2) Salicylates 3.8 (2.0-20.0) mg/dL Urine Opiates Screen Negative (NEGATIVE) Ur Oxycodone Screen Negative (NEGATIVE) Urine Methadone Screen Negative (NEGATIVE) Ur Propoxyphene Screen Negative (NEGATIVE) Acetaminophen (10.0-30.0) ug/mL Ur Barbiturates Screen Negative (NEGATIVE) Ur Tricyclics Screen Negative (NEGATIVE) Ur Phencyclidine Scrn Negative (NEGATIVE) Ur Amphetamine Screen Negative (NEGATIVE) U Methamphetamines Scrn Presumptive positive H (NEGATIVE) Urine MDMA Screen Negative (NEGATIVE) U Benzodiazepines Scrn Presumptive positive H (NEGATIVE) U Cocaine Metab Screen Negative (NEGATIVE) U Marijuana (THC) Screen Negative (NEGATIVE) Meds: Medications Discontinued Medications Generic Name Dose Route Start Last Admin Trade Name Freq PRN Reason Stop Dose Admin Acetaminophen 325 mg 07/08/21 01:08 07/08/21 01:21 Acetaminophen 325 Mg Tab PO 07/08/21 01:09 325 mg NOW ONE Administration Ropinirole HCl 2 mg 07/08/21 01:07 07/08/21 01:28 Ropinirole 1 Mg Tab PO 2 mg BEDTIME APOLINAR Administration - Re-Assessments/Exams Free Text/Narrative Re-Assessment/Exam: 07/07/21 23:53 Poison control was called and recommended monitoring for the next 1 to 2 hours. Urine drug screen is obtained as well as a CBC and CMP. Patient is high risk for self injury, we will attempt to get an inpatient treatment for stabilization, patient is willing to be hospitalized. 07/08/21 02:00 Patient remained stable in fact her vitals did not change, questionable whether she really took that much metoprolol. She feels stupid where she would have done this, does not feel suicidal. Urine is positive for methamphetamine which she denies. Departure - Departure Time of Disposition: 02:12 Disposition: Home, Self-Care 01 Clinical Impression: Intentional drug overdose Qualifiers: Encounter type: initial encounter Qualified Code(s): T50.902A - Poisoning by unspecified drugs, medicaments and biological substances, intentional self-harm, initial encounter Depression Qualifiers: Depression Type: major depressive disorder Major depression recurrence: recurrent Active/Remission status: currently active Major depression episode severity: moderate Qualified Code(s): F33.1 - Major depressive disorder, recurrent, moderate - Discharge Information Instructions: Managing Depression, Adult Referrals: Jessica Delaney MD [Primary Care Provider] - Forms: ED Department Discharge Care Plan Goals: Continue your current medications, avoid abusing illicit drugs and prescription drugs in the future. Sepsis Event Note (ED) - Evaluation Sepsis Screening Result: No Definite Risk - Focused Exam Vital Signs: Vital Signs Temp Pulse Resp BP Pulse Ox 07/08/21 02:11 66 20 139/76 95 07/08/21 00:20 65 141/78 H 07/07/21 23:56 63 141/85 H 07/07/21 23:42 97 F 64 12 134/83 97 07/07/21 23:26 64 12 134/83 97 07/07/21 23:11 67 133/73 07/07/21 22:56 67 124/82 07/07/21 22:48 97 F 68 14 127/76 97 - My Orders Last 24 Hours: My Active Orders 07/07/21 23:30 CULTURE URINE [RM] Stat - Assessment/Plan Last 24 Hours: My Active Orders 07/07/21 23:30 CULTURE URINE [RM] Stat
[2021-07-08] MEDS ORDERED: rOPINIRole 1 MG Tab PO SCH (01:07)
[2021-07-08] MEDS ORDERED: Acetaminophen 325 MG Tab PO ONE (01:08)
[2021-07-08 02:12] VITALS: BP 139/76; PULSE 66
== END 2021-07-08 02:30 | disposition home or self-care (01) ==
LOC: JP.ED 22:29
DX: T44.7X1A Poisoning by beta-adrenoreceptor antagonists, accidental (unintentional), initial encounter (principal); F33.1 Major depressive disorder, recurrent, moderate; I10 Essential (primary) hypertension; K21.9 Gastro-esophageal reflux disease without esophagitis; E03.9 Hypothyroidism, unspecified; E66.9 Obesity, unspecified; Z68.41 Body mass index [BMI] 40.0-44.9, adult; Z72.0 Tobacco use; Z79.899 Other long term (current) drug therapy; Z88.0 Allergy status to penicillin; Z88.1 Allergy status to other antibiotic agents; Z88.5 Allergy status to narcotic agent; Z88.8 Allergy status to other drugs, medicaments and biological substances; Z91.040 Latex allergy status; Z91.018 Allergy to other foods; Z88.6 Allergy status to analgesic agent
CPT/HCPCS: 36415; 80053; 80143; 80179; 80305; 85025; 87086; 87088; 87186; 99284; A9270

== ENCOUNTER 2021-09-06 14:59 | Emergency (ER) | payer MEDICAID ==
[2021-09-06 15:20] VITALS: BP 145/73; PULSE 80
[2021-09-06] MEDS ORDERED: Ketorolac 30 MG/ML SDV IM ONE (16:09)
--- NOTE | 2021-09-06 16:23 | EDM.PDOC ---
ED HPI GENERAL MEDICAL PROBLEM - General Chief Complaint: General Stated Complaint: BACK PAIN Time Seen by Provider: 09/06/21 16:05 Source of Information: Reports: Patient, Old Records History Limitations: Reports: No Limitations - History of Present Illness INITIAL COMMENTS - FREE TEXT/NARRATIVE: [address] Delaney yesterday or the day before and had blood work for diffuse joint pain that she has had in the past. The lab work including CBC, CRP, KAMALA, and Rheumatoid Factor were all normal. She is currently taking only acetaminophen, but does take some NSAID's even though she has been advised not to due to her gastric bypass status. Comes here because she couldn't get in today for increasing pain. Onset: Gradual Duration: Day(s):, Getting Worse Location: Reports: Generalized (joints) Quality: Reports: Ache Severity: Severe Improves with: Reports: None Worsens with: Reports: Other (time, cold weather) Context: Reports: Other (See HPI) Associated Symptoms: Reports: No Other Symptoms Treatments SCIENTIFIC EDITOR: Reports: Acetaminophen, NSAIDS Generalized Pain Score (Numeric/FACES): 9 - Related Data Allergies Allergy/AdvReac Type Severity Reaction Status Date / Time amoxicillin Allergy Severe Anaphylactic Verified 09/06/21 15:23 Shock promethazine HCl Allergy Severe Anaphylactic Verified 09/06/21 15:23 [From Phenergan] Shock risperidone [From Risperdal] Allergy Severe Anaphylactic Verified 09/06/21 15:23 Shock atomoxetine Allergy Anxiety Verified 09/06/21 15:23 banana Allergy Itching Verified 09/06/21 15:23 clindamycin Allergy Rash Verified 09/06/21 15:23 ketorolac tromethamine Allergy Rash Verified 09/06/21 15:23 [From Toradol] latex Allergy Rash Verified 09/06/21 15:23 Latex, Natural Rubber Allergy Wheezing Verified 09/06/21 15:23 quetiapine Allergy Anxiety Verified 09/06/21 15:23 tramadol HCl [From Ultram] Allergy Hives Verified 09/06/21 15:23 varenicline Allergy Anxiety Verified 09/06/21 15:23 zolpidem [From Ambien] Allergy Anxiety Verified 09/06/21 15:23 atomoxetine HCl AdvReac Anxiety Verified 09/06/21 15:23 [From Strattera] cephalexin monohydrate AdvReac Dizziness Verified 09/06/21 15:23 [From Keflex] quetiapine fumarate AdvReac Irritabilit Verified 09/06/21 15:23 [From Seroquel] y trazodone AdvReac Dizziness Verified 09/06/21 15:23 zolpidem tartrate AdvReac Anxiety Verified 09/06/21 15:23 [From Ambien] Home Meds: Home Meds Cetirizine HCl [Zyrtec] 10 mg PO DAILY 09/19/18 [History] Methimazole [Tapazole] 20 mg PO DAILY 09/19/18 [History] rOPINIRole [Requip] 2 mg PO BID 09/19/18 [History] Albuterol [Proventil Neb Soln] 3 ml NEB TID PRN 02/18/19 [History] Lidocaine 2% [Xylocaine 2%] 10 ml TOP Q6H PRN 07/23/19 [History] Pantoprazole Sodium [Protonix] 40 mg PO DAILY 07/23/19 [History] Acetaminophen [Tylenol] 650 mg PO Q6H cup 07/30/19 [Rx] Dicyclomine [Bentyl] 20 mg PO QIDACANDBED PRN 06/27/20 [History] Cholecalciferol (Vitamin D3) [Vitamin D] 5,000 unit PO DAILY 08/15/20 [History] Multivit with Iron,Minerals [Complete Senior] 1 tab PO BID 08/15/20 [History] Multivitamin [Flintstones] 1 tab PO BID 08/15/20 [History] Lisdexamfetamine [Vyvanse] 50 mg PO DAILY 08/19/20 [History] Metoprolol Tartrate 50 mg PO BID 08/19/20 [History] Albuterol Sulfate [Proair Respiclick] 90 mcg IH QID PRN 09/12/20 [History] Folic Acid 1 mg PO DAILY 09/12/20 [History] Ondansetron [Zofran ODT] 4 mg PO Q6H PRN 5 Days #15 tab.dis 09/13/20 [Rx] Calcium Carbonate 600 mg PO BIDMEALS 10/18/20 [History] Clotrimazole [Clotrimazole 1%] 1 applic TOP BID PRN 10/18/20 [History] Cyanocobalamin (Vitamin B-12) [Vitamin B-12] 1,000 mcg SL DAILY 10/18/20 [History] Diclofenac Sodium [Voltaren 1% Gel] 4 g TOP ASDIRECTED PRN 10/18/20 [History] EPINEPHrine [Epinephrine] 0.3 mg IM ASDIRECTED PRN 10/18/20 [History] Ferrous Sulfate 325 mg PO DAILY 10/18/20 [History] Loperamide HCl [Imodium A-D] 2 mg PO Q4H PRN 10/18/20 [History] Melatonin 10 mg PO BEDTIME PRN 10/18/20 [History] Mirtazapine 7.5 mg PO BEDTIME 10/18/20 [History] Vitamin B Complex [B Complex] 1 tab PO DAILY 10/18/20 [History] Sennosides [Senna] 8.6 mg PO DAILY PRN 11/07/20 [History] Acetaminophen/HYDROcodone [HYDROcodone-Acetaminophen 5-325 MG *] 1 tab PO Q4H PRN #6 each 09/06/21 [Rx] Past Medical History HEENT History: Reports: Impaired Vision, Otitis Media Other HEENT History: Bilateral tympanic membrane rupture. tonsillectomy. recent surgery septum 08/20/18 Cardiovascular History: Reports: Hypertension, Other (See Below) Other Cardiovascular History: Heart palpatations Respiratory History: Reports: Asthma, Bronchitis, Recurrent, Pneumonia, Recurrent, Sleep Apnea, SOB, Other (See Below) Other Respiratory History: has CPAP Gastrointestinal History: Reports: Gastritis, GERD Genitourinary History: Reports: Renal Calculus, UTI, Recurrent OFFICE SWEEPER History: Reports: Other OFFICE SWEEPER History: Hysterectomy with right oophrectomy Musculoskeletal History: Reports: Fracture, Fibromyalgia, RA Other Musculoskeletal History: fibromyalgia. rheumatoid arthritis Neurological History: Reports: Headaches, Chronic, Migraines Psychiatric History: Reports: ADHD, Anxiety, Depression, Psych Hospitalization(s), PTSD, Suicide Attempt, Suicidal Ideation, Other (See Below) Other Psychiatric History: Schizo effective disorder Endocrine/Metabolic History: Reports: Hyperthyroidism, Hypothyroidism, Obesity/BMI 30+ Hematologic History: Reports: Anemia, B12 Deficiency, Folic Acid Immunologic History: Reports: None Oncologic (Cancer) History: Reports: Cervix Dermatologic History: Reports: Eczema, Other (See Below) Other Dermatologic History: rosacia - Infectious Disease History Infectious Disease History: Reports: Chicken Pox, Influenza, Other (See Below) Other Infectious Disease History: rectal worts - Past Surgical History Head Surgeries/Procedures: Reports: None HEENT Surgical History: Reports: Myringotomy w Tube(s), Oral Surgery, Tonsillectomy Other HEENT Surgeries/Procedures: septum surgery Cardiovascular Surgical History: Reports: None Other Cardiovascular Surgeries/Procedures: Echo Respiratory Surgical History: Reports: None GI Surgical History: Reports: Appendectomy, Bariatric Procedure, Cholecystectomy, Colonoscopy, EGD, Hernia Repair/Other Female Surgical History: Reports: Hysterectomy Endocrine Surgical History: Reports: None Other Endocrine Surgeries/Procedures: degenerative joint disease Neurological Surgical History: Reports: None Musculoskeletal Surgical History: Reports: Carpal Tunnel, Ganglion Cyst, Other (See Below) Other Musculoskeletal Surgeries/Procedures:: Left ankle ORIF with hardware Oncologic Surgical History: Reports: None Dermatological Surgical History: Reports: None Social & Family History - Family History Family Medical History: No Pertinent Family History Cardiac: Reports: Heart Murmur Respiratory: Reports: COPD Psychiatric: Reports: Depression, Schizophrenia - Tobacco Use Tobacco Use Status *Q: Current Every Day Tobacco User Years of Tobacco use: 14 Packs/Tins Daily: 0.5 - Caffeine Use Caffeine Use: Reports: Coffee, Soda, Tea - Recreational Drug Use Recreational Drug Use: No - Living Situation & Occupation Living situation: Reports: Single Occupation: Disabled (lives with Domestic Partner in [place], [place]. One grown child 18 years old.) ED ROS GENERAL - Review of Systems Review Of Systems: See Below Constitutional: Reports: No Symptoms HEENT: Reports: No Symptoms Respiratory: Reports: No Symptoms Cardiovascular: Reports: No Symptoms GI/Abdominal: Reports: No Symptoms : Reports: No Symptoms Musculoskeletal: Reports: Joint Pain (diffusely) Skin: Reports: No Symptoms Neurological: Reports: No Symptoms ED EXAM, GENERAL - Physical Exam Exam: See Below Exam Limited By: No Limitations General Appearance: Alert, WD/WN, Mild Distress Eye Exam: Bilateral Eye: Normal Inspection, Other (tears from crying) Ears: Normal External Exam, Normal Canal, Hearing Grossly Normal Ear Exam: Bilateral Ear: Auricle Normal, Canal Normal Nose: Normal Inspection, No Blood Throat/Mouth: Normal Inspection, Normal Lips, Normal Oropharynx, Normal Voice, No Airway Compromise Head: Atraumatic, Normocephalic Neck: Normal Inspection Respiratory/Chest: No Respiratory Distress Extremities: Normal Inspection, Normal Range of Motion, No Pedal Edema, Other (joints appear grossly normal). No: Non-Tender, Pedal Edema, Increased Warmth, Redness Neurological: Alert, Oriented, CN II-XII Intact, Normal Cognition, No Motor/Sensory Deficits Psychiatric: Normal Affect, Normal Mood Skin Exam: Warm, Dry, Normal Color, No Rash Course - Vital Signs Last Recorded V/S: Last Vital Signs Temp 36.3 C 09/06/21 15:18 Pulse 80 09/06/21 15:18 Resp 16 09/06/21 15:18 BP 145/73 H 09/06/21 15:18 Pulse Ox 100 09/06/21 15:18 - Orders/Labs/Meds Orders: Active Orders 24 hr Category Date Time Status DRUG SCREEN, URINE [URCHEM] Stat Lab 09/06/21 16:09 Ordered UA W/MICROSCOPIC [URIN] Stat Lab 09/06/21 15:23 Ordered Meds: Medications Discontinued Medications Generic Name Dose Route Start Last Admin Trade Name Freq PRN Reason Stop Dose Admin Ketorolac Tromethamine 30 mg 09/06/21 16:09 Ketorolac 30 Mg/Ml Sdv IM 09/06/21 16:10 ONETIME ONE Departure - Departure Time of Disposition: 16:30 Disposition: Home, Self-Care 01 Condition: Good Clinical Impression: Joint pain Qualifiers: Joint pain location: unspecified Qualified Code(s): M25.50 - Pain in unspecified joint - Discharge Information *PRESCRIPTION DRUG MONITORING PROGRAM REVIEWED*: Not Applicable *COPY OF PRESCRIPTION DRUG MONITORING REPORT IN PATIENT JAYDEN: Not Applicable Prescriptions: Acetaminophen/HYDROcodone [HYDROcodone-Acetaminophen 5-325 MG *] 1 tab PO Q4H PRN #6 each PRN Reason: Pain Referrals: Jessica Delaney MD [Primary Care Provider] - Additional Instructions: Substitute hydrocodone/APAP for acetaminophen. F/U with Kyung tomorrow in the clinic at 12:45 pm. Rx to your pharmacy for the hydrocodone. Sepsis Event Note (ED) - Focused Exam Vital Signs: Vital Signs Temp Pulse Resp BP Pulse Ox 09/06/21 15:18 36.3 C 80 16 145/73 H 100 - My Orders Last 24 Hours: My Active Orders 09/06/21 15:23 UA W/MICROSCOPIC [URIN] Stat 09/06/21 16:09 DRUG SCREEN, URINE [URCHEM] Stat - Assessment/Plan Last 24 Hours: My Active Orders 09/06/21 15:23 UA W/MICROSCOPIC [URIN] Stat 09/06/21 16:09 DRUG SCREEN, URINE [URCHEM] Stat
== END 2021-09-06 16:38 | disposition home or self-care (01) ==
LOC: EEVIPCON 14:59 → JP.ED 14:59
DX: M25.50 Pain in unspecified joint (principal); I10 Essential (primary) hypertension; M06.9 Rheumatoid arthritis, unspecified; E66.9 Obesity, unspecified; Z68.39 Body mass index [BMI] 39.0-39.9, adult; Z72.0 Tobacco use; Z79.899 Other long term (current) drug therapy; Z88.0 Allergy status to penicillin; Z88.8 Allergy status to other drugs, medicaments and biological substances; Z91.018 Allergy to other foods; Z91.040 Latex allergy status; Z88.1 Allergy status to other antibiotic agents
CPT/HCPCS: 80305-QW; 81001; 99283

== ENCOUNTER 2021-09-19 14:09 | Emergency (ER) | payer MEDICAID | END 2021-09-19 15:59 | disposition left against medical advice (07) | LOC: JP.ED 14:09 | DX: M79.89 Other specified soft tissue disorders (principal); Z53.21 Procedure and treatment not carried out due to patient leaving prior to being seen by health care provider ==

== ENCOUNTER 2021-10-04 16:25 | Emergency (ER) | payer MEDICAID ==
[2021-10-04] MEDS ORDERED: HYDROmorphone 0.5 MG/0.5 ML Syringe IVPUSH ONE (17:56)
[2021-10-04] MEDS ORDERED: Lactated Ringers 1,000 ML IV SCH (18:00)
--- NOTE | 2021-10-04 18:01 | EDM.PDOC ---
ED HPI GENERAL MEDICAL PROBLEM - General Chief Complaint: Abdominal Pain Stated Complaint: VIA TRI Time Seen by Provider: 10/04/21 17:50 Source of Information: Reports: Patient, EMS, Family History Limitations: Reports: No Limitations - History of Present Illness INITIAL COMMENTS - FREE TEXT/NARRATIVE: 36-year-old female with chronic pain issues, history of pancreatitis presents with abdominal pain, nausea and vomiting and decreased bowel movements for the past 24 hours. Pain is lower mid abdomen, crampy and sharp. She is still passing gas, thinks she may have some increased urination but no dysuria. Nausea with attempts to vomit, she has a history of gastric bypass. She did receive some fentanyl in route. She is "allergic" to tramadol and Toradol. Onset: Gradual Duration: Hour(s): (Symptoms for 24 hours) Location: Reports: Abdomen (Lower central abdomen) Associated Symptoms: Reports: Loss of Appetite, Malaise, Nausea/Vomiting. 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 (see below) (EMS gave fentanyl, some relief.) Abdomen Pain Score (Numeric/FACES): 9 - Related Data Allergies Allergy/AdvReac Type Severity Reaction Status Date / Time amoxicillin Allergy Severe Anaphylactic Verified 10/04/21 16:54 Shock promethazine HCl Allergy Severe Anaphylactic Verified 10/04/21 16:54 [From Phenergan] Shock risperidone [From Risperdal] Allergy Severe Anaphylactic Verified 10/04/21 16:54 Shock atomoxetine Allergy Anxiety Verified 10/04/21 16:54 banana Allergy Itching Verified 10/04/21 16:54 clindamycin Allergy Rash Verified 10/04/21 16:54 ketorolac tromethamine Allergy Rash Verified 10/04/21 16:54 [From Toradol] latex Allergy Rash Verified 10/04/21 16:54 Latex, Natural Rubber Allergy Wheezing Verified 10/04/21 16:54 quetiapine Allergy Anxiety Verified 10/04/21 16:54 tramadol HCl [From Ultram] Allergy Hives Verified 10/04/21 16:54 varenicline Allergy Anxiety Verified 10/04/21 16:54 zolpidem [From Ambien] Allergy Anxiety Verified 10/04/21 16:54 atomoxetine HCl AdvReac Anxiety Verified 10/04/21 16:54 [From Strattera] cephalexin monohydrate AdvReac Dizziness Verified 10/04/21 16:54 [From Keflex] quetiapine fumarate AdvReac Irritabilit Verified 10/04/21 16:54 [From Seroquel] y trazodone AdvReac Dizziness Verified 10/04/21 16:54 zolpidem tartrate AdvReac Anxiety Verified 10/04/21 16:54 [From Ambien] Home Meds: Home Meds Cetirizine HCl [Zyrtec] 10 mg PO DAILY 09/19/18 [History] Methimazole [Tapazole] 20 mg PO DAILY 09/19/18 [History] rOPINIRole [Requip] 2 mg PO BID 09/19/18 [History] Albuterol [Proventil Neb Soln] 3 ml NEB TID PRN 02/18/19 [History] Lidocaine 2% [Xylocaine 2%] 10 ml TOP Q6H PRN 07/23/19 [History] Pantoprazole Sodium [Protonix] 40 mg PO DAILY 07/23/19 [History] Acetaminophen [Tylenol] 650 mg PO Q6H cup 07/30/19 [Rx] Dicyclomine [Bentyl] 20 mg PO QIDACANDBED PRN 06/27/20 [History] Cholecalciferol (Vitamin D3) [Vitamin D] 5,000 unit PO DAILY 08/15/20 [History] Multivit with Iron,Minerals [Complete Senior] 1 tab PO BID 08/15/20 [History] Multivitamin [Flintstones] 1 tab PO BID 08/15/20 [History] Lisdexamfetamine [Vyvanse] 50 mg PO DAILY 08/19/20 [History] Metoprolol Tartrate 50 mg PO BID 08/19/20 [History] Albuterol Sulfate [Proair Respiclick] 90 mcg IH QID PRN 09/12/20 [History] Folic Acid 1 mg PO DAILY 09/12/20 [History] Ondansetron [Zofran ODT] 4 mg PO Q6H PRN 5 Days #15 tab.dis 09/13/20 [Rx] Calcium Carbonate 600 mg PO BIDMEALS 10/18/20 [History] Clotrimazole [Clotrimazole 1%] 1 applic TOP BID PRN 10/18/20 [History] Cyanocobalamin (Vitamin B-12) [Vitamin B-12] 1,000 mcg SL DAILY 10/18/20 [History] Diclofenac Sodium [Voltaren 1% Gel] 4 g TOP ASDIRECTED PRN 10/18/20 [History] EPINEPHrine [Epinephrine] 0.3 mg IM ASDIRECTED PRN 10/18/20 [History] Ferrous Sulfate 325 mg PO DAILY 10/18/20 [History] Loperamide HCl [Imodium A-D] 2 mg PO Q4H PRN 10/18/20 [History] Melatonin 10 mg PO BEDTIME PRN 10/18/20 [History] Mirtazapine 7.5 mg PO BEDTIME 10/18/20 [History] Vitamin B Complex [B Complex] 1 tab PO DAILY 10/18/20 [History] Sennosides [Senna] 8.6 mg PO DAILY PRN 11/07/20 [History] Past Medical History HEENT History: Reports: Impaired Vision, Otitis Media Other HEENT History: Bilateral tympanic membrane rupture. tonsillectomy. recent surgery septum 08/20/18 Cardiovascular History: Reports: Hypertension, Other (See Below) Other Cardiovascular History: Heart palpatations Respiratory History: Reports: Asthma, Bronchitis, Recurrent, Pneumonia, Recurrent, Sleep Apnea, SOB, Other (See Below) Other Respiratory History: has CPAP Gastrointestinal History: Reports: Gastritis, GERD Genitourinary History: Reports: Renal Calculus, UTI, Recurrent BUSINESS SERVICES INTERN History: Reports: Other BUSINESS SERVICES INTERN History: Hysterectomy with right oophrectomy Musculoskeletal History: Reports: Fracture, Fibromyalgia, RA Other Musculoskeletal History: fibromyalgia. rheumatoid arthritis Neurological History: Reports: Headaches, Chronic, Migraines Psychiatric History: Reports: ADHD, Anxiety, Depression, Psych Hospitalization(s), PTSD, Suicide Attempt, Suicidal Ideation, Other (See Below) Other Psychiatric History: Schizo effective disorder Endocrine/Metabolic History: Reports: Hyperthyroidism, Hypothyroidism, Obesity/BMI 30+ Hematologic History: Reports: Anemia, B12 Deficiency, Folic Acid Immunologic History: Reports: None Oncologic (Cancer) History: Reports: Cervix Dermatologic History: Reports: Eczema, Other (See Below) Other Dermatologic History: rosacia - Infectious Disease History Infectious Disease History: Reports: Chicken Pox, Influenza, Other (See Below) Other Infectious Disease History: rectal worts - Past Surgical History Head Surgeries/Procedures: Reports: None HEENT Surgical History: Reports: Myringotomy w Tube(s), Oral Surgery, Tonsillectomy Other HEENT Surgeries/Procedures: septum surgery Cardiovascular Surgical History: Reports: None Other Cardiovascular Surgeries/Procedures: Echo Respiratory Surgical History: Reports: None GI Surgical History: Reports: Appendectomy, Bariatric Procedure, Cholecystectomy, Colonoscopy, EGD, Hernia Repair/Other Female Surgical History: Reports: Hysterectomy Endocrine Surgical History: Reports: None Other Endocrine Surgeries/Procedures: degenerative joint disease Neurological Surgical History: Reports: None Musculoskeletal Surgical History: Reports: Carpal Tunnel, Ganglion Cyst, Other (See Below) Other Musculoskeletal Surgeries/Procedures:: Left ankle ORIF with hardware Oncologic Surgical History: Reports: None Dermatological Surgical History: Reports: None Social & Family History - Family History Family Medical History: No Pertinent Family History Cardiac: Reports: Heart Murmur Respiratory: Reports: COPD Psychiatric: Reports: Depression, Schizophrenia - Tobacco Use Tobacco Use Status *Q: Current Every Day Tobacco User Years of Tobacco use: 24 Packs/Tins Daily: 1 - Caffeine Use Caffeine Use: Reports: Coffee, Tea - Recreational Drug Use Recreational Drug Use: No - Living Situation & Occupation Living situation: Reports: Single Occupation: Disabled (lives with Domestic Partner in [place], [place]. One grown child 18 years old.) ED ROS GENERAL - Review of Systems Review Of Systems: See Below Constitutional: Reports: Malaise. Denies: Fever, Chills HEENT: Denies: Vision Change Respiratory: Denies: Shortness of Breath Cardiovascular: Denies: Chest Pain GI/Abdominal: Reports: Abdominal Pain, Flatus, Nausea, Vomiting. Denies: Diarrhea : Reports: Other (Some increased urinary frequency but no other symptoms such as dysuria or flank pain) Skin: Reports: No Symptoms Neurological: Denies: Headache Psychiatric: Reports: Anxiety, Depression ED EXAM, GI/ABD - Physical Exam Exam: See Below Exam Limited By: No Limitations General Appearance: Alert, No Apparent Distress Eyes: Bilateral: Normal Appearance (No jaundice) Head: Atraumatic Respiratory/Chest: No Respiratory Distress, Lungs Clear Cardiovascular: Regular Rate, Rhythm GI/Abdominal Exam: Normal Bowel Sounds, Soft, Tender (Very tender to palpation with some moderate guarding across the lower central abdomen) Extremities: Normal Inspection, No Pedal Edema Neurological: Alert, Oriented Psychiatric: Anxious Course - Vital Signs Last Recorded V/S: Last Vital Signs Temp 98.0 F 10/04/21 16:49 Pulse 68 10/04/21 18:47 Resp 18 10/04/21 16:49 BP 103/85 10/04/21 18:47 Pulse Ox 96 10/04/21 18:47 - Orders/Labs/Meds Orders: Active Orders 24 hr Category Date Time Status CULTURE URINE [RM] Stat Lab 10/04/21 18:44 Received Isolation [COMM] Stat Oth 10/04/21 17:26 Ordered Labs: Laboratory Tests 10/04/21 10/04/21 10/04/21 Range/Units 17:42 17:42 17:42 WBC 11.1 H (4.5-11.0) K/uL RBC 4.87 (3.30-5.50) M/uL Hgb 14.0 (12.0-15.0) g/dL Hct 41.4 (36.0-48.0) % MCV 85 (80-98) fL MCH 29 (27-31) pg MCHC 34 (32-36) % Plt Count 215 (150-400) K/uL Neut % (Auto) 65.7 (36-66) % Lymph % (Auto) 24.3 (24-44) % [place] % (Auto) 7.0 H (2-6) % Eos % (Auto) 2.7 (2-4) % Baso % (Auto) 0.3 (0-1) % Sodium 144 (140-148) mmol/L Potassium 4.1 (3.6-5.2) mmol/L Chloride 108 (100-108) mmol/L Carbon Dioxide 27 (21-32) mmol/L Anion Gap 9.0 (5.0-14.0) mmol/L BUN 9 (7-18) mg/dL Creatinine 0.7 (0.6-1.0) mg/dL Est Cr Clr Drug Dosing 94.10 mL/min Estimated GFR (MDRD) > 60 (>60) Glucose 88 (74-106) mg/dL Calcium 7.8 L (8.5-10.1) mg/dL Total Bilirubin 0.2 (0.2-1.0) mg/dL AST 9 L (15-37) U/L ALT 20 (12-78) U/L Alkaline Phosphatase 69 (46-116) U/L C-Reactive Protein 0.15 (0.0-0.3) mg/dL Total Protein 5.9 L (6.4-8.2) g/dL Albumin 3.1 L (3.4-5.0) g/dL Globulin 2.8 (2.3-3.5) g/dL Albumin/Globulin Ratio 1.1 L (1.2-2.2) Amylase 38 (25-115) U/L Lipase 142 (73-393) U/L Urine Color (YELLOW) Urine Appearance (CLEAR) Urine pH (5.0-8.0) Ur Specific [place] (1.008-1.030) Urine Protein (NEGATIVE) mg/dL Urine Glucose (UA) (NEGATIVE) mg/dL Urine Ketones (NEGATIVE) mg/dL Urine Occult Blood (NEGATIVE) Urine Nitrite (NEGATIVE) Urine Bilirubin (NEGATIVE) Urine Urobilinogen (0.2-1.0) EU/dL Ur Leukocyte Esterase (NEGATIVE) Urine RBC (0-5) Urine WBC (0-5) Ur Epithelial Cells Amorphous Sediment Urine Bacteria Urine Mucus Urine Opiates Screen (NEGATIVE) Ur Oxycodone Screen (NEGATIVE) Urine Methadone Screen (NEGATIVE) Ur Propoxyphene Screen (NEGATIVE) Ur Barbiturates Screen (NEGATIVE) Ur Tricyclics Screen (NEGATIVE) Ur Phencyclidine Scrn (NEGATIVE) Ur Amphetamine Screen (NEGATIVE) U Methamphetamines Scrn (NEGATIVE) Urine MDMA Screen (NEGATIVE) U Benzodiazepines Scrn (NEGATIVE) U Cocaine Metab Screen (NEGATIVE) U Marijuana (THC) Screen (NEGATIVE) Influenza Type A RNA (NEGATIVE) RSV RNA (INAAT) (NEGATIVE) Influenza Type B RNA (NEGATIVE) SARS-CoV-2 RNA (CARYN) (NEGATIVE) 10/04/21 10/04/21 10/04/21 Range/Units 18:01 18:03 18:03 WBC (4.5-11.0) K/uL RBC (3.30-5.50) M/uL Hgb (12.0-15.0) g/dL Hct (36.0-48.0) % MCV (80-98) fL MCH (27-31) pg MCHC (32-36) % Plt Count (150-400) K/uL Neut % (Auto) (36-66) % Lymph % (Auto) (24-44) % [place] % (Auto) (2-6) % Eos % (Auto) (2-4) % Baso % (Auto) (0-1) % Sodium (140-148) mmol/L Potassium (3.6-5.2) mmol/L Chloride (100-108) mmol/L Carbon Dioxide (21-32) mmol/L Anion Gap (5.0-14.0) mmol/L BUN (7-18) mg/dL Creatinine (0.6-1.0) mg/dL Est Cr Clr Drug Dosing mL/min Estimated GFR (MDRD) (>60) Glucose (74-106) mg/dL Calcium (8.5-10.1) mg/dL Total Bilirubin (0.2-1.0) mg/dL AST (15-37) U/L ALT (12-78) U/L Alkaline Phosphatase (46-116) U/L C-Reactive Protein (0.0-0.3) mg/dL Total Protein (6.4-8.2) g/dL Albumin (3.4-5.0) g/dL Globulin (2.3-3.5) g/dL Albumin/Globulin Ratio (1.2-2.2) Amylase (25-115) U/L Lipase (73-393) U/L Urine Color Yellow (YELLOW) Urine Appearance Cloudy A (CLEAR) Urine pH 6.0 (5.0-8.0) Ur Specific [place] >= 1.030 (1.008-1.030) Urine Protein Negative (NEGATIVE) mg/dL Urine Glucose (UA) Negative (NEGATIVE) mg/dL Urine Ketones Negative (NEGATIVE) mg/dL Urine Occult Blood Trace-intact H (NEGATIVE) Urine Nitrite Positive H (NEGATIVE) Urine Bilirubin Negative (NEGATIVE) Urine Urobilinogen 0.2 (0.2-1.0) EU/dL Ur Leukocyte Esterase Trace H (NEGATIVE) Urine RBC 0-5 (0-5) Urine WBC 50-75 H (0-5) Ur Epithelial Cells Moderate Amorphous Sediment Not seen Urine Bacteria Many Urine Mucus Not seen Urine Opiates Screen Negative (NEGATIVE) Ur Oxycodone Screen Negative (NEGATIVE) Urine Methadone Screen Negative (NEGATIVE) Ur Propoxyphene Screen Negative (NEGATIVE) Ur Barbiturates Screen Negative (NEGATIVE) Ur Tricyclics Screen Negative (NEGATIVE) Ur Phencyclidine Scrn Negative (NEGATIVE) Ur Amphetamine Screen Presumptive positive H (NEGATIVE) U Methamphetamines Scrn Presumptive positive H (NEGATIVE) Urine MDMA Screen Negative (NEGATIVE) U Benzodiazepines Scrn Negative (NEGATIVE) U Cocaine Metab Screen Negative (NEGATIVE) U Marijuana (THC) Screen Negative (NEGATIVE) Influenza Type A RNA Negative (NEGATIVE) RSV RNA (INAAT) Negative (NEGATIVE) Influenza Type B RNA Negative (NEGATIVE) SARS-CoV-2 RNA (CARYN) Negative (NEGATIVE) Meds: Medications Discontinued Medications Generic Name Dose Route Start Last Admin Trade Name Freq PRN Reason Stop Dose Admin Hydromorphone HCl 0.5 mg 10/04/21 17:56 10/04/21 18:09 Hydromorphone 0.5 Mg/0.5 Ml Syringe IVPUSH 10/04/21 17:57 0.5 mg ONETIME ONE Administration Lactated Ringer's 1,000 mls @ 1,000 mls/hr 10/04/21 18:00 10/04/21 18:13 Ringers, Lactated IV 1,000 mls/hr ASDIRECTED APOLINAR Administration Ceftriaxone Sodium 1 gm/ 50 mls @ 100 mls/hr 10/04/21 18:48 10/04/21 19:15 Sodium Chloride IV 10/04/21 19:17 100 mls/hr ONETIME ONE Administration Ondansetron HCl 4 mg 10/04/21 18:10 10/04/21 18:15 Ondansetron 4 Mg/2 Ml Sdv IVPUSH 10/04/21 18:11 4 mg ONETIME ONE Administration - Re-Assessments/Exams Free Text/Narrative Re-Assessment/Exam: 10/04/21 18:29 IV was started by EMS, lactated Ringer's was hung with a history of pancreatitis. She will be bolused with 1 L of fluid, given 0.5 mg of IV Dilaudid, CBC, CMP, lactic acid lipase and amylase drawn. Also urine was obtained for urine drug screen and UA. 10/04/21 19:58 Labs were all very reassuring, white count was normal, chemistry profile normal. UA was abnormal with positive nitrite and bacteria, culture was initiated. Urine drug screen again showed methamphetamine. Patient seemed to calm down significantly after her dose of Dilaudid. IMPRESSION: 1. Changes of a gastric bypass without directly visible complication. 2. Prominent left adnexal structure measuring 4.4 x 2.3 x 4.3 centimeters. This is probably ovarian in origin. Since there is no other potential causes of lower abdominal pain on this examination, sonography should be considered for further evaluation. Above results were discussed with the patient. She has a long history of rec urring ovarian cysts, sometimes up to 3 to 4 inches. She was given 1 g of Rocephin IV, will be started on cephalexin pending the urine culture, and she was strongly encouraged to try to stop her methamphetamine abuse. Patient looked entirely comfortable on discharge. Departure - Departure Time of Disposition: 20:08 Disposition: Home, Self-Care 01 Clinical Impression: Lower abdominal pain UTI (urinary tract infection) Qualifiers: Urinary tract infection type: acute cystitis Hematuria presence: without hematuria Qualified Code(s): N30.00 - Acute cystitis without hematuria Ovarian cyst Qualifiers: Laterality: left Qualified Code(s): N83.202 - Unspecified ovarian cyst, left side - Discharge Information Instructions: Urinary Tract Infection, Adult Referrals: PCP,None [Primary Care Provider] - Forms: ED Department Discharge Care Plan Goals: Take antibiotic 3 times a day until gone starting tomorrow morning. Increase activity as tolerated, and consider rechecking in 2 to 3 days if not improving satisfactorily. Return sooner if worsening such as vomiting the medication, uncontrolled pain or persistent fever. Sepsis Event Note (ED) - Focused Exam Vital Signs: Vital Signs Temp Pulse Resp BP Pulse Ox 10/04/21 18:47 68 103/85 96 10/04/21 16:49 98.0 F 72 18 112/44 L 98 - My Orders Last 24 Hours: My Active Orders 10/04/21 18:44 CULTURE URINE [RM] Stat - Assessment/Plan Last 24 Hours: My Active Orders 10/04/21 18:44 CULTURE URINE [RM] Stat
[2021-10-04] MEDS ORDERED: Ondansetron 4 MG/2 ML SDV IVPUSH ONE (18:10)
[2021-10-04 18:47] VITALS: BP 103/85; PULSE 68
[2021-10-04 18:47] LABS: CORONAVIRUS COVID-19 NAA NEGATIVE (NEGATIVE)
[2021-10-04] MEDS ORDERED: cefTRIAXone 1 GM in Sodium Chloride 0.9% 50 ML IV ONE (18:48)
--- NOTE | 2021-10-04 19:54 | CRLCT ---
For Patients: As a result of the Century Cures Act, medical imaging exams and procedure reports are released immediately into your electronic medical record. You may view this report before your referring provider. If you have questions, please contact your health care provider. INDICATION: Lower abdominal pain. History of gastric bypass COMPARISON: September 05, 2020 TECHNIQUE: CT examination of the abdomen and pelvis was performed without intravenous contrast. Thin section axial images were obtained from the lung bases through the pubic symphysis. Oral contrast was not administered. Please note that all CT scans at this facility use dose modulation, iterative reconstruction, and/or weight-based dosing when appropriate to reduce radiation dose to as low as reasonably achievable. FINDINGS: LUNG BASES: The lung bases as visualized appear normal.The heart size is normal at the lung bases. LIVER/BILIARY SYSTEM:The liver is normal in size and configuration given the lack of intravenous contrast. There is no visible focal mass and there is no intra- or extra hepatic biliary ductal dilatation.The gallbladder is surgically absent ADRENALS: Normal non-contrast appearance KIDNEYS, URETERS and BLADDER:The kidneys appear normal given lack of intravenous contrast. No visible mass, calculus or hydronephrosis. The ureters and bladder as visualized appear normal. SPLEEN:Normal non-contrast appearance. PANCREAS: Normal non-contrast appearance. RETROPERITONEUM and MESENTERY: There is no mass, adenopathy or aortic aneurysm. GASTROINTESTINAL SYSTEM: Findings of a gastric bypass without directly visible complication by CT. No acute finding involving the bowel. PELVIS: Prominent left adnexal structure measuring 4.4 x 2.3 x 4.3 centimeters. This is probably ovarian in origin. Sonography of this should be considered especially as there is no other potential etiology for lower abdominal pain on this examination.. OSSEOUS STRUCTURES and ABDOMINAL WALL: Degenerative changes.No acute anterior abdominal wall 5 OTHER: No free fluid or free air. IMPRESSION: 1. Changes of a gastric bypass without directly visible complication. 2. Prominent left adnexal structure measuring 4.4 x 2.3 x 4.3 centimeters. This is probably ovarian in origin. Since there is no other potential causes of lower abdominal pain on this examination, sonography should be considered for further evaluation. Please note that all CT scans at this facility use dose modulation, iterative reconstruction, and/or weight-based dosing when appropriate to reduce radiation dose to as low as reasonably achievable. Dictated by Jay Page MD @ 10/04/2021 7:52:45 PM (Electronically Signed)
== END 2021-10-04 20:09 | disposition home or self-care (01) ==
LOC: JP.ED 16:25
DX: N30.00 Acute cystitis without hematuria (principal); N83.202 Unspecified ovarian cyst, left side; I10 Essential (primary) hypertension; K21.9 Gastro-esophageal reflux disease without esophagitis; E03.9 Hypothyroidism, unspecified; E66.9 Obesity, unspecified; Z68.37 Body mass index [BMI] 37.0-37.9, adult; Z88.0 Allergy status to penicillin; Z91.018 Allergy to other foods; Z91.040 Latex allergy status; Z88.8 Allergy status to other drugs, medicaments and biological substances; Z88.1 Allergy status to other antibiotic agents; Z79.899 Other long term (current) drug therapy; Z72.0 Tobacco use; Z20.822 Contact with and (suspected) exposure to COVID-19
CPT/HCPCS: 0241U; 36415; 74176; 80053; 80305; 81001; 82150; 83690; 85025; 86140; 87086; 87088; 87186; 96365; 96375; 99284; J0696; J1170; J2405; J7120

== ENCOUNTER 2022-02-12 03:53 | Emergency (ER) | payer MEDICAID ==
[2022-02-12 04:30] VITALS: BP 141/68; PULSE 87
[2022-02-12] MEDS ORDERED: rOPINIRole 1 MG Tab PO ONE (05:01)
== END 2022-02-12 05:15 | disposition home or self-care (01) ==
LOC: JP.ED 03:53
DX: G25.81 Restless legs syndrome (principal); I10 Essential (primary) hypertension; K21.9 Gastro-esophageal reflux disease without esophagitis; E03.9 Hypothyroidism, unspecified; E66.9 Obesity, unspecified; Z72.0 Tobacco use; Z68.41 Body mass index [BMI] 40.0-44.9, adult; Z88.0 Allergy status to penicillin; Z91.018 Allergy to other foods; Z88.1 Allergy status to other antibiotic agents; Z88.8 Allergy status to other drugs, medicaments and biological substances; Z88.6 Allergy status to analgesic agent; Z91.040 Latex allergy status
CPT/HCPCS: 99282; 99283; A9270-GY

== ENCOUNTER 2022-03-17 15:02 | Emergency (ER) | payer MEDICAID ==
[2022-03-17 15:16] VITALS: BP 138/77; PULSE 94
[2022-03-17] MEDS ORDERED: Albuterol/Ipratropium 3.0-0.5 MG/3 ML Neb Soln NEB ONE (15:29)
[2022-03-17 16:03] LABS: TROPONIN I HIGH SENSITIVITY 6.5 pg/mL (<=60.3)
[2022-03-17 16:22] LABS: CORONAVIRUS COVID-19 NAA NEGATIVE (NEGATIVE)
== END 2022-03-17 16:56 | disposition home or self-care (01) ==
LOC: JP.ED 15:02
DX: J21.9 Acute bronchiolitis, unspecified (principal); I10 Essential (primary) hypertension; K21.9 Gastro-esophageal reflux disease without esophagitis; E03.9 Hypothyroidism, unspecified; E66.9 Obesity, unspecified; Z68.41 Body mass index [BMI] 40.0-44.9, adult; Z88.0 Allergy status to penicillin; Z91.018 Allergy to other foods; Z88.1 Allergy status to other antibiotic agents; Z88.8 Allergy status to other drugs, medicaments and biological substances; Z91.040 Latex allergy status; Z72.0 Tobacco use; Z20.822 Contact with and (suspected) exposure to COVID-19
CPT/HCPCS: 0241U; 36415; 71046; 80053; 81001; 84484; 85025; 85379; 94640; 99285; 99282; J7620

== ENCOUNTER 2022-03-18 13:33 | Emergency (ER) | payer MEDICAID ==
[2022-03-18 13:45] VITALS: BP 153/63; PULSE 94
[2022-03-18] MEDS ORDERED: Albuterol/Ipratropium 3.0-0.5 MG/3 ML Neb Soln NEB ONE ×2 (14:41→16:51)
[2022-03-18] MEDS ORDERED: Sodium Chloride 0.9% 75 ML IV SCH (15:15)
[2022-03-18] MEDS ORDERED: Iopamidol 612 MG/ML 100 ML Bottle IV SCH (15:15)
[2022-03-18] MEDS ORDERED: Codeine/guaiFENesin 10-100 MG/5 ML Syrup 5 ML Cup PO ONE (16:51)
[2022-03-18] MEDS ORDERED: Formoterol/Mometasone 100-5 MCG 8.8 GM Inhaler IH SCH (21:00)
== END 2022-03-18 18:15 | disposition home or self-care (01) ==
LOC: JP.ED 13:33
DX: J45.41 Moderate persistent asthma with (acute) exacerbation (principal); F17.210 Nicotine dependence, cigarettes, uncomplicated; I10 Essential (primary) hypertension; F41.9 Anxiety disorder, unspecified; F32.A Depression, unspecified; D64.9 Anemia, unspecified; E66.9 Obesity, unspecified; Z68.39 Body mass index [BMI] 39.0-39.9, adult; Z88.8 Allergy status to other drugs, medicaments and biological substances; Z88.1 Allergy status to other antibiotic agents; Z88.0 Allergy status to penicillin
CPT/HCPCS: 36415; 71260; 80053; 83605; 83880; 84145; 85025; 87040; 94640; 99285; A9270; J3490; Q9967; 99283; J7620

== ENCOUNTER 2022-05-16 20:26 | Emergency (ER) | payer MEDICAID ==
[2022-05-16] MEDS ORDERED: Pantoprazole 40 MG Vial IVPUSH ONE (20:55)
[2022-05-16] MEDS ORDERED: Ondansetron 4 MG/2 ML SDV IVPUSH ONE (20:55)
[2022-05-16] MEDS ORDERED: Sodium Chloride 0.9% 1,000 ML IV SCH (21:00)
[2022-05-16 21:13] LABS: ESTIMATED GFR 117 mL/min (>60)
[2022-05-16] MEDS ORDERED: HYDROmorphone 0.5 MG/0.5 ML Syringe IVPUSH ONE (21:34)
[2022-05-16 21:47] VITALS: PULSE 89
[2022-05-16] MEDS ORDERED: HYDROmorphone 1 MG/ML Syringe IVPUSH ONE (22:38)
[2022-05-16] MEDS ORDERED: Iopamidol 612 MG/ML 100 ML Bottle IV STA (23:29)
[2022-05-16] MEDS ORDERED: Sodium Chloride 0.9% 50 ML IV STA (23:30)
[2022-05-17] MEDS ORDERED: Alum Hydrox/Mag Hydrox/Simeth 15 ML, Lidocaine 2% 15 ML PO ONE ×2 (00:27)
[2022-05-17] MEDS ORDERED: Ondansetron 4 MG/2 ML SDV IVPUSH ONE ×2 (01:38→02:15)
[2022-05-17] MEDS ORDERED: LORazepam 2 MG/ML SDV IVPUSH ONE ×2 (01:39→02:15)
[2022-05-17] MEDS ORDERED: LORazepam 2 MG/ML SDV ONE (02:08)
[2022-05-17] MEDS ORDERED: Ondansetron 4 MG/2 ML SDV ONE (02:10)
[2022-05-17 03:21] VITALS: BP 134/83
== END 2022-05-17 03:20 | disposition home or self-care (01) ==
LOC: JP.ED 20:26
DX: K44.9 Diaphragmatic hernia without obstruction or gangrene (principal); K21.9 Gastro-esophageal reflux disease without esophagitis; I10 Essential (primary) hypertension; E66.9 Obesity, unspecified; Z68.41 Body mass index [BMI] 40.0-44.9, adult; Z88.0 Allergy status to penicillin; Z88.8 Allergy status to other drugs, medicaments and biological substances; Z88.1 Allergy status to other antibiotic agents; Z91.018 Allergy to other foods; Z91.040 Latex allergy status; Z88.5 Allergy status to narcotic agent; Z79.899 Other long term (current) drug therapy; Z90.49 Acquired absence of other specified parts of digestive tract; Z90.710 Acquired absence of both cervix and uterus
CPT/HCPCS: 36415; 74177; 80053; 81001; 85025; 86140; 96361; 96374; 96375; 96376; 99284; A9270; C9113; J1170; J2060; J2405; J3490; J7030; Q9967

== ENCOUNTER 2022-06-02 15:49 | Emergency (ER) | payer MEDICAID ==
[2022-06-02 15:54] VITALS: BP 128/73; PULSE 95
== END 2022-06-02 17:39 | disposition home or self-care (01) ==
LOC: JP.ED 15:49
DX: R55 Syncope and collapse (principal); I10 Essential (primary) hypertension; K21.9 Gastro-esophageal reflux disease without esophagitis; E03.9 Hypothyroidism, unspecified; E66.9 Obesity, unspecified; F17.210 Nicotine dependence, cigarettes, uncomplicated; Z68.39 Body mass index [BMI] 39.0-39.9, adult; Z88.0 Allergy status to penicillin; Z88.8 Allergy status to other drugs, medicaments and biological substances; Z91.018 Allergy to other foods; Z91.040 Latex allergy status; Z88.5 Allergy status to narcotic agent; Z88.6 Allergy status to analgesic agent; Z88.1 Allergy status to other antibiotic agents
CPT/HCPCS: 36415; 80048; 83735; 85025; 99285

== ENCOUNTER 2022-06-18 00:23 | Emergency (ER) | payer MEDICAID ==
[2022-06-18] MEDS ORDERED: Ondansetron 4 MG/2 ML SDV IVPUSH ONE (00:50)
[2022-06-18] MEDS ORDERED: HYDROmorphone 0.5 MG/0.5 ML Syringe IVPUSH ONE (00:50)
[2022-06-18] MEDS ORDERED: Sodium Chloride 0.9% 10 ML Syringe FLUSH PRN (00:50)
[2022-06-18 00:52] VITALS: BP 148/112; PULSE 101
[2022-06-18] MEDS ORDERED: Acetaminophen/HYDROcodone 325-5 MG Tab PO ONE (02:15)
== END 2022-06-18 03:27 | disposition home or self-care (01) ==
LOC: JP.ED 00:23
DX: S89.92XA Unspecified injury of left lower leg, initial encounter (principal); M17.12 Unilateral primary osteoarthritis, left knee; I10 Essential (primary) hypertension; E66.9 Obesity, unspecified; Z68.44 Body mass index [BMI] 60.0-69.9, adult; Z88.0 Allergy status to penicillin; Z88.8 Allergy status to other drugs, medicaments and biological substances; Z91.018 Allergy to other foods; Z88.1 Allergy status to other antibiotic agents; Z91.040 Latex allergy status; Z88.5 Allergy status to narcotic agent; Z79.899 Other long term (current) drug therapy; Z90.49 Acquired absence of other specified parts of digestive tract; Z90.710 Acquired absence of both cervix and uterus; W18.39XA Other fall on same level, initial encounter
CPT/HCPCS: 73700; 96374; 96375; 99282; 99283; A9270; J1170; J2405; J3490